=== PATIENT | female | born 1990 | race Caucasian/White ===

== ENCOUNTER 2020-03-22 07:55 | Outpatient (CLI) | payer BC, SELFPAY ==
--- NOTE | ~2020-03-22 | NM_ITS ---
EXAM: NM gastric emptying study DATE: 03/22/2020 13:01 INDICATION: Gastroesophageal reflux disease. TECHNIQUE: A gastric emptying study was performed using the methodology of Kamala BURR, et al. J Nucl Med 2007; 48:568-572. The patient was given a meal consisting of 2 scrambled eggs labeled with 0.944 mCi Tc-99m sulfur colloid, 2 slices of toast, two packages of jam, and approximately 120 mL of water . Simultaneous anterior and posterior 1-min images of the abdomen were obtained with the patient supi ne at multiple time points over a total period of 4 hours. The geometric mean of anterior and posteri or views was determined, and the percentage retention was calculated for each time point. COMPARISON: CT abdomen and pelvis 02/01/2015 FINDINGS: Gastric retention of the radiotracer-labeled meal was 53%, 25%, and 8% at the 1-hour, 2-ho ur, and 4-hour time points, respectively. With this technique, apparent rapid gastric emptying is sug gested by <30% gastric retention at 1 hour. Delayed gastric emptying is defined by gastric retention of >90% at 1 hour, >60% retention at 2 hours, or >10% retention at 4 hours. IMPRESSION: 1. Normal gastric emptying. Reviewed, dictated and finalized at location A. IMPRESSION: 1. Normal gastric emptying.
[2020-03-22 08:52] LABS: Hematocrit 42.9 % (37.0-47.0); Hemoglobin 14.2 g/dL (12.0-15.0); Mean Corpuscular HGB Conc 33.1 g/dl (32-36); Mean Corpuscular Hemoglobin 30.1 pg (26-34); Mean Corpuscular Volume 90.9 fl (80-100); Mean Platelet Volume 10.7 fl (7.4-10.4); Platelet Count Result 380 k/mm3 (150-375); Red Blood Count 4.72 M/mm3 (4.2-5.4); Red Cell Distribution Width 12.5 % (11.5-14.5); White Blood Count 9.5 K/mm3 (4.5-10.0)
[2020-03-22 09:10] LABS: Alanine Aminotransferase 14 U/L (4-35); Albumin Level 4.6 g/dL (3.5-5.1); Alkaline Phosphatase 95 U/L (38-126); Anion Gap 13.5 mmol/L (7-16); Aspartate Amino Transferase 17 U/L (14-36); Bilirubin,Total 0.3 mg/dL (0.2-1.3); Blood Urea Nitrogen 13 mg/dL (7-17); CRP 0.9 mg/dL (<1.0); Carbon Dioxide 25 mmol/L (22-30); Chloride 105 mmol/L (98-107); Estimated Glomerular Filt Rate > 60; Glucose 93 mg/dL (65-105); Potassium 4.5 mmol/L (3.4-5.0); Sodium 139 mmol/L (137-145)
[2020-03-22 09:34] LABS: Thyroid Stimulating Hormone 0.765 uIU/mL (0.465-4.680)
== END 2020-03-22 07:56 | disposition home or self-care (01) ==
PROVIDERS: PCP Nurse Practitioner Family; Visit Provider Internal Medicine Gastroenterology
DX: K21.9 Gastro-esophageal reflux disease without esophagitis (principal)
CPT/HCPCS: 36415; 78264; 80053; 84436; 84443; 85027; 86140; A9541

== ENCOUNTER 2020-05-19 10:22 | Outpatient (CLI) | payer BC, SELFPAY ==
--- NOTE | ~2020-05-19 | US_ITS ---
EXAMINATION: US soft tissue head and neck DATE: 05/19/2020 11:09 INDICATION: Neck lump and pain. TECHNIQUE: Multiple grayscale and Doppler ultrasound images of the neck were obtained. COMPARISON: None FINDINGS: There are normal lymph nodes in the neck bilaterally. IMPRESSION: 1. No abnormal mass or lymphadenopathy. Reviewed, dictated and finalized at location A.
== END 2020-05-19 10:23 | disposition home or self-care (01) ==
PROVIDERS: PCP Nurse Practitioner Family; Visit Provider Nurse Practitioner Family
DX: R22.1 Localized swelling, mass and lump, neck (principal)
CPT/HCPCS: 76536

== ENCOUNTER 2020-07-10 08:28 | Outpatient (CLI) | payer BC, SELFPAY ==
--- NOTE | ~2020-07-10 | MR_ITS ---
EXAMINATION: MR brain/brain stem wo/w con DATE: 07/10/2020 11:12 INDICATION: Paresthesias of skin. Right-sided arm numbness. Bilateral leg tingling. Left facial heada carmen. TECHNIQUE: Magnetic resonance imaging (MRI) of the brain and brainstem was performed without and with 19 mL MultiHance intravenous contrast. Sequences included sagittal and axial T1-weighted FSE, axial diffusion-weighted FS EPI, axial T2*-weighted GRE, axial T2-weighted FLAIR Propeller, and axial T2-we ighted Propeller. Postcontrast sequences included axial, sagittal, and coronal T1-weighted FSE. Appar ent diffusion coefficient (ADC) maps were created. COMPARISON: None. FINDINGS: There is no intracranial hemorrhage, acute infarction, or abnormal intracranial mass lesion . The ventricles are normal in size. The mastoid air cells are normal. The paranasal sinuses are corrie r. The orbits are normal. IMPRESSION: 1. Normal brain. Reviewed, dictated and finalized at location B. 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 Normal brain.
--- NOTE | ~2020-07-10 | MR_ITS ---
EXAMINATION: MR thoracic spine wo/w con DATE: 07/10/2020 11:11 INDICATION: Paresthesias of skin. Bilateral leg tingling. TECHNIQUE: Magnetic resonance imaging (MRI) of the thoracic spine was performed without and with 19 m L MultiHance intravenous contrast. Sequences included sagittal and axial T2-weighted FSE, sagittal T2 -weighted FS FSE, and sagittal and axial T1-weighted FSE. Postcontrast sequences included sagittal an d axial T1-weighted FS FSE. COMPARISON: Thoracic spine MRI 12/21/16 FINDINGS: There is 3 degrees dextrocurvature of thoracic spine. Vertebral body heights are normal. Th e facet joints are unremarkable. At T6-T7, there is a left central extrusion with mild central canal stenosis and ventral indentation of the spinal cord. At T7-T8, there is a left central extrusion with mild central canal stenosis. At T8-T9, there is a left central extrusion with mild central canal darrell nosis and ventral indentation of the spinal cord. No neural foraminal stenosis. IMPRESSION: 1. Mild thoracic spondylosis, stable from 12/21/2016. Reviewed, dictated and finalized at location B. ED LINEN DISTRIBUTOR
--- NOTE | ~2020-07-10 | MR_ITS ---
EXAMINATION: MR cervical spine wo/w con DATE: 07/10/2020 11:12 INDICATION: Paresthesias of skin. Right arm numbness. Bilateral leg tingling. TECHNIQUE: Magnetic resonance imaging (MRI) of the cervical spine was performed without and with 19 m L MultiHance intravenous contrast. Sequences included sagittal T2-weighted FSE, sagittal STIR FSE, sa gittal T1-weighted FSE, axial MERGE, and axial T2-weighted FSE. COMPARISON: None FINDINGS: There is hyperlordosis of cervical spine. Vertebral body heights and intervertebral disc he ights are normal. The spinal cord signal intensity is normal. The following disc levels are specifica lly discussed: C2-C3: The disc does not extend beyond the endplate margin. There is no uncovertebral joint osteoarth ritis. There is no facet joint osteoarthritis. There is no neural foraminal stenosis. There is no melina tral canal stenosis. C3-C4: The disc does not extend beyond the endplate margin. There is no uncovertebral joint osteoarth ritis. There is no facet joint osteoarthritis. There is no neural foraminal stenosis. There is no melina tral canal stenosis. C4-C5: The disc does not extend beyond the endplate margin. There is no uncovertebral joint osteoarth ritis. There is no facet joint osteoarthritis. There is no neural foraminal stenosis. There is no melina tral canal stenosis. C5-C6: There is a central protrusion. There is no uncovertebral joint osteoarthritis. There is mild r ight facet joint osteoarthritis. There is no neural foraminal stenosis. There is no central canal darrell nosis. C6-C7: There is a central protrusion. There is no uncovertebral joint osteoarthritis. There is no fac et joint osteoarthritis. There is no neural foraminal stenosis. There is no central canal stenosis. C7-T1: The disc does not extend beyond the endplate margin. There is no uncovertebral joint osteoarth ritis. There is mild bilateral facet joint osteoarthritis. There is no neural foraminal stenosis. The re is no central canal stenosis. IMPRESSION: 1. Mild cervical spondylosis. Reviewed, dictated and finalized at location B. OPERATOR
[2020-07-10 09:24] LABS: Estimated Glomerular Filt Rate > 60
== END 2020-07-10 08:29 | disposition home or self-care (01) ==
LOC: ANHIMG 08:36
PROVIDERS: PCP Nurse Practitioner Family; Visit Provider Psychiatry & Neurology Neurology
DX: R20.2 Paresthesia of skin (principal); M47.894 Other spondylosis, thoracic region; M47.892 Other spondylosis, cervical region
CPT/HCPCS: 70553; 72156; 72157; A9577

== ENCOUNTER 2020-10-19 17:55 | Emergency (ER) | payer OTHER, SELFPAY ==
--- NOTE | 2020-10-19 17:57 | ED.HA ---
HPI - Headache General Chief Complaint: Headache Stated Complaint: bernardo Time Seen by Provider: 10/19/20 17:57 Source: patient Mode of arrival: ambulatory Limitations: no limitations History of Present Illness HPI Narrative: Patient is a 30-year-old female who presents complaining of a migraine x2 days. Patient reports a history of migraines and has a scheduled follow-up with neurology in 2 days. She reports taking enrl-anw-kucowia medications without relief. She reports mild nausea without vomiting as well as photophobia. Patient denies and all other complaints at this time. MD elicited complaint: migraine Related Data Home Medications Medication Instructions Recorded Confirmed propranolol 20 mg tablet 20 mg PO Q12H 08/06/20 10/19/20 aspirin [Adult Low Dose Aspirin] 81 mg PO DAILY 10/19/20 10/19/20 Allergies Allergy/AdvReac Type Severity Reaction Status Date / Time No Known Allergies Allergy Unverified 10/19/20 17:59 Review of Systems Review of Systems: Narrative: CONSTITUTIONAL: Denies fever, chills, or sweats. EYES: Denies visual changes, redness, or discharge. ENT: Denies rhinorrhea, congestion, sore throat, or otalgia. CARDIOVASCULAR: Denies chest pain, palpitations, or edema. RESPIRATORY: Denies cough or dyspnea. GASTROINTESTINAL: Denies abdominal pain, nausea, vomiting, or diarrhea. GENITOURINARY: Denies dysuria or hematuria. SKIN: Denies rash or itching. MUSCULOSKELETAL: Denies back pain, joint pain, or myalgia. NEUROLOGIC: Reports migraine headache with photophobia PSYCHIATRIC: Denies anxiety or depression. [facility] Past Medical History Medical History Acute tonsillitis GONZALO positive Anemia Anxiety Atypical face pain Back pain Bronchitis Cholecystectomy planned Colon polyps Depression Endometriosis Frequent headaches GERD (gastroesophageal reflux disease) IBS (irritable bowel syndrome) Jaw pain Sinusitis Trigeminal neuralgia syndrome UTI (urinary tract infection) Surgical History Surgical History History of appendectomy Hx of cholecystectomy Hx of tonsillectomy Family History Family History Father Hypertension Mother Hypertension Other Family history of cardiovascular disease Social History Social History Smoking status: Current every day smoker Tobacco type: e-cigarettes/vaping Alcohol intake: never Substance use: never Gender identity (if verbalized by the patient): Female Comments At the time of signature, I have reviewed and agree with nursing past medical, surgical, social, and family history unless otherwise noted. Please see nursing chart for further information. There is no relevant family history pertinent to the presenting complaint. Exam Narrative: Exam Narrative: GENERAL: Well-appearing, well-nourished, and in no acute distress. HEAD: Normocephalic, atraumatic. EYES: No redness or drainage. Conjunctiva are normal. ENT: Mucous membranes pink and moist. CHEST: No respiratory distress. HEART: Regular rate and rhythm. EXTREMITIES: Normal range of motion. SKIN: Warm, dry, no rash. NEURO: No focal deficits. Alert and oriented x3. Gait steady. PSYCH: Normal affect. No signs of depression or anxiety. MDM - Headache MDM Narrative Medical decision making narrative: Patient most likely has already seen neurology, has scheduled appointment next week with neurology and rheumatology. Patient given Toradol in urgent care as well as Zofran for nausea. Reports decreased headache at this time. Patient is aware that if headache increases she should go to the emergency department for further evaluation. Patient is stable for discharge to home with outpatient follow-up as discussed. Differential Diagnosis Differential diagnosis: Likel
[2020-10-19 18:01] VITALS: BP 147/83; PULSE 118; RESP 20; TEMP 36.3; O2SAT 100
[2020-10-19] MEDS: KETOROLAC (*BKC) 60 MG/2 ML VIAL IM (18:15)
[2020-10-19] MEDS: ONDANSETRON HCL ODT 4 MG TABLET PO (18:17)
[2020-10-19 18:38] VITALS: BP 124/84; PULSE 92; RESP 16
== END 2020-10-19 18:38 | disposition home or self-care (01) ==
PROVIDERS: Emergency Provider Nurse Practitioner; PCP Nurse Practitioner Family
DX: R51.9 Headache, unspecified (principal); F17.200 Nicotine dependence, unspecified, uncomplicated; K21.9 Gastro-esophageal reflux disease without esophagitis; N80.9 Endometriosis, unspecified; Z79.82 Long term (current) use of aspirin
CPT/HCPCS: 96372; 99213; A9270; G0463; J1885

== ENCOUNTER 2021-02-28 15:11 | Outpatient (CLI) | payer OTHER, SELFPAY ==
--- NOTE | ~2021-02-28 | CT_ITS ---
EXAMINATION: CT soft tissue neck wo con DATE: 02/28/2021 15:58 INDICATION: Sialoadenitis of the submandibular gland. TECHNIQUE: Computed tomography (CT) of the neck was performed without intravenous contrast. Automated exposure control and iterative reconstruction technique were employed. The dose-length product was 5 65.35 mGy-cm. COMPARISON: None FINDINGS: There are no pathologically enlarged lymph nodes. The major salivary glands are normal. The re is no sialolith. The paranasal sinuses are clear. The mastoid air cells are normal. The spine is u nremarkable. IMPRESSION: 1. Normal major salivary glands. No sialolith. Reviewed, dictated and finalized at location A.
== END 2021-02-28 15:12 | disposition home or self-care (01) ==
PROVIDERS: PCP Nurse Practitioner Family; Visit Provider Otolaryngology
DX: K11.20 Sialoadenitis, unspecified (principal)
CPT/HCPCS: 70490

== ENCOUNTER 2022-02-10 08:44 | Outpatient (CLI) | payer OTHER, SELFPAY ==
[2022-02-10 09:33] LABS: Hematocrit 43.9 % (37.0-47.0); Hemoglobin 14.7 g/dL (12.0-15.0); Mean Corpuscular HGB Conc 33.5 g/dl (32-36); Mean Corpuscular Hemoglobin 29.5 pg (26-34); Mean Corpuscular Volume 88.2 fl (80-100); Mean Platelet Volume 10.4 fl (7.4-10.4); Platelet Count Result 419 k/mm3 (150-375); Red Blood Count 4.98 M/mm3 (4.2-5.4); White Blood Count 10.3 K/mm3 (4.5-10.0)
[2022-02-10 09:58] LABS: Alanine Aminotransferase 16 U/L (6-35); Albumin Level 4.9 g/dL (3.5-5.1); Alkaline Phosphatase 101 U/L (38-126); Anion Gap 9 mmol/L (8-16); Aspartate Amino Transferase 17 U/L (14-36); Bilirubin,Total 0.7 mg/dL (0.2-1.3); Blood Urea Nitrogen 7 mg/dL (7-17); Calcium 9.1 mg/dL (8.4-10.2); Carbon Dioxide 24 mmol/L (22-30); Chloride 104 mmol/L (98-107); Cholesterol 228 mg/dL (0-200); Estimated Glomerular Filt Rate > 60; Glucose 92 mg/dL (65-110); HDL Direct 55 mg/dL; Hemoglobin A1C 5.2 % (<5.7); Potassium 4.1 mmol/L (3.4-5.0); Sodium 137 mmol/L (137-145); Triglycerides 187 mg/dL (<150)
[2022-02-10 10:02] LABS: Iron 99 ug/dL (37-170)
[2022-02-10 10:09] LABS: LDL Cholesterol Direct 132 mg/dL; Transferrin 239 mg/dL (206-381)
[2022-02-10 10:12] LABS: Percent Iron Saturation 31 % (20-50)
[2022-02-10 10:36] LABS: Thyroid Stimulating Hormone Reflex 0.862 uIU/mL (0.465-4.68)
== END 2022-02-10 08:45 | disposition home or self-care (01) ==
LOC: ANHLAB 08:46
PROVIDERS: PCP Nurse Practitioner Family; Visit Provider Nurse Practitioner Family
DX: Z13.0 Encounter for screening for diseases of the blood and blood-forming organs and certain disorders involving the immune mechanism (principal); Z13.1 Encounter for screening for diabetes mellitus; Z13.29 Encounter for screening for other suspected endocrine disorder; Z13.220 Encounter for screening for lipoid disorders
CPT/HCPCS: 36415; 80053; 80061; 82607; 83036; 83540; 83550; 84443; 84466; 85027

== ENCOUNTER 2022-03-02 00:17 | Inpatient (IN) | payer OTHER, SELFPAY ==
[2022-03-02] VITALS (17 sets, daily range): BP systolic 99–157; BP diastolic 45–116; PULSE 60–152; RESP 12–20; TEMP 35.8–36.7; O2SAT 90–100; BMI 34.6
--- NOTE | ~2022-03-02 | US_ITS ---
EXAMINATION: US abdomen limited DATE: 03/03/2022 09:51 INDICATION: Abnormal liver function tests TECHNIQUE: Multiple grayscale and Doppler ultrasound images of the abdomen were obtained. COMPARISON: None available FINDINGS: The head, body, and tail of the pancreas are normal. The liver is normal with normal echoge nicity and echotexture. No surface nodularity. Normal hepatopetal flow in the main portal vein. The g allbladder is surgically absent. The normal common bile duct measures 5 mm. IMPRESSION: 1. No sonographic correlate for the patient's symptoms. Reviewed, dictated and finalized at location B.
--- NOTE | ~2022-03-02 | MR_ITS ---
EXAMINATION: MR thoracic spine wo/w con, MR lumbar spine wo/w con DATE: 03/03/2022 09:39 INDICATION: Pain . L1 disc herniation. TECHNIQUE: 1. Magnetic resonance imaging (MRI) of the thoracic spine was performed without and with 20 mL Multih ance intravenous contrast. Sagittal localizer T1-weighted FSE of the cervicothoracic spine was obtain ed. Sequences included sagittal T2-weighted FSE, sagittal T2-weighted FS FSE, sagittal T1-weighted FS E and axial T1-weighted SE. Postcontrast sequences included axial T2-weighted FSE, sagittal T1-weight ed FS FSE, and axial T1-weighted FS SE. 2. MRI of the lumbar spine was performed without and with 20 mL MultiHance intravenous contrast utili zing the same contrast bolus. Sequences included sagittal T2-weighted FSE, sagittal T2-weighted FS FS E, and sagittal and axial T1-weighted FSE. Postcontrast sequences included axial T2-weighted FSE, sag ittal T1-weighted FSE, and axial and sagittal T1-weighted FS FSE. COMPARISON: CT lumbar spine dated 03/02/2022 and thoracic spine MR dated 07/10/2020 and 12/21/2016 FINDINGS: THORACIC SPINE MRI: Alignment is normal. Vertebral body heights are normal. Schmorl's nodes along the inferior endplates of T7 and T8. Mild disc height loss at T3-T4 and T6-T7 through T8-T9. Annular fissure and small centr al disc extrusion at T6-T7 with with disc material extending up to 6 mm cephalad to the inferior endp late of T6. Associated mild central canal stenosis but with mild flattening of the left ventral surfa ce of the cord. Annular fissure and small left paracentral disc extrusion with disc material extendin g up to 7 mm cephalad to the level of the inferior endplate of T7 which also mildly narrows the centr al canal. Annular fissure and slightly larger disc extrusion at T8-T9 which extends 3 mm cephalad to the level of the inferior endplate of T8 and measures 2-3 mm anteroposteriorly and 5 mm medial to lat eral. This mildly narrows the central canal and mildly flattens the left ventral surface of the cord. The remaining thoracic discs do not extend beyond the endplate margins. There is multilevel mild to moderate bilateral thoracic facet osteoarthritis without associated neural foraminal stenosis. No abn ormally enhancing lesions identified. Paravertebral soft tissues are unremarkable. LUMBAR SPINE MRI: Alignment is normal. Vertebral body heights are normal. Small Schmorl's node along the inferior endpl ate of L1. There is mild disc desiccation with mild disc height loss and minimal fibrovascular degene rative endplate changes at L1-L2. Marrow signals unremarkable. Remaining discs are normal. No abnorma lly enhancing lesions identified the paravertebral soft tissues are unremarkable. The following disc levels are specifically discussed: T12-L1: The disc does not extend beyond the endplate margin. There is mild left facet joint osteoarth ritis. There is no neural foraminal stenosis. There is no central canal stenosis. L1-L2: Disc is mildly bulging with superimposed annular fissure with central disc extrusion which juan sures 1.3 cm left to right, 7 mm AP and extends 7 mm cephalad to the level of the inferior endplate o f L1. This results in mild central canal stenosis. Greater degree than the previous noted extrusions in the thoracic spine. There is mild bilateral facet joint osteoarthritis. There is mild left neural foraminal stenosis. L2-L3: The disc does not extend beyond the endplate margin. There is mild bilateral facet joint osteo arthritis. There is no neural foraminal stenosis. There is no central canal stenosis. L3-L4: The disc does not extend beyond the endplate margin. There is mild bilateral facet joint osteo arthritis. There is no neural foraminal stenosis. There is no central canal stenosis. L4-L5: The disc does not extend beyond the endplate margin. There is mild bilateral facet joint osteo arthritis. There is mild bilat
--- NOTE | ~2022-03-02 | CT_ITS ---
EXAMINATION: CT lumbar spine wo con DATE: 03/02/2022 03:43 INDICATION: low back pain radiating down right leg . TECHNIQUE: Computed tomography (CT) of the lumbar spine was performed without intravenous contrast. A utomated exposure control and iterative reconstruction technique were employed. The dose-length produ ct was 1210.39 mGy-cm. COMPARISON: None. FINDINGS: 5 nonrib-bearing lumbar-type vertebral bodies. Pedicles intact. Slight straightening of the lumbar lordosis. Minimal anterior wedge deformity at the thoracolumbar junction, likely physiologic, otherwise the vertebral body heights are preserved. Moderate L1-T2 disc height loss and diffuse bulg e with superimposed 7 mm x 12 right paracentral extrusion, extending down the posterior aspect of the L2 vertebral body, causing moderate central canal stenosis. Mild L4-5 disc space narrowing and diffu se bulge with a 5 x 8 mm right paracentral extrusion extending along the posterior surface of the L5 vertebral body, narrowing the right lateral recess. Normal facets and posterior elements. No signific ant neural foraminal narrowing. Bilateral sclerosis and vacuum phenomenon in the SI joints. IMPRESSION: 1. Moderate degenerative disc disease at L1-2, with a right paracentral disc extrusion causing modera te central canal stenosis. 2. Mild degenerative disc disease at L4-5, with a right paracentral disc extrusion that causes narrow ing of the lateral recess. 3. Bilateral sacroiliitis. Reviewed, dictated and finalized at location K. IMPRESSION: 1. Moderate degenerative disc disease at L1-2, with a right paracentral disc ex trusion causing moderate central canal stenosis. 2. Mild degenerative disc disease at L4-5, with a right paracentral disc extrus ion that causes narrowing of the lateral recess. 3. Bilateral sacroiliitis.
--- NOTE | ~2022-03-02 | XR_ITS ---
XR chest 2V DATE: 03/02/2022 03:41 INDICATION: Syncopal episode today TECHNIQUE: 2 views, AP and lateral projections COMPARISON: 03/05/2021 PA chest FINDINGS: Normal heart size. No hilar or mediastinal enlargement. No pulmonary infiltrate or consolid ation, pleural effusion or pulmonary vascular congestion or pneumothorax. Status post cholecystectomy. IMPRESSION: No active cardiopulmonary disease Reviewed, dictated and finalized at location A.
--- NOTE | 2022-03-02 02:33 | ECG_ITS ---
Measurements Intervals [place] Rate: 83 P: 33 NM: 166 QRS: 39 QRSD: 98 T: 39 QT: 359 QTc: 424 Interpretive Statements SINUS RHYTHM BASELINE ARTIFACT- I, II, AVR NORMAL ECG Electronically Signed On 03-02-2022 7:41:42 CDT by Amado Don D.O.
--- NOTE | 2022-03-02 02:40 | ED.BACK ---
HPI - Back Pain/Injury General Chief Complaint: Back Pain/Injury <MERARI Shelley Last Filed: 03/02/22 17:09> Stated Complaint: back pain <MERARI Shelley Last Filed: 03/02/22 17:09> Time Seen by Provider: 03/02/22 02:26 <MERARI Shelley Last Filed: 03/02/22 17:09> Source: patient <MERARI Shelley Last Filed: 03/02/22 17:09> Mode of arrival: ambulatory <MERARI Shelley Last Filed: 03/02/22 17:09> Limitations: no limitations <MERARI Shelley Last Filed: 03/02/22 17:09> History of Present Illness HPI Narrative: This is a 32-year-old female that presents to the emergency department for lower back pain worsening over the last week. She has been taking a steroid taper and prescribed pain medication with some relief. She is scheduled for an MRI this Wednesday. Reports the pain tonight acutely worsened. She had a presyncopal type episode due to the pain. Reports she started to feel very lightheaded and had to lower herself to the floor. She does think that she lost consciousness. She did not hit her head or sustain any other injuries. The pain is in her lower back and radiates into her right leg. Reports longstanding history of lower back problems with sciatica. She sees a chiropractor due to this. Denies chest pain, shortness of breath, palpitations, saddle anesthesia, or bowel/bladder incontinence. <MERARI Shelley Last Filed: 03/02/22 17:09> Related Data Home Medications: Home Medications Medication Instructions Recorded Confirmed aspirin 81 mg tablet 81 mg PO DAILY 10/19/20 03/02/22 <MERARI Shelley Last Filed: 03/02/22 17:09> Allergies/Adverse Reactions: Allergies Allergy/AdvReac Type Severity Reaction Status Date / Time No Known Allergies Allergy Verified 03/02/22 02:50 <MERARI Shelley Last Filed: 03/02/22 17:09> Review of Systems Review of Systems: CONSTITUTIONAL: Denies fever CARDIOVASCULAR: Denies chest pain RESPIRATORY: Denies dyspnea. MUSCULOSKELETAL: Reports back pain, joint pain, and myalgia. NEUROLOGIC: Denies numbness, or weakness. <Jayla Griffiths PA-C - Last Filed: 03/02/22 17:09> All systems reviewed & are unremarkable except as noted in HPI and below <Jayla Griffiths PA-C - Last Filed: 03/02/22 17:09> [facility] Past Medical History Medical History: Medical History (Updated 03/02/22 @ 17:09 by Jayla Griffiths PA-C) Acute tonsillitis OGNZALO positive (~2020) Anemia Anxiety Atypical face pain Back pain Bronchitis Cholecystectomy planned Chronic low back pain Colon polyps Depression Diarrhea Endometriosis Frequent headaches GERD (gastroesophageal reflux disease) Hx of thrombocytopenia On ASA IBS (irritable bowel syndrome) Jaw pain Lyme disease of inner ear (~2020) Overweight Sinusitis Tobacco use Trigeminal neuralgia syndrome UTI (urinary tract infection) <Jayla Griffiths PA-C - Last Filed: 03/02/22 17:09> Surgical History Surgical History: Surgical History History of appendectomy Hx of cholecystectomy Hx of tonsillectomy <Jayla Griffiths PA-C - Last Filed: 03/02/22 17:09> Family History Family History: Family History Father Hypertension Family history of cardiovascular disease Mother Hypertension <Jayla Griffiths PA-C - Last Filed: 03/02/22 17:09> Social History Social History: Social History Social History: Lives alone. She has a dog. Denies alcohol or drug use. She does smoke E cigarettes with vaping daily. She is a full code. She nominates her mother to be the individual make medical decisions for her she is unable. Smoking status: Current every day smoker Tobacco type: e-cigarettes/vaping Second hand tobacco smoke exposure: No Alcohol
[2022-03-02] MEDS: KETOROLAC 15 MG/ML VIAL (*BKC) IV PUSH (02:56)
[2022-03-02] MEDS: diazePAM INJ (*CRX) 10 MG/2 ML SYRINGE 5 MG IV PUSH (02:57)
[2022-03-02 03:00] LABS: Basophils Percent Auto 0.3 % (0.2-1.2); Eosinophils Percent Auto 0.3 % (0-4.4); Hematocrit 40.8 % (37.0-47.0); Hemoglobin 13.6 g/dL (12.0-15.0); Immature Granulocyte Absolute 0.04 K/mm3 (0.00-0.031); Immature Granulocyte Percent A 0.3 % (0-0.5); Lymphocytes Absolute Auto 4.08 K/mm3 (0.9-3.2); Lymphocytes Percent Auto 28.6 % (18.3-44.2); Mean Corpuscular HGB Conc 33.3 g/dl (32-36); Mean Corpuscular Hemoglobin 29.6 pg (26-34); Mean Corpuscular Volume 88.7 fl (80-100); Mean Platelet Volume 9.7 fl (7.4-10.4); Monocytes Percent Auto 7.2 % (2.6-8.5); Neutrophils Percent Auto 63.3 % (45.5-73.1); Platelet Count Result 367 k/mm3 (150-375); White Blood Count 14.3 K/mm3 (4.5-10.0)
[2022-03-02 03:11] LABS: Alanine Aminotransferase 183 U/L (6-35); Albumin Level 4.2 g/dL (3.5-5.1); Alkaline Phosphatase 93 U/L (38-126); Anion Gap 4 mmol/L (8-16); Aspartate Amino Transferase 190 U/L (14-36); Bilirubin,Total 0.4 mg/dL (0.2-1.3); Blood Urea Nitrogen 14 mg/dL (7-17); Calcium 8.7 mg/dL (8.4-10.2); Carbon Dioxide 28 mmol/L (22-30); Chloride 105 mmol/L (98-107); Estimated CRCL calculation 111 ml/min; Estimated Glomerular Filt Rate > 60; Glucose 94 mg/dL (65-110); Potassium 3.7 mmol/L (3.4-5.0); Sodium 137 mmol/L (137-145)
[2022-03-02 03:23] LABS: Troponin I < 0.012 ng/mL (0.000-0.034)
[2022-03-02] MEDS: HYDROmorphone HCL INJ (*CRX) 1 MG/ML SYR 0.5 MG IV PUSH ×5 (06:07→22:18)
--- NOTE | 2022-03-02 06:58 | ADMGEN ---
This patient, Jackie Macedo, was admitted to [facility] Surg Room 319-01. Patient/family oriented to hospital policies and general routines including ID bracelet, bed and alarms, visiting hours, pain management, procedures, bathroom and other care routines, personal items, smoking policy, room service/diet, and visiting hours. Information on how to activate the Rapid Response Team has been discussed. Patient/Family are encouraged to report perceived risks to care and to ask questions if they do not understand what they are told or what they should do.
[2022-03-02] MEDS: KETOROLAC 30 MG/ML VIAL (*BKC) 15 MG IV PUSH (08:21)
--- NOTE | 2022-03-02 09:16 | PM.IMHP ---
H&P: HPI History of Present Illness Date/Time: 03/02/22 09:16 Chief Complaint: Low back pain; I couldn't take the pain no more? Narrative: 32-year-old female with migraines, tobacco abuse, irritable bowel syndrome and GONZALO positive here for acute on chronic low back pain. Patient has had chronic lumbar pain for over 10 years. She normally sees our chiropractor once a week for this. She has never had injections. She has never had surgery. She has never seen other providers for this. Did have a back MRI a few years ago and on chart review it appears she had a thoracic MRI which showed mild disc disease with annular fissures in small disc extrusion at T6-7 through T8-9. There is also minimal central canal stenosis at C6-7. Patient states the low back pain is constant and that she has intermittent flares with increased severity. She has never had any numbness, tingling or weakness in her extremities. She normally uses ice, stretching and increases her chiropractic visits. She takes Tylenol and ibuprofen for pain. She does have right-sided sciatic symptoms on occasion as well. About 6 days prior to admission, patient states ?my sciatic was acting up? that she describes as sharp, jolting pain as a shocking sensation in or right buttock posterior thigh and down to the inside of her right foot. That evening she did some stretching but the following morning she had trouble getting out of bed because of the pain. Right foot was tingling but no weakness. She states the pain has worsened over the past 5 days. She did contact her doctor and a steroid taper was called in as well as Tylenol 3. MRI scheduled for later this week. She states there was no benefit with the steroid taper and Tylenol No. 3 but later states that the sciatic symptoms actually improved. She has been able to walk at home. She denies any saddle anesthesia. No bowel or bladder incontinence. No symptoms of urine retention. She has been eating and drinking well. She does have a history of neck pain but denies any symptoms at this time. She does have migraines but no headaches. On the evening prior to admission patient felt nauseous because the pain. She try to make to the bathroom but pain was too severe. She felt diaphoretic and lightheaded. Her vision became blurry. She lowered herself to the floor and believes that she passed out. She denies any chest pain but just felt lightheaded. No vertigo symptoms. No fevers but feels cold and has shaking chills at times. She had called her family prior to this. Patient is unsure how long she was down. She denies any further sciatic symptoms but her right foot continues to tingle. She mentions that her left foot has become numb she began the day prior to admission. She did lay on the floor for 30 minutes when she came to. Family was able to get her back to bed but she was having increasing back spasms which prompted this admission. She had brought by private car. In the emergency room, patient was hemodynamically stable. She was tachycardic with a heart rate of 131. She was treated with Valium and Toradol. EKG was normal. White count was 14K otherwise CBC was normal. AST 190 and ALT 183. Troponin is negative. Urine test was negative. Chest x-ray preliminary reading was clear. CT lumbar spine pulmonary reading showed posterior disc osteophyte complex bulge at L1 with possible focal disc herniation possible impingement. She has no history of hepatitis. No history of IV drug use. No history of any drug use. She did have a needlestick in 2015 but appropriate serologies at the time were negative. Labs were repeated few months later and they remained negative. She denies any risky sexual behavior but later states that she did have unprotected intercourse few months ago. She was admitted for further care. Review of Systems Review of Systems: All systems reviewed & are unremarkable except as noted in HPI and below PMFSH
[2022-03-02 10:28] LABS: Acetaminophen < 10 ug/mL (10-30)
[2022-03-02 10:32] LABS: CRP 0.8 mg/dL (<1.0)
[2022-03-02 11:10] LABS: HIV 1/2 Ab P24 Ag Result Negative (Negative)
[2022-03-02] MEDS: oxyCODONE HCL (*CRX) 5 MG TAB IR PO ×3 (11:20→19:46)
[2022-03-02] MEDS: PANTOPRAZOLE 40 MG TABLET PO ×2 (11:22→18:25)
[2022-03-02] MEDS: DEXAMETHASONE SOD PHOS INJ 4 MG/ML VIAL IV PUSH ×2 (11:22→18:25)
[2022-03-02 11:30] LABS: Glucose Point of Care 123 mg/dl (65-105)
[2022-03-02 11:44] LABS: Hepatitis B Surface Antigen Negative (Negative)
[2022-03-02 11:49] LABS: HAV RESULT Negative (Negative); Hepatitis B Core IgM Result Negative (Negative)
[2022-03-02 12:02] LABS: Hepatitis B Surface Anti Res Positive; Hepatitis C Virus Antibody Negative (Negative)
[2022-03-02] MEDS: traMADol HCL (*CRX) 25 MG TABLET PO (12:28)
[2022-03-02 16:59] LABS: Glucose Point of Care 149 mg/dl (65-105)
[2022-03-02 21:28] LABS: Glucose Point of Care 134 mg/dl (65-105)
[2022-03-03] VITALS (7 sets, daily range): BP systolic 109–123; BP diastolic 53–74; PULSE 51–86; RESP 16–18; TEMP 36.1–36.7; O2SAT 97–99
[2022-03-03] MEDS: DEXAMETHASONE SOD PHOS INJ 4 MG/ML VIAL IV PUSH ×5 (00:15→23:57)
[2022-03-03] MEDS: oxyCODONE HCL (*CRX) 5 MG TAB IR PO ×3 (00:22→17:39)
[2022-03-03] MEDS: HYDROmorphone HCL INJ (*CRX) 1 MG/ML SYR 0.5 MG IV PUSH ×3 (02:17→19:56)
[2022-03-03] MEDS: traMADol HCL (*CRX) 25 MG TABLET PO ×2 (05:56→21:59)
[2022-03-03 07:32] LABS: Basophils Percent Auto 0.1 % (0.2-1.2); Hematocrit 42.5 % (37.0-47.0); Hemoglobin 13.9 g/dL (12.0-15.0); Immature Granulocyte Absolute 0.09 K/mm3 (0.00-0.031); Immature Granulocyte Percent A 0.6 % (0-0.5); Lymphocytes Percent Auto 10.4 % (18.3-44.2); Mean Corpuscular HGB Conc 32.7 g/dl (32-36); Mean Corpuscular Hemoglobin 29.4 pg (26-34); Mean Corpuscular Volume 89.9 fl (80-100); Mean Platelet Volume 10.2 fl (7.4-10.4); Monocytes Absolute Auto 0.4 K/mm3 (0.1-0.6); Monocytes Percent Auto 2.6 % (2.6-8.5); Neutrophils Absolute Auto 13.3 K/mm3 (1.3-6.7); Neutrophils Percent Auto 86.3 % (45.5-73.1); Platelet Count Result 409 k/mm3 (150-375); Red Blood Count 4.73 M/mm3 (4.2-5.4); Red Cell Distribution Width 12.9 % (11.5-14.5); White Blood Count 15.4 K/mm3 (4.5-10.0)
[2022-03-03 07:48] LABS: Alanine Aminotransferase 159 U/L (6-35); Albumin Level 4.5 g/dL (3.5-5.1); Alkaline Phosphatase 96 U/L (38-126); Anion Gap 9 mmol/L (8-16); Aspartate Amino Transferase 28 U/L (14-36); Bilirubin,Total 0.2 mg/dL (0.2-1.3); Blood Urea Nitrogen 10 mg/dL (7-17); Carbon Dioxide 24 mmol/L (22-30); Chloride 106 mmol/L (98-107); Estimated CRCL calculation 146 ml/min; Estimated Glomerular Filt Rate > 60; Glucose 121 mg/dL (65-110); Potassium 4.2 mmol/L (3.4-5.0); Sodium 139 mmol/L (137-145)
[2022-03-03 07:54] LABS: Glucose Point of Care 123 mg/dl (65-105)
[2022-03-03] MEDS: COLESTIPOL HCL 1 GM TABLET PO (10:05)
[2022-03-03] MEDS: PANTOPRAZOLE 40 MG TABLET PO ×2 (10:05→17:40)
[2022-03-03] MEDS: ASPIRIN 81 MG CHEWABLE TABLET PO (10:05)
[2022-03-03 11:44] LABS: Glucose Point of Care 167 mg/dl (65-105)
--- NOTE | 2022-03-03 12:04 | PM.IMPN ---
Progress Note: A&P Assessment and Plan (1) Syncope: Code(s): R55 - Syncope and collapse Status: Acute (2) Acute exacerbation of chronic low back pain: Code(s): M54.50 - Low back pain, unspecified; G89.29 - Other chronic pain Status: Acute (3) Elevated LFTs: Code(s): R79.89 - Other specified abnormal findings of blood chemistry Status: Acute (4) GONZALO positive: Onset Date: ~2019 Code(s): R76.8 - Other specified abnormal immunological findings in serum Status: Acute (5) Tobacco use: Code(s): Z72.0 - Tobacco use Status: Acute Plan # Syncope: likely vasovagal due to severe pain. telemetry reviewed. sinus tachycardia. no other arrhythmia noted. will stop telemetry monitoring. Labs are all unremarkable # acute on chronic low back pain: Lumbar CT with moderate degenerative disc disease at L1-L2 with the right parasternal disc extrusion causing moderate central canal stenosis. Mild degenerative disc disease at L4-5 with right parasternal disc extrusion that cause narrowing of the lateral recess. Bilateral sacroiliitis noted as well. Follow-up lumbar and Thoracics MRI shows mild thoracic spondylosis is unchanged since 2017 with mild lumbar spondylosis most notable for annular fissure and moderate size disc extrusion resulting in mild central cannula stenosis at L1-L2. She is recently treated with steroid pack. Which is continued here as well will add muscle relaxants. Pain control with Tylenol Toradol and Dilaudid. She will need referral to see neurosurgeon as outpatient. Continue PT OT. Add naproxen scheduled. # GONZALO positive history of anti positives repeated again. check esr, crp. # Bilateral sacral ileitis will check HLA B27 # migraine intractable right sided, chornic without aura. check ESR. Has tried Ubrelvy which has helped. Failed Imitrex. Amitriptyline made her drowsy. Not on control. Topamax might not be an option. Since will be helped this can be uses a preventative medication now as well she will discuss this with her PCP # elevated liver enzymes hepatitis panel ordered HIV negative. Right upper quadrant ultrasound unremarkable # DVT prophylaxis SCDs ambulatory # code status full code Subjective Date/time seen: 03/03/22 12:04 Interval history: 32-year-old female with migraines, tobacco abuse, irritable bowel syndrome and GONZALO positive here for acute on chronic low back pain.? Patient has had chronic lumbar pain for over 10 years.? She normally sees our chiropractor once a week for this.? She has never had injections.? She has never had surgery.? She has never seen other providers for this.? Did have a back MRI a few years ago and on chart review it appears she had a thoracic MRI which showed mild disc disease with annular fissures in small disc extrusion at T6-7 through T8-9.? There is also minimal central canal stenosis at C6-7.? Patient states the low back pain is constant and that she has intermittent flares with increased severity.? She has never had any numbness, tingling or weakness in her extremities.? She normally uses ice, stretching and increases her chiropractic visits.? She takes Tylenol and ibuprofen for pain.? She does have right-sided sciatic symptoms on occasion as well.? About 6 days prior to admission, patient states ?my sciatic was acting up? that she describes as sharp, jolting pain as a shocking sensation in or right buttock posterior thigh and down to the inside of her right foot.? That evening she did some stretching but the following morning she had trouble getting out of bed because of the pain.? Right foot was tingling but no weakness. She states the pain has worsened over the past 5 days.? She did contact her doctor and a steroid taper was called in as well as Tylenol 3. MRI scheduled for later this week.? She states there was no benefit with the steroid taper and Tylenol No. 3 but later states that the sciatic symptoms actually improved.? She
[2022-03-03 13:38] LABS: CRP 0.8 mg/dL (<1.0)
[2022-03-03 13:48] LABS: Erythrocyte Sedimentation Rate 5 mm/hr (0-20)
[2022-03-03] MEDS: CYCLOBENZAPRINE HCL 5 MG TABLET PO ×2 (14:30→21:58)
[2022-03-03 16:29] LABS: Glucose Point of Care 114 mg/dl (65-105)
[2022-03-03] MEDS: NAPROXEN 500 MG TABLET PO (17:40)
[2022-03-04 06:00] VITALS: BP 104/63; PULSE 56; RESP 18; TEMP 36.8; O2SAT 96
[2022-03-04] MEDS: oxyCODONE HCL (*CRX) 5 MG TAB IR PO ×3 (06:10→20:01)
[2022-03-04] MEDS: DEXAMETHASONE SOD PHOS INJ 4 MG/ML VIAL IV PUSH (06:10)
[2022-03-04] MEDS: CYCLOBENZAPRINE HCL 5 MG TABLET PO ×3 (06:10→21:51)
[2022-03-04 07:32] LABS: Glucose Point of Care 143 mg/dl (65-105)
[2022-03-04 07:48] LABS: Basophils Percent Auto 0.1 % (0.2-1.2); Hematocrit 41.1 % (37.0-47.0); Hemoglobin 13.5 g/dL (12.0-15.0); Immature Granulocyte Absolute 0.12 K/mm3 (0.00-0.031); Immature Granulocyte Percent A 0.7 % (0-0.5); Lymphocytes Absolute Auto 2.17 K/mm3 (0.9-3.2); Lymphocytes Percent Auto 11.8 % (18.3-44.2); Mean Corpuscular HGB Conc 32.8 g/dl (32-36); Mean Corpuscular Hemoglobin 29.7 pg (26-34); Mean Corpuscular Volume 90.3 fl (80-100); Mean Platelet Volume 10.3 fl (7.4-10.4); Monocytes Absolute Auto 1.2 K/mm3 (0.1-0.6); Monocytes Percent Auto 6.3 % (2.6-8.5); Neutrophils Absolute Auto 14.9 K/mm3 (1.3-6.7); Neutrophils Percent Auto 81.1 % (45.5-73.1); Platelet Count Result 399 k/mm3 (150-375); Red Blood Count 4.55 M/mm3 (4.2-5.4); Red Cell Distribution Width 13.1 % (11.5-14.5); White Blood Count 18.4 K/mm3 (4.5-10.0)
[2022-03-04 08:04] LABS: Alanine Aminotransferase 86 U/L (6-35); Alkaline Phosphatase 79 U/L (38-126); Anion Gap 7 mmol/L (8-16); Aspartate Amino Transferase 15 U/L (14-36); Bilirubin,Total < 0.1 mg/dL (0.2-1.3); Blood Urea Nitrogen 13 mg/dL (7-17); Calcium 8.7 mg/dL (8.4-10.2); Carbon Dioxide 23 mmol/L (22-30); Chloride 106 mmol/L (98-107); Estimated CRCL calculation 146 ml/min; Estimated Glomerular Filt Rate > 60; Glucose 122 mg/dL (65-110); Magnesium 2.2 mg/dL (1.6-2.3); Potassium 4.2 mmol/L (3.4-5.0); Sodium 136 mmol/L (137-145)
[2022-03-04] MEDS: HYDROmorphone HCL INJ (*CRX) 1 MG/ML SYR 0.5 MG IV PUSH ×2 (08:48→21:51)
[2022-03-04] MEDS: PANTOPRAZOLE 40 MG TABLET PO ×2 (08:49→18:23)
[2022-03-04] MEDS: NAPROXEN 500 MG TABLET PO ×2 (08:49→18:24)
[2022-03-04] MEDS: COLESTIPOL HCL 1 GM TABLET PO (08:49)
[2022-03-04] MEDS: ASPIRIN 81 MG CHEWABLE TABLET PO (08:49)
[2022-03-04 11:28] LABS: Glucose Point of Care 155 mg/dl (65-105)
[2022-03-04] MEDS: methylPREDNISolone (MEDROL) DOSEPACK 4 MG TABLETS PO (12:19)
[2022-03-04 14:00] VITALS: BP 122/62; PULSE 72; RESP 16; TEMP 36.2; O2SAT 98
--- NOTE | 2022-03-04 16:19 | PM.IMPN ---
Progress Note: A&P Assessment and Plan (1) Syncope: Code(s): R55 - Syncope and collapse Status: Acute (2) Acute exacerbation of chronic low back pain: Code(s): M54.50 - Low back pain, unspecified; G89.29 - Other chronic pain Status: Acute (3) Elevated LFTs: Code(s): R79.89 - Other specified abnormal findings of blood chemistry Status: Acute (4) GONZALO positive: Onset Date: ~2019 Code(s): R76.8 - Other specified abnormal immunological findings in serum Status: Acute (5) Tobacco use: Code(s): Z72.0 - Tobacco use Status: Acute Plan Syncope likely vasovagal due to the severe pain. She was on telemetry but no significant dysrhythmias noted. Telemetry stopped. Labs are unrevealing. She does have acute on chronic low back pain. Lumbar CT with moderate degenerative disc disease at L1-L2 with the right parasternal disc extrusion causing moderate central canal stenosis. Mild degenerative disc disease at L4-5 with right parasternal disc extrusion that cause narrowing of the lateral recess. Bilateral sacroiliitis noted as well. Follow-up lumbar and Thoracics MRI shows mild thoracic spondylosis that is unchanged since 2017 with mild lumbar spondylosis most notable for annular fissure and moderate size disc extrusion resulting in mild central cannula stenosis at L1-L2. She was recently treated with steroid pack. She was started on Decadron here. Muscle relaxants added. Pain control with Tylenol Toradol and Dilaudid. Scheduled naproxen added. GONZALO positive history although not performed here. ESR and CRP normal. She does have bilateral sacral ileitis and HLA B27 was ordered. She also with migraines right-sided which is chronic. She has tried multiple medications without benefit. Her LFTs have improved. Hepatitis and HIV were negative. Upper quadrant ultrasound was negative. Elevated liver enzymes may be related to a viral illness. Will transition back to Medrol Dosepak. Will consult Neurosurgery. Continue PT OT. Spoke with Neurosurgery by phone later in the day. Hospital course discussed. Recommended changing back to Decadron orally while hospitalized. Recommend following up with neuro surgery in the clinic. Will see how she does with Decadron. Hopefully home tomorrow with follow-up. DVT prophylaxis: SCDs, ambulatory Code status: full code Subjective Date/time seen: 03/04/22 16:19 Interval history: 32yo female with migraines, tobacco abuse, irritable bowel syndrome and GONZALO positive here for acute on chronic low back pain.? Resuming care. Chart reviewed. Patient having increasing pain still. She is able to walk to the bathroom now. She feels the steroids are helping her hip pain. Exam Narrative: AF 97.1 122/62 72 16 98% ra Gen - NARD sitting up beside the bed Chest -clear to auscultation bilaterally. CV - RRR S1-S2 Abd - soft, nontender, nondistended, positive bowel sound Ext - no pedal edema Psych - normal mood and affect. Skin - warm and dry. Objective Data Vital Signs Vital Signs: Vital Signs - 24 hr 03/03/22 22:00 03/04/22 06:00 03/04/22 08:49 Temperature 97.6 F 98.3 F Pulse Rate 75 56 L Respiratory Rate 18 18 Blood Pressure 109/53 L 104/63 Pulse Oximetry 98 96 Oxygen Delivery Room Air 03/04/22 14:00 Temperature 97.1 F L Pulse Rate 72 Respiratory Rate 16 Blood Pressure 122/62 Pulse Oximetry 98 Oxygen Delivery Intake/Output Intake/Output: Intake & Output 03/01/22 03/02/22 03/03/22 03/04/22 23:59 23:59 23:59 23:59 Intake Total 1320 3700 560 Balance 1320 3700 560 Meds/Results Medications: Active Medications Generic Name Dose Route Start Last Admin Trade Name Freq PRN Reason Stop Dose Admin Acetaminophen 650 mg 03/04/22 13:19 Acetaminophen 325 Mg Tablet PO Q6H PRN Mild Pain (1-3) or Fever Aspirin 81 mg 03/03/22 08:00 03/04/22 08:49 Aspirin 81 Mg Chewable
[2022-03-04 16:35] LABS: Glucose Point of Care 143 mg/dl (65-105)
[2022-03-04 19:18] LABS: Hepatitis B Core Ab Total Nonreactive (Nonreactive)
[2022-03-04 22:00] VITALS: BP 106/66; PULSE 68; RESP 16; TEMP 37.1; O2SAT 98
[2022-03-05] MEDS: oxyCODONE HCL (*CRX) 5 MG TAB IR PO ×3 (05:37→17:52)
[2022-03-05] MEDS: CYCLOBENZAPRINE HCL 5 MG TABLET PO ×2 (05:38→13:10)
[2022-03-05 06:00] VITALS: BP 110/64; PULSE 70; RESP 16; TEMP 36.6; O2SAT 100
[2022-03-05 08:19] LABS: Glucose Point of Care 93 mg/dl (65-105)
[2022-03-05] MEDS: NAPROXEN 500 MG TABLET PO ×2 (10:11→17:47)
[2022-03-05] MEDS: ASPIRIN 81 MG CHEWABLE TABLET PO (10:11)
[2022-03-05] MEDS: DEXAMETHASONE 2 MG TABLET PO ×3 (10:11→17:47)
[2022-03-05] MEDS: PANTOPRAZOLE 40 MG TABLET PO ×2 (10:12→17:48)
[2022-03-05 12:01] LABS: Glucose Point of Care 100 mg/dl (65-105)
[2022-03-05 14:00] VITALS: BP 124/47; PULSE 92; RESP 18; TEMP 36.5; O2SAT 99
--- NOTE | 2022-03-05 14:55 | WPDCN ---
Assessment and Plan Assessment and plan (1) Lumbar disc herniation: Code(s): M51.26 - Other intervertebral disc displacement, lumbar region Status: Acute Assessment and Plan: Ms. Macedo is a 32-year-old female with new onset back and lower extremity discomfort who is having an exacerbation which is worse than previous exacerbations making it difficult for her to ambulate effectively. She is improving on oral steroids. The next treatment steps for her would be most efficiently dealt with as an outpatient. This could include physical therapy or injections by hand painter. Attention should be on making her comfortable enough to ambulate effectively make transfers independently so that she can be discharged to follow up with us in the office and perhaps me with a hand painter for injection. If she fails to improve conservatively then surgery may be necessary. At this point the only surgery that makes sense would be a right-sided L1-2 microdiskectomy. I do not believe that she requires a fusion or instrumentation at this point and it would be in her best interest to avoid surgery altogether. We will follow up with her as an outpatient and I will continue to follow a she is an inpatient. HPI Data of Consult Date/Time: 03/05/22 14:55 Requesting Physician: Freddy Jung MD Primary Care Provider: Liz Carrasco, BUSINESS LIAISON OFFICER- Consult Narrative Reason for consult: Back and leg pain Narrative: Jackie Macedo is a 32 year old female with a week and a half history of pain in her back radiating into her right lower extremity. This is mostly proximal but occasionally extends all the way down to the foot nonspecifically. She has had similar episodes in the past but never as severe as the 1 she is having now. She is seeing a chiropractor most recently to try to deal with this difficulty. This has been helpful in maintaining her. She has been hospitalized because of this event and her inability to ambulate because of pain. As mentioned the pain is in her back radiating towards the right side at times all the way down the leg and is not associated with specific muscle group weakness. Nor does she have any specific dermatomal numbness. She is not having any bowel or bladder difficulty. She is currently being treated with oral steroids and is improving. She has been ambulatory today. She has no MRI evaluation of the thoracic and lumbar spine which is available for review. She 1st felt this discomfort at work a week ago Wednesday, that is about 9 days ago. She had an exacerbation of her typical sciatica but this generalized to be pain down the right lower extremity. The episode became worse than previous episodes. Review of Systems Review of Systems: Negative on 12 systems except as noted above. She specifically denies shortness of breath, cough, fever, chills, nausea, vomiting, chest pain. [facility] Past Medical History Medical History Acute tonsillitis GONZALO positive (~2019) Anemia Anxiety Atypical face pain Back pain Bronchitis Cholecystectomy planned Chronic low back pain Colon polyps Depression Diarrhea Endometriosis Frequent headaches GERD (gastroesophageal reflux disease) Hx of thrombocytopenia On ASA IBS (irritable bowel syndrome) Jaw pain Lyme disease of inner ear (~2019) Overweight Sinusitis Tobacco use Trigeminal neuralgia syndrome UTI (urinary tract infection) Surgical History Surgical History History of appendectomy Hx of cholecystectomy Hx of tonsillectomy Family History Family History Father Hypertension Family history of cardiovascular disease Mother Hypertension Social History Social History Social History: Lives alone. She has a dog.
[2022-03-05 16:49] LABS: Glucose Point of Care 127 mg/dl (65-105)
--- NOTE | 2022-03-05 17:06 | PM.DS ---
DS: Admitting Diagnosis Discharge Date 03/05/22 Admitting Diagnosis Back pain DS: Discharge Diagnosis Discharge Diagnosis (1) Syncope: Code(s): R55 - Syncope and collapse Status: Acute (2) Acute exacerbation of chronic low back pain: Code(s): M54.50 - Low back pain, unspecified; G89.29 - Other chronic pain Status: Acute (3) Elevated LFTs: Code(s): R79.89 - Other specified abnormal findings of blood chemistry Status: Acute (4) GONZALO positive: Onset Date: ~2019 Code(s): R76.8 - Other specified abnormal immunological findings in serum Status: Acute (5) Tobacco use: Code(s): Z72.0 - Tobacco use Status: Acute DS: Summary Hospital Course Reason for hospitalization: 32yo female with migraines, tobacco abuse, irritable bowel syndrome and GONZALO positive here for acute on chronic low back pain.? Please see H&P for details. Hospital Course: Syncope likely vasovagal due to the severe pain. She was on telemetry but no significant dysrhythmias noted. Telemetry was stopped. Labs were unrevealing except LFTs elevated. Chest x-ray was clear. She presents with acute on chronic low back pain. Lumbar CT with moderate degenerative disc disease at L1-L2 with the right parasternal disc extrusion causing moderate central canal stenosis. Mild degenerative disc disease at L4-5 with right parasternal disc extrusion that cause narrowing of the lateral recess. Bilateral sacroiliitis noted as well. Follow-up lumbar and Thoracics MRI shows mild thoracic spondylosis that is unchanged since 2017 with mild lumbar spondylosis most notable for annular fissure and moderate size disc extrusion resulting in mild central cannula stenosis at L1-L2. She was recently treated with steroid pack. She was started on Decadron here. Muscle relaxants added. Pain control with Tylenol, Toradol and Dilaudid. Scheduled naproxen added. GONZALO positive history GONZALO was negative here. ESR and CRP normal. She does have bilateral sacroiliitis and HLA B27 was ordered. She also with migraines right-sided which is chronic. She has tried multiple medications without benefit. Her LFTs have improved. Hepatitis and HIV were negative. Upper quadrant ultrasound was negative. Elevated liver enzymes may be related to a viral illness. We consulted Neurosurgery. She worked with PT and OT. She did well with some improvement in her pain. She was able to be discharged home on 03/05/22 Status at Discharge Cognitive/behavioral status at discharge: Stable Time Spent with Patient Time attestation: Total time spent providing and/or coordinating discharge services: 35 minutes Time spent: Greater than 30 minutes Exam Narrative: AF 97.7 124/47 92 18 99% ra Gen - NARD Chest -clear to auscultation bilaterally. CV - RRR S1-S2 Abd - soft, nontender, nondistended, positive bowel sound Ext - no pedal edema Psych - normal mood and affect. Skin - warm and dry. DS: Data Data Completed and Pending Labs on day of discharge: Labs from last 24 hours 03/05/22 03/05/22 03/05/22 16:45 11:55 08:12 POC Capillary Glucose 127 H 100 93 GONZALO Screen Hep B Core Total Ab 03/02/22 03/02/22 10:10 10:10 POC Capillary Glucose GONZALO Screen Negative Hep B Core Total Ab Nonreactive Discharge Plan Discharge Attending physician on discharge: Eusebio Lara Consulting providers: Jayla Griffiths ; Nasim Devi Discharging Clinician: Eusebio Lara Anticipated Discharge Date/Time: 03/05/22 17:11 Patient Disposition: Home, Self-Care Activity: as tolerated Diet: regular Discharge Instructions: Take precautions to avoid falls. Rise slowly from a lying or sitting position. Pause before standing or walking. Contact your doctor or call 911 and come to the Emergency Room if you have numbness or tingling in the feet, weakness in the legs or other worrisome symptoms. Follow-up
[2022-03-05 21:30] LABS: HLA B27 Negative (Negative)
--- NOTE | 2022-03-07 07:33 | PC.NURSE ---
HLA B27 is negative. Dr. Marco aquino.
== END 2022-03-05 18:35 | disposition home or self-care (01) | DRG 552 ==
LOC: ANHED 02:38 → ANH3MEDSUR 05:55
PROVIDERS: Internal Medicine; Physician Assistant; Admitting Provider Internal Medicine; Emergency Provider Emergency Medicine; PCP Nurse Practitioner Family; Visit Provider Internal Medicine
DX: M51.26 Other intervertebral disc displacement, lumbar region (principal); R55 Syncope and collapse; M51.36 Other intervertebral disc degeneration, lumbar region; M47.896 Other spondylosis, lumbar region; M48.061 Spinal stenosis, lumbar region without neurogenic claudication; R76.8 Other specified abnormal immunological findings in serum; G43.909 Migraine, unspecified, not intractable, without status migrainosus; K58.9 Irritable bowel syndrome, unspecified; D64.9 Anemia, unspecified; K21.9 Gastro-esophageal reflux disease without esophagitis; F17.290 Nicotine dependence, other tobacco product, uncomplicated; Z90.49 Acquired absence of other specified parts of digestive tract
CPT/HCPCS: 36415; 71046; 72131; 72157; 72158; 76705; 80053; 80307; 81025; 82948; 83735; 84484; 85025; 85652; 86038; 86140; 86703; 86704; 86705; 86706; 86709; 86803; 86812; 87340; 93005; 96374; 96375; 96376; 97110; 97161; 97165; 99285; A9270; A9577; G0378; G0432; J1100; J1170; J1885; J3360; J8540

== ENCOUNTER 2022-04-28 00:34 | Day surgery (SDC) | payer OTHER, SELFPAY ==
[2022-04-15 14:10] VITALS: BMI 33.5
--- NOTE | 2022-04-15 14:23 | PC.NURSE ---
Verified with patient that magnesium citrate is not to be taken or bought at part of their prep. Patient verbally confirmed this.
[2022-04-28 08:46] VITALS: BP 135/85; PULSE 107; RESP 17; TEMP 36.8; O2SAT 98; BMI 33.3
[2022-04-28] MEDS: LACTATED RINGERS 1,000 ML 150 ML IV CONT (08:56)
--- NOTE | 2022-04-28 09:19 | WPDANESEPPF ---
Anes - Initial Pre Proc Eval Procedure: Operation Date: 04/28/22 10:00 Proposed Procedures p Screening Colonoscopy - Cyrus Pope MD Date/Time: 04/28/22 09:19 Surgeon: Cyrus Pope MD Pre Op Diagnosis: hx of colon polyps Patient Data Age: 32 Gender: F Height: 1.73 m Weight: 99.3 kg Last Vital Signs Temp 98.2 F 04/28/22 08:46 Pulse 107 H 04/28/22 08:46 Resp 17 04/28/22 08:46 BP 135/85 04/28/22 08:46 Pulse Ox 98 04/28/22 08:46 O2 Del Method Room Air 04/28/22 08:46 Allergies Allergy/AdvReac Type Severity Reaction Status Date / Time No Known Allergies Allergy Verified 04/28/22 08:41 Home Medications Medication Instructions Recorded Confirmed Type aspirin 81 mg tablet 81 mg PO DAILY 10/19/20 04/28/22 History colestipol 1 gram tablet 1 g PO DAILY #30 tabs 02/11/22 04/28/22 Rx omeprazole 40 mg capsule,delayed 40 mg PO BID #60 caps 02/16/22 04/28/22 Rx release cyclobenzaprine 10 mg tablet 10 mg PO HS 04/15/22 04/28/22 History Patient hx anesthesia problems: none Family hx anesthesia problems: none Results Review: All pre-operative results and documents have been reviewed as part of the pre-operative evaluation. [facility] Past Medical History Medical History Acute tonsillitis GONZALO positive (~2019) Anemia Anxiety Atypical face pain Back pain Bronchitis Cholecystectomy planned Chronic low back pain Colon polyps Depression Diarrhea Endometriosis Frequent headaches Gastroesophageal reflux disease GERD (gastroesophageal reflux disease) Hx of thrombocytopenia On ASA IBS (irritable bowel syndrome) Jaw pain Lyme disease of inner ear (~2019) Overweight Sinusitis Tobacco use Trigeminal neuralgia syndrome UTI (urinary tract infection) Surgical History Surgical History History of appendectomy Hx of cholecystectomy Hx of tonsillectomy Family History Family History Father Hypertension Family history of cardiovascular disease Mother Hypertension Social History Social History Social History: Lives alone. She has a dog. Denies alcohol or drug use. She does smoke E cigarettes with vaping daily. She is a full code. She nominates her mother to be the individual make medical decisions for her she is unable. Smoking status: Current every day smoker Tobacco type: e-cigarettes/vaping Second hand tobacco smoke exposure: No Substance use: never Substance use type: does not use Living arrangements: alone Gender identity (if verbalized by the patient): Female Sexual Orientation (if Verbalized by the Patient): Straight or Heterosexual Anes - Eval Final PreProcedure Day of Procedure 04/28/22 09:19 Patient weight: obese Heart: regular rate and rhythm Lungs: clear to auscultation Airway: Mallampati scale class II Neurological: alert and oriented Last oral intake: >/= 8 hours ASA classification: II Emergent: no Anesthetic plan: proceed Anesthesia type and monitoring: general GIVS and standard monitoring Results Review: All pre-operative results and documents have been reviewed as part of the pre-operative evaluation. Informed Consent: The patient's anesthetic plan and its attendant risks and benefits were discussed with the patient/family/POA. Questions were solicited and answers provided to the satisfaction of the patient/family/POA.
--- NOTE | 2022-04-28 09:29 | PM.HPGS ---
History of Present Illness History of Present Illness Consent: Risks, benefits, and alternatives have been discussed and questions answered. Patient agrees to proceed with procedure. Chief complaint: hx of colon polyps Narrative: Jackie Macedo is a 32 year old female with TA polyp in 2013 and due to have another colonoscopy Review of Systems Constitutional: Constitutional: Denies headache(s) and Denies weakness Eyes: Eyes: Denies blurry vision ENT: Reports Normal hearing present, Denies headache(s) and Denies neck pain Cardiovascular: Cardiovascular: Denies chest pain and Denies dyspnea Respiratory: Respiratory: Denies dyspnea Gastrointestinal: Gastrointestinal: Reports no additional gastrointestinal complaints Genitourinary: Genitourinary: Denies dysuria Musculoskeletal: Musculoskeletal: Denies neck pain Integumentary/Breasts: Skin/Breast: Denies dry skin Neurologic: Reports Normal hearing present, Denies headache(s) and Denies weakness Psychiatric: Psychiatric: Denies anxiety Endocrine: Endocrine: Denies change in body appearance Hematologic/Lymphatic: Hematologic/Lymphatic: Denies easy bleeding Allergic/Immunologic: Allergic/Immunologic: Denies urticaria PMFSH Past Medical History Medical History (Updated 04/28/22 @ 09:30 by Cyrus Pope MD) Acute tonsillitis GONZALO positive (~2019) Anemia Anxiety Atypical face pain Back pain Bronchitis Cholecystectomy planned Chronic low back pain Colon polyps Depression Diarrhea Endometriosis Frequent headaches Gastroesophageal reflux disease GERD (gastroesophageal reflux disease) Hx of thrombocytopenia On ASA IBS (irritable bowel syndrome) Jaw pain Lyme disease of inner ear (~2019) Overweight Sinusitis Tobacco use Trigeminal neuralgia syndrome UTI (urinary tract infection) Surgical History Surgical History History of appendectomy Hx of cholecystectomy Hx of tonsillectomy Family History Family History Father Hypertension Family history of cardiovascular disease Mother Hypertension Social History Social History Social History: Lives alone. She has a dog. Denies alcohol or drug use. She does smoke E cigarettes with vaping daily. She is a full code. She nominates her mother to be the individual make medical decisions for her she is unable. Smoking status: Current every day smoker Tobacco type: e-cigarettes/vaping Second hand tobacco smoke exposure: No Substance use: never Substance use type: does not use Living arrangements: alone Gender identity (if verbalized by the patient): Female Sexual Orientation (if Verbalized by the Patient): Straight or Heterosexual Meds Home Medications and Allergies Home Medications Medication Instructions Recorded Confirmed Type aspirin 81 mg tablet 81 mg PO DAILY 10/19/20 04/28/22 History colestipol 1 gram tablet 1 g PO DAILY #30 tabs 02/11/22 04/28/22 Rx omeprazole 40 mg capsule,delayed 40 mg PO BID #60 caps 02/16/22 04/28/22 Rx release cyclobenzaprine 10 mg tablet 10 mg PO HS 04/15/22 04/28/22 History Allergies Allergy/AdvReac Type Severity Reaction Status Date / Time No Known Allergies Allergy Verified 04/28/22 08:41 Vital Signs Vital Signs - 24 hr 04/28/22 08:46 Temperature 98.2 F Pulse Rate 107 H Respiratory Rate 17 Blood Pressure 135/85 Pulse Oximetry 98 Oxygen Delivery Room Air Exam Const: General: comfortable and no acute distress HENMT: General nose exam: Normal nares present Eyes: General: appearance normal, both eyes and all related structures Neck: Neck: no JVD Resp: Auscultation: clear to auscultation bilaterally Cardio: Rate: regular rate Rhythm: regular rhythm GI: Inspection: non-distended GI Palp: Yes Soft to palpation Skin: General skin
[2022-04-28 09:52] VITALS: BP 104/57; PULSE 83; RESP 16; O2SAT 98
[2022-04-28 10:02] VITALS: BP 108/63; PULSE 78; RESP 16; O2SAT 98
[2022-04-28 10:12] VITALS: BP 103/79; PULSE 70; RESP 18; O2SAT 97
== END 2022-04-28 10:15 | disposition home or self-care (01) ==
PROVIDERS: PCP Nurse Practitioner Family; Visit Provider Internal Medicine Gastroenterology
PROC: 0DJD8ZZ Inspection of Lower Intestinal Tract, Via Natural or Artificial Opening Endoscopic (ICD-10-PCS; CPT 45378; principal; 2022-04-28 10:00)
DX: Z12.11 Encounter for screening for malignant neoplasm of colon (principal); Z86.010 Personal history of colon polyps; D64.9 Anemia, unspecified; F41.9 Anxiety disorder, unspecified; F32.A Depression, unspecified; N80.9 Endometriosis, unspecified; K21.9 Gastro-esophageal reflux disease without esophagitis; K58.9 Irritable bowel syndrome, unspecified; A69.20 Lyme disease, unspecified; G50.0 Trigeminal neuralgia; Z90.49 Acquired absence of other specified parts of digestive tract; F17.210 Nicotine dependence, cigarettes, uncomplicated; Z79.82 Long term (current) use of aspirin; E66.9 Obesity, unspecified; Z68.33 Body mass index [BMI] 33.0-33.9, adult
CPT/HCPCS: 45378; J2704; J7120

== ENCOUNTER 2022-07-13 09:00 | Outpatient (RCR) | payer OTHER, SELFPAY ==
--- NOTE | 2022-04-17 08:03 | PTOPEVAL ---
PHYSICAL THERAPY INITIAL EVALUATION. Thank you for referring Jackie Macedo to [facility].? The patient is scheduled to be seen for therapy? 2x/week for 4 weeks. Please review, sign, date and return this plan of care TAMEKA. I agree with and certify that the following plan of care is medically necessary. Referring Physician Date Attending Provider: Pollo Solomon MD *PT Outpatient Evaluation Start: 04/15/22 Evaluation Information Diagnosis Low back and SIJ pain Onset 10 years Subjective Information Pt reports a 10 year history Query Text:As Reported By Patient/ of low back pain. In the last Family 2 months this has become significantly worse. She has a bulging disc at L1-L2. Her main complaint is her SIJ pain , she states she is going tomorrow for an injection. She states lying flat on her back with ice helps to decrease her pain, she reports tolerable pain when standing for short periods of time. 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 Pain Assessment Lower Back Reported Pain Level 5 Pain Frequency Chronic,Intermittent Lowest Pain Intensity 3 Greatest Pain Intensity 8 Posture Lumbar Spine Posture Increased Lordosis Pelvis Posture Anteriorly Tilted,(L) Rotated Anterior Additional Posture Comments LLE longer in supine and long sitting Gait Assessment Ambulation Assistive Devices None Gait Pattern No Deviations/Normal Other Gait Observations mild increased lateral hip sway Safety Assessment Factors Affecting Safety No Concerns General Exercise General Exercises Exercise Description - supine posterior pelvic tilt Query Text:Record Sets, Reps, 10x3s Resistance, and Position - supine marching with core engagement 10x - sitting core bracing - muscle energy techniques to minimize pelvic obliquity Manual Therapy Treatment Comments - muscle energy techniques Query Text:Include Technique and - STM to wilbur piriformis Result of Technique PT Clinical Summary Jackie is a 32 y/o female who presents to therapy today with a diagnosis o
--- NOTE | 2022-05-13 12:33 | PTOPPROG ---
Assessment and note entered by Valeria Parks, PT, DPT Evaluation Information Assessment Status Progress Diagnosis low back pain Onset chronic Subjective Information Pt states overall things are about the same. Pt states she just had a follow up with pain management and she is planning to get another injection. She states her pain is still inconsistent and she cannot find a way to modify it. Assessment PT Clinical Summary Jackie presents to therapy today following 4 visits of therapy to treat her low back pain. She continues to demonstrate an increased lumbar lordosis in sitting and standing. She also demonstrates tight hip flexors and a weak core likely adding to this postural abnormality. She has fair strength throughout her BLE, with hip abduction being most limited. She was initially malaligned during the supine to long sitting test but this was minimized through muscle energy techniques. Continuation of skilled physical therapy services are indicated to address the remaining deficits, to manage pain, and to promote unlimited functional mobility. Plan of Care Interventions Manual Therapy,Neuro Re-education,Patient/ Caregiver Educati,Therapeutic Activities, Therapeutic Exercise PT Services Indicated Yes Treatment Frequency and 2x/wk for 4 wks Duration These treatments will address the objective and functional deficits as defined above. The patient will be advanced safely and appropriately in order for the patient to progress towards his/her prior level of function. Additional exercises will be introduced and as well as a comprehensive home exercise program upon discharge, if needed, ?to ensure carryover of functional gains achieved in the clinic. This treatment plan has been reviewed and agreement upon by the patient.
--- NOTE | 2022-05-14 09:40 | PCPTNOTE ---
Patient called to cancel appointment due to conflicting schedule.
--- NOTE | 2022-05-22 16:55 | PCPTNOTE ---
Patient called & cancelled scheduled appointment this date due to scheduling conflicts.
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
--- NOTE | 2022-07-13 09:59 | PTOPPROG ---
Assessment and note entered by Valeria Parks, PT, DPT Evaluation Information Assessment Status Progress Diagnosis low back pain and neck pain Onset chronic Subjective Information Pt states she received her SI injections earlier this week. She states while she does still have very mild pain, that these have helped a lot. She was able to sit and enjoy drinks with friends after working a 12 hour shift yesterday. She reports a 3/10 at rest this date. Pt states she currently has tingling across her R shoulder blade , she states this happens randomly and will generally go away on its own but is unsure what causes this to happen. Pt reports a mild headache every day, she states about one time a week these turn into migraines. Assessment PT Clinical Summary Jackie presents to therapy today for her progress report following 16 visits of skilled therapy. Today she reports improvements in her low back and SIJ pain. She demonstrates improvements with decreased time to transition between movements. She continues to have mild hip weakness with an increased lateral sway during ambulation. Continuation of skilled physical therapy services are indicated to monitor progress of low back pain , and to increased focus on thoracic pain. Skilled physical therapy services will address pain, strength limitations, and improve functional impairment. Plan of Care Interventions Electrical Stimulation,Hot Pack/Cold Pack,Manual Therapy,Neuro Re-education,Patient/Caregiver Educati,Therapeutic Activities,Therapeutic Exercise PT Services Indicated Yes Treatment Frequency and 1x/wk for 6 wks Duration These treatments will address the objective and functional deficits as defined above. The patient will be advanced safely and appropriately in order for the patient to progress towards his/her prior level of function. Additional exercises will be introduced and as well as a comprehensive home exercise program upon discharge, if needed, ?to ensure carryover of functional gains achieved in the clinic. This treatment plan has been reviewed and agreement upon by the patient.
--- NOTE | 2022-07-13 10:23 | PCPTNOTE ---
This treatment is being continued on visit number [id number]. Please see documentation on both accounts to view progress. Completed interventions, outcomes, and problems have been marked as Inactive to facilitate the copying of the Care plan routine for recurring accounts.
== END 2022-07-13 10:09 | disposition home or self-care (01) ==
LOC: ANHGOSHPT 09:00
PROVIDERS: PCP Neurological Surgery; Visit Provider Neurological Surgery
DX: M53.2X8 Spinal instabilities, sacral and sacrococcygeal region (principal); M54.50 Low back pain, unspecified
CPT/HCPCS: 97110; 97112; 97140; 97161; 97530

== ENCOUNTER 2022-09-26 16:37 | Emergency (ER) | payer OTHER, SELFPAY ==
[2022-09-26 16:39] VITALS: BP 114/73; PULSE 111; RESP 20; TEMP 36.2; O2SAT 100
[2022-09-26 17:31] VITALS: BP 112/76; PULSE 106; RESP 18; O2SAT 97
--- NOTE | 2022-09-26 17:43 | ED.BACK ---
HPI - Back Pain/Injury General Chief Complaint: Back Pain/Injury Stated Complaint: BACK PAIN, Time Seen by Provider: 09/26/22 17:18 History of Present Illness HPI Narrative: 32-year-old female with history of chronic back pain presenting to the emergency department for evaluation of acute on chronic back pain. Patient states over the last week she has had increased right lower back pain that radiates down her right leg. Patient states she does have intermittent numbness and tingling of the right leg but states it is not unusual for her. Patient does have history of herniated discs. Patient has been going to physical therapy and does have follow-up scheduled with pain management the . Patient has been taking her meloxicam and Flexeril for pain control but states her pain has continued to worsen. Patient was at work when she had worsening pain affecting the right leg. Related Data Home Medications Medication Instructions Recorded Confirmed aspirin 81 mg tablet 81 mg PO DAILY 10/19/20 09/23/22 cyclobenzaprine 10 mg tablet 10 mg PO HS 04/15/22 09/23/22 atogepant 60 mg tablet (Qulipta) 60 mg PO DAILY 09/23/22 09/23/22 meloxicam 15 mg tablet 15 mg PO DAILY 09/23/22 09/23/22 ubrogepant 100 mg tablet (Ubrelvy) 100 mg PO DAILY PRN MIGRAINES 09/23/22 09/23/22 Allergies Allergy/AdvReac Type Severity Reaction Status Date / Time No Known Allergies Allergy Verified 09/26/22 16:43 Review of Systems Review of Systems: CONSTITUTIONAL: Denies fever, chills, or sweats. EYES: Denies visual changes, redness, or discharge. ENT: Denies rhinorrhea, congestion, sore throat, or otalgia. CARDIOVASCULAR: Denies chest pain, palpitations, or edema. RESPIRATORY: Denies cough or dyspnea. GASTROINTESTINAL: Denies abdominal pain, nausea, vomiting, or diarrhea. GENITOURINARY: Denies dysuria or hematuria. SKIN: Denies rash or itching. MUSCULOSKELETAL: See HPI NEUROLOGIC: Denies any loss of bowel or bladder control. See HPI [facility] Past Medical History Medical History (Updated 09/26/22 @ 17:46 by Gurpreet Lemus MD) Acute tonsillitis GONZALO positive (~2019) Anemia Anxiety Atypical face pain Back pain Bronchitis Cholecystectomy planned Chronic low back pain Colon polyps Depression Diarrhea Endometriosis Frequent headaches Gastroesophageal reflux disease GERD (gastroesophageal reflux disease) Hx of thrombocytopenia On ASA IBS (irritable bowel syndrome) Jaw pain Lyme disease of inner ear (~2020) Overweight Sinusitis Tobacco use Trigeminal neuralgia syndrome UTI (urinary tract infection) Surgical History Surgical History History of appendectomy Hx of cholecystectomy Hx of tonsillectomy Family History Family History Father Hypertension Family history of cardiovascular disease Mother Hypertension Social History Social History Social History: Lives alone. She has a dog. Denies alcohol or drug use. She does smoke E cigarettes with vaping daily. She is a full code. She nominates her mother to be the individual make medical decisions for her she is unable. Smoking status: Current every day smoker Tobacco type: e-cigarettes/vaping Second hand tobacco smoke exposure: No Additional smoking assessment comments: Has vaped for 4 years Alcohol intake: never Substance use: never Substance use type: does not use Living arrangements: alone Gender identity (if verbalized by the patient): Female Sexual Orientation (if Verbalized by the Patient): Straight or Heterosexual Spiritual care concerns: No Exam Narrative: APPEARANCE: Well appearing, no pain, no distress, well-nourished. HEAD: normocephalic, atraumatic. EYES: PERRLA/EOMI, conjunctivae clear. NOSE: Normal no drainage NECK: Supple. No adenopathy, no masses. RESPIRATORY: Airway patent, r
[2022-09-26] MEDS: CYCLOBENZAPRINE HCL 10 MG TABLET PO (17:48)
[2022-09-26] MEDS: KETOROLAC 30 MG/ML VIAL (*BKC) IM (17:49)
[2022-09-26 18:17] VITALS: BP 125/60; PULSE 90; RESP 18; O2SAT 100
== END 2022-09-26 18:18 | disposition home or self-care (01) ==
LOC: ANHED 17:58
PROVIDERS: Emergency Provider Emergency Medicine; PCP Nurse Practitioner Family
DX: M54.41 Lumbago with sciatica, right side (principal); K21.9 Gastro-esophageal reflux disease without esophagitis; K58.9 Irritable bowel syndrome, unspecified; N80.9 Endometriosis, unspecified; F17.290 Nicotine dependence, other tobacco product, uncomplicated; Z86.2 Personal history of diseases of the blood and blood-forming organs and certain disorders involving the immune mechanism; Z86.010 Personal history of colon polyps; Z87.440 Personal history of urinary (tract) infections; Z79.82 Long term (current) use of aspirin
CPT/HCPCS: 96372; 99283; A9270; J1885

== ENCOUNTER 2022-09-28 09:34 | Outpatient (CLI) | payer OTHER, SELFPAY ==
[2022-09-28 10:07] LABS: Basophils Absolute Auto 0.1 K/mm3 (0.0-0.1); Basophils Percent Auto 0.6 % (0.2-1.2); Eosinophils Absolute Auto 0.1 K/mm3 (0-0.3); Hematocrit 44.1 % (37.0-47.0); Hemoglobin 14.8 g/dL (12.0-15.0); Immature Granulocyte Absolute 0.03 K/mm3 (0.00-0.031); Immature Granulocyte Percent A 0.3 % (0-0.5); Lymphocytes Absolute Auto 2.33 K/mm3 (0.9-3.2); Lymphocytes Percent Auto 22.6 % (18.3-44.2); Mean Corpuscular HGB Conc 33.6 g/dl (32-36); Mean Corpuscular Hemoglobin 29.9 pg (26-34); Mean Corpuscular Volume 89.1 fl (80-100); Monocytes Absolute Auto 0.6 K/mm3 (0.1-0.6); Monocytes Percent Auto 5.9 % (2.6-8.5); Neutrophils Absolute Auto 7.2 K/mm3 (1.3-6.7); Neutrophils Percent Auto 69.6 % (45.5-73.1); Platelet Count Result 424 k/mm3 (150-375); Red Blood Count 4.95 M/mm3 (4.2-5.4); Red Cell Distribution Width 13.1 % (11.5-14.5); White Blood Count 10.3 K/mm3 (4.5-10.0)
[2022-09-28 10:24] LABS: Alanine Aminotransferase 19 U/L (6-35); Albumin Level 4.5 g/dL (3.5-5.1); Alkaline Phosphatase 93 U/L (38-126); Anion Gap 5 mmol/L (8-16); Aspartate Amino Transferase 17 U/L (14-36); Bilirubin,Total 0.5 mg/dL (0.2-1.3); Blood Urea Nitrogen 10 mg/dL (7-17); Calcium 8.9 mg/dL (8.4-10.2); Carbon Dioxide 28 mmol/L (22-30); Chloride 103 mmol/L (98-107); Estimated Glomerular Filt Rate > 60; Glucose 93 mg/dL (65-110); Potassium 4.1 mmol/L (3.4-5.0); Sodium 136 mmol/L (137-145)
[2022-09-28 10:52] LABS: Thyroid Stimulating Hormone 0.763 uIU/mL (0.465-4.680)
== END 2022-09-28 09:35 | disposition home or self-care (01) ==
PROVIDERS: PCP Nurse Practitioner Family; Referring Provider Internal Medicine Cardiovascular Disease; Visit Provider Obstetrics & Gynecology
DX: R10.2 Pelvic and perineal pain (principal); R00.0 Tachycardia, unspecified
CPT/HCPCS: 36415; 80053; 84443; 85025; 86850; 86900; 86901

== ENCOUNTER 2022-09-28 09:35 | Outpatient (NON) | payer OTHER, SELFPAY | END 2022-09-28 09:36 | disposition home or self-care (01) | LOC: ANHLAB 09-29 09:48 | PROVIDERS: PCP Nurse Practitioner Family; Visit Provider Internal Medicine Cardiovascular Disease | DX: R00.0 Tachycardia, unspecified (principal) | CPT/HCPCS: 80053; 84443; 85025 ==

== ENCOUNTER 2022-10-02 00:43 | Day surgery (SDC) | payer OTHER, SELFPAY ==
[2022-09-23 09:33] VITALS: BMI 33.4
--- NOTE | 2022-09-23 09:59 | PC.NURSE ---
Report to the Outpatient Waiting Room, entrance under the green pavilion located off [facility], at 1130 on 10/02/22. Planned Procedure Time 1330. Time changes happen often and if your time is changed the preop area will call you the afternoon before. - You and your visitor will be asked to self-screen and do not enter if you have any COVID symptoms. - Only one visitor is requested with a max of two and NO children visitors are allowed at this time. - The patient visitor may be requested to leave or wait in car when not with patient due to distancing restrictions. - A mask is optional within the hospital at this time. Patients may have clear liquids (water, carbonated beverages, clear teas, apple juice) until 3 hours prior to surgery with a maximum of 20 ounces. - No food from midnight until time of surgery. Take the following medications with a SIP of water the morning of surgery: Qulipta and Ubrelvy if needed DO NOT STOP ANY OF YOUR OTHER PRESCRIPTION MEDICATIONS PRIOR TO SURGERY ?EXCEPT THE FOLLOWING Medications to discontinue per physician NONE Date to take last dose N/A Please no make-up, nail urdu, hairspray, perfume, deodorant, or body powder the day of surgery. No jewelry (including any body piercings) or valuables the day of surgery, leave them at home. Please take a shower or bath the night before, or the morning of, surgery with an antibacterial soap. Wear comfortable, loose fitting clothing. - Jewelry must be removed prior to entering the operating room. Rings and piercings that are not removed may be cut off. - The hospital will not accept responsibility for valuables. - Please leave all valuables, including medications, at home the day of surgery. If you are going home after surgery, a licensed diesel truck driver must drive you home. - NO public transportation without another adult if you receive anesthesia. - We recommend that an adult stay with you for 24 hours following discharge. - We also recommend that you do not drive, make important decision, drink alcoholic beverages, or take any drugs that were not prescribed by your health care provider for at least 24 hours after your discharge time. Follow any additional instructions given to you from your surgeon. If you or anyone in your household have experienced Covid symptoms in the past week, please notify your surgeon or the nurse liaison at the phone number below for possible testing. Telephone instructions given to patient and asked if any additional questions and then verbalized understanding. Patient advised to call surgeon office or pre surgery nurse liaison [phone] if any additional questions.
--- NOTE | 2022-09-29 11:39 | PM.IMHP ---
H&P: HPI History of Present Illness Date/Time: 09/29/22 11:39 Chief Complaint: Pelvic pain and right ovarian cyst Narrative: 32-year-old female who is admitted for laparoscopy with right cystectomy. She has a history of endometriosis and there was 3.5cm cyst on imaging. Risks and benefits of this procedure reviewed including minutes was of of , aspiration bleeding transfusion, perforation of bowel, bladder, ureters, or other internal organs with need laparotomy. She received the [employer] handout entitled laparoscopy. She had all questions answered and asked to proceed PMFSH Past Medical History Medical History Acute tonsillitis GONZALO positive (~2019) Anemia Anxiety Atypical face pain Back pain Bronchitis Cholecystectomy planned Chronic low back pain Colon polyps Depression Diarrhea Endometriosis Frequent headaches Gastroesophageal reflux disease GERD (gastroesophageal reflux disease) Hx of thrombocytopenia On ASA IBS (irritable bowel syndrome) Jaw pain Lyme disease of inner ear (~2019) Overweight Sinusitis Tobacco use Trigeminal neuralgia syndrome UTI (urinary tract infection) Surgical History Surgical History History of appendectomy Hx of cholecystectomy Hx of tonsillectomy Family History Family History Father Hypertension Family history of cardiovascular disease Mother Hypertension Social History Social History Social History: Lives alone. She has a dog. Denies alcohol or drug use. She does smoke E cigarettes with vaping daily. She is a full code. She nominates her mother to be the individual make medical decisions for her she is unable. Smoking status: Current every day smoker Tobacco type: e-cigarettes/vaping Second hand tobacco smoke exposure: No Additional smoking assessment comments: Has vaped for 4 years Alcohol intake: never Substance use: never Substance use type: does not use Living arrangements: alone Gender identity (if verbalized by the patient): Female Sexual Orientation (if Verbalized by the Patient): Straight or Heterosexual Spiritual care concerns: No Meds Home Medications and Allergies Home Medications Medication Instructions Recorded Confirmed Type aspirin 81 mg tablet 81 mg PO DAILY 10/19/20 09/23/22 History omeprazole 40 mg capsule,delayed 40 mg PO BID #60 caps 02/16/22 09/23/22 Rx release cyclobenzaprine 10 mg tablet 10 mg PO HS 04/15/22 09/23/22 History atogepant 60 mg tablet (Qulipta) 60 mg PO DAILY 09/23/22 09/23/22 History meloxicam 15 mg tablet 15 mg PO DAILY 09/23/22 09/23/22 History ubrogepant 100 mg tablet (Ubrelvy) 100 mg PO DAILY PRN MIGRAINES 09/23/22 09/23/22 History cyclobenzaprine 10 mg tablet 10 mg PO BID PRN muscle spasm #10 09/26/22 Rx tabs methylprednisolone 4 mg tablets in See Rx Instructions PO .COMPLEX 09/26/22 Rx a dose pack (Medrol (Sb)) #21 ea Allergies Allergy/AdvReac Type Severity Reaction Status Date / Time No Known Allergies Allergy Verified 09/26/22 16:43 Exam Const: General: cooperative, healthy appearing, comfortable and overweight Orientation/consciousness: oriented to person, oriented to place and oriented to time HENMT: Head: normal to inspection Resp: Effort & Inspection: normal respiratory effort Cardio: Rate: regular rate Rhythm: regular rhythm Heart sounds: S1 normal heart sound present and S2 normal heart sound present GI: Inspection: normal to inspection Auscultation: normal bowel sounds : External Female Exam: normal external appearance Speculum Exam - Vagina: normal appearance of the vagina Speculum Exam - Cervix: normal appearance of the cervix Bimanual exam- vagina & uterus: non-tender Bimanual Exam- Adnexa, other: Adnexal mass presen
[2022-10-02] VITALS (10 sets, daily range): BP systolic 101–129; BP diastolic 56–81; PULSE 66–108; RESP 12–20; TEMP 36.4–36.6; O2SAT 100
--- NOTE | 2022-10-02 06:40 | WPDHPUPDATE1 ---
History and Physical Update Update Date/Time: 10/02/22 06:40 History and Physical has been reviewed, including an updated exam of the patient. There are NO changes in the patient's condition. Risks, benefits, and alternatives have been discussed and questions answered. Patient agrees to proceed with procedure.
[2022-10-02] MEDS: ACETAMINOPHEN 500 MG TABLET 1000 MG PO (09:33)
[2022-10-02] MEDS: KETOROLAC 15 MG/ML VIAL (*BKC) IV PUSH (10:04)
[2022-10-02] MEDS: LACTATED RINGERS 1,000 ML 30 ML IV CONT ×2 (10:05→15:01)
--- NOTE | 2022-10-02 13:45 | WPDANESEPPF ---
Anes - Initial Pre Proc Eval Procedure: Operation Date: 10/02/22 13:30 Proposed Procedures p Laparoscopic Right Ovarian Cystectomy - Dennis Walden MD Date/Time: 10/02/22 13:45 Surgeon: Dennis Walden MD Pre Op Diagnosis: right ovarian cyst, pelvic pain Patient Data Age: 32 Gender: F Height: 1.73 m Weight: 94.6 kg Last Vital Signs Temp 36.6 C 10/02/22 09:31 Pulse 108 H 10/02/22 09:31 Resp 20 10/02/22 09:31 BP 129/68 10/02/22 09:31 Pulse Ox 100 10/02/22 09:31 O2 Del Method Room Air 10/02/22 09:31 Allergies Allergy/AdvReac Type Severity Reaction Status Date / Time No Known Allergies Allergy Verified 10/02/22 09:27 Home Medications Medication Instructions Recorded Confirmed Type aspirin 81 mg tablet 81 mg PO DAILY 10/19/20 10/02/22 History omeprazole 40 mg capsule,delayed 40 mg PO BID #60 caps 02/16/22 10/02/22 Rx release cyclobenzaprine 10 mg tablet 10 mg PO HS 04/15/22 10/02/22 History atogepant 60 mg tablet (Qulipta) 60 mg PO DAILY 09/23/22 10/02/22 History meloxicam 15 mg tablet 15 mg PO DAILY 09/23/22 10/02/22 History ubrogepant 100 mg tablet (Ubrelvy) 100 mg PO DAILY PRN MIGRAINES 09/23/22 09/23/22 History methylprednisolone 4 mg tablets in See Rx Instructions PO .COMPLEX 09/26/22 10/02/22 Rx a dose pack (Medrol (Sb)) #21 ea hydrocodone 5 mg-acetaminophen 325 1 tablet PO Q4H PRN pain #20 tabs 10/02/22 Rx mg tablet Patient hx anesthesia problems: none Family hx anesthesia problems: none Results Review: All pre-operative results and documents have been reviewed as part of the pre-operative evaluation. [facility] Past Medical History Medical History Acute tonsillitis GONZALO positive (~2019) Anemia Anxiety Atypical face pain Back pain Bronchitis Cholecystectomy planned Chronic low back pain Colon polyps Depression Diarrhea Endometriosis Frequent headaches Gastroesophageal reflux disease GERD (gastroesophageal reflux disease) Hx of thrombocytopenia On ASA IBS (irritable bowel syndrome) Jaw pain Lyme disease of inner ear (~2020) Overweight Sinusitis Tobacco use Trigeminal neuralgia syndrome UTI (urinary tract infection) Surgical History Surgical History History of appendectomy Hx of cholecystectomy Hx of tonsillectomy Family History Family History Father Hypertension Family history of cardiovascular disease Mother Hypertension Social History Social History Social History: Lives alone. She has a dog. Denies alcohol or drug use. She does smoke E cigarettes with vaping daily. She is a full code. She nominates her mother to be the individual make medical decisions for her she is unable. Smoking status: Current every day smoker Tobacco type: e-cigarettes/vaping Second hand tobacco smoke exposure: No Additional smoking assessment comments: Has vaped for 4 years Alcohol intake: never Substance use: never Substance use type: does not use Living arrangements: alone Gender identity (if verbalized by the patient): Female Sexual Orientation (if Verbalized by the Patient): Straight or Heterosexual Spiritual care concerns: No Anes - Eval Final PreProcedure Day of Procedure 10/02/22 13:45 Patient weight: obese Heart: regular rate and rhythm Lungs: clear to auscultation Airway: Mallampati scale class II Neurological: alert and oriented Last oral intake: >/= 8 hours ASA classification: II Emergent: no Anesthetic plan: proceed Anesthesia type and monitoring: general ETT and standard monitoring Results Review: All pre-operative results and documents have been reviewed as part of the pre-operative evaluation. Informed Consent: The patient's anesthetic plan and its attendant risks and benefits wer
--- NOTE | 2022-10-02 14:55 | P.OP_ITS ---
Procedure Note - Detailed Date of Procedure 10/02/22 Pre-op Diagnosis right ovarian cyst, pelvic pain Post-op Diagnosis Other (Endometriosis as well) Procedure Performed laparoscopic destruction of endometriosis destruction right ovarian cyst Surgeon Dennis Walden MD Anesthesia General Indications 32-year-old female with pelvic pain and ovarian cyst Findings normal-appearing uterus left ovary 2 right tube was there is a simple follicular cyst on right areas of powder burn endometriosis seen right left uterosacral ligaments left worse than right Description of Procedure the patient was prepped draped sterile fashion placed in dorsal lithotomy position. Under excellent general trach anesthesia weighted speculum was placed in posterior fornix vagina. Anterior lip of the cervix grasped with a single- tooth tenaculum. The Phelps's cannula was inserted the cervix attached to the single-tooth. These would be used later for uterine manipulation. The bladder was emptied of clear urine the weighted speculum was removed. The gloves were changed S infraumbilical incision made and the 5mm trocar advanced in the abdomen after 15mmHg were placed with the Veress needle. Downside visualized no injury seen. Patient placed in Trendelenburg and a suprapubic incision made. The 5mm trocar advanced under direct visualization assuring delete tree. There was moderate sized right ovarian cyst and this was opened in linear fashion but drained of some clear follicular fluid. The left ovary appeared within normal limits areas of endometriosis were seen along the left and right uterosacral ligaments and these were serially cauterized with 45 w per 2nd monopolar cautery. Irrigation undertaken to clear. No other abnormalities were seen. The lower site removed. The gas removed from the abdomen. The upper sites removed. The incisions closed with 4 Monocryl and glue. Patient was awakened and went to recovery in satisfactory condition. All sponge, needle, instrument counts were correct. There were no immediate complications Estimated Blood Loss 5 Drains No Packing No Pathology None sent Complications No immediate complications Condition Stable Disposition PACU
[2022-10-02] MEDS: ONDANSETRON INJ 4 MG/2 ML VIAL IV PUSH (15:24)
[2022-10-02] MEDS: fentaNYL CITRATE INJ (*CRX) 100 MCG/2 ML VIAL 25 MCG IV PUSH ×6 (15:29→15:57)
--- NOTE | 2022-10-02 15:34 | SUR.PHASEI ---
1533: Dr. Salmon at bedside. notified of patient c/o chest pain. Dr. Salmon stated to continue with pain medications and to monitor.
[2022-10-02] MEDS: oxyCODONE HCL (*CRX) 5 MG TAB IR PO (16:36)
== END 2022-10-02 17:05 | disposition home or self-care (01) ==
PROVIDERS: PCP Nurse Practitioner Family; Visit Provider Obstetrics & Gynecology
PROC: (CPT 49320; principal; 2022-10-02 13:30)
DX: N83.01 Follicular cyst of right ovary (principal); R10.2 Pelvic and perineal pain; N80.3C3 Endometriosis of bilateral uterosacral ligament(s), unspecified depth; Z79.82 Long term (current) use of aspirin; K21.9 Gastro-esophageal reflux disease without esophagitis; Z79.891 Long term (current) use of opiate analgesic; Z79.52 Long term (current) use of systemic steroids; F17.290 Nicotine dependence, other tobacco product, uncomplicated; E66.9 Obesity, unspecified; Z68.31 Body mass index [BMI] 31.0-31.9, adult
CPT/HCPCS: 58662; A9270; J1100; J1170; J1885; J2250; J2405; J2704; J2710; J3010; J7030; J7120

== ENCOUNTER 2022-10-22 10:00 | Outpatient (RCR) | payer OTHER, SELFPAY ==
--- NOTE | 2022-07-13 10:23 | PCPTNOTE ---
The treatment documented on this account is a continuation of the treatment documented on visit number [id number]. Please see documentation on both accounts to view progress. The Plan of Care has been transitioned and updated within the new V#. I have addressed and agree with the discipline specific Problems, Interventions, and Goals for the current certification period. Completed interventions, outcomes, and problems have been marked as Inactive to facilitate the copying of the Care plan routine for recurring accounts.
--- NOTE | 2022-07-29 16:51 | PCPTNOTE ---
Patient called & cancelled scheduled appointment this date, no reason was given.
--- NOTE | 2022-08-26 09:57 | PTOPPROG ---
Assessment and note entered by Valeria Parsk, PT, DPT Evaluation Information Assessment Status Progress Diagnosis neck and low back pain Onset chronic Subjective Information Pt states she currently has a migraine and has had it for over a week. She states her back pain has been tolerable until she does something to aggravate it. She states she had scheduled a massage and has called her chiropractor to help address her migraine. She states she has been slacking on her exercises due to her busy work schedule. She states she is not sure what else therapy can do for her pain. She states she feels like she has a pinched nerve because she gets pins and needles feeling in her upper back. She feels like her upper back/neck is her biggest issue. Assessment PT Clinical Summary Jackie presents to therapy today for her progress report following 20 visits of therapy to treat her low back pain, and at her last re-evaluation we included her cervical pain. Today she demonstrates and report no limitations of her low back. She demonstrates decreased active and passive cervical ROM in all directions and end ROM is limited by pain. She has palpable increased tissue density of her cervical paraspinal. Continuation of skilled therapy services are indicated to address the remaining deficits noted above, to manage pain, and to improve functional mobility. Plan of Care Interventions Electrical Stimulation,Hot Pack/Cold Pack,Manual Therapy,Neuro Re-education,Patient/Caregiver Educati,Therapeutic Activities,Therapeutic Exercise PT Services Indicated Yes Treatment Frequency and 1x/wk for 8 wks Duration These treatments will address the objective and functional deficits as defined above. The patient will be advanced safely and appropriately in order for the patient to progress towards his/her prior level of function. Additional exercises will be introduced and as well as a comprehensive home exercise program upon discharge, if needed, ?to ensure carryover of functional gains achieved in the clinic. This treatment plan has been reviewed and agreement upon by the patient.
--- NOTE | 2022-10-01 07:53 | PCPTNOTE ---
Patient canceled today due to having surgery.
--- NOTE | 2022-10-22 15:24 | PTOPDC ---
Assessment and note entered by Valeria Parks, PT, DPT Evaluation Information Assessment Status Discharge Diagnosis neck and low back pain Onset chronic Subjective Information Pt states her neck pain has improved mildly. She states her lower back pain is worse at times. She states she uses ice and her TENS machine to get through every day. She states the education she has received from therapy has given her different techniques to make it through her day but her pain has remained unchanged. She reports good compliance with her exercises as well. Reported Pain Level Pain Score 7,0,3: Self Report Assessment PT Clinical Summary Jackie has completed 28 visits of skilled therapy to treat her low back and neck pain. Over the course of therapy she has demonstrated improvements in core strength and body mechanics with functional tasks, without true improvements in her pain. It was recommended that she continue with her HEP on her own and follow up with her referring provider regarding other treatment options. Plan of Care PT Services Indicated No Treatment Frequency and to be discharged, return to doctor Duration
== END 2022-10-22 15:42 | disposition home or self-care (01) ==
LOC: ANHGOSHPT 10:00
PROVIDERS: PCP Nurse Practitioner Family; Visit Provider Neurological Surgery
DX: M54.50 Low back pain, unspecified (principal); M54.16 Radiculopathy, lumbar region; M54.2 Cervicalgia
CPT/HCPCS: 97014; 97110; 97112; 97140; 97530; 99199; G0283

== ENCOUNTER 2022-11-16 10:45 | Outpatient (CLI) | payer OTHER, SELFPAY ==
--- NOTE | ~2022-11-16 | XR_ITS ---
XR lumbar spine min 4V DATE: 11/16/2022 11:09 INDICATION: Right low back pain TECHNIQUE: AP, lateral, flexion and extension lateral standing views COMPARISON: 03/03/2022 MR lumbar spine FINDINGS: There is normal alignment of the lumbar spine with no instability noted on flexion or exten alberto. There is moderate degenerative disc disease at L1-2 with loss of interspace height and degenerative s purring. The remaining lumbar levels interspaces are well preserved. No fracture or bone destruction or spondylolisthesis. The lumbar pedicles are intact. The sacroiliac joints appear normal. IMPRESSION: Moderate degenerative disease at L1-2 Reviewed, dictated and finalized at location B.
== END 2022-11-16 10:46 | disposition home or self-care (01) ==
PROVIDERS: PCP Nurse Practitioner Family; Visit Provider Neurological Surgery
DX: M51.36 Other intervertebral disc degeneration, lumbar region (principal)
CPT/HCPCS: 72110

== ENCOUNTER 2023-04-23 08:08 | Outpatient (CLI) | payer OTHER, SELFPAY | END 2023-04-23 08:09 | disposition home or self-care (01) | PROVIDERS: PCP Nurse Practitioner Family; Visit Provider Obstetrics & Gynecology | DX: Z34.80 Encounter for supervision of other normal pregnancy, unspecified trimester (principal); Z3A.00 Weeks of gestation of pregnancy not specified | CPT/HCPCS: 36415; 84702 ==

== ENCOUNTER 2023-04-26 07:34 | Outpatient (CLI) | payer OTHER, SELFPAY ==
[2023-04-26 09:20] LABS: Beta HCG Quantitative 77.06 mIU/ML
== END 2023-04-26 07:35 | disposition home or self-care (01) ==
LOC: ANHLAB 07:37
PROVIDERS: PCP Nurse Practitioner Family; Visit Provider Obstetrics & Gynecology
DX: Z34.80 Encounter for supervision of other normal pregnancy, unspecified trimester (principal); Z3A.00 Weeks of gestation of pregnancy not specified
CPT/HCPCS: 36415; 84702

== ENCOUNTER 2023-04-28 10:40 | Outpatient (CLI) | payer OTHER, SELFPAY ==
[2023-04-28 12:23] LABS: Beta HCG Quantitative 35.54 mIU/ML
[2023-05-02 06:26] LABS: Progesterone 0.9 ng/mL (***)
== END 2023-04-28 10:41 | disposition home or self-care (01) ==
LOC: ANHLAB 10:42
PROVIDERS: PCP Nurse Practitioner Family; Visit Provider Obstetrics & Gynecology
DX: O20.0 Threatened abortion (principal); Z3A.00 Weeks of gestation of pregnancy not specified
CPT/HCPCS: 36415; 84144; 84702

== ENCOUNTER 2023-05-05 07:14 | Outpatient (CLI) | payer OTHER, SELFPAY ==
[2023-05-05 08:36] LABS: Beta HCG Quantitative < 2.39 mIU/ML
== END 2023-05-05 07:15 | disposition home or self-care (01) ==
LOC: ANHLAB 07:20
PROVIDERS: PCP Nurse Practitioner Family; Visit Provider Obstetrics & Gynecology
DX: O20.0 Threatened abortion (principal); Z3A.00 Weeks of gestation of pregnancy not specified
CPT/HCPCS: 36415; 84702

== ENCOUNTER 2023-05-22 10:21 | Outpatient (CLI) | payer OTHER, SELFPAY ==
[2023-05-22 11:35] LABS: Vitamin D 25 Hydroxy 44.4 ng/mL
== END 2023-05-22 10:22 | disposition home or self-care (01) ==
PROVIDERS: PCP Nurse Practitioner Family
DX: E56.9 Vitamin deficiency, unspecified (principal)
CPT/HCPCS: 36415; 82306; 82728

== ENCOUNTER 2023-07-25 11:20 | Emergency (ER) | payer OTHER, SELFPAY ==
[2023-07-25] VITALS (32 sets, daily range): BP systolic 103–125; BP diastolic 55–79; PULSE 94–122; RESP 12–21; TEMP 36.4; O2SAT 95–100
--- NOTE | ~2023-07-25 | XR_ITS ---
EXAMINATION: XR chest 2V DATE: 07/25/2023 11:53 INDICATION: Shortness of breath TECHNIQUE: AP and lateral views of the chest are obtained. COMPARISON: 03/02/2022 FINDINGS: The lungs are free of acute opacities. No pleural effusion or pneumothorax. The cardiomedia stinal silhouette is normal. There is mild thoracic spondylosis. Surgical clips in the right upper qu adrant are likely from prior cholecystectomy. IMPRESSION: 1. No acute cardiopulmonary abnormality. Reviewed, dictated and finalized at location A. PING POINT INSPECTOR
--- NOTE | 2023-07-25 11:31 | ECG_ITS ---
Measurements Intervals [place] Rate: 104 P: 48 [place]: 131 QRS: 55 QRSD: 86 T: 50 QT: 333 QTc: 438 Interpretive Statements SINUS TACHYCARDIA BASELINE ARTIFACT- I, III, AVR, AVL, V1 BORDERLINE ECG COMPARED TO ECG 03/02/2022 03:09:09 SINUS TACHYCARDIA NOW PRESENT Electronically Signed On 07-25-2023 20:16:02 BONE PLANT SUPERVISOR by Amado Don D.O.
--- NOTE | 2023-07-25 12:05 | ED.CHESTPAIN ---
HPI - Chest Pain General Chief Complaint: Chest Pain Stated Complaint: chest pain Time Seen by Provider: 07/25/23 11:58 History of Present Illness HPI narrative: Patient is a 33-year-old female with history of tachycardia, chronic sinusitis, GERD, migraines here with nasal congestion. Patient states that she has been having nasal congestion for the last 3 weeks. She has previously been on doxycycline and is now on Augmentin, both of these have been prescribed by her primary care doctor. 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 She notes that one of her coworkers placed her on a property assessment monitor and was concerned for some ST segment elevations in prompted her to come to the emergency department for additional evaluation. She noted some dizziness and lightheadedness when the chest pain was present. Currently she feels well, no chest pain. Patient denies any history of coronary artery disease, does have a family history in her grandparents that had multiple strokes and heart attacks, unsure if these occurred at a young age. She denies history of PE or DVT but does note that she has been prescribed a baby aspirin due to concern for risk for blood clot however she is unsure what this abnormal lab test was in the past. She does not take any control. No fever or chills. Related Data Home Medications Medication Instructions Recorded Confirmed aspirin 81 mg tablet 81 mg PO DAILY 10/19/20 06/10/23 cyclobenzaprine 10 mg tablet 10 mg PO HS 04/15/22 06/10/23 atogepant 60 mg tablet (Qulipta) 60 mg PO DAILY 09/23/22 06/10/23 meloxicam 15 mg tablet 15 mg PO DAILY 09/23/22 06/10/23 ubrogepant 100 mg tablet (Ubrelvy) 100 mg PO DAILY PRN MIGRAINES 09/23/22 06/10/23 cholecalciferol (vitamin D3) 125 125 mcg PO DAILY 06/10/23 06/10/23 mcg (5,000 unit) capsule magnesium gluconate 27 mg 27 mg PO BID 06/10/23 06/10/23 magnesium (500 mg) tablet (Mag-G) melatonin 10 mg capsule 10 mg PO QHS 06/10/23 06/10/23 Allergies Allergy/AdvReac Type Severity Reaction Status Date / Time No Known Allergies Allergy Verified 07/25/23 11:32 Review of Systems Review of Systems: All systems reviewed & are unremarkable except as noted in HPI and below PMFSH Past Medical History Medical History Acute tonsillitis GONZALO positive (~2019) Anemia Anxiety Atypical face pain Back pain Bronchitis Cholecystectomy planned Chronic low back pain Colon polyps Depression Diarrhea Endometriosis Frequent headaches Gastroesophageal reflux disease GERD (gastroesophageal reflux disease) Hx of thrombocytopenia On ASA IBS (irritable bowel syndrome) Jaw pain Lyme disease of inner ear (~2019) Overweight Sinusitis Tobacco use Trigeminal neuralgia syndrome UTI (urinary tract infection) Surgical History Surgical History History of appendectomy Hx of cholecystectomy Hx of tonsillectomy Family History Family History (Updated 06/10/23 @ 10:12 by Joanna Infante CMA) Father Hypertension Family history of cardiovascular disease Mother Hypertension Depression Sibling Depression Grandparent Heart disease Cerebrovascular accident Social History Social History (Updated 06/10/23 @ 10:11 by Joanna Infante CMA) Social History: Lives alone. She has a dog. Denies alcohol or drug use. She does smoke E cigarettes with vaping daily. She is a full code. She nominates her mother to be the individual make medical decisions for her she is unable. Smoking status: Current every day smoker Tobacco type: e-cigarettes/vaping Second hand tobacco smoke exposure: No Additional smoking assessment comments: Has vaped for 4 years Alcohol intake: never Substance use: never Substance use type: does not use Lack of Transportation: No [place]
[2023-07-25 12:15] LABS: Basophils Percent Auto 0.4 % (0.2-1.2); Eosinophils Absolute Auto 0.1 K/mm3 (0-0.3); Eosinophils Percent Auto 0.9 % (0-4.4); Hematocrit 42.3 % (37.0-47.0); Hemoglobin 14.1 g/dL (12.0-15.0); Immature Granulocyte Absolute 0.02 K/mm3 (0.00-0.031); Immature Granulocyte Percent A 0.2 % (0-0.5); Lymphocytes Absolute Auto 2.47 K/mm3 (0.9-3.2); Lymphocytes Percent Auto 27.4 % (18.3-44.2); Mean Corpuscular HGB Conc 33.3 g/dl (32-36); Mean Corpuscular Hemoglobin 29.6 pg (26-34); Mean Corpuscular Volume 88.9 fl (80-100); Mean Platelet Volume 9.7 fl (7.4-10.4); Monocytes Absolute Auto 0.7 K/mm3 (0.1-0.6); Monocytes Percent Auto 7.9 % (2.6-8.5); Neutrophils Absolute Auto 5.7 K/mm3 (1.3-6.7); Neutrophils Percent Auto 63.2 % (45.5-73.1); Platelet Count Result 390 k/mm3 (150-375); Red Blood Count 4.76 M/mm3 (4.2-5.4); Red Cell Distribution Width 12.4 % (11.5-14.5)
[2023-07-25 12:25] LABS: Alanine Aminotransferase 25 U/L (6-35); Albumin Level 4.6 g/dL (3.5-5.1); Alkaline Phosphatase 76 U/L (38-126); Anion Gap 11 mmol/L (8-16); Aspartate Amino Transferase 24 U/L (14-36); Bilirubin,Total 0.4 mg/dL (0.2-1.3); Blood Urea Nitrogen 12 mg/dL (7-17); Calcium 9.3 mg/dL (8.4-10.2); Carbon Dioxide 25 mmol/L (22-30); Chloride 102 mmol/L (98-107); Estimated CRCL calculation 91 ml/min; Estimated Glomerular Filt Rate > 60; Glucose 94 mg/dL (65-110); Sodium 138 mmol/L (137-145)
[2023-07-25 12:26] LABS: Partial Thromboplastin Time 34.8 SECONDS (22.3-36.8)
[2023-07-25 12:33] LABS: INR 1.1; Prothrombin Time 14.2 Seconds (11.1-14.7)
[2023-07-25 12:37] LABS: NT Pro B Type Natriuretic Pept < 20 pg/mL (19.9-100); Troponin I < 0.012 ng/mL (0.000-0.034)
[2023-07-25 12:46] LABS: D Dimer < 0.27 ug/mL (<0.48)
[2023-07-25 13:07] LABS: Influenza A QL RT-PCR Negative (Negative); Influenza B QL RT-PCR Negative (Negative); RSV RNA, RT-PCR Negative (Negative); SARS-CoV-2 RNA PCR Negative (Negative)
[2023-07-25 15:25] LABS: Troponin I < 0.012 ng/mL (0.000-0.034)
== END 2023-07-25 15:50 | disposition home or self-care (01) ==
PROVIDERS: General Practice; Emergency Provider Student in an Organized Health Care Education/Training Program; PCP Nurse Practitioner Family
DX: J32.9 Chronic sinusitis, unspecified (principal); R07.89 Other chest pain; N80.9 Endometriosis, unspecified; K58.9 Irritable bowel syndrome, unspecified; K21.9 Gastro-esophageal reflux disease without esophagitis; E66.3 Overweight; Z68.34 Body mass index [BMI] 34.0-34.9, adult; Z86.2 Personal history of diseases of the blood and blood-forming organs and certain disorders involving the immune mechanism; Z86.010 Personal history of colon polyps; Z87.440 Personal history of urinary (tract) infections; Z79.82 Long term (current) use of aspirin; F17.290 Nicotine dependence, other tobacco product, uncomplicated; R00.0 Tachycardia, unspecified
CPT/HCPCS: 36415; 71046; 80053; 81025; 83735; 83880; 84484; 85025; 85380; 85610; 85730; 87637; 93005; 99284

== ENCOUNTER 2023-08-11 09:54 | Outpatient (CLI) | payer OTHER, SELFPAY ==
--- NOTE | ~2023-08-11 | CT_ITS ---
EXAMINATION: CT sinus wo con DATE: 08/11/2023 10:15 INDICATION: Chronic sinusitis TECHNIQUE: Computed tomography (CT) of the paranasal sinuses was performed without intravenous contra st. The dose-length product (DLP) was 278.92 mGy-cm. Iterative reconstruction was used. COMPARISON: None FINDINGS: There is normal development and pneumatization of the paranasal sinuses. There is mild muco david thickening inferiorly in the left maxillary sinus. The frontal, sphenoid, ethmoid, and right maxi llary sinuses are clear. The bilateral ostiomeatal complexes are patent. Visualized soft tissues are unremarkable. IMPRESSION: 1. Mild left maxillary sinusitis. Reviewed, dictated and finalized at location B. ONAL SALES COORDINATOR
--- NOTE | ~2023-08-11 | MR_ITS ---
EXAMINATION: MR TMJS DATE: 08/11/2023 10:48 INDICATION: Jaw pain. TECHNIQUE: Magnetic resonance imaging (MRI) of the temporomandibular joints was performed without int ravenous contrast in the open-mouth and closed mouth positions. COMPARISON: Sinuses CT 08/14/2025 FINDINGS: The right temporomandibular joint demonstrates normal morphology of the mandibular condyle. With mout h closed, the disc is in normal position. There is decreased anterior translation of the mandibular c ondyle in the open mouth position. With the mouth open, the disc is in normal position. The left temporomandibular joint demonstrates normal morphology of the mandibular condyle. With the m outh closed, the disc is abnormally anteriorly displaced. There is decreased anterior translation of the mandibular condyle in the open mouth position. With the mouth open, the disc is in normal positio n. IMPRESSION: 1. Normal right temporomandibular joint. 2. Abnormal anterior displacement of the disc of the left temporomandibular joint in the closed mouth position with recapture in the open mouth position. Reviewed, dictated and finalized at location A. PLOTTER IMPRESSION: 1. Normal right temporomandibular joint. 2. Abnormal anterior displacement of the disc of the left temporomandibular meek nt in the closed mouth position with recapture in the open mouth position.
== END 2023-08-11 09:55 | disposition home or self-care (01) ==
PROVIDERS: PCP Nurse Practitioner Family; Visit Provider Otolaryngology
DX: R68.84 Jaw pain (principal); J32.0 Chronic maxillary sinusitis; M79.12 Myalgia of auxiliary muscles, head and neck; R51.9 Headache, unspecified; M27.9 Disease of jaws, unspecified
CPT/HCPCS: 70336; 70486

== ENCOUNTER 2023-10-06 13:15 | Outpatient (CLI) | payer OTHER, SELFPAY | END 2023-10-06 13:16 | disposition home or self-care (01) | LOC: ANHLAB 13:18 | PROVIDERS: PCP Nurse Practitioner Family; Visit Provider Obstetrics & Gynecology | DX: N96 Recurrent pregnancy loss (principal) | CPT/HCPCS: 36415; 84702 ==

== ENCOUNTER 2023-10-13 07:48 | Outpatient (CLI) | payer OTHER, SELFPAY | END 2023-10-13 07:49 | disposition home or self-care (01) | PROVIDERS: Visit Provider Obstetrics & Gynecology | DX: Z34.80 Encounter for supervision of other normal pregnancy, unspecified trimester (principal); Z3A.00 Weeks of gestation of pregnancy not specified | CPT/HCPCS: 36415; 84702 ==

== ENCOUNTER 2023-11-19 08:21 | Emergency (ER) | payer OTHER, SELFPAY ==
[2023-11-19 08:25] VITALS: BP 139/90; PULSE 102; RESP 20; TEMP 36.6; O2SAT 98
--- NOTE | 2023-11-19 09:27 | ED.BACK ---
HPI - Back Pain/Injury General Chief Complaint: Back Pain/Injury Stated Complaint: back pain Time Seen by Provider: 11/19/23 08:29 History of Present Illness HPI Narrative: This is a 33-year-old female, with history of low back pain and sciatica, presents to the emergency department complaining of right-sided low back pain. She describes pain as cramping and sharp, radiating down the right leg, rated 4 to 5/10. The patient states she was previously seen by pain management and treated with muscle relaxers and back injections. She is 11 weeks and care through pain management was paused for . 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 She denies associated fevers, chills, loss of sensation in the groin, loss of bowel/bladder control or leg weakness. Related Data Home Medications Medication Instructions Recorded Confirmed docosahexaenoic acid 200 mg mg PO DAILY 11/02/23 11/02/23 capsule ( DHA) enoxaparin 40 mg/0.4 mL 40 mg subcut DAILY 11/02/23 11/02/23 subcutaneous syringe (Lovenox) omeprazole 40 mg capsule,delayed 40 mg PO BID 11/02/23 11/02/23 release progesterone micronized 200 mg 200 mg PO QHS 11/02/23 11/02/23 capsule Allergies Allergy/AdvReac Type Severity Reaction Status Date / Time No Known Allergies Allergy Verified 11/19/23 08:22 Review of Systems Review of Systems: CONSTITUTIONAL: Denies fever, chills, or sweats. CARDIOVASCULAR: Denies chest pain, palpitations, or edema. RESPIRATORY: Denies cough or dyspnea. GASTROINTESTINAL: Denies abdominal pain, nausea, vomiting, or diarrhea. GENITOURINARY: 11 weeks Denies dysuria or hematuria. SKIN: Denies rash or itching. MUSCULOSKELETAL: Chronic right-sided low back pain radiating to the right leg Denies, joint pain, or myalgia. NEUROLOGIC: Denies headache, numbness, dizziness, or weakness. PSYCHIATRIC: Denies anxiety or depression. [facility] Past Medical History Medical History Acute tonsillitis GONZALO positive (~2019) Anemia Anxiety Atypical face pain Back pain Bronchitis Cholecystectomy planned Chronic low back pain Colon polyps Depression Diarrhea Endometriosis Frequent headaches Gastroesophageal reflux disease GERD (gastroesophageal reflux disease) Hx of thrombocytopenia On ASA IBS (irritable bowel syndrome) Jaw pain Lumbar stenosis Lyme disease of inner ear (~2020) Overweight Tobacco use Trigeminal neuralgia syndrome UTI (urinary tract infection) Surgical History Surgical History History of appendectomy Hx of cholecystectomy Hx of tonsillectomy Family History Family History Father Hypertension Family history of cardiovascular disease Mother Hypertension Depression Sibling Depression Grandparent Heart disease Cerebrovascular accident Social History Social History Social History: Lives alone. She has a dog. Denies alcohol or drug use. She does smoke E cigarettes with vaping daily. She is a full code. She nominates her mother to be the individual make medical decisions for her she is unable. Smoking status: Former smoker Tobacco type: e-cigarettes/vaping Second hand tobacco smoke exposure: No Additional smoking assessment comments: Has vaped for 4 years Alcohol intake: never Substance use: never Substance use type: does not use Lack of Transportation: No Lack of Food: Never True Current Housing: I Have Housing Concerned About Future Housing: No Difficulty Paying Gas/Electric Bills: No Difficulty Paying for Meds: No Currently Unemployed: No Education: Bachelor's Degree Difficulty w/ Childcare or Family Care: No Living arrangements: other Additional living arrangements comments: boyfriend Occupation/E
[2023-11-19] MEDS: ACETAMINOPHEN 500 MG TABLET 1000 MG PO (09:28)
[2023-11-19] MEDS: LIDOCAINE 5% PATCH 1 PATCH TRANSDERM (09:29)
== END 2023-11-19 10:24 | disposition home or self-care (01) ==
LOC: ANHED 09:53
PROVIDERS: Emergency Provider Preventive Medicine Aerospace Medicine; PCP Nurse Practitioner Family
DX: M54.42 Lumbago with sciatica, left side (principal); M54.41 Lumbago with sciatica, right side; N80.9 Endometriosis, unspecified; D69.6 Thrombocytopenia, unspecified; E66.3 Overweight; Z68.35 Body mass index [BMI] 35.0-35.9, adult; K21.9 Gastro-esophageal reflux disease without esophagitis; K58.9 Irritable bowel syndrome, unspecified; F17.290 Nicotine dependence, other tobacco product, uncomplicated; Z87.440 Personal history of urinary (tract) infections; Z86.010 Personal history of colon polyps; Z86.2 Personal history of diseases of the blood and blood-forming organs and certain disorders involving the immune mechanism; Z90.49 Acquired absence of other specified parts of digestive tract
CPT/HCPCS: 99283; A9270

== ENCOUNTER 2023-12-07 14:36 | Outpatient (CLI) | payer OTHER, SELFPAY ==
--- NOTE | ~2023-12-07 | MR_ITS ---
EXAMINATION: MR lumbar spine wo con DATE: 12/07/2023 16:19 INDICATION: Lumbar spondylosis with low back pain radiating to the groin and leg weakness TECHNIQUE: Magnetic resonance imaging (MRI) of the lumbar spine was performed without intravenous con trast. Sequences included sagittal T2-weighted FSE, sagittal T2-weighted FS FSE, sagittal T1-weighted FSE, and axial T2-weighted FSE. COMPARISON: None FINDINGS: Alignment is normal. Vertebral body heights are normal. Normal marrow signal. Disc desiccation, mode rate disc height loss and annular fissure at L1-L2 with Schmorl's node along the posterior inferior e ndplate of L1. The conus medullaris terminates at L1. There is normal signal in the caudal spinal cor d. Paravertebral soft tissues are unremarkable. The following disc levels are specifically discussed: T12-L1: The disc does not extend beyond the endplate margin. There is mild left facet joint osteoarth ritis. There is no neural foraminal stenosis. There is no central canal stenosis. L1-L2: Disc is mildly bulging with superimposed annular fissure and moderate size central disc extrus ion with disc material extending approximately 7 mm cephalad and caudal to the level of the endplates and measures 4 mm AP and 1.3 cm left to right. Measurements are [facility], images of which are unavailable at this time for comparison. There is mild bila teral facet joint osteoarthritis. There is mild bilateral neural foraminal stenosis. There is mild ce ntral canal stenosis. L2-L3: The disc does not extend beyond the endplate margin. There is mild bilateral facet joint osteo arthritis. There is no neural foraminal stenosis. There is no central canal stenosis. L3-L4: The disc does not extend beyond the endplate margin. There is mild bilateral facet joint osteo arthritis. There is no neural foraminal stenosis. There is no central canal stenosis. L4-L5: The disc does not extend beyond the endplate margin. There is mild bilateral facet joint osteo arthritis. There is mild bilateral neural foraminal stenosis. There is no central canal stenosis. L5-S1: The disc does not extend beyond the endplate margin. There is mild to moderate bilateral facet joint osteoarthritis. There is no neural foraminal stenosis. There is no central canal stenosis. IMPRESSION: 1. Mild lumbar spondylosis most notable for annular fissure and moderate sized disc extrusion resulti ng in mild central canal stenosis at L1-L2. Reviewed, dictated and finalized at location B. IMPRESSION: 1. Mild lumbar spondylosis most notable for annular fissure and moderate sized disc extrusion resulting in mild central canal stenosis at L1-L2.
--- NOTE | ~2023-12-07 | MR_ITS ---
EXAMINATION: MR pelvis wo con DATE: 12/07/2023 16:19 INDICATION: Low back pain with right leg weakness and numbness. Right groin and buttock pain. TECHNIQUE: Magnetic resonance imaging (MRI) of the pelvis was performed without intravenous contrast. Sequences included axial T1-weighted FSE, axial T2-weighted FS FSE, coronal T1-weighted FSE, coronal T2-weighted FS FSE, sagittal T1-weighted FSE and sagittal T2-weighted FS FSE. COMPARISON: None. FINDINGS: Bone alignment is normal. There is normal bone marrow signal throughout with no reactive edema, fract ure or suspected osteonecrosis. Bilateral hip joint spaces appear relatively preserved with no joint effusions. Musculature of the pelvis and visualized proximal thighs appears normal and symmetric. The re is a slightly heterogeneous T2 hyperintense mass versus complex fluid collection at the uterine fu ndus which appears contiguous with the endometrial complex. This measures 8.9 x 7.3 x 6.7 cm . Right ovary is normal. 2.4 cm left ovarian cyst/follicle. Bladder is unremarkable. Trace amount of likely p hysiologic free fluid in the cul-de-sac. No pathologically enlarged pelvic or inguinal lymphadenopath y. IMPRESSION: 1. 2.9 x 7.3 x 6.7 cm slightly heterogeneous T2 hyperintense lesion at the uterine fundus which appea rs contiguous with the endometrial complex. The absence of intravenous contrast is unclear whether th is represents a mass or more complex cystic lesion or other complex fluid collection such as hematoco lpos. Recommend gynecologic consultation and consider pelvic ultrasound and/or hysteroscopy for furth er evaluation. Reviewed, dictated and finalized at location B. IMPRESSION: 1. 2.9 x 7.3 x 6.7 cm slightly heterogeneous T2 hyperintense lesion at the uter ine fundus which appears contiguous with the endometrial complex. The absence o f intravenous contrast is unclear whether this represents a mass or more comple x cystic lesion or other complex fluid collection such as hematocolpos. Recomme nd gynecologic consultation and consider pelvic ultrasound and/or hysteroscopy for further evaluation.
== END 2023-12-07 14:37 | disposition home or self-care (01) ==
PROVIDERS: PCP Nurse Practitioner Family; Visit Provider Chiropractor
DX: M47.896 Other spondylosis, lumbar region (principal)
CPT/HCPCS: 72148; 72195

== ENCOUNTER 2024-02-09 10:15 | Outpatient (RCR) | payer OTHER, SELFPAY ==
--- NOTE | 2023-11-17 09:46 | OPREHPOC ---
Outpatient Therapy Plan of Care This is a Multidisciplinary Plan of Care that may contain components documented by all disciplines (PT, OT, and ST.) PT Problem 1 PT Problem #1 Knowledge Deficit PT Goal 1 Goal Pt to be IND with issued HEP Target Visit 8 PT Problem 2 PT Problem #2 Pain PT Goal 1 Goal Pt to report back pain no greater than 5/10 in the last week. Target Visit 8 PT Goal 2 Goal Pt to report 50% improvement in overall symptoms. Target Visit 8 PT Problem 3 PT Problem #3 Impaired Range of Motion PT Goal 1 Goal Pt to demonstrate lumbar ROM without an increase in pain . Target Visit 8 PT Problem 4 PT Problem #4 Impaired Functional Mobil PT Goal 1 Goal Pt to demonstrate a functional lift and carry with 20lb without an increase in symptoms. Target Visit 8 PT Goal 2 Goal Pt to improve Oswestry score from 37/50 to 25/50. PT Problem 5 PT Problem #5 Impaired Sensation PT Goal 1 Goal Pt to decline radicular symptoms in the last week. Target Visit 8
--- NOTE | 2023-11-17 09:46 | PTOPEVAL1 ---
Assessment and note entered by Valeria Parks, PT, DPT Evaluation Information Assessment Status Evaluation Diagnosis spinal stenosis Onset 2 years Subjective Information Pt reports over a two year history of nearly debilitating back pain. She states her pain gets so intense at times that she feels sick to her stomach and cannot eat. Pt states she has almost gone to the emergency room at 3 different times in the past week. She has had 1 back injection without any relief. She reports pain that radiates on the R side down to her foot, the L side will radiate into the hip region but not any further. 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 Reported Pain Level Pain Score 6: Self Report Assessment PT Clinical Summary Jackie presents to therapy today for her initial evaluation with a diagnosis of low back pain and spinal stenosis. She demonstrates decreased lumbar and passive hip ROM d/t pain reports. She demonstrates decreased hip strength and stability which also could be limited by pain. She has core weakness likely contributing to poor postural stability and movement mechanics. She reports a decreased sitting and standing tolerance for the last 2 years. Skilled therapy services are indicated to address the deficits noted above, to manage pain, to improve mobility, and to return to OF. Plan of Care Interventions Electrical Stimulation,Gait Training,Hot Pack/Cold Pack,Manual Therapy,Mechanical Traction,Neuro Re- education,Patient/Caregiver Educati,Therapeutic Activities,Therapeutic Exercise PT Services Indicated Yes Treatment Frequency and 1-2x/wk for 8 visits Duration These treatments will address the objective and functional deficits as defined above. The patient will be advanced safely and appropriately in order for the patient to progress towards his/her prior level of function. Additional exercises will be introduced and as well as a comprehensive home exercise program upon discharge, if needed, ?to ensure carryover of functional gains achieved in the clinic. This treatment plan has been reviewed and agreement upon by the patient.
--- NOTE | 2023-12-14 10:57 | PTOPPROG ---
Assessment and note entered by Valeria Parks, PT, DPT Evaluation Information Assessment Status Progress Diagnosis spinal stenosis Onset 2 years Subjective Information Pt states her back is doing terrible. She states at times she feels okay, and then out of now where her back will get worse throughout the day. She states by the end of most days she cannot walk d/t the pain. She reports a current pulling and tearing feeling in her back right now and states she is nauseous d/t the pain. Assessment PT Clinical Summary Jackie presents to therapy today for her progress report following 8 visits of skilled therapy to treat her diagnosis of low back pain and spinal stenosis. She continues to demonstrates decreased LE strength, lumbar motion, and functional capacity d/t pain reports. She is making progress towards her goals, progress may be slower d/t s/s associated with her . Skilled therapy services are indicated to address the deficits noted above, to manage pain, to improve mobility, and to return to PLOF. Plan of Care Interventions Electrical Stimulation,Gait Training,Hot Pack/Cold Pack,Manual Therapy,Mechanical Traction,Neuro Re- education,Patient/Caregiver Educati,Therapeutic Activities,Therapeutic Exercise PT Services Indicated Yes Treatment Frequency and 2x/wk for 8 visits Duration These treatments will address the objective and functional deficits as defined above. The patient will be advanced safely and appropriately in order for the patient to progress towards his/her prior level of function. Additional exercises will be introduced and as well as a comprehensive home exercise program upon discharge, if needed, ?to ensure carryover of functional gains achieved in the clinic. This treatment plan has been reviewed and agreement upon by the patient.
--- NOTE | 2024-01-12 16:23 | PTOPPROG ---
Assessment and note entered by Benji Campoverde, PT Evaluation Information Assessment Status Progress Diagnosis spinal stenosis Onset 2 years Subjective Information Reports that she has been on a plateau of pain. She did see some increased pain from last week. When she is doing therapy it helps, but afterwards when she moves the pain comes back. She feels that some of the hip muscle energy exercises have helped her the most. She consistently get pinching in her low back with pelvic tilts. Pain radiates to the knee but is not shooting pain when it does flare up. Assessment PT Clinical Summary Patient continues to show significant pain with single leg isolation activity and flexion based activity. To this point in therapy, we have had some success with manual intervention and muscle energy as she is showing symptoms of both stenotic and discogenic issues. 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 Patient has been given limited options by pain management and neurology at this point in time and therapy appears to be best course of action for pain relief. Plan of Care Interventions Electrical Stimulation,Gait Training,Hot Pack/Cold Pack,Manual Therapy,Mechanical Traction,Neuro Re- education,Patient/Caregiver Educati,Therapeutic Activities,Therapeutic Exercise PT Services Indicated Yes Treatment Frequency and 1x/week for 8 visits Duration These treatments will address the objective and functional deficits as defined above. The patient will be advanced safely and appropriately in order for the patient to progress towards his/her prior level of function. Additional exercises will be introduced and as well as a comprehensive home exercise program upon discharge, if needed, ?to ensure carryover of functional gains achieved in the clinic. This treatment plan has been reviewed and agreement upon by the patient.
--- NOTE | 2024-02-02 12:13 | OPREHPOC ---
Outpatient Therapy Plan of Care This is a Multidisciplinary Plan of Care that may contain components documented by all disciplines (PT, OT, and ST.) PT Problem 1 PT Problem #1 Knowledge Deficit PT Goal 1 Goal Pt to be IND with issued HEP Target Visit 8 Progress Met Comment 12/14/23: met PT Problem 2 PT Problem #2 Pain PT Goal 1 Goal Pt to report back pain no greater than 5/10 in the last week. Target Visit 23 Progress Not Met Comment not met, 02/06 PT Goal 2 Goal Pt to report 50% improvement in overall symptoms. Target Visit 23 Progress Not Met Comment not met, 5% improvement PT Problem 3 PT Problem #3 Impaired Range of Motion PT Goal 1 Goal Pt to demonstrate lumbar ROM without an increase in pain . Target Visit 23 Progress Not Met PT Problem 4 PT Problem #4 Impaired Functional Mobil PT Goal 1 Goal Pt to demonstrate a functional lift and carry with 20lb without an increase in symptoms. Target Visit 23 Progress Not Met Comment not met PT Goal 2 Goal Pt to improve Oswestry score from 37/50 to 25/50. Target Visit 23 Progress Not Met Comment progressing, PT Problem 5 PT Problem #5 Impaired Sensation PT Goal 1 Goal Pt to decline radicular symptoms in the last week. Target Visit 23 Progress Not Met Comment not met PT Goal 2 Goal Patient will report no incontinence over the last month
--- NOTE | 2024-02-02 12:14 | PTOPREEVAL ---
Assessment and note entered by Arelis Covington DPT Evaluation Information Assessment Status Re-evaluation Diagnosis spinal stenosis Onset 2 years Subjective Information Pt reports back pain 4/10 lowest and 8/10 highest. Radiating pain down her R leg and toes in her foot will go numb at times. Pt has a history of endometriosis and also gets abdominal pain. Highest abdominal pain 4/10 and lowest 0/10. Previous pain with pap smear, intercourse, tampon use. Urinary incontinence with a cough or sneeze, 2 times a month and a small amount when it happens . Has needed to change clothes. Voids less than 10 times a day, 4-5 times at night which is new since being . Can hold urge to void at least 30 minutes most of the time. Pt also has IBS and has some abdominal pain at times. Normally BM 3 times a day and up to 8. 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 Patient goal: make sure I'm ok Reported Pain Level Pain Score Moderate Pain: Benson Ko Assessment PT Clinical Summary The patient is presenting to skilled therapy with urinary incontinence in addition to her radiating back pain. She also reports a history of endometriosis and pelvic pain. She presents with decreased pelvic floor strength but no pain or reproduction of back symptoms with pelvic exam this date. She has been educated in pelvic floor strengthening exercises to minimize incontinence. She will otherwise continue therapy for her back per current plan, will address further pelvic floor issues if they worsen as her progresses. Plan of Care Interventions Gait Training,Hot Pack/Cold Pack,Manual Therapy, Neuro Re-education,Patient/Caregiver Education, Therapeutic Activities,Therapeutic Exercise PT Services Indicated Yes Treatment Frequency and continue current plan of 1 time a week for 8 Duration visits These treatments will address the objective and functional deficits as defined above. The patient will be advanced safely and appropriately in order for the patient to progress towards his/her prior level of function. Additional exercises will be introduced and as well as a comprehensive home exercise program upon discharge, if needed, ?to ensure car
== END 2024-02-14 09:33 | disposition still patient (30) ==
LOC: ANHGOSHPT 10:15
PROVIDERS: PCP Nurse Practitioner Family; Visit Provider Nurse Practitioner Family
DX: M48.061 Spinal stenosis, lumbar region without neurogenic claudication (principal); M47.816 Spondylosis without myelopathy or radiculopathy, lumbar region; M51.26 Other intervertebral disc displacement, lumbar region
CPT/HCPCS: 97012; 97110; 97140; 97161; 97530

== ENCOUNTER 2024-04-02 17:47 | Emergency (ER) | payer OTHER, SELFPAY ==
[2024-04-02 17:51] VITALS: BP 153/82; PULSE 126; RESP 20; TEMP 36.6; O2SAT 100
--- NOTE | 2024-04-02 17:52 | ECG_ITS ---
Test Date: 2024-04-02 17:58:08 Measurements Intervals [place] Rate: 129 P: 46 UT: 136 QRS: 22 QRSD: 85 T: -1 QT: 300 QTc: 440 Interpretive Statements SINUS TACHYCARDIA ABNORMAL RHYTHM ECG No previous ECG available for comparison Electronically Signed On 04-03-2024 15:28:55 CDT by Tony Fitzpatrick M.D.
[2024-04-02 18:31] VITALS: BP 153/82; PULSE 102
[2024-04-02] MEDS: ONDANSETRON INJ 4 MG/2 ML VIAL IV PUSH (18:42)
[2024-04-02] MEDS: SODIUM CHLORIDE 0.9% IV 1,000 ML 999 ML IV CONT ×2 (18:42→20:09)
[2024-04-02 18:51] LABS: Basophils Percent Auto 0.3 % (0.2-1.2); Eosinophils Absolute Auto 0.1 K/mm3 (0-0.3); Eosinophils Percent Auto 0.6 % (0-4.4); Hematocrit 37.2 % (37.0-47.0); Hemoglobin 12.4 g/dL (12.0-15.0); Immature Granulocyte Absolute 0.08 K/mm3 (0.00-0.031); Immature Granulocyte Percent A 0.6 % (0-0.5); Lymphocytes Percent Auto 16.2 % (18.3-44.2); Mean Corpuscular HGB Conc 33.3 g/dl (32-36); Mean Corpuscular Hemoglobin 29.9 pg (26-34); Mean Corpuscular Volume 89.6 fl (80-100); Mean Platelet Volume 10.1 fl (7.4-10.4); Monocytes Absolute Auto 0.8 K/mm3 (0.1-0.6); Monocytes Percent Auto 5.4 % (2.6-8.5); Neutrophils Absolute Auto 10.9 K/mm3 (1.3-6.7); Neutrophils Percent Auto 76.9 % (45.5-73.1); Platelet Count Result 306 k/mm3 (150-375); Red Blood Count 4.15 M/mm3 (4.2-5.4); Red Cell Distribution Width 14.1 % (11.5-14.5); White Blood Count 14.2 K/mm3 (4.5-10.0)
[2024-04-02 19:01] LABS: Alanine Aminotransferase 12 U/L (6-35); Alkaline Phosphatase 100 U/L (38-126); Anion Gap 11 mmol/L (4-12); Aspartate Amino Transferase 16 U/L (14-36); Bilirubin,Total 0.2 mg/dL (0.2-1.3); Blood Urea Nitrogen 5 mg/dL (7-17); Calcium 9.7 mg/dL (8.4-10.2); Carbon Dioxide 24 mmol/L (22-30); Chloride 100 mmol/L (98-107); Estimated CRCL calculation 179 ml/min; Estimated Glomerular Filt Rate > 60; Glucose 92 mg/dL (65-110); Lipase 84 U/L (23-300); Potassium 3.7 mmol/L (3.4-5.0); Sodium 135 mmol/L (137-145)
[2024-04-02 19:25] LABS: BEDSIDEPREGUCG Positive
[2024-04-02 19:28] LABS: Add Urine Microscopic? NO; Appearance Urine Clear (Clear); Bilirubin Urine Negative (Negative); Blood Urine Negative (Negative); Color Urine Yellow (Yellow); Glucose Urine UA Negative (Negative); Ketones Urine Negative (Negative); Leukocyte Esterase Ur Negative LEU/UL (Negative); Nitrate Urine Negative (Negative); Protein Urine Negative (Negative); Specific Grav Ur 1.009 (1.001-1.035); Urobilinogen Urine 0.2 mg/dL (<2.0); pH Urine 7.5 (5.0-9.0)
[2024-04-02] MEDS: METOCLOPRAMIDE HCL INJ 10 MG/2 ML VIAL IV PUSH (20:09)
--- NOTE | 2024-04-02 20:27 | ED.GENADULT ---
HPI - General Adult General Chief complaint: Nausea/Vomiting/Diarrhea Stated complaint: N/V, 30 WEEKS Time Seen by Provider: 04/02/24 19:10 History of Present Illness HPI narrative: Patient is a 34-year-old female who presents emergency department with chief complaint of nausea vomiting and diarrhea patient reports he has prior history of IBS reports that today she had really keep anything down knows that her heart rate was up. Patient reports he has also 30 weeks but denies any abdominal pain or vaginal bleeding or vaginal discharge Related Data Home Medications Medication Instructions Recorded Confirmed docosahexaenoic acid 200 mg mg PO DAILY 11/02/23 11/02/23 capsule ( DHA) enoxaparin 40 mg/0.4 mL 40 mg subcut DAILY 11/02/23 11/02/23 subcutaneous syringe (Lovenox) omeprazole 40 mg capsule,delayed 40 mg PO BID 11/02/23 11/02/23 release progesterone micronized 200 mg 200 mg PO QHS 11/02/23 11/02/23 capsule Allergies Allergy/AdvReac Type Severity Reaction Status Date / Time No Known Allergies Allergy Verified 11/19/23 08:22 Review of Systems Review of Systems: A 10 system review of systems was completed on the patient and is negative except for what is stated in the HPI. Nursing and ancillary documentation was reviewed. [facility] Past Medical History Medical History Acute tonsillitis GONZALO positive (~2019) Anemia Anxiety Atypical face pain Back pain Bronchitis Cholecystectomy planned Chronic low back pain Colon polyps Depression Diarrhea Endometriosis Frequent headaches Gastroesophageal reflux disease GERD (gastroesophageal reflux disease) Hx of thrombocytopenia On ASA IBS (irritable bowel syndrome) Jaw pain Lumbar stenosis Lyme disease of inner ear (~2019) Overweight Tobacco use Trigeminal neuralgia syndrome UTI (urinary tract infection) Surgical History Surgical History History of appendectomy Hx of cholecystectomy Hx of tonsillectomy Family History Family History Father Hypertension Family history of cardiovascular disease Mother Hypertension Depression Sibling Depression Grandparent Heart disease Cerebrovascular accident Social History Social History Social History: Lives alone. She has a dog. Denies alcohol or drug use. She does smoke E cigarettes with vaping daily. She is a full code. She nominates her mother to be the individual make medical decisions for her she is unable. Smoking status: Former smoker Tobacco type: e-cigarettes/vaping Second hand tobacco smoke exposure: No Additional smoking assessment comments: Has vaped for 4 years Alcohol intake: never Substance use: never Substance use type: does not use Lack of Transportation: No Lack of Food: Never True Current Housing: I Have Housing Concerned About Future Housing: No Difficulty Paying Gas/Electric Bills: No Difficulty Paying for Meds: No Currently Unemployed: No Education: Bachelor's Degree Difficulty w/ Childcare or Family Care: No Living arrangements: other Additional living arrangements comments: boyfriend Occupation/Education: occupation Gender identity (if verbalized by the patient): Female Sexual Orientation (if Verbalized by the Patient): Straight or Heterosexual Spiritual care concerns: No Exam Narrative: GENERAL: Well-appearing, well-nourished, and in no acute distress. HEAD: Normocephalic, atraumatic. EYES: PERRLA and EOMI. ENT: Nares clear, no rhinorrhea or epistaxis. Mucous membranes moist. NECK: Supple. CHEST: Clear to auscultation. No respiratory distress. HEART: Regular rate and rhythm. No murmur heard. Normal peripheral pulses. ABDOMEN: Soft, nontende
[2024-04-02 21:01] VITALS: BP 130/82; PULSE 107; RESP 20; O2SAT 98
== END 2024-04-02 21:43 | disposition home or self-care (01) ==
PROVIDERS: Emergency Medicine; Emergency Provider Emergency Medicine; PCP Nurse Practitioner Family
DX: O21.2 Late vomiting of pregnancy (principal); O99.613 Diseases of the digestive system complicating pregnancy, third trimester; K58.9 Irritable bowel syndrome, unspecified; K21.9 Gastro-esophageal reflux disease without esophagitis; O99.891 Other specified diseases and conditions complicating pregnancy; N80.9 Endometriosis, unspecified; D69.6 Thrombocytopenia, unspecified; O99.333 Smoking (tobacco) complicating pregnancy, third trimester; F17.290 Nicotine dependence, other tobacco product, uncomplicated; Z86.010 Personal history of colon polyps; Z87.440 Personal history of urinary (tract) infections; Z86.2 Personal history of diseases of the blood and blood-forming organs and certain disorders involving the immune mechanism; Z90.49 Acquired absence of other specified parts of digestive tract; Z79.899 Other long term (current) drug therapy; Z79.01 Long term (current) use of anticoagulants; Z3A.30 30 weeks gestation of pregnancy
CPT/HCPCS: 36415; 80053; 81003; 81025; 83690; 85025; 93005; 96361; 96374; 96375; 99284; J2405; J2765; J7030

== ENCOUNTER 2024-04-05 10:15 | Outpatient (RCR) | payer OTHER, SELFPAY ==
--- NOTE | 2024-03-07 17:37 | PTOPPROG ---
Assessment and note entered by Benji Campoverde, PT Evaluation Information Assessment Status Progress Subjective Information Patient continues to see increased back pain with activity. Pain is increased with standing activity and overall work and standing related activity. Overall she has seen a little improvement with her transition into third trimester which has been surprising to her. Pain continues to reside mostly on right side. She is inconsistently able to relieve her pain with laying down. Assessment PT Clinical Summary We continue to see pain levels fluctuated with exercise and activity level. She has had some relief on days that she is having therapy and has been a reduced pain outlet for her at this point in her to help reduce activity based pain symptoms. Will continue to benefit from skilled therapy to address deficits and reduce pain through stabilization and mobilization. Plan of Care PT Services Indicated Yes Treatment Frequency and 1x/week for 4 visits Duration These treatments will address the objective and functional deficits as defined above. The patient will be advanced safely and appropriately in order for the patient to progress towards his/her prior level of function. Additional exercises will be introduced and as well as a comprehensive home exercise program upon discharge, if needed, ?to ensure carryover of functional gains achieved in the clinic. This treatment plan has been reviewed and agreement upon by the patient.
--- NOTE | 2024-04-05 11:04 | PTOPDC ---
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 She states some mornings her pain in manageable but it just increases throughout the day. She states she has pain every day, most days it gets up to an 8/10 by the end of the day. She states it feels like the R side of her lower back is swollen all the time. Pt states she is still seeing a chiropractor 2x/wk and was seeing a massage therapist every other week. Pt states she went to the ER on Wednesday d/t a rapid heart rate. Reported Pain Level Pain Score 5: Self Report Assessment PT Clinical Summary Pt reports little to no improvements in the last few rounds of therapy. She states she is essentially managing the pain until she can have back surgery. She reports having all the necessary tools to work towards pain management. She will no longer continue will skilled therapy services d /t lack of improvements. She was instructed to continue her HEP upon discharged for strength management and to promote strength for her surgery . Plan of Care PT Services Indicated No
== END 2024-04-05 13:23 | disposition home or self-care (01) ==
LOC: ANHGOSHPT 10:15
PROVIDERS: PCP Nurse Practitioner Family; Visit Provider Nurse Practitioner Family
DX: M48.061 Spinal stenosis, lumbar region without neurogenic claudication (principal); M47.816 Spondylosis without myelopathy or radiculopathy, lumbar region; M51.26 Other intervertebral disc displacement, lumbar region
CPT/HCPCS: 97110; 97140

== ENCOUNTER 2024-06-04 01:05 | Inpatient (IN) | payer OTHER, SELFPAY ==
[2024-06-04] VITALS (218 sets, daily range): BP systolic 93–157; BP diastolic 34–121; PULSE 61–179; RESP 16–20; TEMP 36.3–36.9; O2SAT 93–100; BMI 40.8
[2024-06-04 02:03] LABS: Basophils Percent Auto 0.2 % (0.2-1.2); Eosinophils Absolute Auto 0.1 K/mm3 (0-0.3); Eosinophils Percent Auto 0.8 % (0-4.4); Hematocrit 41.5 % (37.0-47.0); Hemoglobin 14.1 g/dL (12.0-15.0); Immature Granulocyte Absolute 0.04 K/mm3 (0.00-0.031); Immature Granulocyte Percent A 0.3 % (0-0.5); Lymphocytes Absolute Auto 2.47 K/mm3 (0.9-3.2); Lymphocytes Percent Auto 21.1 % (18.3-44.2); Mean Corpuscular Hemoglobin 29.8 pg (26-34); Mean Corpuscular Volume 87.7 fl (80-100); Mean Platelet Volume 10.9 fl (7.4-10.4); Monocytes Absolute Auto 0.9 K/mm3 (0.1-0.6); Monocytes Percent Auto 7.3 % (2.6-8.5); Neutrophils Absolute Auto 8.2 K/mm3 (1.3-6.7); Neutrophils Percent Auto 70.3 % (45.5-73.1); Platelet Count Result 292 k/mm3 (150-375); Red Blood Count 4.73 M/mm3 (4.2-5.4); Red Cell Distribution Width 14.5 % (11.5-14.5); White Blood Count 11.7 K/mm3 (4.5-10.0)
--- NOTE | 2024-06-04 02:07 | LDADM ---
This patient, Jackie Degroot, was admitted to Labor/Delivery/Recovery 105 on 06/04/24 at 01:05. Plans for labor, pain management and were discussed with patient. Patient/family oriented to hospital policies and general routines including ID bracelet, bed and alarms, visiting hours, pain management, procedures, bathroom and other care routines, personal items, smoking policy, room service/diet and guest tray routines, infant security routines, and visiting hours. Patient/Family are encouraged to report perceived risks to care and to ask questions if they do not understand what they are told or what they should do. See [facility]BIX for further documentation.
[2024-06-04 02:14] LABS: INR 1.1; Prothrombin Time 14.4 Seconds (11.1-14.7)
[2024-06-04 02:15] LABS: Partial Thromboplastin Time 30.6 Seconds (22.3-36.8)
[2024-06-04 02:24] LABS: Rapid Plasma Reagin Non-Reactive (NonReactive)
[2024-06-04 02:56] LABS: HIV 1/2 Ab P24 Ag Result Negative (Negative)
[2024-06-04] MEDS: ONDANSETRON INJ 4 MG/2 ML VIAL IV PUSH ×2 (04:37→13:52)
[2024-06-04] MEDS: LACTATED RINGERS 1,000 ML 125 ML IV CONT ×2 (04:50→06:54)
--- NOTE | 2024-06-04 06:33 | WPDANESEPP ---
Anes - Eval Pre Procedure Procedure: Labor epidural Date/Time: 06/04/24 06:33 Surgeon: Maurice Preop Diagnosis: Labor Pain Pre Op Diagnosis: IOL Patient Data Age: 34 Gender: F Height: 1.73 m Weight: 122 kg Last Vital Signs Temp 36.6 C 06/04/24 02:00 Pulse 81 06/04/24 04:41 BP 125/45 L 06/04/24 04:41 Allergies Allergy/AdvReac Type Severity Reaction Status Date / Time No Known Allergies Allergy Verified 11/19/23 08:22 Home Medications Medication Instructions Recorded Confirmed Type docosahexaenoic acid 200 mg mg PO DAILY 11/02/23 11/02/23 History capsule ( DHA) enoxaparin 40 mg/0.4 mL 40 mg subcut DAILY 11/02/23 11/02/23 History subcutaneous syringe (Lovenox) omeprazole 40 mg capsule,delayed 40 mg PO BID 11/02/23 11/02/23 History release ondansetron 4 mg disintegrating 4 mg PO Q8H PRN nausea and 04/02/24 Rx tablet vomiting #10 tabs aowxgavzdo-pujscguspixlo-ubfxpvoy 1 tablet PO Q6H PRN Migraine 05/13/24 05/13/24 History 50 mg-325 mg-40 mg tablet Headache cyclobenzaprine 5 mg tablet 10 mg PO DAILY PRN muscle spasm 05/13/24 History prenat.vits,esha,fdo-ilkn-gnhne 1 tablet 05/13/24 History Laboratory Tests 06/04/24 01:56 WBC 11.7 H K/mm3 (4.5-10.0) RBC 4.73 M/mm3 (4.2-5.4) Hgb 14.1 g/dL (12.0-15.0) Hct 41.5 % (37.0-47.0) MCV 87.7 fl (80-100) MCH 29.8 pg (26-34) MCHC 34.0 g/dl (32-36) RDW 14.5 % (11.5-14.5) Plt Count 292 k/mm3 (150-375) MPV 10.9 H fl (7.4-10.4) Immature Gran % (Auto) 0.3 % (0-0.5) Neut % (Auto) 70.3 % (45.5-73.1) Lymph % (Auto) 21.1 % (18.3-44.2) [place] % (Auto) 7.3 % (2.6-8.5) Eos % (Auto) 0.8 % (0-4.4) Baso % (Auto) 0.2 % (0.2-1.2) Lymph # (Auto) 2.47 K/mm3 (0.9-3.2) [place] # (Auto) 0.9 H K/mm3 (0.1-0.6) Eos # (Auto) 0.1 K/mm3 (0-0.3) Baso # (Auto) 0.0 K/mm3 (0.0-0.1) Abs Immat Gran (auto) 0.04 H K/mm3 (0.00-0.031) Absolute Neuts (auto) 8.2 H K/mm3 (1.3-6.7) Absolute Nucleated RBC 0.000 K/mm3 (0.0-0.012) Nucleated RBC % 0.0 % (0.0-0.2) PT 14.4 Seconds (11.1-14.7) INR 1.1 APTT 30.6 Seconds (22.3-36.8) RPR Non-reactive (NonReactive) HIV 1&2 Ab/P24 Ag 4thGn Negative (Negative) Blood Type O Positive Antibody Screen Negative : gestational age (ANGIE 06/10/24, ) Patient hx anesthesia problems: none Family hx anesthesia problems: none Results Review: All pre-operative results and documents have been reviewed as part of the pre-operative evaluation. [facility] Past Medical History Medical History Acute tonsillitis GONZALO positive (~2019) Anemia Anxiety Atypical face pain Back pain Bronchitis Cholecystectomy planned Chronic low back pain Colon polyps Depression Diarrhea Endometriosis Frequent headaches Gastroesophageal reflux disease GERD (gastroesophageal reflux disease) Hx of thrombocytopenia On ASA IBS (irritable bowel syndrome) Jaw pain Lumbar stenosis Lyme disease of inner ear (~2019) Overweight Tobacco use Trigeminal neuralgia syndrome UTI (urinary tract infection) Surgical History Surgical History History of appendectomy Hx of cholecystectomy Hx of tonsillectomy Family History Family History Father Hypertension Family history of cardiovascular disease Mother Hypertension Depression Sibling Depression Grandparent Heart disease Cerebrovascular accident Social History Social History Social History: Lives alone. She has a dog. Denies alcohol or drug use. She does smoke E cigarettes with vaping daily. She is a full code. She nominates her mother to be the individual make medical decisions for h
[2024-06-04] MEDS: OXYTOCIN 30 UNITS/NS 500 ML 30 UNITS/500 ML BAG IV CONT (12:25)
--- NOTE | 2024-06-04 14:53 | PM.IMHP ---
H&P: HPI History of Present Illness Date/Time: 06/04/24 1330 Chief Complaint: Hector obrien Narrative: 34 y/o at 39 1/7 weeks here after a gush of clear fluid at 0030 today. SROM confirmed on admission. She has been taking Lovenox, then switched to heparin, for history of recurrent loss. She has no history of thromboembolism. Last dose of heparin yesterday morning. GBS neg. US 2 weeks ago showed EFW 8#1oz. Currently comfortable with epidural. Now augmenting labor with oxytocin. Review of Systems Review of Systems: All systems reviewed & are unremarkable except as noted in HPI and below PMFSH Past Medical History Medical History (Updated 06/04/24 @ 14:56 by Casa Santoro MD) Acute tonsillitis GONZALO positive (~2019) Anemia Anxiety Atypical face pain Back pain Bronchitis Cholecystectomy planned Chronic low back pain Colon polyps Depression Diarrhea Endometriosis Frequent headaches Gastroesophageal reflux disease GERD (gastroesophageal reflux disease) Hx of thrombocytopenia On ASA IBS (irritable bowel syndrome) Jaw pain Lumbar stenosis Lyme disease of inner ear (~2019) Overweight Recurrent loss Tobacco use Trigeminal neuralgia syndrome UTI (urinary tract infection) Surgical History Surgical History History of appendectomy Hx of cholecystectomy Hx of tonsillectomy Family History Family History Father Hypertension Family history of cardiovascular disease Mother Hypertension Depression Sibling Depression Grandparent Heart disease Cerebrovascular accident Social History Social History Social History: Lives alone. She has a dog. Denies alcohol or drug use. She does smoke E cigarettes with vaping daily. She is a full code. She nominates her mother to be the individual make medical decisions for her she is unable. Smoking status: Former smoker Tobacco type: cigarettes and e-cigarettes/vaping Second hand tobacco smoke exposure: No Additional smoking assessment comments: Has vaped for 4 years Alcohol intake: never Substance use: never Substance use type: does not use Do You Feel Safe in your Home?: Yes Lack of Transportation: No Lack of Food: Never True Current Housing: I Have Housing Concerned About Future Housing: No Difficulty Paying Gas/Electric Bills: No Difficulty Paying for Meds: No Currently Unemployed: No Education: Bachelor's Degree Difficulty w/ Childcare or Family Care: No Living arrangements: other Additional living arrangements comments: boyfriend Occupation/Education: occupation Gender identity (if verbalized by the patient): Female Sexual Orientation (if Verbalized by the Patient): Straight or Heterosexual Spiritual care concerns: No Meds Home Medications and Allergies Home Medications Medication Instructions Recorded Confirmed Type docosahexaenoic acid 200 mg mg PO DAILY 11/02/23 11/02/23 History capsule ( DHA) enoxaparin 40 mg/0.4 mL 40 mg subcut DAILY 11/02/23 11/02/23 History subcutaneous syringe (Lovenox) omeprazole 40 mg capsule,delayed 40 mg PO BID 11/02/23 11/02/23 History release ondansetron 4 mg disintegrating 4 mg PO Q8H PRN nausea and 04/02/24 Rx tablet vomiting #10 tabs qxocgahbyx-dhbzjnhgnmdnz-dyshosiy 1 tablet PO Q6H PRN Migraine 05/13/24 05/13/24 History 50 mg-325 mg-40 mg tablet Headache cyclobenzaprine 5 mg tablet 10 mg PO DAILY PRN muscle spasm 05/13/24 History prenat.vits,esha,mce-ndqw-nfctt 1 tablet 05/13/24 History Allergies Allergy/AdvReac Type Severity Reaction Status Date / Time No Known Allergies Allergy Verified 11/19/23 08:22 Vital Signs Vital Signs - 24 hr 06/04/24 01:23 06/04/24 01:29 06/04/24 01:44 Temperature Pulse Rate 115 H 127 H 118 H Blood Pr
--- NOTE | 2024-06-04 16:29 | PM.OBPRVD ---
OB - Vaginal Delivery Note Procedure Delivery date: 06/04/24 Induction method: None Delivery augmentation: Pitocin Delivery monitor: External FHT, External Uterine and Internal Uterine Route of delivery: Episiotomy description: None Laceration Description: Perineal - 2nd Degree Delivery repair: vicryl (3-0) Specimen: Yes (Cord blood) Quantitative Blood Loss (ml): 120 Anesthesia type: Epidural Disposition: PACU Complications: None Narrative: 34 y/o at 39 2/7 weeks gestation who presented to the hospital after a gush of fluid. SROM was diagnosed and she was admitted for labor. Oxytocin was administered intravenously for labor augmentation. She received an epidural for pain control. Her labor progressed and her cervix dilated completely. She pushed with good effort and delivered the infant's head to the perineum. A shoulder dystocia was encountered. Fundal pressure and traction on the head were strictly avoided. McRobert's maneuver performed. The posterior (left) shoulder was able to be grasped and rotated counterclockwise. The anterior shoulder delivered and the body followed. The nose and mouth were bulb suctioned. The cord was clamped and cut. The infant was handed off the field. Cord blood was collected. The placenta delivered spontaneously and was grossly normal in appearance. The usual 3 vessel cord was noted. A second degree midline perineal laceration was sustained. This was reapproximated using 3 0 Vicryl in the usual layered fashion. Excellent hemostasis resulted as did excellent reapproximation of the normal anatomy. Needle and instrument counts were correct. The patient was taken to recovery room in stable condition. The infant went to the nursery in stable condition. I was present and scrubbed for the entire delivery. [place] Baby Date of : 06/04/24 Time of : 16:07 Gestational Age by Date: 39 Infant gender: Male Weight (pounds): 8 Weight (ounces): 12 presentation: vertex position: Left Occiput Anterior Placenta delivery description: Spontaneous and Normal Configuration Cord Vessel Description: 3 Vessels and Clamped/Cut score one minute: 9 score five minutes: 9
--- NOTE | 2024-06-04 16:33 | PM.OBDSVD ---
DS: Admitting Diagnosis Discharge Date 06/06/24 Admitting Diagnosis IUP at 39 2/7 weeks SROM DS: Discharge Diagnosis Discharge Diagnosis (1) (normal spontaneous vaginal delivery): Code(s): O80 - Encounter for full-term uncomplicated delivery Status: Acute OB - DS: Summary OB Procedures : None OB Procedures Intrapartum: Spontaneous Vag Delivery OB Procedures: : None Peripartum Data Laceration Description: Perineal - 2nd Degree Episiotomy description: None Time Spent with Patient Time attestation: Total time spent providing and/or coordinating discharge services: DS: Data Data Completed and Pending Labs on day of discharge: Labs from last 24 hours 06/04/24 01:56 WBC 11.7 H RBC 4.73 Hgb 14.1 Hct 41.5 MCV 87.7 MCH 29.8 MCHC 34.0 RDW 14.5 Plt Count 292 MPV 10.9 H Immature Gran % (Auto) 0.3 Neut % (Auto) 70.3 Lymph % (Auto) 21.1 [place] % (Auto) 7.3 Eos % (Auto) 0.8 Baso % (Auto) 0.2 Lymph # (Auto) 2.47 [place] # (Auto) 0.9 H Eos # (Auto) 0.1 Baso # (Auto) 0.0 Abs Immat Gran (auto) 0.04 H Absolute Neuts (auto) 8.2 H Absolute Nucleated RBC 0.000 Nucleated RBC % 0.0 PT 14.4 INR 1.1 APTT 30.6 RPR Non-reactive HIV 1&2 Ab/P24 Ag 4thGn Negative Blood Type O Positive Antibody Screen Negative Discharge Plan Discharge Attending physician on discharge: Dennis Gold Consulting providers: Candida Loaiza; Michele Yan Discharging Clinician: Dennis Gold Patient Disposition: Home, Self-Care Activity: may shower and pelvic rest Diet: regular Wound Care Instructions: follow printed instructions Discharge Instructions: Education: Mom and Baby Guide Given to: Mother Follow-Up: Call your delivering provider's office for an appointment to be seen in: 1 Week Mom and baby should come to the [facility] for the follow-up appointment. Appointment Date/Time: Friday, June 07, 2024 at 10:00 am What to expect at your follow-up visit: Physical Assessment Call [phone] if you are unable to keep your appointment time. BREAST CARE: * Wear a snug supportive bra. * For engorgement discomfort: Bottle Feeding: * May apply ice packs PERINEAL CARE: * Until bleeding stops, use your radames bottle after urinating * Change your pad frequently throughout the day * You may take sitz baths several times a day (fill your bathtub with warm water and soak for 20 minutes.) Do NOT bathe in the water * No tub baths until seen by your physician - You may shower ACTIVITY: * Rest as much as possible. * Do not exercise or lift anything heavier than your baby (such as laundry or other children.) * Avoid stairs or driving as much as possible. * Do not put anything into the vagina. No douching, tampons, or sexual activity until seen by physician. NOTIFY PHYSICIAN IF YOU HAVE ANY QUESTIONS OR IF ANY OF THE FOLLOWING SYMPTOMS OCCUR: * If your episiotomy or incision becomes red, swollen, or more painful than what you have experienced in the hospital. * If your vaginal bleeding becomes foul smelling. * If your vaginal bleeding becomes more heavy than a period or if your bleeding changes from pink to bright red. However, you may pass an occasional walnut-sized clot once or twice for the first week . * If you experience a sharp, shooting pain in you calves. * If you discover a hard, reddened area on your breast or if you experience flu-like symptoms. DIET: * Eat regular, well-balanced meals. * Drink plenty of fluids daily. If , drink to thirst. Per Dr. Pierre, Call or return if temperature above 100.4? F, increased abdominal pain, increased vaginal bleeding or any new problems. Follow-up/Referrals: Dennis Gold MD [Physician] - 6 Weeks Discharge Medications: New prednisolone 5 mg (48 tabs) tablets,dose pack 5 mg PO QAM Qty: 4
[2024-06-04] MEDS: OXYTOCIN 30 UNITS/NS 500 ML 30 UNITS/500 ML BAG 125 UNITS IV CONT (16:42)
[2024-06-04] MEDS: IBUPROFEN 600 MG TABLET PO ×2 (17:02→23:32)
[2024-06-04] MEDS: fentaNYL CITRATE INJ (*CRX) 100 MCG/2 ML VIAL 50 MCG IV PUSH (17:49)
[2024-06-04] MEDS: oxyCODONE/ACETAMINOPHEN (*CRX) 5-325 MG TABLET 2 TABLET PO (18:38)
[2024-06-04] MEDS: HYDROmorphone HCL INJ (*CRX) 1 MG/ML SYR 2 MG IV PUSH ×2 (19:27→23:32)
[2024-06-04 19:32] LABS: Basophils Percent Auto 0.2 % (0.2-1.2); Hematocrit 39.4 % (37.0-47.0); Hemoglobin 13.4 g/dL (12.0-15.0); Immature Granulocyte Percent A 0.5 % (0-0.5); Lymphocytes Percent Auto 9.1 % (18.3-44.2); Mean Corpuscular Hemoglobin 29.8 pg (26-34); Mean Corpuscular Volume 87.8 fl (80-100); Mean Platelet Volume 10.7 fl (7.4-10.4); Monocytes Absolute Auto 1.2 K/mm3 (0.1-0.6); Monocytes Percent Auto 5.5 % (2.6-8.5); Neutrophils Absolute Auto 17.8 K/mm3 (1.3-6.7); Neutrophils Percent Auto 84.7 % (45.5-73.1); Platelet Count Result 235 k/mm3 (150-375); Red Blood Count 4.49 M/mm3 (4.2-5.4); Red Cell Distribution Width 14.6 % (11.5-14.5)
--- NOTE | 2024-06-04 20:15 | PC.NURSE ---
MD responded to page. RN reported the following - Results of CBC - RN visualization of bruising in vaginal area - Pt vital signs - Decrease in pts level of pain from 10/10 to 4/10. -Pt able to void small amount on both bedpan as well as when assisted to toilet Orders received to perform bladder scan and call back if straight catheterization is deemed necessary, as well as 2mg Dilaudid q4hr for breakthrough pain .
--- NOTE | 2024-06-04 21:10 | PC.NURSE ---
Patient transferred to post room # 292 via ( W/C). Support person present. Oriented to unit, room, information board, rooming in, admission packet and security measures. Patient verbalizes understanding.
[2024-06-05] MEDS: HYDROmorphone HCL INJ (*CRX) 1 MG/ML SYR 2 MG IV PUSH ×3 (03:52→18:49)
[2024-06-05] MEDS: ACETAMINOPHEN 325 MG TABLET 650 MG PO ×3 (05:34→18:35)
[2024-06-05] MEDS: IBUPROFEN 600 MG TABLET PO ×3 (05:34→18:35)
[2024-06-05 05:57] LABS: Hematocrit 38.2 % (37.0-47.0); Hemoglobin 12.8 g/dL (12.0-15.0)
[2024-06-05] MEDS: DOCUSATE SODIUM 100 MG CAPSULE PO ×2 (07:17→17:40)
--- NOTE | 2024-06-05 07:19 | PM.OBPNVD ---
OB - PN: Subj Subjective Date/time seen: 06/05/24 07:19 Patient comments: no complaints and pain well controlled baby status: doing well OB - PN: Obj Data Labs 06/05/24 05:49 Labs: Laboratory Results - last 24 hr 06/04/24 06/05/24 19:28 05:49 WBC 21.0 H RBC 4.49 Hgb 13.4 12.8 Hct 39.4 38.2 MCV 87.8 MCH 29.8 MCHC 34.0 RDW 14.6 H Plt Count 235 MPV 10.7 H Immature Gran % (Auto) 0.5 Neut % (Auto) 84.7 H Lymph % (Auto) 9.1 L [place] % (Auto) 5.5 Eos % (Auto) 0.0 Baso % (Auto) 0.2 Lymph # (Auto) 1.90 [place] # (Auto) 1.2 H Eos # (Auto) 0.0 Baso # (Auto) 0.0 Abs Immat Gran (auto) 0.10 H Absolute Neuts (auto) 17.8 H Absolute Nucleated RBC 0.000 Nucleated RBC % 0.0 OB - PN A/P Plan day: 1 Plan: routine care Comments: restart lovenox and treat back with dexamethasone Time Spent With Patient Time: Total time spent is greater than 50% in coordination of care (as documented) at patient's floor/unit and/or counseling patient: Time with patient: 15 - 25 minutes Exam Const: General: cooperative, healthy appearing and comfortable Nutritional Appearance: average body habitus Orientation/consciousness: oriented to person, oriented to place and oriented to time HENMT: Head: normal to inspection Resp: Effort & Inspection: normal respiratory effort Cardio: Rate: regular rate Rhythm: regular rhythm Heart sounds: S1 normal heart sound present and S2 normal heart sound present GI: Inspection: normal to inspection
[2024-06-05 07:30] VITALS: BP 103/62; PULSE 98; RESP 18; TEMP 36.6; O2SAT 99
[2024-06-05] MEDS: dexAMETHasone SOD PHOS INJ 10 MG/ML 1 ML VIAL 18.5 MG IV PUSH ×3 (07:36→22:27)
--- NOTE | 2024-06-05 09:10 | WPDANLDPN2 ---
Anes-Prog Note L&D Date/Time: 06/05/24 09:10 Comfortable throughout: labor and delivery Neuraxial method: epidural Epidural/Spinal procedure site: clean & non-tender Neuro status: Neuro function grossly intact. Cardiovascular status: normal Respiratory status: normal Airway patency: baseline Mental status: baseline Post-Op hydration status: normal Vital Signs: Last Vital Signs Temp 36.9 C 06/04/24 23:44 Pulse 119 H 06/04/24 23:44 Resp 16 06/04/24 23:44 BP 131/81 06/04/24 23:44 Pulse Ox 99 06/04/24 23:44 O2 Del Method Room Air 06/04/24 23:44 Pain score (VAS): 1 Post-procedural complaints: none Patient feedback: Patient satisfied with anesthetic care.
[2024-06-05] MEDS: ENOXAPARIN 40 MG/0.4 ML SYRINGE SUB-Q (10:58)
[2024-06-05 12:41] VITALS: BP 135/68; PULSE 115; RESP 18; TEMP 36.6; O2SAT 98
[2024-06-05] MEDS: WITCH HAZEL 40 PADS 1 PAD TOPICAL (12:42)
[2024-06-05] MEDS: BENZOCAINE 20% AER SPR (*SP) 56 GM CAN 1 SPRAY TOPICAL (12:42)
[2024-06-05 20:09] VITALS: BP 159/94; PULSE 116; RESP 18; TEMP 36.8; O2SAT 97
[2024-06-06] MEDS: ACETAMINOPHEN 325 MG TABLET 650 MG PO ×2 (00:16→08:08)
[2024-06-06] MEDS: IBUPROFEN 600 MG TABLET PO ×2 (00:17→08:11)
[2024-06-06] MEDS: dexAMETHasone SOD PHOS INJ 10 MG/ML 1 ML VIAL 18.5 MG IV PUSH ×2 (04:30→11:34)
--- NOTE | 2024-06-06 06:42 | P.DS_ITS ---
DS: Admitting Diagnosis Discharge Date 06/06/2024 Admitting Diagnosis term DS: Discharge Diagnosis Discharge Diagnosis (1) SROM (spontaneous rupture of membranes): Status: Acute (2) Term : Code(s): Z34.90 - Encounter for supervision of normal , unspecified, unspecified trimester Status: Acute DS: Summary Hospital Course Reason for hospitalization: patient was admitted underwent spontaneous vaginal delivery there was a shoulder dystocia. Hospital Course: The patient's hospital course unremarkable. She remained afebrile. She was up, voiding without difficulty, ambulating, eating regular diet, generally without complaints. Time Spent with Patient Time attestation: Total time spent providing and/or coordinating discharge services: Exam Const: General: cooperative, healthy appearing and comfortable Nutritional Appearance: average body habitus Orientation/consciousness: oriented to perso n, oriented to place and oriented to time Resp: Effort & Inspection: normal respiratory effort Cardio: Rate: regular rate Rhythm: regular rhythm Heart sounds: S1 normal heart sound present and S2 normal heart sound present GI: Inspection: normal to inspection Discharge Plan Discharge Attending physician on discharge: Dennis Gold Discharging Clinician: Dennis Gold Patient Disposition: Home, Self-Care Activity: may shower and pelvic rest Diet: regular Wound Care Instructions: follow printed instructions Discharge Instructions: Call or return if temperature above 100.4? F, increased abdominal pain, increased vaginal bleeding or any new problems. Stand Alone Forms: General Discharge Information Follow-up/Referrals: Dennis Gold MD [Physician] - 6 Weeks Discharge Medications: New hydrocodone-acetaminophen 5-325 mg tablet 1 tablet PO Q4H PRN (Reason: pain) Qty: 20 0RF prednisolone 5 mg (48 tabs) tablets,dose pack 5 mg PO QAM Qty: 48 0RF Continued omeprazole 40 mg capsule,delayed release(DR/EC) 40 mg PO BID enoxaparin [Lovenox] 40 mg/0.4 mL syringe 40 mg subcut DAILY DHA 200 mg capsule PO DAILY ondansetron 4 mg tablet,disintegrating 4 mg PO Q8H PRN (Reason: nausea and vomiting) Qty: 10 0RF cxbebogcer-wukecnncjfccw-vvsf [Fioricet] 50-325-40 mg Tablet 1 tablet PO Q6H PRN (Reason: Migraine Headache) #2 Tablet 1 tablet cyclobenzaprine 5 mg tablet 10 mg PO DAILY PRN (Reason: muscle spasm) Date of admission: 06/04/24 01:05 Primary Care Provider: Liz Carrasco Admitting Provider: Dennis Gold Attending physician on admission: Dennis Gold Condition: Stable
--- NOTE | 2024-06-06 06:47 | PM.OBPNVD ---
OB - PN: Subj Subjective Date/time seen: 06/06/24 06:47 Patient comments: no complaints and pain well controlled baby status: doing well OB - PN: Obj Data Labs 06/05/24 05:49 OB - PN A/P Plan day: 2 Plan: routine care, discharge home and follow up 6 weeks (2) Time Spent With Patient Time: Total time spent is greater than 50% in coordination of care (as documented) at patient's floor/unit and/or counseling patient: Time with patient: 15 - 25 minutes Exam Const: General: cooperative, healthy appearing and comfortable Nutritional Appearance: average body habitus Orientation/consciousness: oriented to person, oriented to place and oriented to time Resp: Effort & Inspection: normal respiratory effort GI: Inspection: normal to inspection
[2024-06-06 07:25] VITALS: BP 133/76; PULSE 117; RESP 18; TEMP 36.4; O2SAT 99
[2024-06-06] MEDS: ENOXAPARIN 40 MG/0.4 ML SYRINGE SUB-Q (08:12)
[2024-06-06] MEDS: DOCUSATE SODIUM 100 MG CAPSULE PO (08:13)
[2024-06-06] MEDS: SIMETHICONE 80 MG TAB.CHEW PO (08:13)
[2024-06-07 10:22] VITALS: BP 134/63; PULSE 93; RESP 18; TEMP 37.1; O2SAT 100
== END 2024-06-06 12:38 | disposition home or self-care (01) | DRG 807 ==
LOC: ANHLDR 16:35 → ANHOB2 21:20
PROVIDERS: Admitting Provider Obstetrics & Gynecology; PCP Nurse Practitioner Family; Visit Provider Obstetrics & Gynecology
DX: O66.0 Obstructed labor due to shoulder dystocia (principal); Z37.0 Single live birth; O26.23 Pregnancy care for patient with recurrent pregnancy loss, third trimester; Z3A.39 39 weeks gestation of pregnancy; Z79.01 Long term (current) use of anticoagulants; Z90.49 Acquired absence of other specified parts of digestive tract; Z87.891 Personal history of nicotine dependence; O70.1 Second degree perineal laceration during delivery; O99.62 Diseases of the digestive system complicating childbirth; K21.9 Gastro-esophageal reflux disease without esophagitis
CPT/HCPCS: 36415; 85014; 85018; 85025; 85610; 85730; 86592; 86703; 86850; 86900; 86901; A9270; G0432; J1100; J1171; J1650; J2405; J2590; J2795; J3010; J7120

== ENCOUNTER 2024-07-12 15:57 | Outpatient (CLI) | payer OTHER, SELFPAY ==
[2024-07-12 16:26] LABS: Basophils Absolute Auto 0.1 K/mm3 (0.0-0.1); Basophils Percent Auto 0.5 % (0.2-1.2); Eosinophils Absolute Auto 0.1 K/mm3 (0-0.3); Eosinophils Percent Auto 1.3 % (0-4.4); Hematocrit 46.1 % (37.0-47.0); Immature Granulocyte Absolute 0.05 K/mm3 (0.00-0.031); Immature Granulocyte Percent A 0.5 % (0-0.5); Lymphocytes Absolute Auto 3.03 K/mm3 (0.9-3.2); Lymphocytes Percent Auto 29.6 % (18.3-44.2); Mean Corpuscular HGB Conc 32.5 g/dl (32-36); Mean Corpuscular Hemoglobin 28.9 pg (26-34); Mean Corpuscular Volume 88.8 fl (80-100); Monocytes Absolute Auto 0.7 K/mm3 (0.1-0.6); Monocytes Percent Auto 6.8 % (2.6-8.5); Neutrophils Absolute Auto 6.3 K/mm3 (1.3-6.7); Neutrophils Percent Auto 61.3 % (45.5-73.1); Platelet Count Result 359 k/mm3 (150-375); Red Blood Count 5.19 M/mm3 (4.2-5.4); Red Cell Distribution Width 13.2 % (11.5-14.5); White Blood Count 10.2 K/mm3 (4.5-10.0)
[2024-07-12 16:40] LABS: INR 1.1; Partial Thromboplastin Time 32.7 Seconds (22.3-36.8); Prothrombin Time 14.1 Seconds (11.1-14.7)
== END 2024-07-12 15:58 | disposition home or self-care (01) ==
LOC: ANHLAB 16:03
PROVIDERS: PCP Nurse Practitioner Family; Referring Provider Neurological Surgery; Visit Provider Obstetrics & Gynecology
DX: N93.9 Abnormal uterine and vaginal bleeding, unspecified (principal); Z01.812 Encounter for preprocedural laboratory examination
CPT/HCPCS: 36415; 85025; 85610; 85730

== ENCOUNTER 2024-10-20 07:41 | Outpatient (CLI) | payer OTHER, SELFPAY ==
--- OUTSIDE RECORDS SUMMARY | 2024-10-20 07:46 | XMS_ITS | Referral Summary ---
Author Organization [facility] Address [address] [place] [address] Care Team Providers Care Drafter Geological Name Role Phone Liz Carrasco E COMMERCE ARCHITECT Primary Care Provider + Liz Carrasco E COMMERCE ARCHITECT Unavailable [phone] Liz Carrasco E COMMERCE ARCHITECT Unavailable [phone] Encounters Date Type Department Care Team Description 07/24/2024 1:21 PM PRODUCT BUILDER - 07/24/2024 11:59 PM [facility] Hospital Encounter [address] [place] [address] Discharge Disposition: Discharge to home or self care from Last 3 Months Allergies No known active allergies Medications omeprazole (PriLOSEC) 20 mg capsule TK ONE C PO QD 01/29/20 20 Active fluticasone propionate (FLONASE) 50 mcg/actuation nasal spray Administer 1 spray into each nostril daily Active amitriptyline (ELAVIL) 25 mg tablet Take 1 tablet (25 mg total) by mouth nightly Active propranoloL (INDERAL) 10 mg tablet Take 1 tablet (10 mg total) by mouth 3 (three) times a day Active amoxicillin-clavul anate (Augmentin) 875-125 mg per tabletIndications: Facial pressure Take 1 tablet by mouth 2 (two) times a day 20 tablet 04/15/20 20 Active Additional Information Patient not taking.Reported on 03/06/2024 cyclobenzaprine (FLEXERIL) 10 mg tablet nightly 09/26/19 23 Active progesterone (PROMETRIUM) 200 mg capsule Take 1 capsule (200 mg total) by mouth nightly 11/02/19 24 Active acetaminophen (TYLENOL) 500 mg tablet Take 2 tablets (1,000 mg total) by mouth every 6 (six) hours as needed for pain Active enoxaparin sodium (LOVENOX SUBQ) Inject under the skin Active [id number]-crzs-oxbeg- om3 25 mg iron-1 mg -400 mg combo pack Take by mouth Active calcium carbonate (TUMS) 500 mg (200 mg elemental calcium) chewable tablet Take 1 tablet/chew tab (500 mg total) by mouth daily Active ondansetron ODT (ZOFRAN-ODT) 4 mg disintegrating tablet DISSOLVE 1 TABLET ON THE TONGUE EVERY 8 HOURS NEEDED FOR NAUSEA OR VOMITING 04/03/20 24 Active Active Problems Problem Noted Date Diagnosed Date Palpitations 11/29/2023 26 weeks gestation of 11/29/2023 Sinus tachycardia 09/28/2022 Intractable migraine without aura and without status migrainosus 09/28/2022 Other headache syndrome 04/15/2020 Tinnitus of left ear 04/15/2020 Facial pressure 04/15/2020 Social History Tobacco Use Types Packs/Day Years Used Date Smoking Tobacco: Former Cigarettes Vaping Smokeless Tobacco: Never Alcohol Use Standard Drinks/Week Comments Not Currently 0 (1 standard drink = 0.6 oz pur e alcohol) Comments Unknown Sex and Gender Information Value Date Recorded Sex Assigned at Not on file Legal Sex Female 11:01 AM PRODUCT BUILDER Gender Identity Not on file Sexual Orientation Not on file Last Filed Vital Signs Vital Sign Reading Time Taken Comments Blood Pressure 118/78 05/10/2024 3:03 PM CDT Pulse 128 05/10/2024 3:03 PM CDT Temperature 36.9 C (98.4 F) 04/15/2020 1:21 PM CDT Respiratory Rate - - Oxygen Saturation 97% 05/10/2024 3:03 PM CDT Inhaled Oxygen Concentration - - Weight 119.7 kg (264 lb) 05/10/2024 3:03 PM CDT Height 172.7 cm (5' 8 ) 05/10/2024 3:03 PM CDT Body Mass Index 40.14 05/10/2024 3:03 PM CDT Plan of Treatment Not on file Procedures Procedure Name Priority Date/Time Associated Diagnosis Comments SURGICAL PATHOLOGY Routine 07/24/2024 11 :20 AM PRODUCT BUILDER from Last 3 Months Results * Surgical pathology (07/24/2024 11:20 AM PRODUCT BUILDER) Disc, intervertebral 024 11:20 AM PRODUCT BUILDER 07/24/2024 2:51 PM PRODUCT BUILDER Narrative 07/25/2024 1:01 PM PRODUCT BUILDER [address] [place], [place] [address] Tele: Laurita Heller MD - Technician [employer] Note to Patients: This report may contain a detailed description of human tissue sent by a health care provider to the laboratory for pathologic evaluation. The content of this report is essential for diagnosis and may provide important critical findings. This information may be unfamiliar to patients to review without a medical professional present. It is advised that the patient review this report in the presence of a health care provider who can answer questions and explain the details. SURGICAL PATHOLOGY REPORT Patient Name: KE THAKUR Address: [address] [place] [address] Gender: F : 1990 (Age: 34) Service: Location: , [facility] #: [id number] Patient Type: [facility] SPECIMEN Taken: 07/24/2024 Received 07/24/2024 Reported: 07/25/2024 Physician(s): Jostin Irizarry M.D. [facility] DIAGNOSIS: Disc lumbar 1-2, discectomy: - Consistent with disc material rera/07/25/2024 13:01 Examining Pathologist: Sandie Whitehead M.D. Report Reviewed and Electronically Signed By Sandie Whitehead M.D. 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 GROSS DESCRIPTION: Received in formalin in a single container with the patient's name, KE SCHWINN labeled disc lumbar one-lumbar two and contains multiple matias tissue fragments measuring 3.2 x 1.9 x 0.2 cm in aggregate. Due to the color and size of the specimen, eosin is used. The specimen is filtered and submitted entirely in cassette A1. [facility] MICROSCOPIC DES[facility]: Microscopic examination supports the above captioned diagnosis. Clerical Data Follows A; 16327 REPORT IMAGES AND/OR SCANNED DOCUMENTS ONLY VIEWABLE IN PDF FORMAT The immunohistochemical test(s) cited in this report, if any, was developed and its performance characteristics determined by [facility]. It has not been cleared or approved by the U.S. Food and Drug Administration. The FDA has determined that such clearance or approval is not necessary. This test is used for clinical purposes. It should not be regarded as investigational or for research. [facility] is certified under the Clinical Laboratory Improvement Amendments of 1988 (CLIA) as qualified to perform high complexity testing. Immunostains were performed on formalin-fixed paraffin embedded tissue using a polymer diaminobenzidine chromogen detection system. Antibodies used may include clone SP1 (rabbit monoclonal, estrogen receptor), clone 1E2 (rabbit monoclonal progesterone receptor), Ki-67 (rabbit monoclonal, 30-9), CD117 (rabbit polyclonal, c-kit), and anti-Her-2/jenniffer (4B5) (rabbit monoclonal primary antibody). In the event that immunohistochemistry or special stains have been performed, attending physician has confirmed appropriateness of controls. Frozen section, operating room consultation, gross examination and dissection, and case sign out may have been performed in part or completely in the following laboratories: [facility], [facility], [address] [place] [address]. Jostin Irizarry MD LAB PATHOLOGY ORDERABLES Final Result from Last 3 Months Insurance [facility] HMO/PPO Address: [address] [address] [place] [address] [facility] Care Teams Drafter Geological Relationship Specialty Start Date End Date Liz Carrasco NP [address] [place], [place] [address] [place] [address] PCP - General Nurse Practitioner 09/28/22 Liz Carrasco NP [address] [place], [place] [address] [place] [address] 07/24/22 Lzi Carrasco NP [address] [place], [place] [address] [place] [address] Nurse Practitioner 06/03/20
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
--- OUTSIDE RECORDS SUMMARY | 2024-10-20 07:46 | XMS_ITS | Clinical Summary ---
Author Organization [facility] Address [address] [place] [address] Care Team Providers Care Cloth Mender Name Role Phone Liz Carrasco TOP STITCHER Primary Care Provider + Liz Carrasco TOP STITCHER Unavailable [phone] Liz Carrasco TOP STITCHER Unavailable [phone] Allergies No known active allergies Medications omeprazole [...] (LOVENOX SUBQ) Inject under the skin Active [id number]- om3 25 mg iron-1 mg -400 mg [...] of left ear 04/15/2020 Facial pressure 04/15/2020 Encounters Date Type Department Care Team Description 07/24/2024 1:21 PM [facility] - 07/24/2024 11:59 PM [facility] Hospital Encounter [address] [address] Discharge Disposition: Discharge to home or self care from Last 3 Months Surgical History Surgery Date Site/Laterality Comments CHOLECYSTECTOMY APPENDECTOMY TONSILLECTOMY Medical History Medical History Date Comments Allergic rhinitis Anxiety GERD (gastroesophageal reflux disease) Sinusitis Dizziness Headache Migraine Family History Medical History Relation Name Comments Hypertension Father Diabetes Maternal Grandmother Hypertension Mother Stroke Paternal Grandfather Stroke Paternal Grandmother Relation Name Status Comments Father Maternal Grandmother Mother Paternal Grandfather Paternal Grandmother Social History Tobacco Use Types Packs/Day Years Used Date Smoking Tobacco: Former Cigarettes Vaping Smokeless Tobacco: Never Alcohol Use Standard Drinks/Week Comments Not Currently 0 (1 standard drink = 0.6 oz pur e alcohol) Comments Unknown Sex and Gender Information Value Date Recorded Sex Assigned at Not on file Legal Sex Female 11:01 AM [facility] Gender Identity Not on file Sexual Orientation Not on file Obstetrics History Para Term AB IAB SAB Ectopic Multiple Livin g Live Births 1 0 0 0 0 0 0 0 Date Outcome GA Total Labor Labor/2nd/3rd Weight Sex Type Anes PTL Su A1 A5 Name Clin Last Filed Vital Signs Vital Sign Reading [...] 05/10/2024 3:03 PM CDT Plan of Treatment Health Maintenance Due Date Last Done Comments Cervical Cancer Screening 1990 Depression Screening 1990 Hepatitis C Screening 1990 Varicella Vaccines (1 of 2 - 13+ 2-dose series) 02/01/2005 Regular Well Visit/Exam 18-64 02/01/2010 DTaP/Tdap/Td Vaccine (8 - Td or Tdap) 03/28/2024 03/28/2014, 12/16/2005, 03/09/1997, Additional history exists Influenza Vaccine (#1) 2024 7, 06/01/2016, 06/26/2014 Hepatitis B Screening Completed 03/15/2002 , 10/07/2001, 08/31/2001 HPV Vaccines Aged Out No longer eligi ble based on patient's age to complete this topic Pneumococcal vaccine <65 Aged Out No longer eligible based on patient's age to complete this topic Procedures Procedure Name Priority Date/Time Associated Diagnosis Comments SURGICAL PATHOLOGY Routine 07/24/2024 11 :20 AM [facility] from Last 3 Months Results * Surgical pathology (07/24/2024 11:20 AM [facility]) Disc, intervertebral 024 11:20 AM [facility] 07/24/2024 2:51 PM [facility] Narrative 07/25/2024 1:01 PM [facility] [address] [address] Tele: Laurita Heller MD - Theater Teacher Note to Patients: This report may contain [...] PATHOLOGY REPORT Patient Name: KE THAKUR Address: [address] [place] [address] Gender: F : 1990 (Age: 34) Service: Location: , [facility] #: [id number] Patient Type: [facility] SPECIMEN Taken: 07/24/2024 Received 07/24/2024 Reported: 07/25/2024 Physician(s): Jostin Irizarry M.D. [facility] DIAGNOSIS: Disc lumbar 1-2, discectomy: - Consistent [...] single container with the patient's name, KE THAKUR labeled disc lumbar one-lumbar two and contains multiple matias tissue fragments measuring 3.2 x 1.9 x 0.2 cm in aggregate. Due to the color and size of the specimen, eosin is used. The specimen is filtered and submitted entirely in cassette A1. [facility] MICROSCOPIC DESCRIPTION: Microscopic examination supports the above captioned diagnosis. Clerical Data Follows A; [id number] REPORT IMAGES AND/OR SCANNED DOCUMENTS ONLY VIEWABLE IN PDF FORMAT The immunohistochemical test(s) cited in this report, if any, was developed and its performance characteristics determined by [facility] Pathology Department. It has not been cleared or approved by the U.S. Food and Drug Administration. The FDA has determined that such clearance or approval is not necessary. This test is used for clinical purposes. It should not be regarded as investigational or for research. [facility] Laboratory is certified under the Clinical Laboratory [...] part or completely in the following laboratories: [facility], [facility] [place] [address]. us Jostin Irizarry MD LAB PATHOLOGY ORDERABLES Final Result from Last 3 Months Insurance [facility] EPO Care Teams Cloth Mender Relationship Specialty Start Date End Date Liz Carrasco NP [address] [facility] [place] [address] PCP - General Nurse Practitioner 09/28/22 Liz Carrasco NP Veronique [facility] [place] [address] 07/24/22 Liz Carrasco NP [address] [facility] [place] [address] Nurse Practitioner 06/03/20
--- OUTSIDE RECORDS SUMMARY | 2024-10-20 07:47 | XMS_ITS | Encounter Summary ---
Author Organization [facility] Address [address] [address] Care Team Providers Care Shovel Engineer Name Role Phone Andree House MD Primary Care Provider Liz Carrasco METAL SLITTER Primary Care Provider + Liz Carrasco METAL SLITTER Primary Care Provider + Roland Billingsley MD Primary Care Provid er Liz Carrasco METAL SLITTER Primary Care Provider + Liz Carrasco METAL SLITTER Unavailable [phone] Liz Carrasco METAL SLITTER Unavailable [phone] Encounter Details Date Type Department Care Team (Late st Contact Info) Description 11/26/2016 Orders Only [facility] ProviderDarnell MD [address] [place] [id number] Social History Tobacco Use Types Packs/Day Years Used Date Smoking Tobacco: Never Assessed Comments Unknown Sex and Gender Information Value Date Recorded Sex Assigned at Not on file Legal Sex Female 11:01 AM 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 us Historical Provider [facility] MEJIA BARRON Final Result documented in this encounter Visit Diagnoses Not on filedocumented in this encounter Care Teams Shovel Engineer Relationship Specialty Start Date End Date Andree House MD [address] [facility] [address] [place] [address] PCP - General 11/27/16 04/10/20 Liz Carrasco NP [address] [place] [address] PCP - General Nurse Practitioner 04/11/20 06/02/20 Liz Carrasco NP [address] [place], [place] [address] [place] [address] PCP - General 06/03/20 07/23/22 Roland Billingsley MD [facility] [address] [place] [address] PCP - General Interventional Cardiology 07/24/2208/31 Liz Carrasco NP [address] [place], [place] [address] [place] [address] PCP - General Nurse Practitioner 09/28/22 Liz Carrasco NP [address] [place] [address] 07/24/22 Liz Carrasco NP [address] [place], [place] [address] [place], [place] [id number] Nurse Practitioner 06/03/20 documented as of this encounter
--- OUTSIDE RECORDS SUMMARY | 2024-10-20 07:47 | XMS_ITS ---
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
--- OUTSIDE RECORDS SUMMARY | 2024-10-20 07:47 | XMS_ITS | Data Portability ---
Author Organization [place] [facility] [employer], Main Office Address [address] [place] [address] Assessment Encounter Date Assessment Date Assessment LastModified by Organization Details LastModified Time 12/09/2022 12/09/2022 The patient gave verbal consent using TeleHealth services and the consent is documented in the medical record prior to using the service. The patient has been informed of what a TeleMedicine visit is. Patient is located at home. Provider is located at office. Names and roles of persons in addition to the patient and provider participating in telemedicine services include none. The patient had a 10 minute TeleMedicine consultation via [email or web address] to discuss the following: Not available 12/09/2022 14:20:35 07/16/2023 07/16/2023 The patient gave verbal consent using TelePhonic services and the consent is documented in the medical record prior to using the service. The patient has been informed of what a TeleMedicine visit is. Patient is located at home. Provider is located at office. Names and roles of persons in addition to the patient and provider participating in telemedicine services include none. The patient had a 11 minute TeleMedicine consultation via phone call to discuss the following: Not available 07/16/2023 16:10:02 Plan of Treatment Reminders Order Date Submit Date Provider Last Modified By Organization Details Last Modified Time Details Appointments None recorded. Lab None recorded. Referral otolaryngol ogist referral 2022 023 [email or web address] 3 Flaco Martinez MD, [address] [facility] , [place] [address], [place], [address], 11:20:49 Procedures None recorded. Surgeries None recorded. Imaging None recorded. Medication Orders doxycycline hyclate 100 mg capsule 2022 023 [id number], [address], [place], [place], [phone], 16:07:42 Medrol (Sb) 4 mg tablets in a dose pack 2022 023 [facility] #[id number], [address], [place], [place], [id number], 15:39:36 doxycycline hyclate 100 mg capsule 2022 [facility]23 [email or web address] #[id number], [address], [place], [place], [phone], 11:14:07 Patient TargetsNo targets recorded. Patient Instructions Encounter Date Encounter Id Patient Instructions Last Modified By Organization Details Last Modified Time 12/09/2022 [id number] Due to the COVID-19 (Novel Coronavirus) pandemic, it is within this context (and with the understanding that this method of patient encounter is in the patient s best interest as well as the health and safety of other patients and the public) that telehealth is being provided for this patient encounter rather than a ghsv-tu-brlk visit. This patient encounter is appropriate at this time. This patient has been advised of the potential risks and limitations of this mode of treatment (including, but not limited to, the absence of in-person examination) and has agreed to be treated in a remote fashion despite these risks. Any and all of the patient s/patient s family s questions on this issue have been answered, and I have made no promises or guarantees to the patient. The patient has also been advised to contact this office for worsening conditions or problems, and seek emergency medical treatment and/or call 911 if the patient deems either necessary. HPI and/or vitals, if listed, were provided by the patient. Not available 12/09/2022 14:19:34 04/27/2023 [id number] FU prn [email or web address] Not available 04/27 12:56:09 07/16/2023 [id number] FU prn Due to th e COVID-19 (Novel Coronavirus) pandemic, it is within this context (and with the understanding that this method of patient encounter is in the patient s best interest as well as the health and safety of other patients and the public) that telehealth is being provided for this patient encounter rather than a djbx-oj-ahxm visit. This patient encounter is appropriate at this time. This patient has been advised of the potential risks and limitations of this mode of treatment (including, but not limited to, the absence of in-person examination) and has agreed to be treated in a remote fashion despite these risks. Any and all of the patient s/patient s family s questions on this issue have been answered, and I have made no promises or guarantees to the patient. The patient has also been advised to contact this office for worsening conditions or problems, and seek emergency medical treatment and/or call 911 if the patient deems either necessary. HPI and/or vitals, if listed, were provided by the patient. 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 [id number], [address], 10/28/2022 06:47:23 03/03/2003/03/2022 MRI, thora cic spine , w/wo contr ast No observ ation record ed. [id number] [place] [address], [address], 10/28/2022 06:47:23 03/03/2003/02/2022 CT, lumba r spine , w/o contr ast No observ ation record ed. [id number], [address], 10/28/2022 06:47:23 03/03/20 22 03/03/2022 US, liver No observ ation record ed. [id number], [place], [address], 10/28/2022 06:47:23 11/05/19 23 11/03/2022 US, echoc ardio gram, trans thora cic, bubbl e study No observ ation record ed. [place] [id number] [facility] [address] [facility] [address], [place], [address], 11/04/2022 19:54:58 11/17/19 23 11/16/2022 XR, lumba r spine No observ ation record ed. [address] [facility], [place], [address], 11/17/2022 20:04:14 07/25/20 23 07/25/2023 XR, chest No observ ation record ed. [address] [facility], [place], [address], 07/25/2023 21:44:09 08/11/20 23 08/11/2023 CT, sinus es, w/o contr ast No observ ation record ed. [address] [facility], [place], [address], 08/11/2023 15:30:43 08/11/20 23 08/11/2023 CT, arthr ogram , tempo john dibul ar joint No observ ation record ed. [address], [place], [address], 08/11/2023 17:51:34 Result Notes None recorded. Problems Name Problem SNOMED Code Status Onset Date Resolution Date Notes Provider Name and Address Organization Details Recorded Time Irritable bowel syndrome 58204680 Active Not Available [facility] 3 06:43:00 Tobacco user 968543276 Active 2017 Not Available [facility] 3 06:43:00 Deviated nasal septum 517031887 Active 2021 Not Available [facility] 3 06:43:00 Acute sinusitis 55603395 Active Not Available [facility] 3 06:43:00 Body mass index 30+ - obesity 609935759 Active 2021 Not Available [facility] 3 06:43:00 Hypertroph y of nasal turbinates 78796204 Active 2021 Not Available [facility] 3 06:43:00 Insomnia 984102797 Active 2016 Not Available [facility] 3 06:43:00 Infection of skin and/or subcutaneo us tissue 70004814 Active Not Available [facility] 3 06:43:00 Gastroesop hageal reflux disease 353090413 Active 2016 Not Available [facility] 3 06:43:00 Gallstone 224959337 Active Not Available [facility] 3 06:43:00 Fluid level behind tympanic membrane Active Not Available [facility] 3 06:43:00 Headache 33950726 Active 2016 Not Available [facility] 3 06:43:00 Dyspnea 682944841 Active 2016 Not Available [facility] 3 06:43:00 Jaw pain 948175214 Active 2021 Not Available [facility] 3 06:43:01 Thoracic back pain 298385598 Active 2016 Not Available [facility] 3 06:43:01 Low back pain 705393897 Active 2016 Not Available [facility] 3 06:43:01 Right upper quadrant pain 886803605 Active Not Available [facility] 3 06:43:01 Pain in pelvis 57723920 Active Not Available [facility] 3 06:43:01 Tachycardi a 4455816 Active 2016 Not Available [facility] 3 06:43:01 Seasonal allergic rhinitis 022541044 Active 2016 Not Available [facility] 3 06:43:01 Fever 101837974 Active Not Available [facility] 3 06:43:01 Ingrowing nail 092238257 Active Not Available [facility] 3 06:43:01 Obesity 201671061 Active Not Available [facility] 3 06:43:01 Unexplaine d weight loss 283791814 Active 2016 Not Available [facility] 3 06:43:01 Environmen jenni allergy 048010599 Active 2016 Not Available [facility] 3 06:43:01 History of polyp of colon 796469512 Active 2016 Not Available [facility] 3 06:43:01 Chronic migraine without aura, non-refrac tory 4166189830998 00 Active 2022 Not Available [facility] 3 06:43:02 Viral conjunctiv itis 84439422 Active Not Available [facility] 3 06:43:02 Acute migraine 9275966137750 08 Active 2022 Not Available [facility] 3 06:43:02 Anxiety 08681238 Active Not Available [facility] 3 06:43:02 Cough 33071608 Active 2016 Not Available [facility] 3 06:43:02 Upper respirator y infection 49717497 Active Not Available [facility] 3 06:43:02 Hyperlipid emia 59180491 Active 2016 Not Available [facility] 3 06:43:02 Fatigue 62787658 Active Not Available [facility] 3 06:43:02 Weight gain 2699483 Active 2016 Not Available [facility] 3 06:43:02 Tobacco dependence syndrome 80996850 Active Not Available [facility] 3 06:43:02 Chronic migraine without aura 5728503792908 05 Active 2022 Liz Carrasco, SUELLEN [address] [facility], [facility] [address], [place], [address] , [facility] [employer] [facility] 3 08:24:08 Obese 432956402 Active 2022 Liz Carrasco NP [address], [place], [address] , [facility] [employer] [facility] [employer] 3 08:24:32 Neck pain 46433385 Active 2022 Liz Carrasco NP [address], [place], [address] , [facility] [employer] 3 08:24:39 Migraine 62960219 Active 2022 Liz Carrasco NP [address], [address], [place], [address] , [facility] [employer] 3 12:55:10 Cervical lymphadeno lorie 814624471 Active 2022 Liz Carrasco NP [address], [address], [place], [address] , [employer] 3 11:35:25 Problem Notes None recorded. Procedures Surgical History Date Name Laterality Status Provider Name and Address Organization Details Recorded Time 04/28/20 colonoscopy completed Not Available [facility] 10/29/19 06:39:55 Tonsillectomy completed Not Available [facility] 10/28/2022 06:39:55 Cholecystectomy completed Not Available [facility] 10/28/2022 06:39:55 Imaging Results Imaging Date Name Status LastModified by Organization Details LastModified Time 03/03/2022 MRI, thoracic spine, w/wo contrast completed [id number] [place] [address], [address], 10/28/2022 06:47:23 03/02/2022 CT, lumbar spine, w/o contrast completed [id number] [place] [address], [address], 10/28/2022 06:47:23 03/03/2022 US, liver completed [id number] [place] [address], [address], 10/28/2022 06:47:23 03/02/2022 XR, chest completed [id number] [place] [address], [address], 10/28/2022 06:47:23 11/03/2022 US, echocardiogram, transthoracic, bubble study completed [place] [id number] [facility] [address] [facility] [address], [place], [address], 11/04/2022 19:54:58 11/16/2022 XR, lumbar spine completed [address] [place] [address], [address], 11/17/2022 20:04:14 07/25/2023 XR, chest completed [address], [address], 07/25/2023 21:44:09 08/11/2023 CT, sinuses, w/o contrast completed [address] [place] [address], [address], 08/11/2023 15:30:43 08/11/2023 CT, arthrogram, temporomandibular joint completed [address] [place] [address], [address], 08/11/2023 17:51:34 Procedure Notes None recorded. Medical Equipment None Reported. Allergies No known drug allergies Medications Name Sig Start Date Stop Date Status Note LastModified by Organization Details LastModified Time cyclobenz aprine 10 mg tablet TAKE 1 TABLET BY MOUTH AT BEDTIME active Not Available Not Available No t Available amoxicill in 500 mg capsule TAKE 1 CAPSULE BY MOUTH THREE TIMES DAILY UNTIL ALL TAKEN 02/12 completed Not Available Not Available Not Available medroxypr ogesteron e 10 mg tablet TAKE 1 TABLET BY MOUTH DAILY FOR 10 DAYS 12/09 completed Not Available Not Available Not Available methocarb margarito 500 mg tablet TAKE 2 TABLETS BY MOUTH EVERY NIGHT AT BEDTIME FOR 2 WEEKS 02/12 completed Not Available Not Available Not Available bupropion HCl SR 150 mg tablet,12 hr sustained -release Take 1 tablet twice a day by oral route. active Not Available Not Available No t Available azelastin e 0.05 % eye drops INSTILL 1 DROP INTO AFFECTED EYE(S) BY OPHTHALM IC ROUTE 2 TIMES PER DAY FOR 10 DAYS. active Not Available Not Available No t Available nystatin 100,000 unit/mL oral suspensio n 12/29 completed Not Available Not Available Not Available prednison e 10 mg tablet TK 3 TS PO BID 12/29 completed Not Available Not Available Not Available venlafaxi ne ER 75 mg capsule,e xtended release 24 hr Take 1 capsule every day by oral route for 30 days. active Not Available Not Available No t Available doxycycli ne hyclate 100 mg capsule TAKE 1 CAPSULE BY MOUTH TWICE DAILY FOR 10 DAYS active Not Available Not Available No t Available cetirizin e 10 mg tablet TK 1 T PO QD 08/31 completed Not Available Not Available Not Available azithromy gerald 250 mg tablet TAKE 2 TABLETS (500 MG) BY ORAL ROUTE ONCE DAILY FOR 1 DAY THEN 1 TABLET (250 MG) BY ORAL ROUTE ONCE DAILY FOR 4 DAYS 12/29 completed Not Available Not Available Not Available ibuprofen 800 mg tablet 11/22 completed Not Available Not Available Not Available tizanidin e 4 mg tablet Take 1 tablet every 8 hours by oral route as needed. active Not Available Not Available No t Available fluconazo le 150 mg tablet Take 1 tablet every day by oral route for 1 day. 11/22 completed Not Available Not Available Not Available clomiphen e citrate 50 mg tablet TK 1 T PO DAYS 5-9 OF CYCLE UTD 09/01 completed Not Available Not Available Not Available valacyclo vir 1 gram tablet TK 1 T PO BID FOR 2 DAYS PRF COLD SORE 01/07 completed Not Available Not Available Not Available hydrocodo ne 5 mg-acetam inophen 325 mg tablet TAKE 1 TABLET BY MOUTH EVERY 4 HOURS NEEDED 04/27 completed Not Available Not Available Not Available Celestone Soluspan 6 mg/mL suspensio n for injection active [facility]# [id number] - Not Available Not Available Not Available meloxicam 15 mg tablet TAKE 1 TABLET BY MOUTH EVERY DAY active Not Available Not Available No t Available phenazopy ridine 200 mg tablet TK 1 T PO TID FOR 2 DAYS . MAY CAUSE TEMPORAR Y DISCOLOR ATION OF URINE AND MAY PERMANEN TLY DISCOLOR CONTACT LENSES 02/25 completed Not Available Not Available Not Available metronida zole 0.75 % (37.5 mg/5 gram) vaginal gel 11/22 completed Not Available Not Available Not Available prednison e 20 mg tablet 2 tabs po daily for 4 days, then 1 tab po daily for 4 days active Not Available Not Available No t Available Tubersol 5 tub. unit/0.1 mL intraderm al injection solution Take 0.1 mL by intrader mal route. 10/25 completed READ NEGATIVE 04/06/14 Not Available Not Available Not Available prednison e 5 mg tablet active Not Available Not Available Not Available terconazo le 0.8 % vaginal cream 01/27 completed Not Available Not Available Not Available acetamino phen 300 mg-codein e 30 mg tablet Take 1 tablet every 6 hours by oral route as needed. 04/27 completed Not Available Not Available Not Available ciproflox acin 500 mg tablet TAKE 1 TABLET BY MOUTH TWICE DAILY FOR 7 DAYS 09/01 completed Not Available Not Available Not Available sulfameth oxazole 800 mg-trimet hoprim 160 mg tablet TAKE 1 TABLET BY MOUTH EVERY 12 HOURS WITH MEALS FOR 7 DAYS active Not Available Not Available No t Available omeprazol e 40 mg capsule,d elayed release Take 1 capsule every day by oral route for 30 days. 12/09 completed Not Available Not Available Not Available amitripty line 50 mg tablet TAKE 1 TABLET BY MOUTH NIGHTLY active Not Available Not Available No t Available butalbita l-acetami nophen-ca ffeine 50 mg-325 mg-40 mg tablet TAKE 1 TO 2 TABLETS BY MOUTH NEEDED FOR MIGRAINE . LIMIT OF 3 TABLETS PER WEEK active Not Available Not Available No t Available Kenalog 40 mg/mL suspensio n for injection Take 1 mL every day by injectio n route for 1 day. 10/24 completed Not Available Not Available Not Available doxycycli ne monohydra te 50 mg capsule Take 1 capsule every day by oral route for 20 days. active Not Available Not Available No t Available amoxicill in 875 mg tablet Take 1 tablet every 12 hours by oral route with meals for 10 days. 10/25 completed Not Available Not Available Not Available amitripty line 25 mg tablet TAKE 1 TABLET BY MOUTH EVERY DAY active Not Available Not Available No t Available lorazepam 0.5 mg tablet TAKE ONE TABLET BY MOUTH 3 TIME A DAY NEEDED 12/29 completed TAKES PRN Not Available Not Available Not Available temazepam 15 mg capsule TAKE 1 OR 2 CAPSULES BY MOUTH AT BEDTIME NEEDED FOR SLEEP 12/29 completed TAKES PRN Not Available Not Available Not Available ciproflox acin 0.3 % eye drops 1 drop right eye every 2-3 hours while awake for 5 days. active Not Available Not Available No t Available rizatript an 10 mg disintegr ating tablet DISSOLVE 1 TABLET ON THE TONGUE TWICE DAILY NEEDED 04/27 completed Not Available Not Available Not Available cephalexi n 500 mg capsule TAKE ONE CAPSULE BY MOUTH TWICE DAILY FOR 7 DAYS 04/27 completed Not Available Not Available Not Available ranitidin e 150 mg tablet TK 1 T PO BID 06/22 completed Not Available Not Available Not Available clotrimaz ole-betam ethasone 1 %-0.05 % topical cream 01/27 completed Not Available Not Available Not Available polymyxin B sulfate 10,000 unit-trim ethoprim 1 mg/mL eye drops INT 1 GTT IN right eye Q 6 H FOR 5 DAYS 03/29 completed Not Available Not Available Not Available mupirocin calcium 2 % topical cream APPLY A SMALL AMOUNT TO THE AFFECTED AREA BY TOPICAL ROUTE 3 TIMES PER DAY FOR 10 DAYS 11/22 completed Not Available Not Available Not Available omeprazol e 20 mg capsule,d elayed release TK ONE C PO QD 03/29 completed Not Available Not Available Not Available Bentyl 10 mg capsule Take 1 capsule 3 times a day by oral route as needed. active Not Available Not Available No t Available monteluka st 10 mg tablet TK 1 T PO HS 12/29 completed Not Available Not Available Not Available ceftriaxo ne 500 mg solution for injection BRING TO OFFICE 02/10 completed Not Available Not Available Not Available ranitidin e 150 mg capsule 1 cap po bid 06/22 completed Not Available Not Available Not Available zolpidem 5 mg tablet Take 1 tablet every day by oral route. active Insomnia - shift work. Max of 7 tabs monthly. Not Available Not Available Not Available lotepredn ol etabonate 0.5 % eye drops,nae pension INSTIL 2 DROPS IN OU QID FOR 14 DAYS 03/29 completed Not Available Not Available Not Available ibuprofen 600 mg tablet TAKE 1 TABLET BY MOUTH EVERY 6 TO 8 HOURS FOR 10 DAYS 02/17 completed Not Available Not Available Not Available methylpre dnisolone 4 mg tablets in a dose pack FOLLOW PACKAGE DIRECTIO NS 07/16 completed Not Available Not Available Not Available propranol ol 20 mg tablet Take 1 tablet twice a day by oral route. active Tachycar marisol/anxi ety Not Available Not Available Not Available fluticaso ne propionat e 50 mcg/actua tion nasal spray,nae pension USE 2 SPRAYS IEN QD 01/27 completed Not Available Not Available Not Available sertralin e 50 mg tablet TAKE 1 TABLET BY MOUTH DAILY active Not Available Not Available No t Available colestipo l 1 gram tablet TAKE 1 TABLET BY MOUTH DAILY 09/01 completed Not Available Not Available Not Available doxycycli ne hyclate 100 mg tablet TAKE 1 TABLET BY MOUTH TWICE DAILY active Not Available Not Available No t Available amoxicill in 875 mg-potass ium clavulana te 125 mg tablet TK 1 T PO BID active Not Available Not Available No t Available amoxicill in 500 mg-potass ium clavulana te 125 mg tablet Take 1 tablet every 12 hours by oral route for 10 days. 05/02 completed Not Available Not Available Not Available tobramyci n 0.3 %-dexamet hasone 0.1 % eye drops,nae pension INSTILL 1 DROP IN OD QID FOR 1 WEEK active Not Available Not Available No t Available oxycodone 5 mg tablet 09/01 completed Not Available Not Available Not Available hydroxyzi ne pamoate 25 mg capsule 05/02 completed Not Available Not Available Not Available cyclobenz aprine 5 mg tablet TK 1 T PO TID 09/01 completed Not Available Not Available Not Available Amox Tr-Potass ium Clavulana te 500 mg-125 mg tablet Take 1 tablet 3 times a day by oral route as directed . 2014 active Not Available Not Available Not Avai lable Vigamox 0.5 % eye drops INSTILL 1 DROP INTO AFFECTED EYE(S) BY OPHTHALM IC ROUTE 3 TIMES PER DAY FOR 7 DAYS active Not Available Not Available No t Available escitalop aida 5 mg tablet Take 1 tablet every day by oral route. active Depressi on and Anxiety. Not Available Not Available Not Available nitrofura ntoin monohydra te/macroc rystals 100 mg capsule TAKE 1 CAPSULE BY MOUTH TWICE DAILY FOR 5 DAYS 04/27 completed Not Available Not Available Not Available carbamaze pine ER 100 mg capsule,e xtended release [id number] r TAKE 1 CAPSULE BY MOUTH EVERY 12 HOURS active Not Available Not Available No t Available melatonin 12/09 completed Not Available Not Available Not Available Loestrin 1.530 (21) 1 PO QD 12/[address] MIREYA PALOMINO Not Available Not Available Not Available aripipraz ole 2 mg tablet TAKE 1 TABLET BY MOUTH EVERY DAY 01/07 completed Not Available Not Available Not Available Symbicort 80 mcg-4.5 mcg/actua tion HFA aerosol inhaler INL 2 PFS PO BID 08/31 completed Not Available Not Available Not Available Pristiq 50 mg tablet,ex tended release Take 1 tablet every day by oral route for 30 days. active Not Available Not Available No t Available ketorolac 30 mg/mL injection solution Inject 2 mL every day by intraven ous route for 1 day. 09/01 completed Not Available Not Available Not Available Blisovi Fe 1.01/26 (28) 1.5 mg-30 mcg (21)/75 mg (7) tablet TK 1 T PO D CONTINUO US 05/02 completed Not Available Not Available Not Available Emgality Pen 120 mg/mL subcutane ous pen injector 01/04 completed Pt got Qulipta covered. Not Available Not Available Not Available Ubrelvy 100 mg tablet 07/16 completed Not Available Not Available Not Available Ubrelvy 50 mg tablet TK 1 T PO AT ONSET OF MIGRAINE . MAY REPEAT ONCE AFTER 2 H IF SYMPTOMS PERSIST 02/12 completed Not Available Not Available Not Available Ajovy 225 mg/1.5 mL subcutane ous auto-inje ctor INJECT 1 PEN UNDER THE SKIN ONCE A MONTH active Not Available Not Available No t Available Wegovy 1.7 mg/0.75 mL subcutane ous pen injector Inject 1.7 mg every week by subcutan eous route. 12/09 completed Not Available Not Available Not Available Wegovy 1 mg/0.5 mL subcutane ous pen injector ADMINIST ER 0.5 ML UNDER THE SKIN EVERY WEEK 12/09 completed Not Available Not Available Not Available Wegovy 0.25 mg/0.5 mL subcutane ous pen injector Inject by subcutan eous route for 28 days. 12/09 completed Not Available Not Available Not Available Wegovy 0.5 mg/0.5 mL subcutane ous pen injector Inject 0.5 mg every week by subcutan eous route. 12/09 completed Not Available Not Available Not Available Qulipta 60 mg tablet TAKE 1 TABLET BY MOUTH EVERY DAY 07/16 completed Not Available Not Available Not Available Vitals Date Recorded Body mass index (BMI) Body height Oxygen saturation Oxygen saturation in Arterial blood by Pulse oximetry Pain severity - 0-10 verbal numeric rating [Score] - Reported Heart rate Body temperature Body weight Systolic blood pressure Diastolic blood pressure Provider Name and Address Organization Details Last Updated DateTime 2 33.6 kg/m2 172.72 cm 97 % 97 % 10 139 /min 97.6 [degF] 895362. 91 g 150 mm[Hg] 76 mm[Hg] Not Available [facility] 3 06:41:36 Date Recorded Body mass index (BMI) Body height Oxygen saturation Oxygen saturation in Arterial blood by Pulse oximetry Heart rate Respiratory rate Body temperature Body weight Systolic blood pressure Diastolic blood pressure Provider Name and Address Organization Details Last Updated DateTime 3 32.7 kg/m2 172.72 cm 98 % 98 % 98 /min 16 /min 97.8 [degF] 66700.3 6 g 122 mm[Hg] 78 mm[Hg] Not Available [facility] 3 06:41:36 Date Recorded Body height Body mass index (BMI) Body weight Provider Name and Address Organization Details Last Updated DateTime 12/09/2022 172.72 cm 30.4 kg/m2 15768.47 g Liz Trent RN [place] [facility] 12/09/2022 12:58:10 Date Recorded Body height Body mass index (BMI) Body weight Body temperature Heart rate Oxygen saturation Oxygen saturation in Arterial blood by Pulse oximetry Pain severity - 0-10 verbal numeric rating [Score] - Reported Systolic blood pressure Diastolic blood pressure Provider Name and Address Organization Details Last Updated DateTime 172.72 cm 31.4 kg/m2 31010.1 8 g 97.1 [degF] 113 /min 97 % 97 % 3 140 mm[Hg] 84 mm[Hg] Liz Trent RN [facility] [employer] 11:16:58 Date Recorded Respiratory rate Provider Name a dc Address Organization Details Last Updated DateTime 04/27/2023 16 /min Liz Carrasco NP [address], [address], [place] [employer] [facility] [employer] 04/27/2023 11:25:21 Date Recorded Body height Body mass index (BMI) Body weight Heart rate Pain severity - 0-10 verbal numeric rating [Score] - Reported Provider Name and Address Organization Details Last Updated DateTime 07/16/2023 172.72 cm 33.5 kg/m2 18770.32 g 112 /min 0 Liz Trent RN [facility] [employer] 07/16/2023 15:41:05 Social History Question Answer Notes LastModified by Organization Details LastModified Time Tobacco Smoking Status Current Every Day Smoker Not Available [facility] 10/28/2022 06:39:39 Do You Have An Advance Directive? No Information not available 04/27/2023 What Is Your Level Of Alcohol Consumption? None [id number] Information not available 10/28/2022 Is Blood Transfusion Acceptable In An Emergency? Yes Information not available 04/27/2023 What Is Your Level Of Caffeine Consumption? Occasional [id number].030 [id number] Information not available 10/28/2022 How Much Tobacco Do You Chew? None MIGRATION.030 [id number] Information not available 10/28/2022 In The 14 Days Before Symptom Onset, Have You Had Close Contact With A Laboratory-conf josé [facility] While That Case Was Ill? No MIGRATION.030 [id number] Information not available 10/28/2022 In The 14 Days Before Symptom Onset, Have You Had Close Contact With A Person Who Is Under Investigation For COVID-19 While That Person Was Ill? No MIGRATION.[id number] Information not available 10/28/2022 Are You Currently Employed? Yes Information not available 04/27/2023 What Type Of Diet Are You Following? REGULAR MIGRATION.0301 [id number] Information not available 10/28/2022 Which Illicit Or Recreational Drugs Have You Used? None MIGRATION.[id number] [id number] Information not available 10/28/2022 Do You Or Have You Ever Used E-cigarettes Or Vape? 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 No Information not available 04/27/2023 Do You Use Insect Repellent Routinely? No Information not available 04/27/2023 Where Do You Live? SingleLevelHouse Information not available 04/27/2023 Do You Have A Medical Power Of Stem Sizer? No Information not available 04/27/2023 How Many Children Do You Have? 0 Information not available 04/27/2023 Do You Have Any Pets? Yes Information not available 04/27/2023 Do You Use Protection During Sex? No Information not available 04/27/2023 What Is Your Relationship Status? Information not available 04/27/2023 Do You Use Your Seat Belt Or Car Seat Routinely? Yes Information not available 04/27/2023 Are You Sexually Active? Yes Information not available 04/27/2023 Do You Have Smoke And Carbon Monoxide Detectors In Your Home? Yes Information not available 04/27/2023 Are There Any Smokers In Your House? No Information not available 04/27/2023 How Much Tobacco Do You Smoke? 0.25 PPD MIGRATION.0301 [id number] Information not available 10/28/2022 Do You Participate In Social Media? Yes Information not available 04/27/2023 Do You Feel Stressed (tense, Restless, Nervous, Or Anxious, Or Unable To Sleep At Night)? [id number] Information not available 04/27/2023 Do You Use Sunscreen Routinely? No Information not available 04/27/2023 Have You Recently Traveled Abroad? No Information not available 04/27/2023 Sex: Unknown Functional Status Question Answer Note LastModified by Organization D etails LastModified Time What is your exercise level? None Information not available 04/27/2023 Mental Status None recorded. Family History Relationship Description Onset Age of this Age Resolved Age Notes LastModified by Organization Details LastModified Time Unspecified Relation Diabetes mellitus [id number].090 [id number] Not available 10/28/2022 06:39:56 Maternal Grandfather Malignant tumor of colon [id number].[id number] Not available 10/28/2022 06:39:56 Father Hypertensive disorder MIGRATION.793 [id number] Not available 10/28/2022 06:39:56 Mother Hypertensive disorder MIGRATION.527 [id number] Not available 10/28/2022 06:39:56 Medical History Condition Response MRSA N SLEEP APNEA N ALLERGIES/HAYFEVER N LUNG DISEASE/DISORDER N INSOMNIA N RADIATION / CHEMOTHERAPY N COPD N HIGH CHOLESTEROL / HYPERLIPIDEMIA N HYPERTHYROIDISM N BLOOD DISEASES N EAR OR HEARING PROBLEMS N HYPOTHYROIDISM N DEPRESSION (INCLUDING POST ) Y HAVE YOU BEEN HOSPITALIZED OR SEEN IN [facility] ER IN THE PAST YEAR ? N STROKE/TIA N ULCERS N OBESITY N ANEURYSM N HISTORY WITH COMPLICATIONS WITH ANESTHES IA ? N USE OF BLOOD THINNERS N NO SIGNIFICANT PAST MEDICAL HISTORY N DIABETES, TYPE N PARATHYROID DISEASE N ENT N SEASONAL ALLERGIES N HEARTBURN / REFLUX Y HEPATITIS / LIVER DISEASE N SLEEP DISORDER N SEIZURES/EPILEPSY N HEADACHES/MIGRAINES Y CHF N PACEMAKER N DIZZINESS N HEART DISEASE/HEART PROBLEMS N AIDS/HIV N FRACTURES N HYPERTENSION N CANCER: SPECIFY N TOURETTE'S N BLOOD TRANSFUSION N ANESTHESIA COMPLICATIONS N ANEMIA/BLOOD DISORDER N CHRONIC EAR INFECTIONS N TUBERCULOSIS N Gynecological History Statement/Question Response Abnormal Pap N Flow Moderate Date of LMP 04/27/2021 STIs/STDs Y Dislike of Light during Menstrual Headac he N Duration of Flow (days) 3 Most Recent Mammogram Current Control Method None Age at Menarche 14 Date of Last Colonoscopy Frequency of Cycle (Q days) 28 Most Recent Bone Density Sexually Active? Y Menses Monthly Y Date of Last Pap Smear Obstetrics History GPAL:G 0 P 0 0 0 0 Immunizations Vaccine Type Date Status Note Provider Nam e and Address Organization Details Recorded Time MMR 7 completed Not Available [facility] 10/28/2022 06:47:05 DTaP, unspecified formulation 7 completed Not Available [facility] 10/28/2022 06:47:05 IPV 7 completed Not Available [facility] 10/28/2022 06:47:06 DTaP, unspecified formulation 4 completed Not Available [facility] 10/28/2022 06:47:06 IPV 4 completed Not Available [facility] 10/28/2022 06:47:06 MMR 3 completed Not Available [facility] 10/28/2022 06:47:06 DTaP, unspecified formulation 3 completed Not Available [facility] 10/28/2022 06:47:06 Hib, unspecified formulation 3 completed Not Available [facility] 10/28/2022 06:47:06 Hib, unspecified formulation 2 completed Not Available [facility] 10/28/2022 06:47:06 DTaP, unspecified formulation 2 completed Not Available [facility] 10/28/2022 06:47:06 IPV 2 completed Not Available [facility] 10/28/2022 06:47:06 Hib, unspecified formulation 2 completed Not Available [facility] 10/28/2022 06:47:06 DTaP, unspecified formulation 2 completed Not Available [facility] 10/28/2022 06:47:06 IPV 2 completed Not Available [facility] 10/28/2022 06:47:06 SARS-COV-2 (COVID-19) vaccine, UNSPECIFIED 1 completed Not Available [facility] 10/28/2022 06:47:06 SARS-COV-2 (COVID-19) vaccine, UNSPECIFIED 1 completed Not Available [facility] 10/28/2022 06:47:07 Influenza, split virus, trivalent, preservative 4 completed Not Available [facility] 10/28/2022 06:47:07 Tdap 6 completed Not Available [facility] 10/28/2022 06:47:07 meningococcal ACWY, unspecified formulation 6 completed Not Available [facility] 10/28/2022 06:47:07 Hep B, unspecified formulation 2 completed Not Available [facility] 10/28/2022 06:47:07 Hep B, unspecified formulation 2 completed Not Available [facility] 10/28/2022 06:47:07 Hep B, unspecified formulation 2 completed Not Available [facility] 10/28/2022 06:47:07 Influenza, split virus, quadrivalent, PF 7 completed Not Available [facility] 10/28/2022 06:47:07 Tdap 4 completed Not Available [facility] 10/28/2022 06:47:07 Past Encounters Encounter ID Performer Location Encounter Start Date Encounter Closed Date Diagnosis/Indication Diagnosis SNOMED-CT Code Diagnosis ICD10 Code Diagnosis Note [id number] [facility] [address] [place] [address] 02/12/2021 00:00:00 02/12/2021 17:37:29 [id number] [facility] [address] [place] [address] 02/17/2021 00:00:00 02/17/2021 15:38:52 [id number] [facility] [address] [place] [address] 01/08/2022 00:00:00 01/08/2022 10:19:54 [id number] [facility] [address] [place] [address] 02/10/2022 00:00:00 02/10/2022 09:15:43 [id number] [facility] [address] [place] [address] 02/26/2022 00:00:00 02/26/2022 10:31:[id number] [address] 09/01/2022 00:00:00 09/01/2022 11:33:53 [id number] Liz Carrasco NP [address] [address] 12/09/2022 12:49:18 12/09/2022 14:22:13 Infection of skin and/or subcutaneous tissue 41516314 L08.9 Tattoo is 1 week old. keflex 500 mg po bidDoxycyc line 100 mg po bid (on 2 days already)Si lvasorb Gel. Works wednesday/wed/. Will call if not able to return to work. [id number] Liz Carrasco NP [address] [address] 04/27/2023 10:59:59 04/27/2023 13:02:41 Cervical lymphadenopathy 980001648 R59.0 ENT referral- pt wants to see Dr. Martinez. 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 Consider seeing Dr. Correia. Currently with No Ramirez [id number] Liz Carrasco NP [address] [address] 07/16/2023 15:07:53 07/16/2023 16:13:49 Acute sinusitis 38528640 J01.90 doxy bid for 10 days. Nasal saline. Health Concerns Section Related Observation LastModified by Organization Detai ls LastModified Time None Recorded Concern Status LastModified by Organization Details LastModified Time None Recorded Advance Directives Directive N: Payers Encounter Date Sequence Insurance Name Policy Number Policy Doss Covered Member ID Doss Member ID Guarantor Name 12/09/2022 1 R [id number] Jackie Macedo [id number] Jackie Macedo 04/27/2023 1 UMR [id number] Jackie Castellanostiz [id number] Jackie Macedo 07/16/2023 1 UMR [id number] Jackie Macedo [id number] Jackie Macedo Notes Date Note Type Note Provider Name and Address Organization Details Recorded Time 12/09/2022 text/html Consents to telehealth visit. States she received a tattoo on chest 1 week ago> After a few days started to be painful, scabbed, and red. Has been using silvasorb gel. On keflex and had some doxy at home. Improved, but not healed. Scheduled to work fri/sat/sun. Would like to try to go, but if still too painful, would like note- states she will call 12/10/22. Liz [facility]rasco [facility] [address] [facility] [address], [place], [address], [employer] 12/09/2022 14:20:58 04/27/2023 text/html Here for swollen lymph nodes to left face under jaw, in front of left ear, just under ear. Last week was bad, but now is better. States currently miscarrying per HCG levels. 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 Has been seeing Dr. No Ramirez. Unsure next plan. Concern that she has yeast infection all over. Craves sugar all the time. Hasn't done without carbs or sugar ever. Migraine- qulipta helped it. Was down to 5 migraines monthly. Has appt with neuro tomorrow to discuss botox. Migraine clinic Dr. Chris Haney. Liz Carrasco NP [address] [employer], [address], [place], [address], [facility] 04/27/2023 12:56:21 07/16/2023 text/html Consents to telephonic visit. Congestion of sinuses for 6 days.Swallowing causing ear to pop, painful.No fever or chills.Mucinex and day/night quil and allergy. No relief.No cough. Liz Carrasco NP [address] [employer], [place], [address], [employer] 07/16/2023 16:10:15 OBGyn Episode No OBEpisode recorded.
--- OUTSIDE RECORDS SUMMARY | 2024-10-20 07:47 | XMS_ITS | Patient Health Summary ---
Author Organization [facility] Address [address] [facility] [place] [address] Care Team Providers Care Patrol Commander Name Role Phone Liz Carrasco Primary Care Provider Note from [facility],non-owned Affiliates and Associated Physician Practices is amultiple site organization consisting of ambulatory clinics and hospital sitesin [place], [place], [place] and [place]. This disclosure is being madepursuant to the Care Everywhere program and may not contain all information available regarding this patient. Last updated 18.[facility] Allergies No known active allergies Medications Be aware that medications may not be up to date on this document. Always verify current medications with the patient. No known medications Social History Tobacco Use Types Packs/Day Years Used Date Smoking Tobacco: Former Smokeless Tobacco: Never Alcohol Use Standard Drinks/Week Comments Not Currently 0 (1 standard drink = 0.6 oz pur e alcohol) Sex and Gender Information Value Date Recorded Sex Assigned at Not on file Gender Identity Not on file Sexual Orientation Not on file Care Teams Patrol Commander Relationship Specialty Start Date End Date Liz Carrasco APRN-CNP [address] [place] [address] PCP - General Nurse Practitioner Family 09/21/17
--- OUTSIDE RECORDS SUMMARY | 2024-10-20 07:47 | XMS_ITS | Clinical Summary ---
Author Organization [facility] [employer] Address [address] [place] [address] Care Team Providers Care Railroad Car Cleaner Name Role Phone Liz Carrasco TAD-SUPPLY ROOM CLERK Primary Care Provider Source Comments [facility] [employer],non-owned Affiliates and Associated Physician Practices is amultiple site organization consisting of ambulatory clinics and hospital sitesin [place], [place], [place] and [place]. This disclosure is being madepursuant to the Care Everywhere program and may not contain all information available regarding this patient. Last updated 18.[facility] [employer] Allergies No known active allergies Medications Be [...] on file Sexual Orientation Not on file Plan of Treatment Health Maintenance Due Date Last Done Comments PAP SMEAR 1992 HIV SCREENING 02/01/2007 HEPATITIS C SCREENING 01/28/2010 DTAP/TDAP/TD VACCINES (1 - Tdap) 02/01/2011 HEPATITIS B VACCINE (1 of 3 - 19+ 3-dose series) 02/01/2011 COVID-19 VACCINE (2023-2 5 season) 2024 INFLUENZA VACCINE (#1) 2024 06/2606/26/2014 DEPRESSION SCREENING 08/30/2024 ZOSTER VACCINE (1 of 2) 02/01/2042 HIB VACCINE Aged Out No longer eligi ble based on patient's age to complete this topic HPV VACCINE Aged Out No longer eligi ble based on patient's age to complete this topic MENINGOCOCCAL (Group B) VACCINE Aged Out No longer eligible b ased on patient's age to complete this topic MENINGOCOCCAL VACCINE Aged Out No deirdre javid eligible based on patient's age to complete this topic PNEUMOCOCCAL VACCINE Aged Out No long er eligible based on patient's age to complete this topic Care Teams Railroad Car Cleaner Relationship Specialty Start Date End Date Liz Carrasco APRN-SUPPLY ROOM CLERK [address] [place] [address] PCP - General Nurse Practitioner Family 09/21/17
--- OUTSIDE RECORDS SUMMARY | 2024-10-20 07:47 | XMS_ITS | Patient Health Record ---
Author Organization [facility] Address [address] [place] [address] Care Team Providers Care Managing Attorney Name Role Phone Liz Bowers Primary Care Provider Sharon Dr. Tony Howard Unavailable [phone] Gretchen Ye Unavailable Unavailable ZDavid, Provider Unavailable Unavailab Kasie Sherwood Unavailable [phone] Allergies No Known Allergies Reason For Referral No Information Medications Medication SIG (Take, Route, Frequency, Duration) Notes Start Date End Date Status CONTROL PILL 1 TABLET BY MOUTH DAILY *Please review for potential replacement for e-prescription and drug interaction check* Not-Taking Meloxicam 15 MG 1 tab(s) orally once a day for 30 day(s) 01/20/2023 Not-Taking Aspirin 81 MG 1 tab(s) chewed once a day for 30 day(s) Not-Taking Melatonin 5 MG 1 cap(s) orally once a day (at bedtime) Not-Taking Emgality 120 MG/ML 1 injection as maintenance dose Subcutaneous once every 4 weeks for 28 days Active Ubrelvy 100 MG 1 tablet Orally twice a day As needed for migraine 07/06/2024 Active DULoxetine HCl 30 MG 1 capsule Orally at bedtime for 30 days 10/12/2024 Active Eijbqpafuq-ERMQ-Grjzc ine 50-325-40 MG Take 1-2 tabs orally a day As needed 09/28/2024 Active Fluticasone Propionate 50 MCG/ACT 2 spray(s) intranasally once a day for 30 day(s) 07/08/2017 Active Omeprazole 20 MG 1 cap(s) orally Qday Not-Taking Fexofenadine HCl 180 MG 1 tab(s) orally once a day for 30 day(s) 07/08/2017 Not-Taking Ambien 5 MG 1 tab(s) orally once a day (at bedtime) Not-Taking Rizatriptan Benzoate 10 MG 1 tab(s) orally bid prn for 30 days 01/20/2023 Not-Taking Sulfamethoxazole-Trim ethoprim 800-160 MG 1 tab(s) orally 2 times a day 07/08/2017 Not-Taking NURTEC ODT 75 MG 1 TAB(S) ORALLY ONCE PRN for 30 DAY(S) *Please review for potential replacement for e-prescription and drug interaction check* Not-Taking Ajovy 225 MG/1.5ML 1 injection Subcutaneous once a month 06/14/2024 Active Medrol 4 MG as directed Not-Ta hal Cyclobenzaprine HCl 10 MG 1 tab(s) orally once a day 01/20/2023 Active Amitriptyline HCl 25 MG 1 tab(s) orally once a day (at bedtime) Not-Taking Tylenol 325 MG 2 tab(s) orally every 4 hours Active 27-1 MG 1 tablet Orally Once a day Not-Taking Omeprazole 40 MG 1 cap(s) orally once a day PRN Active Lovenox 30 MG/0.3ML 0.3 mL Injection every 12 hrs Not-Taking Immunizations Vaccine Route Administration Date Status Comme nts Fluzone Quadrivalent Unknown 06/01/2016 Administered Social History Tobacco Use: Social History Observation Description Date Details (start date - stop date) Current Smoker NA - NA Tobacco Control (Standard) Question Answer Notes Tobacco use: Current smoker Problems Problem Type SNOMED Code ICD Code Onset Dates Problem Status W/U Status Risk Notes Problem Shortness of breath (639346655) Shortness of breath (R06.02) Active confirmed Problem Chronic migraine without aura, non-refractory (disorder) (373929015146931 ) Migraine without aura, not intractable, without status migrainosus (G43.009) Active confirmed Problem Migraine with aura (1631739) Migraine with aura, not intractable, without status migrainosus (G43.109) Active confirmed Problem Chronic migraine without aura, non-intractable (232974912843836 ) Chronic migraine without aura, not intractable, without status migrainosus (G43.709) Active confirmed Problem Insomnia (160175509) Insomnia, unspecified (G47.00) Active confirmed Problem Chronic pain syndrome (130211425) Chronic pain syndrome (G89.4) Active confirmed Problem Allergic rhinitis caused by pollen (disorder) (10497640) Allergic rhinitis due to pollen (J30.1) Active confirmed Problem Chronic rhinitis (99923159) Chronic rhinitis (J31.0) Active confirmed Problem Gastro-esophagea l reflux disease with esophagitis (889238982) Gastro-esophage al reflux disease with esophagitis (K21.0) Active confirmed Problem Gastro-esophagea l reflux disease without esophagitis (524001396) Gastro-esophage al reflux disease without esophagitis (K21.9) Active confirmed Problem Cough (38364572) Cough (R05) Active confirmed Vital Signs Respiratory Rate 18 /min 10/12/2024 Blood pressure diastolic 83 mm Hg 10/12/2024 Oximetry 96 % 10/12/2024 Height 68 in 10/12/2024 Blood pressure systolic 120 mm Hg 10/12/2024 Weight 250.8 lbs 10/12/2024 BMI 38.13 kg/m2 10/12/2024 Encounters Encounter Location Date Provider Diagnosis [address] [address] 02/12/2024 Provider ZZ-Migration Allergic rhinitis due to pollen J30.1 and Gastro-esophageal reflux disease with esophagitis K21.[address] [address] 02/12/2024 Provider ZZ-Migration Chronic migraine without aura, not intractable, without status migrainosus G43.709 [facility] [address] [place] [address] 11/04/2023 Tony Perez Chronic migraine without aura, not intractable, without status migrainosus G43.[address] [place] [address] 02/15/2024 Tony Perez Chronic migraine without aura, not intractable, without status migrainosus G43.709 [facility] [address] [place], [place] [email or web address] [address] [address] 05/11/2024 Tony Perez Chronic migraine without aura, not intractable, without status migrainosus G43.[address] [employer] [address] [address] 07/06/2024 Kasie Dee Chronic migraine without aura, not intractable, without status migrainosus G43.709 and Myalgia, unspecified site M79.[address] [employer] [address] [address] 08/17/2024 Kasie Jones Chronic migraine without aura, not intractable, without status migrainosus G43.709 [address] [address] 10/12/2024 Kasie Dee Chronic migraine without aura, not intractable, without status migrainosus G43.709 ; Myalgia, unspecified site M79.10 and 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 [facility] [place] [address] [place] [address] 10/19/2024 Kasie Dee [facility] [address] [place] [address] 11/04/2023 Tony Perez [address] [address] 11/04/2023 Tony Perez [facility] [place] [address] [place] [address] 11/16/2023 Tony Perez [email or web address] [address] 06/14/2024 Kasie Dee [facility] [place] [address] [place] [address] 06/15/2024 Tony Perez [facility] [place] [address] [place] [address] 07/06/2024 Tony Perez Chronic migraine without aura, not intractable, without status migrainosus G43.709 [facility] [place] [address] [place] [address] 07/06/2024 Tony Perez Chronic migraine without aura, not intractable, without status migrainosus G43.709 [facility] [address] [place] [address] 07/10/2024 Tony Bonillaer [facility] [address] [place] [address] 09/19/2024 Tony Perez [facility] [address] [place] [address] 09/27/2024 Kasie Dee Chronic migraine without aura, not intractable, without status migrainosus G43.709 [facility] [address] [place] [address] 10/04/2024 Kasie Jones [facility] [address] [place] [address] 10/11/2024 Tony Perez Assessments Encounter Date Diagnosis (ICD Code) Assessment Notes Treatment Notes Treatment Clinical Notes Section Notes 11/04/2023 Chronic migraine without aura, not intractable, without status migrainosus (ICD-10 - G43.709) Refill Fioricet. 1-2 pills prn x 1 migraine. #20. 2 refills. Discontinue Ubrelvy. Discontinue Ajovy. 02/12/2024 Allergic rhinitis due to pollen (ICD-10 - J30.1) 02/12/2024 Chronic migraine without aura, not intractable, without status migrainosus (ICD-10 - G43.709) 02/15/2024 Chronic migraine without aura, not intractable, without status migrainosus (ICD-10 - G43.709) 05/11/2024 Chronic migraine without aura, not intractable, without status migrainosus (ICD-10 - G43.709) 07/06/2024 Chronic migraine without aura, not intractable, without status migrainosus (ICD-10 - G43.709) -Abortive treatment plan: Resume Fioricet and Ubrelvy. -Preventive treatment plan: Continue Ajovy. Consider switching to Emgality or Aimovig if migraines become more frequent or do not improve, as this was previously more effective. Insurance plan does not cover Emgality. Continue Botox. Migraines are likely more frequent and intense from recent and caring for an infant.-Educated the patient on migraine lifestyle recommendations. I [...] daily as supplements; keep scheduled follow-up appointments 07/06/2024 Myalgia, unspecified site (ICD-10 - M79.10) Continue chiropractic treatment. 07/06/2024 Chronic migraine without aura, not intractable, without status migrainosus (ICD-10 - G43.709) 07/06/2024 Chronic migraine without aura, not intractable, without status migrainosus (ICD-10 - G43.709) 08/17/2024 Chronic migraine without aura, not intractable, without status migrainosus (ICD-10 - G43.709) 09/27/2024 Chronic migraine without aura, not intractable, without status migrainosus (ICD-10 - G43.709) 10/12/2024 Chronic migraine without aura, not intractable, [...] - G50.1) Start duloxetine 30 mg qhs. 02/12/2024 Gastro-esophagea l reflux disease with esophagitis (ICD-10 - K21.0) Plan Of Treatment No Information Insurance Providers Payer Name Payer Address Payer Phone Subscriber Number Group Number Insured Name Patient Relationship to Insured Coverage Start Date Coverage End Date [facility] [address] [address] [place], [place] [id number] [phone] [id number] Jackie Degroot Self - patient is the insured Medical (General) History Medical History History ICD Code Chronic pain syndrome G89.4 Gastro-esophageal reflux disease without esophagitis K21.9 Allergic rhinoconjunctivitis Allergies, seasonal Anxiety disorder Arthritis Back pain Degenerative Disc Disease Depression Esophageal reflux Irritable bowel syndrome Neck pain Obesity Migraine Cough undefined Chronic rhinitis Gastro-esophageal reflux disease with es ophagitis Insomnia, unspecified Surgical History Surgery Date(Month/Year) Lumbar facet denervation 2022 Tonsillectomy Cholecystectomy Appendectomy back surgery 06/2024 Hospitalization History Reason Date(Month/Year) See above history
--- OUTSIDE RECORDS SUMMARY | 2024-10-20 07:47 | XMS_ITS | Referral Summary ---
Author Organization [facility] Address [address] [facility] [place] [address] Care Team Providers Care Ice Cream Vendor Name Role Phone Liz Carrasco TAD-CITY ENGINEER Primary Care Provider Source Comments [facility],non-owned Affiliates and Associated Physician Practices is amultiple site organization consisting of ambulatory clinics and hospital sitesin [place], [place], [place]. This disclosure is being madepursuant to the Care Everywhere program and may not contain all information available regarding this patient. Last updated 18.[facility] Allergies No known active allergies Medications Be [...] Orientation Not on file Plan of Treatment Not on file Care Teams Ice Cream Vendor Relationship Specialty Start Date End Date Liz Carrasco, PRODUCE WEIGHER-CITY ENGINEER [address] [place] [address] PCP - General Nurse Practitioner Family 09/21/17
--- OUTSIDE RECORDS SUMMARY | 2024-10-20 07:47 | XMS_ITS ---
Author Organization [facility] Address [address] [place] [address] Care Team Providers Care Brickmason Supervisor Name Role Phone Danilo KNIGHTLiz Primary Care Provider Sharon vailable Dr. Tony Perez Unavailable [phone] Gretchen Ye Unavailable Unavailable Kasie Dee Unavailable [phone] REASON FOR VISIT Emgality PA Submitted 10/19/24 Encounters Encounter Location Date Provider Diagnosis [address] [address] 10/19/2024 Kasie Dee Plan Of Treatment No Information Progress Notes * Jackie THAKURDOB: 2 (34 yo F)Acc No.[id number]:10/19/2024 Patient: Lacey Jackie NGO :1990 A ge:34 Y S ex:Female Address:[address] [place] [address] * * Date:
[2024-10-20 08:50] LABS: Basophils Absolute Auto 0.1 K/mm3 (0.0-0.1); Basophils Percent Auto 0.5 % (0.2-1.2); Eosinophils Absolute Auto 0.1 K/mm3 (0-0.3); Eosinophils Percent Auto 1.1 % (0-4.4); Hematocrit 44.1 % (37.0-47.0); Hemoglobin 14.7 g/dL (12.0-15.0); Immature Granulocyte Absolute 0.05 K/mm3 (0.00-0.031); Immature Granulocyte Percent A 0.5 % (0-0.5); Lymphocytes Absolute Auto 2.15 K/mm3 (0.9-3.2); Lymphocytes Percent Auto 21.2 % (18.3-44.2); Mean Corpuscular HGB Conc 33.3 g/dl (32-36); Mean Corpuscular Hemoglobin 29.8 pg (26-34); Mean Corpuscular Volume 89.3 fl (80-100); Mean Platelet Volume 10.4 fl (7.4-10.4); Monocytes Absolute Auto 0.8 K/mm3 (0.1-0.6); Monocytes Percent Auto 7.8 % (2.6-8.5); Neutrophils Percent Auto 68.9 % (45.5-73.1); Platelet Count Result 375 k/mm3 (150-375); Red Blood Count 4.94 M/mm3 (4.2-5.4); Red Cell Distribution Width 12.6 % (11.5-14.5); White Blood Count 10.1 K/mm3 (4.5-10.0)
[2024-10-20 09:01] LABS: Rheumatoid Factor < 12.0 IU/ML (<12)
[2024-10-20 09:02] LABS: Alanine Aminotransferase 36 U/L (6-35); Albumin Level 4.6 g/dL (3.5-5.1); Alkaline Phosphatase 109 U/L (38-126); Anion Gap 10 mmol/L (4-12); Aspartate Amino Transferase 21 U/L (14-36); Bilirubin,Total 0.5 mg/dL (0.2-1.3); Blood Urea Nitrogen 11 mg/dL (7-17); Calcium 9.5 mg/dL (8.4-10.2); Carbon Dioxide 26 mmol/L (22-30); Chloride 101 mmol/L (98-107); Estimated Glomerular Filt Rate > 60; Glucose 84 mg/dL (65-110); Sodium 137 mmol/L (137-145)
[2024-10-20 09:29] LABS: Erythrocyte Sedimentation Rate 5 mm/hr (0-20)
[2024-10-20 09:40] LABS: Free T4 Free Thyroxine 1.11 ng/dL (0.78-2.19)
[2024-10-20 09:52] LABS: Hepatitis B Core IgM Result Negative (Negative); Hepatitis B Surface Antigen Negative (Negative)
[2024-10-20 09:57] LABS: HAV RESULT Negative (Negative)
[2024-10-20 10:03] LABS: Thyroid Stimulating Hormone 0.554 uIU/mL (0.465-4.680)
[2024-10-20 10:04] LABS: Hepatitis C Virus Antibody Negative (Negative)
== END 2024-10-20 07:42 | disposition home or self-care (01) ==
PROVIDERS: PCP Nurse Practitioner Family; Visit Provider Registered Nurse
DX: L29.89 Other pruritus (principal); D48.5 Neoplasm of uncertain behavior of skin
CPT/HCPCS: 36415; 80053; 80074; 82248; 84439; 84443; 85025; 85652; 86038; 86039; 86140; 86430

== ENCOUNTER 2024-10-23 14:30 | Outpatient (RCR) | payer OTHER, SELFPAY ==
--- NOTE | 2024-08-09 13:21 | OPREHPOC ---
Outpatient Therapy Plan of Care This is a Multidisciplinary Plan of Care that may contain components documented by all disciplines (PT, OT, and ST.) PT Problem 1 PT Problem #1 Knowledge Deficit PT Goal 1 Goal / Goal Update 1. Patient will perform independent HEP Target Visit 4 PT Problem 2 PT Problem #2 Pain PT Goal 1 Goal / Goal Update 1. Patient will perform all typical household and work tasks with pain no higher than 3/10 Target Visit 10 PT Problem 3 PT Problem #3 Impaired Strength PT Goal 1 Goal / Goal Update 1. LE MMT 5/5 in all planes to support spine with lifting Target Visit 10 PT Problem 4 PT Problem #4 Impaired Balance PT Goal 1 Goal / Goal Update 1. 5 times sit to stand less than 12 seconds without pain to decrease fall risk Target Visit 10
--- NOTE | 2024-08-09 13:21 | PTOPEVAL1 ---
Assessment and note entered by Arelis Covington DPT Evaluation Information Assessment Status Evaluation ICD-10 Condition Codes (PT) Pain in low back M54.50,Weakness R53.1,Encounter for other orthopedic aftercare Z47.89 Subjective Information Pt is s/p L1-2 microdiscectomy on 07/21/24. Pt reports highest pain 8/10 and lowest 2/10. Pain increases with prolonged sitting and standing. Avoiding bending activities and has had difficulty lifting her . Has been able to do some light cooking and cleaning but requires some assistance to do normal activities like lifting a laundry basket. Pain originally started 2 years ago and was supposed to have surgery before finding out the was . Pt's son is 2 months old. Will return to work on August 31. Patient goal: strengthen back and core better, reduce pain Returns to MD September 06. Pt reports MD still wants to restrict bending, lifting, twisting until follow up. Reported Pain Level Pain Score 5: Self Report Assessment PT Clinical Summary The patient is presenting to skilled therapy s/p L1-2 microdiscectomy. She presents with decreased LE strength and decreased ability to perform functional transfers which are contributing to her pain and difficulty with activities at home like cooking and cleaning. She will benefit from therapy to address her impairments per surgical protocol in order to reduce pain and maximize function. Plan of Care Interventions Electrical Stimulation,Gait Training,Hot Pack/Cold Pack,Manual Therapy,Neuro Re-education,Patient/ Caregiver Education,Therapeutic Activities, Therapeutic Exercise PT Services Indicated Yes Treatment Frequency and 2 times a week for 8-10 visits Duration These treatments will address the objective and functional deficits as defined above. The patient will be advanced safely and appropriately in order for the patient to progress towards his/her prior level of function. Additional exercises will be introduced and as well as a comprehensive home exercise program upon discharge, if needed, ?to ensure carryover of functional gains achieved in the clinic. This treatment plan has been reviewed and agreement upon by the patient.
--- NOTE | 2024-09-25 16:12 | OPREHPOC ---
Outpatient Therapy Plan of Care This is a Multidisciplinary Plan of Care that may contain components documented by all disciplines (PT, OT, and ST.) PT Problem 1 PT Problem #1 Knowledge Deficit PT Goal 1 Goal / Goal Update 1. Patient will perform independent HEP Target Visit 4 Progress Met PT Problem 2 PT Problem #2 Pain PT Goal 1 Goal / Goal Update 1. Patient will perform all typical household and work tasks with pain no higher than 3/10 Target Visit 14 Progress Not Met PT Problem 3 PT Problem #3 Impaired Strength PT Goal 1 Goal / Goal Update 1. LE MMT 5/5 in all planes to support spine with lifting update 09/25/24 1. Hip flexion to 5/5, hip abduction still 4+/5 Target Visit 14 Progress Partially Met PT Problem 4 PT Problem #4 Impaired Balance PT Goal 1 Goal / Goal Update 1. 5 times sit to stand less than 12 seconds without pain to decrease fall risk update 09/25/24 1. improved to 14 Target Visit 10 Progress Partially Met
--- NOTE | 2024-09-25 16:12 | PTOPPROG ---
Assessment and note entered by Arelis Covington DPT Evaluation Information Assessment Status Progress ICD-10 Condition Codes (PT) Pain in low back M54.50,Weakness R53.1,Encounter for other orthopedic aftercare Z47.89 Subjective Information Highest pain in last week 10 and lowest 12/07. Pain continues to increase with prolonged sitting, standing for more than 5 minutes at a time. Also worsens as the day goes on. Has been able to do very minimal cleaning. Does think her ability to lift her son has improved but is still difficult especially in his car seat. Returns to [facility]. Pt is still on precautions. Assessment PT Clinical Summary The patient has made some progress in therapy although she continues to have pain with prolonged sitting, standing, and doing most cooking and cleaning tasks. She does demonstrate improved hip strength, improved 5 time sit to stand score and improved speed on 2 minute walk test. She reports some improvements in being able to hold her son, but it is still a challenge. She will benefit from further therapy to address pain and strength in order to improve overall function. JORDANA- improved to 46% disability Plan of Care Interventions Electrical Stimulation,Gait Training,Hot Pack/Cold Pack,Manual Therapy,Neuro Re-education,Patient/ Caregiver Education,Therapeutic Activities, Therapeutic Exercise PT Services Indicated Yes Treatment Frequency and 1 time a week for 4 visits Duration These treatments will address the objective and functional deficits as defined above. The patient will be advanced safely and appropriately in order for the patient to progress towards his/her prior level of function. Additional exercises will be introduced and as well as a comprehensive home exercise program upon discharge, if needed, ?to ensure carryover of functional gains achieved in the clinic. This treatment plan has been reviewed and agreement upon by the patient.
--- NOTE | 2024-10-23 15:13 | OPREHPOC ---
Outpatient Therapy Plan of Care This is a Multidisciplinary Plan of Care that may contain components documented by all disciplines (PT, OT, and ST.) PT Problem 1 PT Problem #1 Knowledge Deficit PT Goal 1 Goal / Goal Update 1. Patient will perform independent HEP Target Visit 4 Progress Met PT Problem 2 PT Problem #2 Pain PT Goal 1 Goal / Goal Update 1. Patient will perform all typical household and work tasks with pain no higher than 3/10 update 10/23/24 1. 7/10 worst but not as often Target Visit 14 Progress Partially Met PT Problem 3 PT Problem #3 Impaired Strength PT Goal 1 Goal / Goal Update 1. LE MMT 5/5 in all planes to support spine with lifting update 09/25/24, 10/23/24 1. Hip flexion to 5/5, hip abduction still 4+/5 Target Visit 14 Progress Partially Met PT Problem 4 PT Problem #4 Impaired Balance PT Goal 1 Goal / Goal Update 1. 5 times sit to stand less than 12 seconds without pain to decrease fall risk update 09/25/24, 10/23/24 1. improved to 14 Target Visit 10 Progress Partially Met
--- NOTE | 2024-10-23 15:13 | PTOPPROGNS ---
Assessment and note entered by Arelis Covington DPT Evaluation Information Assessment Status Progress ICD-10 Condition Codes (PT) Pain in low back M54.50,Weakness R53.1,Encounter for other orthopedic aftercare Z47.89 Subjective Information Highest pain in last week /10 and lowest 3/10. Can stand 5 minutes before pain increases. Is able to do things at home like laundry, using the pouncer machine, and vacuuming but they increase pain. States her pain intensity is not getting as high as often. Has also been seeing a chiropractor and getting shockwave therapy. Returns to MD in 1 or 2 weeks. Assessment PT Clinical Summary The patient reports some improvements in therapy over the last month and that her pain is not getting as high as often. She is able to perform tasks at home but with increased pain. She demonstrates the same LE strength, 5 times sit to stand score, and very similar 2 minute walk speed compared to her last re-evaluation. As objective measures have made minimal change, plan to hold therapy at this time. She has been educated to continue HEP and to follow up with PT and/or MD as needed. Plan of Care Interventions Electrical Stimulation,Gait Training,Hot Pack/Cold Pack,Manual Therapy,Neuro Re-education,Patient/ Caregiver Education,Therapeutic Activities, Therapeutic Exercise PT Services Indicated No Treatment Frequency and hold therapy, patient to follow up if pain worsens Duration These treatments will address the objective and functional deficits as defined above. The patient will be advanced safely and appropriately in order for the patient to progress towards his/her prior level of function. Additional exercises will be introduced and as well as a comprehensive home exercise program upon discharge, if needed, ?to ensure carryover of functional gains achieved in the clinic. This treatment plan has been reviewed and agreement upon by the patient.
== END 2024-10-24 09:34 | disposition home or self-care (01) ==
LOC: ANHGOSHPT 14:30
PROVIDERS: PCP Nurse Practitioner Family; Visit Provider Neurological Surgery
DX: Z48.89 Encounter for other specified surgical aftercare (principal); M54.50 Low back pain, unspecified; R53.1 Weakness
CPT/HCPCS: 97014; 97035; 97110; 97140; 97161; 97530; G0283

== ENCOUNTER 2024-11-23 15:30 | Outpatient (CLI) | payer OTHER, SELFPAY ==
--- NOTE | ~2024-11-23 | MR_ITS ---
EXAMINATION: MR lumbar spine wo/w con DATE: 11/23/2024 16:16 INDICATION: Lumbar microdiscectomy TECHNIQUE: Magnetic resonance imaging (MRI) of the lumbar spine was performed without and with 20 mL ProHance intravenous contrast. Sequences included sagittal T2-weighted FSE, sagittal T2-weighted FS F SE, and sagittal and axial T1-weighted FSE. Postcontrast sequences included axial T2-weighted FSE, sa gittal T1-weighted FSE, and axial and sagittal T1-weighted FS FSE. COMPARISON: None FINDINGS: Mild focal kyphosis at L1-L2 which appears to result from a combination of slight increase in moderat e disc height loss and chronic mild likely physiologic anterior wedging at T11 and T12. There is incr easing fibrovascular degenerative endplate changes anteriorly at both sides of L1-L2. Unchanged Schmo rl's node along the posterior inferior endplate of L1. T1 hyperintense hemangioma at T12. Marrow sign al is otherwise unremarkable. Remaining discs from T10-T11 through L5-S1 are normal. The conus medull dallas terminates at L1-L2. There is normal signal in the caudal spinal cord. There is loss of fat sign al with mild enhancement in the soft tissues at the L1-L2 interspinous process space likely related t o reported history of interval microdiscectomy. There appears to be associated posterior decompressio n at this level with resection of the bilateral inferior articular processes of L1. No other abnormal ly enhancing lesions identified. The following disc levels are specifically discussed: T12-L1: The disc does not extend beyond the endplate margin. There is mild left facet joint osteoarth ritis. There is no neural foraminal stenosis. There is no central canal stenosis. L1-L2: Disc is bulging with annular fissure and persistent central disc extrusion with disc material extending up to 6 mm cephalad to the level of the inferior endplate of L1. Extrusion measures approxi mately 11 mm left to right and 4 mm in AP thickness. There is an irregular margin to the disc in the left paracentral region which likely represents the entry site for the reported.. Posterior decompres alberto with resection of the bilateral inferior articular processes of L1. There is minimal bilateral n eural foraminal stenosis. There is mild central canal stenosis. L2-L3: The disc does not extend beyond the endplate margin. There is mild bilateral facet joint osteo arthritis. There is no neural foraminal stenosis. There is no central canal stenosis. L3-L4: The disc does not extend beyond the endplate margin. There is mild bilateral facet joint osteo arthritis. There is no neural foraminal stenosis. There is no central canal stenosis. L4-L5: The disc does not extend beyond the endplate margin. There is mild bilateral facet joint osteo arthritis. There is mild bilateral neural foraminal stenosis. There is no central canal stenosis. L5-S1: The disc does not extend beyond the endplate margin. There is mild to moderate bilateral facet joint osteoarthritis. There is no neural foraminal stenosis. There is no central canal stenosis. IMPRESSION: 1. Progressive loss of still moderate anterior predominant disc height loss with degenerative endplat e changes at L1-L2 with change of interval posterior decompression, resection of the lateral inferior processes of L1 and echogenicity discectomy. Reviewed, dictated and finalized at location B. IMPRESSION: 1. Progressive loss of still moderate anterior predominant disc height loss wit h degenerative endplate changes at L1-L2 with change of interval posterior deco mpression, resection of the lateral inferior processes of L1 and echogenicity d iscectomy.
--- OUTSIDE RECORDS SUMMARY | 2024-11-23 16:15 | XMS_ITS | Referral Summary ---
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
--- OUTSIDE RECORDS SUMMARY | 2024-11-23 16:15 | XMS_ITS | Clinical Summary ---
Author Organization [facility] Address [address] [place] [address] Care Team Providers Care Supervisor Wheel Shop Name Role Phone Liz Carrasco ELECTRICAL TECH/PROJECT MANAGER Primary Care Provider + Liz Carrasco ELECTRICAL TECH/PROJECT MANAGER Unavailable [phone] Liz Carrasco ELECTRICAL TECH/PROJECT MANAGER Unavailable [phone] Allergies No known active allergies Medications omeprazole [...] (LOVENOX SUBQ) Inject under the skin Active vsx676-ndoo-njrml- om3 25 mg iron-1 mg -400 mg [...] of left ear 04/15/2020 Facial pressure 04/15/2020 Surgical History Surgery Date Site/Laterality Comments CHOLECYSTECTOMY [...] on file 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
--- OUTSIDE RECORDS SUMMARY | 2024-11-23 16:16 | XMS_ITS ---
Author Organization [facility] Address [address] [place] [address] Care Team Providers Care Swine Extension Field Specialist Name Role Phone Danilo KNIGHTLiz Primary Care Provider Sharon Dr. 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 Assessments Encounter Date Diagnosis (ICD Code) Assessment Notes Treatment Notes Treatment Clinical Notes Section Notes 11/11/2024 Atypical facial pain (ICD-10 - G50.1) Plan Of Treatment Medication Medication Name Sig Start Date Stop Date Notes DULoxetine HCl 60 MG 1 capsule Orally at bedtime for 30 days 10/12/2024 Progress Notes * Jackie THAKURDOB: 2 (34 yo F)Acc No.[id number]:11/11/2024 Patient: Jackie IZAGUIRRE :1990 A ge:34 Y S ex:Female Address:[address] [place] [address] * Refills Refill DULoxetine HCl Capsule Delayed Release Sprinkle, 60 MG, Orally, 30, 1 capsule, at bedtime, 30 days, Refills=5 * true * Date: Generated for Nery christian/Giovana/Seemaitting on: 0 11/23/2024 04:15 PM CDT
--- OUTSIDE RECORDS SUMMARY | 2024-11-23 16:16 | XMS_ITS ---
Author Organization [facility] Address [address] [place] [address] Care Team Providers Care Project Control Analyst Name Role Phone Liz Bowers Primary Care Provider Sharon vailable Dr. Tony Perez Unavailable [phone] Gretchen Ye Unavailable Unavailable REASON FOR VISIT Follow up for new medication Encounters Encounter Location Date Provider Diagnosis [facility] [address] [place] [address] 10/30/2024 Tony Perez Plan Of Treatment No Information Progress Notes * Jackie THAKURDOB: 2 (34 yo F)Acc No.[id number]:10/30/2024 Patient: Lacey JORGENSENShon Jackie :1990 A ge:34 Y S ex:Female Address:[address] [place] [address] * true * Date: Generated for Printi ng/Faxing/eTransmitting on: 0 11/23/2024 04:15 PM CDT
--- OUTSIDE RECORDS SUMMARY | 2024-11-23 16:16 | XMS_ITS | Clinical Summary ---
Author Organization [facility] Address [address] [facility] [place] [address] Care Team Providers Care Hydrology Teacher Name Role Phone Liz Carrasco TAD-PUMPER HELPER Primary Care Provider Source Comments [facility],non-owned Affiliates and Associated Physician Practices is amultiple site organization consisting of ambulatory clinics and hospital sitesin [place], [place], [place] and [place]. This disclosure is being madepursuant to the Care Everywhere program and may not contain all information available regarding this patient. Last updated 18.[facility] Allergies No known active allergies Medications Be [...] Health Maintenance Due Date Last Done Comments HIV SCREENING 02/01/2007 HEPATITIS C SCREENING 01/28/2010 DTAP/TDAP/TD VACCINES (1 - Tdap) 02/01/2011 HEPATITIS B VACCINE (1 of 3 - 19+ 3-dose series) 02/01/2011 COVID-19 VACCINE (1 - 2023-2 5 season) 2024 INFLUENZA VACCINE (#1) 2024 7, 06/26/2014 DEPRESSION SCREENING 08/30/2024 ZOSTER VACCINE (1 of 2) 02/01/2042 HIB VACCINE Aged Out No longer eligi ble based on patient's age to complete this topic HPV VACCINE Aged Out No longer eligi ble based on patient's age to complete this topic MENINGOCOCCAL (Group B) VACCINE SHARED DECISION-MAKING Aged Out No longer eligible based on patient's age to complete this topic MENINGOCOCCAL GROUPS A/C/Y/W VACCINE Aged Out No longer eligible b ased on patient's age to complete this topic PNEUMOCOCCAL VACCINE Aged Out No long er eligible based on patient's age to complete this topic Care Teams Hydrology Teacher Relationship Specialty Start Date End Date Liz Carrasco, RECYCLABLE MATERIALS COLLECTOR-PUMPER HELPER [address] [place] [address] PCP - General Nurse Practitioner Family 09/21/17
--- OUTSIDE RECORDS SUMMARY | 2024-11-23 16:16 | XMS_ITS | Encounter Summary ---
Author Organization [facility] Address [address] [address] Care Team Providers Care Manager Heart Name Role Phone Andree House MD Primary Care Provider Liz Carrasco NP Primary Care Provider + Liz Carrasco ORGANIC GARDENING TEACHER Primary Care Provider + Roland Billingsley MD Primary Care Provid er Liz Carrasco NP Primary Care Provider + Liz Carrasco ORGANIC GARDENING TEACHER Unavailable [phone] Liz Carrasco NP Unavailable [phone] Encounter Details Date Type Department Care Team (Late st Contact Info) Description 11/26/2016 Orders Only [facility] ProviderDarnell MD [address] [place] [address] Social History Tobacco Use Types Packs/Day Years Used Date Smoking Tobacco: Never Assessed Comments Unknown Sex and Gender Information Value Date Recorded Sex Assigned at Not on file 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 Gender Identity Not on file Sexual Orientation [...] on filedocumented in this encounter Care Teams Manager Heart Relationship Specialty Start Date End Date Andree House MD [address] [facility] [address] [place] [address] PCP - General 11/27/16 04/10/20 Liz Carrasco NP [address] [address] PCP - General Nurse Practitioner 04/11/20 06/02/20 Liz Carrasco NP [address] [place] [address] [address] PCP - General 06/03/20 07/23/22 Roland Billingsley MD [address] [place] [address] PCP - General Interventional Cardiology 07/24/2208/31 Liz Carrasco NP [address] [address] PCP - General Nurse Practitioner 09/28/22 Liz Carrasco NP [address] [address] 07/24/22 Liz Carrasco NP [address] [address] Nurse Practitioner 06/03/20 documented as of this encounter
--- OUTSIDE RECORDS SUMMARY | 2024-11-23 16:16 | XMS_ITS ---
Author Organization [facility] Address [address] [place] [address] Care Team Providers Care Switch Operators Supervisor Name Role Phone Danilo KNIGHTLiz Primary Care Provider Sharon jaydenilaDr. 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 Assessments Encounter Date Diagnosis (ICD Code) Assessment Notes Treatment Notes Treatment Clinical Notes Section Notes 10/31/2024 Atypical facial pain (ICD-10 - G50.1) Plan Of Treatment Medication Medication Name Sig Start Date Stop Date Notes DULoxetine HCl 60 MG 1 capsule Orally at bedtime for 30 days 10/12/2024 Progress Notes * Jackie THAKURDOB: 2 (34 yo F)Acc No.[id number]:10/31/2024 Patient: Jackie IZAGUIRRE :1990 A ge:34 Y S ex:Female Address:[address] [place] [address] * Refills Refill DULoxetine HCl Capsule Delayed Release Sprinkle, 60 MG, Orally, 30, 1 capsule, at bedtime, 30 days, Refills=5 * true * Date: Generated for Nery christian/Giovana/Seemaitting on: 0 11/23/2024 04:16 PM CDT
--- OUTSIDE RECORDS SUMMARY | 2024-11-23 16:16 | XMS_ITS | Patient Health Record ---
Author Organization [facility] Address [address] [place] [address] Care Team Providers Care Copra Sampler Name Role Phone Liz Bowers Primary Care Provider Sharon Dr. Tony Howard Unavailable [phone] Gretchen Ye Unavailable Unavailable ZDavid, Provider Unavailable Unavailab Kasie Sherwood Unavailable [phone] Allergies No Known Allergies Reason For Referral [...] day As needed for migraine 07/06/2024 Active Eujsbjphdn-NJAW-Wwnst ine 50-325-40 MG Take 1-2 tabs orally [...] Medrol 4 MG as directed Not-Ta hal DULoxetine HCl 60 MG 1 capsule Orally at bedtime for 30 days 10/12/2024 Active Cyclobenzaprine HCl 10 MG 1 tab(s) [...] Status Risk Notes Problem Shortness of breath (578785164) Shortness of breath (R06.02) Active confirmed Problem Chronic migraine without aura, non-refractory (disorder) (980953303629725 ) Migraine without aura, not intractable, without status migrainosus (G43.009) Active confirmed Problem Migraine with aura (5272038) Migraine with aura, not intractable, without status migrainosus (G43.109) Active confirmed Problem Chronic migraine without aura, non-intractable (836318939286778 ) Chronic migraine without aura, not intractable, without status migrainosus (G43.709) Active confirmed Problem Insomnia (979697877) Insomnia, unspecified (G47.00) Active confirmed Problem Chronic pain syndrome (467678816) Chronic pain syndrome (G89.4) Active confirmed Problem Allergic rhinitis caused by pollen (disorder) (11391139) Allergic rhinitis due to pollen (J30.1) Active confirmed Problem Chronic rhinitis (41988248) Chronic rhinitis (J31.0) Active confirmed Problem Gastro-esophagea l reflux disease with esophagitis (121092425) Gastro-esophage al reflux disease with esophagitis (K21.0) Active confirmed Problem Gastro-esophagea l reflux disease without esophagitis (709063381) Gastro-esophage al reflux disease without esophagitis (K21.9) Active confirmed Problem Cough (58806746) Cough (R05) Active confirmed Vital Signs Respiratory Rate 18 /min 10/12/2024 Oximetry 96 % 10/12/2024 Blood pressure diastolic 83 mm Hg 10/12/2024 Height 68 in 10/12/2024 Blood pressure systolic 120 mm Hg 10/12/2024 Weight 250.8 lbs 10/12/2024 BMI 38.13 kg/m2 10/12/2024 Encounters Encounter Location Date Provider Diagnosis [facility] [address] [place] [address] 02/12/2024 Provider [facility]Migration Allergic rhinitis due to pollen J30.1 and Gastro-esophageal reflux disease with esophagitis K21.0 [facility] [place] [address] 02/12/2024 Provider [facility] Chronic migraine without aura, not intractable, without status migrainosus G43.709 [facility] [place] [address] 02/15/2024 Tony Perez Chronic migraine without aura, not intractable, without status migrainosus G43.709 [facility] [address] [place] [address] 05/11/2024 Tony Perez Chronic migraine without aura, not intractable, without status migrainosus G43.709 [facility] [address] [place] [address] 07/06/2024 Kasie Dee Chronic migraine without aura, not intractable, without status migrainosus G43.709 and Myalgia, unspecified site M79.10 [facility] [address] [place] [address] 08/17/2024 Kasie Dee Chronic migraine without aura, not intractable, without status migrainosus G43.709 [address] [place] [address] 10/12/2024 Kasie Dee Chronic migraine without aura, not intractable, without status migrainosus G43.709 ; Myalgia, unspecified site M79.10 and 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 [place] [address] [address] [place] [address] 06/14/2024 Kasie Dee [facility] [place] [address] [place] [address] 06/15/2024 Tony Perez [facility] [place] [address] [place] [address] 07/06/2024 Tony Perez Chronic migraine without aura, not intractable, without status migrainosus G43.709 [facility] [place] [address] [place] [address] 07/06/2024 Tony Perez Chronic migraine without aura, not intractable, without status migrainosus G43.709 [facility] [place] [address] [place] [address] 07/10/2024 Tony Perez [facility] [place] [address] [place] [address] 09/19/2024 Tony Perez [facility] [place] [address] [place] [address] 09/27/2024 Kasie Dee Chronic migraine without aura, not intractable, without status migrainosus G43.709 [facility] [place] [address] [place] [address] 10/04/2024 Kasie Dee [facility] [address] [place] [address] 10/11/2024 Tony Perez 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 I [...] M79.10) These symptoms have improved with Botox. 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 02/12/2024 Gastro-esophagea l reflux disease with esophagitis (ICD-10 - K21.0) Plan Of Treatment No Information Insurance Providers Payer Name Payer Address Payer Phone Subscriber Number Group Number Insured Name Patient Relationship to Insured Coverage Start Date Coverage End Date [facility] [address] [address] [place], [place] [id number] [phone] [id number] Jackie Degroot Self - patient is the [...]
--- OUTSIDE RECORDS SUMMARY | 2024-11-23 16:17 | XMS_ITS | Data Portability ---
Author Organization [place] [facility], Main Office Address [address] [place] [address] Assessment Encounter Date Assessment Date Assessment LastModified [...] had a 10 minute TeleMedicine consultation via [employer] to discuss the following: Not available 12/09/2022 [...] 2022 023 [email or web address] [id number] Flaco Martinez MD, [address] [facility] , [address] [address], [place], [address], 11:20:49 Procedures None recorded. Surgeries None recorded. Imaging None recorded. Medication Orders doxycycline hyclate 100 mg capsule 2022 023 [facility][id number], [address], [place], [place], [id number], 16:07:42 Medrol (Sb) 4 mg tablets in a dose pack 2022 023 [facility] #[id number], [address], [place], [place], [id number], 15:39:36 doxycycline hyclate 100 mg capsule 2022 023 [email or web address] #[id number], [address], [place], [place], [phone], 11:14:07 Patient TargetsNo targets recorded. Patient Instructions Encounter Date Encounter Id Patient Instructions Last Modified By Organization Details Last Modified Time 12/09/2022 [id number] Due to the COVID-19 (Novel Coronavirus) pandemic, it is within this context (and with the understanding that this method of patient encounter is in the patient s best interest as well as the health and safety of other patients and the public) that telehealth is being provided for this patient encounter rather than a goau-yt-nzrv visit. This patient encounter is appropriate at [...] the patient. Not available 12/09/2022 14:19:34 04/27/2023 [id number] FU prn [email or web address] Not available 04/27 12:56:09 07/16/2023 [id number] FU prn Due to th e COVID-19 (Novel Coronavirus) pandemic, it is within this context (and with the understanding that this method of patient encounter is in the patient s best interest as well as the health and safety of other patients and the public) that telehealth is being provided for this patient encounter rather than a yhcl-ai-pcyj visit. 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 [id number], [address], 10/28/2022 06:47:23 03/03/2003/03/2022 MRI, thora cic spine , w/wo contr ast No observ ation record ed. [id number] [place] [address], [address], 10/28/2022 06:47:23 03/03/2003/02/2022 CT, lumba r spine , w/o contr ast No observ ation record ed. [id number], [address], 10/28/2022 06:47:23 03/03/20 22 03/03/2022 US, liver No observ ation record ed. [id number], [place], [address], 10/28/2022 06:47:23 11/05/19 23 11/03/2022 US, echoc ardio gram, trans thora cic, bubbl e study No observ ation record ed. [place] [id number] [facility] [address] [facility] [address], [place], [address], 11/04/2022 19:54:58 11/17/19 23 11/16/2022 XR, lumba r spine No observ ation record ed. [address] [facility], [place], [address], 11/17/2022 20:04:14 07/25/20 23 07/25/2023 XR, chest No observ ation record ed. [address] [facility], [place], [address], 07/25/2023 21:44:09 08/11/20 23 08/11/2023 CT, sinus es, w/o contr ast No observ ation record ed. [address] [facility], [place], [address], 08/11/2023 15:30:43 08/11/20 23 08/11/2023 CT, arthr ogram , tempo john dibul ar joint No observ ation record ed. [address], [place], [address], 08/11/2023 17:51:34 Result Notes None recorded. Problems Name Problem SNOMED Code Status Onset Date Resolution Date Notes Provider Name and Address Organization Details Recorded Time Irritable bowel syndrome 36350610 Active Not Available [facility] 3 06:43:00 Tobacco user 946004999 Active 2017 Not Available [facility] 3 06:43:00 Deviated nasal septum 713903172 Active 2021 Not Available [facility] 3 06:43:00 Acute sinusitis 47720932 Active Not Available [facility] 3 06:43:00 Body mass index 30+ - obesity 943618581 Active 2021 Not Available [facility] 3 06:43:00 Hypertroph y of nasal turbinates 61225545 Active 2021 Not Available [facility] 3 06:43:00 Insomnia 265521223 Active 2016 Not Available [facility] 3 06:43:00 Infection of skin and/or subcutaneo us tissue 15553520 Active Not Available [facility] 3 06:43:00 Gastroesop hageal reflux disease 064212646 Active 2016 Not Available [facility] 3 06:43:00 Gallstone 946972619 Active Not Available [facility] 3 06:43:00 Fluid level behind tympanic membrane Active Not Available [facility] 3 06:43:00 Headache 27168909 Active 2016 Not Available [facility] 3 06:43:00 Dyspnea 664861763 Active 2016 Not Available [facility] 3 06:43:00 Jaw pain 544417101 Active 2021 Not Available [facility] 3 06:43:01 Thoracic back pain 706751215 Active 2016 Not Available [facility] 3 06:43:01 Low back pain 435084485 Active 2016 Not Available [facility] 3 06:43:01 Right upper quadrant pain 737732800 Active Not Available [facility] 3 06:43:01 Pain in pelvis 99542315 Active Not Available [facility] 3 06:43:01 Tachycardi a 0941736 Active 2016 Not Available [facility] 3 06:43:01 Seasonal allergic rhinitis 474492400 Active 2016 Not Available [facility] 3 06:43:01 Fever 371541077 Active Not Available [facility] 3 06:43:01 Ingrowing nail 641254060 Active Not Available [facility] 3 06:43:01 Obesity 741279089 Active Not Available [facility] 3 06:43:01 Unexplaine d weight loss 058232765 Active 2016 Not Available [facility] 3 06:43:01 Environmen jenni allergy 374729543 Active 2016 Not Available [facility] 3 06:43:01 History of polyp of colon 883940931 Active 2016 Not Available [facility] 3 06:43:01 Chronic migraine without aura, non-refrac tory 9498570270794 00 Active 2022 Not Available [facility] 3 06:43:02 Viral conjunctiv itis 18248423 Active Not Available [facility] 3 06:43:02 Acute migraine 0325042808705 08 Active 2022 Not Available [facility] 3 06:43:02 Anxiety 94303411 Active Not Available [facility] 3 06:43:02 Cough 37755329 Active 2016 Not Available [facility] 3 06:43:02 Upper respirator y infection 01868829 Active Not Available [facility] 3 06:43:02 Hyperlipid emia 21119787 Active 2016 Not Available [facility] 3 06:43:02 Fatigue 60224429 Active Not Available [facility] 3 06:43:02 Weight gain 0962940 Active 2016 Not Available [facility] 3 06:43:02 Tobacco dependence syndrome 08414855 Active Not Available [facility] 3 06:43:02 Chronic migraine without aura 0107545008226 05 Active 2022 Liz Carrasco, SUELLEN [address] [facility], [facility] [address], [place], [address] , [facility] [employer] [facility] 3 08:24:08 Obese 551912866 Active 2022 Liz Carrasco NP [address], [place], [address] , [facility] [employer] [facility] [employer] 3 08:24:32 Neck pain 73394161 Active 2022 Liz Carrasco NP [address], [place], [address] , [facility] [employer] 3 08:24:39 Migraine 70995737 Active 2022 Liz Carrasco NP [address], [place], [address] , [facility] [employer] 3 12:55:10 Cervical lymphadeno lorie 359983566 Active 2022 Liz Carrasco NP [address], [place], [address] , [facility] [employer] 3 11:35:25 Problem Notes None recorded. Procedures Surgical History Date Name Laterality Status Provider Name and Address Organization Details Recorded Time 04/28/20 colonoscopy completed Not Available [facility] 10/29/19 06:39:55 Tonsillectomy completed Not Available [facility] 10/28/2022 06:39:55 Cholecystectomy completed Not Available [facility] 10/28/2022 06:39:55 Imaging Results Imaging Date Name Status LastModified by Organization Details LastModified Time 03/03/2022 MRI, thoracic spine, w/wo contrast completed [id number] [place] [address], [address], 10/28/2022 06:47:23 03/02/2022 CT, lumbar spine, w/o contrast completed [id number] [place] [address], [address], 10/28/2022 06:47:23 03/03/2022 US, liver completed [id number] [place] [address], [address], 10/28/2022 06:47:23 03/02/2022 XR, chest completed [id number] [place] [address], [address], 10/28/2022 06:47:23 11/03/2022 US, echocardiogram, transthoracic, bubble study [place] [id number] [facility] [address] [facility] [address], [place], [address], 11/04/2022 19:54:58 11/16/2022 XR, lumbar spine completed [address] [place] [address], [address], 11/17/2022 20:04:14 07/25/2023 XR, chest completed [address], [address], 07/25/2023 21:44:09 08/11/2023 CT, sinuses, w/o contrast completed [address] [place] [address], [address], 08/11/2023 15:30:43 08/11/2023 CT, arthrogram, temporomandibular joint completed [address] [place] [address], [address], 08/11/2023 17:51:34 Procedure Notes None recorded. Medical [...] 6 mg/mL suspensio n for injection active [facility]# [id number] - Not Available Not Available Not Available [...] pine ER 100 mg capsule,e xtended release [id number] TAKE 1 CAPSULE BY MOUTH EVERY [...] 97 % 10 139 /min 97.6 [degF] 477167. 91 g 150 mm[Hg] 76 mm[Hg] Not Available [facility] 3 06:41:36 Date Recorded Body mass index (BMI) Body height Oxygen saturation Oxygen saturation in Arterial blood by Pulse oximetry Heart rate Respiratory rate Body temperature Body weight Systolic blood pressure Diastolic blood pressure Provider Name and Address Organization Details Last Updated DateTime 3 32.7 kg/m2 172.72 cm 98 % 98 % 98 /min 16 /min 97.8 [degF] 82505.3 6 g 122 mm[Hg] 78 mm[Hg] Not Available [facility] 3 06:41:36 Date Recorded Body height Body mass index (BMI) Body weight Provider Name and Address Organization Details Last Updated DateTime 12/09/2022 172.72 cm 30.4 kg/m2 80643.47 g Liz Trent RN [place] [facility] [facility] 12/09/2022 12:58:10 Date Recorded Body height Body mass index (BMI) Body weight Body temperature Heart rate Oxygen saturation Oxygen saturation in Arterial blood by Pulse oximetry Pain severity - 0-10 verbal numeric rating [Score] - Reported Systolic blood pressure Diastolic blood pressure Provider Name and Address Organization Details Last Updated DateTime 172.72 cm 31.4 kg/m2 19015.1 8 g 97.1 [degF] 113 /min 97 % 97 % 3 140 mm[Hg] 84 mm[Hg] Liz Trent RN [facility] [employer] 11:16:58 Date Recorded Respiratory rate Provider Name a vt Address Organization Details Last Updated DateTime 04/27/2023 16 /min Liz Carrasco NP [address], [address], [place] [employer] [facility] [employer] 04/27/2023 11:25:21 Date Recorded Body height Body mass index (BMI) Body weight Heart rate Pain severity - 0-10 verbal numeric rating [Score] - Reported Provider Name and Address Organization Details Last Updated DateTime 07/16/2023 172.72 cm 33.5 kg/m2 51685.32 g 112 /min 0 Liz Trent RN [facility] [employer] 07/16/2023 15:41:05 Social History Question Answer Notes LastModified by Organization Details LastModified Time Tobacco Smoking Status Current Every Day Smoker Not Available [facility] 10/28/2022 06:39:39 Do You Have An Advance Directive? No Information not available 04/27/2023 What Is Your Level Of Alcohol Consumption? None MIGRATION.030 [id number] Information not available 10/28/2022 Is Blood Transfusion Acceptable In An Emergency? Yes Information not available 04/27/2023 What Is Your Level Of Caffeine Consumption? Occasional MIGRATION.030 [id number] Information not available 10/28/2022 How Much Tobacco Do You Chew? None MIGRATION.030 [id number] Information not available 10/28/2022 In The 14 Days Before Symptom Onset, Have You Had Close Contact With A Laboratory-conf josé [facility]-19 While That Case Was Ill? No MIGRATION.030 [id number] Information not available 10/28/2022 In The 14 Days Before Symptom Onset, Have You Had Close Contact With A Person Who Is Under Investigation For COVID-19 While That Person Was Ill? No MIGRATION.0301 [id number] Information not available 10/28/2022 Are You Currently Employed? Yes Information not available 04/27/2023 What Type Of Diet Are You Following? REGULAR MIGRATION.0301 [id number] Information not available 10/28/2022 Which Illicit Or Recreational Drugs Have You Used? None MIGRATION.0301 [id number] Information not available 10/28/2022 Do You Or Have You Ever Used E-cigarettes Or Vape? 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 No Information not available 04/27/2023 Do You Use Insect Repellent Routinely? No Information not available 04/27/2023 Where Do You Live? SingleLevelHouse Information not available 04/27/2023 Do You Have A Medical Power Of Pencil Sorter? No Information not available 04/27/2023 How Many [...] Tobacco Do You Smoke? 0.25 PPD MIGRATION.0301 [id number] Information not available 10/28/2022 Do You Participate In Social Media? Yes Information not available 04/27/2023 Do You Feel Stressed (tense, Restless, Nervous, Or Anxious, Or Unable To Sleep At Night)? [id number] Information not available 04/27/2023 Do You Use [...] Details LastModified Time Unspecified Relation Diabetes mellitus MIGRATION.559 [id number] Not available 10/28/2022 06:39:56 Maternal Grandfather Malignant tumor of colon MIGRATION.439 [id number] Not available 10/28/2022 06:39:56 Father Hypertensive disorder MIGRATION.373 [id number] Not available 10/28/2022 06:39:56 Mother Hypertensive disorder MIGRATION.026 [id number] Not available 10/28/2022 06:39:56 Medical History Condition Response SLEEP APNEA N MRSA N ALLERGIES/HAYFEVER N LUNG DISEASE/DISORDER N INSOMNIA N RADIATION / CHEMOTHERAPY N COPD N HIGH CHOLESTEROL / HYPERLIPIDEMIA N HYPERTHYROIDISM N BLOOD DISEASES N EAR OR HEARING PROBLEMS N HYPOTHYROIDISM N DEPRESSION (INCLUDING POST ) Y HAVE YOU BEEN HOSPITALIZED OR SEEN IN [facility] ER IN THE PAST YEAR ? N STROKE/TIA N ULCERS N OBESITY N HISTORY WITH COMPLICATIONS WITH ANESTHES IA ? N ANEURYSM N NO SIGNIFICANT PAST MEDICAL HISTORY N USE OF BLOOD THINNERS N DIABETES, TYPE N PARATHYROID DISEASE N ENT N SEASONAL ALLERGIES N HEARTBURN / REFLUX Y HEPATITIS / LIVER DISEASE N SLEEP DISORDER N HEADACHES/MIGRAINES Y SEIZURES/EPILEPSY N CHF N PACEMAKER N DIZZINESS N HEART [...] Recorded Time MMR 7 completed Not Available [facility] 10/28/2022 06:47:05 DTaP, unspecified formulation 7 completed Not Available [facility] 10/28/2022 06:47:05 IPV 7 completed Not Available [facility] 10/28/2022 06:47:06 DTaP, unspecified formulation 4 completed Not Available [facility] 10/28/2022 06:47:06 IPV 4 completed Not Available [facility] 10/28/2022 06:47:06 MMR 3 completed Not Available [facility] 10/28/2022 06:47:06 DTaP, unspecified formulation 3 completed Not Available [facility] 10/28/2022 06:47:06 Hib, unspecified formulation 3 completed Not Available [facility] 10/28/2022 06:47:06 Hib, unspecified formulation 2 completed Not Available [facility] 10/28/2022 06:47:06 DTaP, unspecified formulation 2 completed Not Available [facility] 10/28/2022 06:47:06 IPV 2 completed Not Available [facility] 10/28/2022 06:47:06 Hib, unspecified formulation 2 completed Not Available [facility] 10/28/2022 06:47:06 DTaP, unspecified formulation 2 completed Not Available [facility] 10/28/2022 06:47:06 IPV 2 completed Not Available [facility] 10/28/2022 06:47:06 SARS-COV-2 (COVID-19) vaccine, UNSPECIFIED 1 completed Not Available [facility] 10/28/2022 06:47:06 SARS-COV-2 (COVID-19) vaccine, UNSPECIFIED 1 completed Not Available [facility] 10/28/2022 06:47:07 Influenza, split virus, trivalent, preservative 4 completed Not Available [facility] 10/28/2022 06:47:07 Tdap 6 completed Not Available [facility] 10/28/2022 06:47:07 meningococcal ACWY, unspecified formulation 6 completed Not Available [facility] 10/28/2022 06:47:07 Hep B, unspecified formulation 2 completed Not Available [facility] 10/28/2022 06:47:07 Hep B, unspecified formulation 2 completed Not Available [facility] 10/28/2022 06:47:07 Hep B, unspecified formulation 2 completed Not Available [facility] 10/28/2022 06:47:07 Influenza, split virus, quadrivalent, PF 7 completed Not Available [facility] 10/28/2022 06:47:07 Tdap 4 completed Not Available [facility] 10/28/2022 06:47:07 Past Encounters Encounter ID Performer Location Encounter Start Date Encounter Closed Date Diagnosis/Indication Diagnosis SNOMED-CT Code Diagnosis ICD10 Code Diagnosis Note [id number] [facility] [address] [place] [address] 02/12/2021 00:00:00 02/12/2021 17:37:29 [id number] [facility] [place] [address] [place] [address] 02/17/2021 00:00:00 02/17/2021 15:38:52 [id number] [facility] [place] [address] [place] [address] 01/08/2022 00:00:00 01/08/2022 10:19:54 [id number] [facility] [address] [place] [address] 02/10/2022 00:00:00 02/10/2022 09:15:43 [id number] [facility] [address] [place] [address] 02/26/2022 00:00:00 02/26/2022 10:31:[id number] [address] 09/01/2022 00:00:00 09/01/2022 11:33:53 [id number] Liz Carrasco NP [address] [address] 12/09/2022 12:49:18 12/09/2022 14:22:13 Infection of skin and/or subcutaneous tissue 94574862 L08.9 Tattoo is 1 week old. keflex 500 mg po bidDoxycyc line 100 mg po bid (on 2 days already)Si lvasorb Gel. Works wednesday/wed/. Will call if not able to return to work. [id number] Liz Carrasco NP [address] [address] 04/27/2023 10:59:59 04/27/2023 13:02:41 Cervical lymphadenopathy 153388046 R59.0 ENT referral- pt wants to see Dr. Martinez. Past pregn myranda history of miscarriage 003076248 Z87.59 discuss with case supervisor as this is 3rd time. Consider seeing Dr. Correia. Currently with No Ramirez [id number] Liz Carrasco NP [address] [address] 07/16/2023 15:07:53 07/16/2023 16:13:49 Acute sinusitis 44305796 J01.90 doxy bid for 10 days. Nasal saline. Health Concerns Section Related Observation LastModified by Organization Detai ls LastModified Time None Recorded Concern Status LastModified by Organization Details LastModified Time None Recorded Advance Directives Directive N: Payers Encounter Date Sequence Insurance Name Policy Number Policy Doss Covered Member ID Doss Member ID Guarantor Name 12/09/2022 1 R [id number] Jackie Macedo [id number] Jackie Castellanostiz 04/27/2023 1 UMR [id number] Jackie Castellanostiz [id number] Jackie Macedo 07/16/2023 1 UMR [id number] Jackie Macedo [id number] Jackie Macedo Notes Date Note Type Note [...] will call 12/10/22. Liz Carrasco NP [address], [place], [address], [facility] 12/09/2022 14:20:58 04/27/2023 text/html Here for swollen [...] Dr. Chris Haney. Liz Carrasco NP [address] [employer], [place], [address], [facility] 04/27/2023 12:56:21 07/16/2023 text/html Consents to telephonic visit. Congestion of sinuses for 6 days.Swallowing causing ear to pop, painful.No fever or chills.Mucinex and day/night quil and allergy. No relief.No cough. Liz Carrasco NP [address], [place], [address], [facility] 07/16/2023 16:10:15 OBGyn Episode No OBEpisode recorded.
== END 2024-11-23 15:31 | disposition home or self-care (01) ==
LOC: ANHIMG 15:32
PROVIDERS: PCP Nurse Practitioner Family; Visit Provider Neurological Surgery
DX: Z48.89 Encounter for other specified surgical aftercare (principal)
CPT/HCPCS: 72158; A9579

== ENCOUNTER 2024-12-07 06:54 | Outpatient (CLI) | payer OTHER, SELFPAY ==
--- NOTE | ~2024-12-07 | XR_ITS ---
EXAMINATION: XR chest 2V 12/07/2024 07:08 INDICATION: Sarcoidosis PROCEDURE: 2 view chest COMPARISON: 07/25/2023 FINDINGS: The lungs are clear. The cardiomediastinal silhouette is within normal limits. There are no pleural effusions. There is no pneumothorax suspected. IMPRESSION: 1: NO ACUTE CARDIOPULMONARY DISEASE. Reviewed, dictated and finalized at location A.
--- OUTSIDE RECORDS SUMMARY | 2024-12-07 06:59 | XMS_ITS | Clinical Summary ---
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 Gender Identity Not on file Sexual Orientation [...] 12/16/2005, 03/09/1997, Additional history exists Influenza Vaccine (Season Ended) 2025 07/06/2017, 06/01/2016, 06/26/2014 Hepatitis B Screening Completed 03/15/2002 , 10/07/2001, 08/31/2001 HPV Vaccines Aged Out No longer eligi ble based on patient's age to complete this topic Pneumococcal vaccine <65 Aged Out No longer eligible based on patient's age to complete this topic Insurance [facility] Care Teams Rn Primary Care Relationship Specialty Start Date End Date Liz Carrasco NP PCP - General Nurse Practitioner 09/28/22 Liz Carrasco NP 07/24/22 Liz Carrasco NP Nurse Practitioner 06/03/20
--- OUTSIDE RECORDS SUMMARY | 2024-12-07 06:59 | XMS_ITS | Patient Health Record ---
Author Organization [facility] Address [address] [place] [address] Care Team Providers Care Telecommunications Clerk Name Role Phone Liz Bowers Primary Care Provider Sharon Dr. Tony Howard Unavailable [phone] Gretchen Ye Unavailable Unavailable ZDavid, Provider Unavailable Unavailab Kasie Sherwood Unavailable [phone] Allergies No Known Allergies Reason For Referral [...] day As needed for migraine 07/06/2024 Active Wooafpfnrv-YHWX-Qpekf ine 50-325-40 MG Take 1-2 tabs orally [...] Status Risk Notes Problem Shortness of breath (160285396) Shortness of breath (R06.02) Active confirmed Problem Chronic migraine without aura, non-refractory (disorder) (689340613765903 ) Migraine without aura, not intractable, without status migrainosus (G43.009) Active confirmed Problem Migraine with aura (1317871) Migraine with aura, not intractable, without status migrainosus (G43.109) Active confirmed Problem Chronic migraine without aura, non-intractable (089280994262748 ) Chronic migraine without aura, not intractable, without status migrainosus (G43.709) Active confirmed Problem Insomnia (542450942) Insomnia, unspecified (G47.00) Active confirmed Problem Chronic pain syndrome (301602083) Chronic pain syndrome (G89.4) Active confirmed Problem Allergic rhinitis caused by pollen (disorder) (24895243) Allergic rhinitis due to pollen (J30.1) Active confirmed Problem Chronic rhinitis (94371983) Chronic rhinitis (J31.0) Active confirmed Problem Gastro-esophagea l reflux disease with esophagitis (798829937) Gastro-esophage al reflux disease with esophagitis (K21.0) Active confirmed Problem Gastro-esophagea l reflux disease without esophagitis (380937025) Gastro-esophage al reflux disease without esophagitis (K21.9) Active confirmed Problem Cough (21314641) Cough (R05) Active confirmed Vital Signs Respiratory Rate 18 /min 10/12/2024 Oximetry 96 % 10/12/2024 Blood pressure diastolic 83 mm Hg 10/12/2024 Height 68 in 10/12/2024 Blood pressure systolic 120 mm Hg 10/12/2024 Weight 250.8 lbs 10/12/2024 BMI 38.13 kg/m2 10/12/2024 Encounters Encounter Location Date Provider Diagnosis [facility] [place] [place] [address] 02/12/2024 Provider ZZ-Migration Allergic rhinitis due to pollen J30.1 and Gastro-esophageal reflux disease with esophagitis K21.0 [facility] [place] [address] 02/12/2024 Provider [facility]-Migration Chronic migraine without aura, not intractable, without status migrainosus G43.709 [facility] [place] [address] 02/15/2024 Tony Perez Chronic migraine without aura, not intractable, without status migrainosus G43.709 [facility] [address] [place] [address] 05/11/2024 Tony Perez Chronic migraine without aura, not intractable, without status migrainosus G43.709 [facility] [address] [place] [address] 07/06/2024 Kasie Dee Chronic migraine without aura, not intractable, without status migrainosus G43.709 and Myalgia, unspecified site M79.10 [facility] [address] [place] [address] 08/17/2024 Kasie Dee Chronic migraine without aura, not intractable, without status migrainosus G43.709 [address] [place] [address] 10/12/2024 Kasie Dee Chronic migraine without aura, not intractable, without status migrainosus G43.709 ; Myalgia, unspecified site M79.10 and 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 [place] [address] [place] [address] 06/14/2024 Kasie Dee [facility] [place] [address] [place] [address] 06/15/2024 Tony Perez [facility] [place] [address] [place] [address] 07/06/2024 Tony Perez Chronic migraine without aura, not intractable, without status migrainosus G43.709 [facility] [place] [address] [place] [address] 07/06/2024 Tony Perez Chronic migraine without aura, not intractable, without status migrainosus G43.709 [facility] [place] [address] [place] [address] 07/10/2024 Tony Perez [facility] [place] [address] [place] [address] 09/19/2024 Tony Perez [facility] [place] [address] [place] [address] 09/27/2024 Kasie Dee Chronic migraine without aura, not intractable, without status migrainosus G43.709 [facility] [place] [address] [place] [address] 10/04/2024 Kasie Dee [facility] [address] [place] [address] 10/11/2024 Tony Perez [facility] [address] [place] [address] 10/19/2024 Kasie Dee [address] [address] 10/30/2024 Tony Perez [address] [address] 10/31/2024 Kasie Dee 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 [address] 11/11/2024 Kasie Dee 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
--- OUTSIDE RECORDS SUMMARY | 2024-12-07 06:59 | XMS_ITS ---
Author Organization [facility] Address [address] [place] [address] Care Team Providers Care Receivable Manager Name Role Phone Danilo KNIGHTLiz Primary Care Provider Sharon Dr. 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 Assessments Encounter Date Diagnosis (ICD Code) Assessment Notes Treatment Notes Treatment Clinical Notes Section Notes 11/11/2024 Atypical facial pain (ICD-10 - G50.1) Plan Of Treatment Medication Medication Name Sig Start Date Stop Date Notes DULoxetine HCl 60 MG 1 capsule Orally at bedtime for 30 days 10/12/2024 Progress Notes * Jackie THAKURDOB: 2 (34 yo F)Acc No.[id number]:11/11/2024 Patient: Jackie IZAGUIRRE :1990 A ge:34 Y S ex:Female Address:[address] [place] [phone] * Refills Refill DULoxetine HCl Capsule Delayed Release Sprinkle, 60 MG, Orally, 30, 1 capsule, at bedtime, 30 days, Refills=5 * true * Date: Generated for Nery christian/Giovana/Seemaitting on: 0 12/07/2024 06:58 AM CDT
--- OUTSIDE RECORDS SUMMARY | 2024-12-07 06:59 | XMS_ITS | Clinical Summary ---
Author Organization [facility] [employer] Address [address] [place] [address] Care Team Providers Care Sheet Combining Operator Name Role Phone Liz Carrasco TAD-PROMOS EXECUTIVE PRODUCER Primary Care Provider Source Comments [facility] [employer],non-owned Affiliates and Associated Physician Practices is amultiple site organization consisting of ambulatory clinics and hospital sitesin [place], [place], [place] and [place]. This disclosure is being madepursuant to the Care Everywhere program and may not contain all information available regarding this patient. Last updated 18.[facility] [employer] Allergies No known active allergies Medications Be [...] - 19+ 3-dose series) 02/01/2011 COVID-19 VACCINE ( - 2023-2 5 season) 2024 DEPRESSION SCREENING 08/30/2024 INFLUENZA VACCINE (Season Ended) 2025 07/06/2017, 06/26/2014 ZOSTER VACCINE (1 of 2) 02/01/2042 HIB [...] age to complete this topic Care Teams Sheet Combining Operator Relationship Specialty Start Date End Date Liz Carrasco, EXHIBIT SPECIALIST-PROMOS EXECUTIVE PRODUCER [address] [place] [address] PCP - General Nurse Practitioner Family 09/21/17
--- OUTSIDE RECORDS SUMMARY | 2024-12-07 06:59 | XMS_ITS ---
Author Organization [facility] Address [address] [place] [address] Care Team Providers Care Door Slinger Name Role Phone Liz Bowers Primary Care Provider Sharon vailable Dr. Tony Perez Unavailable [phone] Gretchen Ye Unavailable Unavailable REASON FOR VISIT Follow up for new medication Encounters Encounter Location Date Provider Diagnosis [facility] [address] [place] [address] 10/30/2024 Tony Perez Plan Of Treatment No Information Progress Notes * Jackie THAKURDOB: 2 (34 yo F)Acc No.[id number]:10/30/2024 Patient: Lacey JORGENSENShon Jackie :1990 A ge:34 Y S ex:Female Address:[address] [place] [phone] * true * Date: Generated for Printi ng/Faxing/eTransmitting on: 0 12/07/2024 06:58 AM CDT
--- OUTSIDE RECORDS SUMMARY | 2024-12-07 06:59 | XMS_ITS ---
Author Organization [facility] Address [address] [place] [address] Care Team Providers Care Electronic Systems Technician Name Role Phone Danilo KNIGHTLiz Primary Care Provider Sharon jaydenilaDr. 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 Assessments Encounter Date Diagnosis (ICD Code) Assessment Notes Treatment Notes Treatment Clinical Notes Section Notes 10/31/2024 Atypical facial pain (ICD-10 - G50.1) Plan Of Treatment Medication Medication Name Sig Start Date Stop Date Notes DULoxetine HCl 60 MG 1 capsule Orally at bedtime for 30 days 10/12/2024 Progress Notes * Jackie THAKURDOB: 2 (34 yo F)Acc No.[id number]:10/31/2024 Patient: Jackie IZAGUIRRE :1990 A ge:34 Y S ex:Female Address:[address] [place] [phone] * Refills Refill DULoxetine HCl Capsule Delayed Release Sprinkle, 60 MG, Orally, 30, 1 capsule, at bedtime, 30 days, Refills=5 * true * Date: Generated for Nery christian/Giovana/Seemaitting on: 0 12/07/2024 06:59 AM CDT
--- OUTSIDE RECORDS SUMMARY | 2024-12-07 06:59 | XMS_ITS | Data Portability ---
Author Organization [place] [facility], Main Office Address [address] [place] [address] Assessment Encounter Date Assessment Date Assessment LastModified [...] had a 10 minute TeleMedicine consultation via [employer] [place] to discuss the following: Not available 12/09/2022 [...] recorded. Referral otolaryngol ogist referral 2022 023 [email or web address] 3 Flaco Martinez MD, [address] [facility] , [place] [address], [place], [address], 11:20:49 Procedures None recorded. Surgeries None recorded. Imaging None recorded. Medication Orders doxycycline hyclate 100 mg capsule 2022 023 [facility][id number], [address], [place], [place], [id number], 16:07:42 Medrol (Sb) 4 mg tablets in a dose pack 2022 023 [facility] #[id number], [address], [place], [place], [id number], 15:39:36 doxycycline hyclate 100 mg capsule 2022 023 [facility] #[id number], [address], [place], [place], [phone], 11:14:07 Patient TargetsNo targets recorded. Patient Instructions Encounter Date Encounter Id Patient Instructions Last Modified By Organization Details Last Modified Time 12/09/2022 [id number] Due to the COVID-19 (Novel Coronavirus) pandemic, it is within this context (and with the understanding that this method of patient encounter is in the patient s best interest as well as the health and safety of other patients and the public) that telehealth is being provided for this patient encounter rather than a ywri-ro-fpms visit. This patient encounter is appropriate at [...] the patient. Not available 12/09/2022 14:19:34 04/27/2023 [id number] FU prn [email or web address] Not available 04/27 12:56:09 07/16/2023 [id number] FU prn Due to th e COVID-19 (Novel Coronavirus) pandemic, it is within this context (and with the understanding that this method of patient encounter is in the patient s best interest as well as the health and safety of other patients and the public) that telehealth is being provided for this patient encounter rather than a wync-ji-jmcw visit. This patient encounter is appropriate at [...] Not available 07/16/2023 16:09:52 Reason for Referral Transcriptionist Referral fo r Cervical lymphadenopathy Referring Physician: Liz Carrasco, Family Medicine, Encounter Date: 04/27/2023 Results Created Date Observation Date Name Description Value Unit Range Abnormal Flag Note LastModifiedBy Organization Detail LastModifiedTime 03/02/2003/02/2022 XR, chest No observ ation record ed. [id number], [address], 10/28/2022 06:47:23 03/03/2003/03/2022 MRI, thora cic spine , w/wo contr ast No observ ation record ed. [id number] [place] [address], [address], 10/28/2022 06:47:23 03/03/2003/02/2022 CT, lumba r spine , w/o contr ast No observ ation record ed. [id number], [address], 10/28/2022 06:47:23 03/03/20 22 03/03/2022 US, liver No observ ation record ed. [id number], [place], [address], 10/28/2022 06:47:23 11/05/19 23 11/03/2022 US, echoc ardio gram, trans thora cic, bubbl e study No observ ation record ed. [place] [id number] [facility] [address] [facility] [address], [place], [address], 11/04/2022 19:54:58 11/17/19 23 11/16/2022 XR, lumba r spine No observ ation record ed. [address] [facility], [place], [address], 11/17/2022 20:04:14 07/25/20 23 07/25/2023 XR, chest No observ ation record ed. [address] [facility], [place], [address], 07/25/2023 21:44:09 08/11/20 23 08/11/2023 CT, sinus es, w/o contr ast No observ ation record ed. [address] [facility], [place], [address], 08/11/2023 15:30:43 08/11/20 23 08/11/2023 CT, arthr ogram , tempo john dibul ar joint No observ ation record ed. [address], [place], [address], 08/11/2023 17:51:34 Result Notes None recorded. Problems Name Problem SNOMED Code Status Onset Date Resolution Date Notes Provider Name and Address Organization Details Recorded Time Irritable bowel syndrome 09489022 Active Not Available [facility] 3 06:43:00 Tobacco user 503204996 Active 2017 Not Available [facility] 3 06:43:00 Deviated nasal septum 481441612 Active 2021 Not Available [facility] 3 06:43:00 Acute sinusitis 82264643 Active Not Available [facility] 3 06:43:00 Body mass index 30+ - obesity 715296014 Active 2021 Not Available [facility] 3 06:43:00 Hypertroph y of nasal turbinates 66892385 Active 2021 Not Available [facility] 3 06:43:00 Insomnia 462800049 Active 2016 Not Available [facility] 3 06:43:00 Infection of skin and/or subcutaneo us tissue 58496638 Active Not Available [facility] 3 06:43:00 Gastroesop hageal reflux disease 092233044 Active 2016 Not Available [facility] 3 06:43:00 Gallstone 583526733 Active Not Available [facility] 3 06:43:00 Fluid level behind tympanic membrane Active Not Available [facility] 3 06:43:00 Headache 86102881 Active 2016 Not Available [facility] 3 06:43:00 Dyspnea 675363122 Active 2016 Not Available [facility] 3 06:43:00 Jaw pain 967676118 Active 2021 Not Available [facility] 3 06:43:01 Thoracic back pain 094107722 Active 2016 Not Available [facility] 3 06:43:01 Low back pain 838189533 Active 2016 Not Available [facility] 3 06:43:01 Right upper quadrant pain 659350865 Active Not Available [facility] 3 06:43:01 Pain in pelvis 89565144 Active Not Available [facility] 3 06:43:01 Tachycardi a 0798525 Active 2016 Not Available [facility] 3 06:43:01 Seasonal allergic rhinitis 602195060 Active 2016 Not Available [facility] 3 06:43:01 Fever 170773854 Active Not Available [facility] 3 06:43:01 Ingrowing nail 066718551 Active Not Available [facility] 3 06:43:01 Obesity 798525294 Active Not Available [facility] 3 06:43:01 Unexplaine d weight loss 466932171 Active 2016 Not Available [facility] 3 06:43:01 Environmen jenni allergy 592273344 Active 2016 Not Available [facility] 3 06:43:01 History of polyp of colon 271345252 Active 2016 Not Available [facility] 3 06:43:01 Chronic migraine without aura, non-refrac tory 6963237278372 00 Active 2022 Not Available [facility] 3 06:43:02 Viral conjunctiv itis 69033126 Active Not Available [facility] 3 06:43:02 Acute migraine 9691161748504 08 Active 2022 Not Available [facility] 3 06:43:02 Anxiety 87731462 Active Not Available [facility] 3 06:43:02 Cough 24733164 Active 2016 Not Available [facility] 3 06:43:02 Upper respirator y infection 71262538 Active Not Available [facility] 3 06:43:02 Hyperlipid emia 61788652 Active 2016 Not Available [facility] 3 06:43:02 Fatigue 30767666 Active Not Available [facility] 3 06:43:02 Weight gain 5649528 Active 2016 Not Available [facility] 3 06:43:02 Tobacco dependence syndrome 61010229 Active Not Available [facility] 3 06:43:02 Chronic migraine without aura 2869956030656 05 Active 2022 Liz Carrasco, SUELLEN [address] [facility], [facility] [address], [place], [address] , [facility] [employer] [facility] 3 08:24:08 Obese 015450801 Active 2022 Liz Carrasco NP [address], [place], [address] , [facility] [employer] [facility] [employer] 3 08:24:32 Neck pain 04442787 Active 2022 Liz Carrasco NP [address], [place], [address] , [facility] - [facility] [employer] 3 08:24:39 Migraine 84413522 Active 2022 Liz Carrasco NP [address], [place], [address] , [facility] [employer] [facility] 3 12:55:10 Cervical lymphadeno lorie 068739399 Active 2022 Liz Carrasco NP [address], [place], [address] , [employer] [facility] 3 11:35:25 Problem Notes None recorded. Procedures Surgical History Date Name Laterality Status Provider Name and Address Organization Details Recorded Time 04/28/20 colonoscopy completed Not Available [facility] 10/29/19 06:39:55 Tonsillectomy completed Not Available [facility] 10/28/2022 06:39:55 Cholecystectomy completed Not Available [facility] 10/28/2022 06:39:55 Imaging Results Imaging Date Name Status LastModified by Organization Details LastModified Time 03/03/2022 MRI, thoracic spine, w/wo contrast completed [id number] [place] [address], [address], 10/28/2022 06:47:23 03/02/2022 CT, lumbar spine, w/o contrast completed [id number] [place] [address], [address], 10/28/2022 06:47:23 03/03/2022 US, liver completed [id number] [place] [address], [address], 10/28/2022 06:47:23 03/02/2022 XR, chest completed [id number] [place] [address], [address], 10/28/2022 06:47:23 11/03/2022 US, echocardiogram, transthoracic, bubble study completed [place] [address] [facility] [address] [facility] [address], [place], [address], 11/04/2022 19:54:58 11/16/2022 XR, lumbar spine completed [address] [place] [address], [address], 11/17/2022 20:04:14 07/25/2023 XR, chest completed [address], [address], 07/25/2023 21:44:09 08/11/2023 CT, sinuses, w/o contrast completed [address] [place] [address], [address], 08/11/2023 15:30:43 08/11/2023 CT, arthrogram, temporomandibular joint completed [address] [place] [address], [address], 08/11/2023 17:51:34 Procedure Notes None recorded. Medical [...] 6 mg/mL suspensio n for injection active [facility]# [id number] - Not Available Not Available Not Available [...] pine ER 100 mg capsule,e xtended release [id number] r TAKE 1 CAPSULE BY MOUTH EVERY [...] 97 % 10 139 /min 97.6 [degF] 319435. 91 g 150 mm[Hg] 76 mm[Hg] Not Available [facility] 3 06:41:36 Date Recorded Body mass index (BMI) Body height Oxygen saturation Oxygen saturation in Arterial blood by Pulse oximetry Heart rate Respiratory rate Body temperature Body weight Systolic blood pressure Diastolic blood pressure Provider Name and Address Organization Details Last Updated DateTime 3 32.7 kg/m2 172.72 cm 98 % 98 % 98 /min 16 /min 97.8 [degF] 52875.3 6 g 122 mm[Hg] 78 mm[Hg] Not Available [facility] 3 06:41:36 Date Recorded Body height Body mass index (BMI) Body weight Provider Name and Address Organization Details Last Updated DateTime 12/09/2022 172.72 cm 30.4 kg/m2 14435.47 g Liz Trent RN [place] [facility] [employer] [facility] 12/09/2022 12:58:10 Date Recorded Body height Body mass index (BMI) Body weight Body temperature Heart rate Oxygen saturation Oxygen saturation in Arterial blood by Pulse oximetry Pain severity - 0-10 verbal numeric rating [Score] - Reported Systolic blood pressure Diastolic blood pressure Provider Name and Address Organization Details Last Updated DateTime 172.72 cm 31.4 kg/m2 82534.1 8 g 97.1 [degF] 113 /min 97 % 97 % 3 140 mm[Hg] 84 mm[Hg] Liz Trent RN [facility] [employer] 11:16:58 Date Recorded Respiratory rate Provider Name a ut Address Organization Details Last Updated DateTime 04/27/2023 16 /min Liz Carrasco NP [address], [address], [place] [employer] [facility] [employer] 04/27/2023 11:25:21 Date Recorded Body height Body mass index (BMI) Body weight Heart rate Pain severity - 0-10 verbal numeric rating [Score] - Reported Provider Name and Address Organization Details Last Updated DateTime 07/16/2023 172.72 cm 33.5 kg/m2 47905.32 g 112 /min 0 Liz Trent RN [facility] [employer] 07/16/2023 15:41:05 Social History Question Answer Notes LastModified by Organization Details LastModified Time Tobacco Smoking Status Current Every Day Smoker Not Available [facility] 10/28/2022 06:39:39 Do You Have An Advance Directive? No Information not available 04/27/2023 What Is Your Level Of Alcohol Consumption? None MIGRATION.030 [id number] Information not available 10/28/2022 Is Blood Transfusion Acceptable In An Emergency? Yes Information not available 04/27/2023 What Is Your Level Of Caffeine Consumption? Occasional MIGRATION.030 [id number] Information not available 10/28/2022 How Much Tobacco Do You Chew? None MIGRATION.030 [id number] Information not available 10/28/2022 In The 14 Days Before Symptom Onset, Have You Had Close Contact With A Laboratory-conf josé [facility]-19 While That Case Was Ill? No MIGRATION.030 [id number] Information not available 10/28/2022 In The 14 Days Before Symptom Onset, Have You Had Close Contact With A Person Who Is Under Investigation For COVID-19 While That Person Was Ill? No MIGRATION.0301 [id number] Information not available 10/28/2022 Are You Currently Employed? Yes Information not available 04/27/2023 What Type Of Diet Are You Following? REGULAR MIGRATION.0301 [id number] Information not available 10/28/2022 Which Illicit Or Recreational Drugs Have You Used? None MIGRATION.0301 [id number] Information not available 10/28/2022 Do You Or Have You Ever Used E-cigarettes Or Vape? 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 No Information not available 04/27/2023 Do You Use Insect Repellent Routinely? No Information not available 04/27/2023 Where Do You Live? SingleLevelHouse Information not available 04/27/2023 Do You Have A Medical Power Of Fws Faculty Assistant? No Information not available 04/27/2023 How Many [...] Tobacco Do You Smoke? 0.25 PPD MIGRATION.0301 [id number] Information not available 10/28/2022 Do You Participate In Social Media? Yes Information not available 04/27/2023 Do You Feel Stressed (tense, Restless, Nervous, Or Anxious, Or Unable To Sleep At Night)? [id number] Information not available 04/27/2023 Do You Use [...] Details LastModified Time Unspecified Relation Diabetes mellitus MIGRATION.073 [id number] Not available 10/28/2022 06:39:56 Maternal Grandfather Malignant tumor of colon MIGRATION.076 [id number] Not available 10/28/2022 06:39:56 Father Hypertensive disorder MIGRATION.331 [id number] Not available 10/28/2022 06:39:56 Mother Hypertensive disorder MIGRATION.424 [id number] Not available 10/28/2022 06:39:56 Medical History Condition Response MRSA N SLEEP APNEA N ALLERGIES/HAYFEVER N LUNG DISEASE/DISORDER N INSOMNIA N COPD N RADIATION / CHEMOTHERAPY N HIGH CHOLESTEROL / HYPERLIPIDEMIA N HYPERTHYROIDISM N BLOOD DISEASES N EAR OR HEARING PROBLEMS N HYPOTHYROIDISM N DEPRESSION (INCLUDING POST ) Y HAVE YOU BEEN HOSPITALIZED OR SEEN IN [facility] ER IN THE PAST YEAR ? [...] Recorded Time MMR 7 completed Not Available [facility] 10/28/2022 06:47:05 DTaP, unspecified formulation 7 completed Not Available [facility] 10/28/2022 06:47:05 IPV 7 completed Not Available [facility] 10/28/2022 06:47:06 DTaP, unspecified formulation 4 completed Not Available [facility] 10/28/2022 06:47:06 IPV 4 completed Not Available [facility] 10/28/2022 06:47:06 MMR 3 completed Not Available [facility] 10/28/2022 06:47:06 DTaP, unspecified formulation 3 completed Not Available [facility] 10/28/2022 06:47:06 Hib, unspecified formulation 3 completed Not Available [facility] 10/28/2022 06:47:06 Hib, unspecified formulation 2 completed Not Available [facility] 10/28/2022 06:47:06 DTaP, unspecified formulation 2 completed Not Available [facility] 10/28/2022 06:47:06 IPV 2 completed Not Available [facility] 10/28/2022 06:47:06 Hib, unspecified formulation 2 completed Not Available [facility] 10/28/2022 06:47:06 DTaP, unspecified formulation 2 completed Not Available [facility] 10/28/2022 06:47:06 IPV 2 completed Not Available [facility] 10/28/2022 06:47:06 SARS-COV-2 (COVID-19) vaccine, UNSPECIFIED 1 completed Not Available [facility] 10/28/2022 06:47:06 SARS-COV-2 (COVID-19) vaccine, UNSPECIFIED 1 completed Not Available [facility] 10/28/2022 06:47:07 Influenza, split virus, trivalent, preservative 4 completed Not Available [facility] 10/28/2022 06:47:07 Tdap 6 completed Not Available [facility] 10/28/2022 06:47:07 meningococcal ACWY, unspecified formulation 6 completed Not Available [facility] 10/28/2022 06:47:07 Hep B, unspecified formulation 2 completed Not Available [facility] 10/28/2022 06:47:07 Hep B, unspecified formulation 2 completed Not Available [facility] 10/28/2022 06:47:07 Hep B, unspecified formulation 2 completed Not Available [facility] 10/28/2022 06:47:07 Influenza, split virus, quadrivalent, PF 7 completed Not Available [facility] 10/28/2022 06:47:07 Tdap 4 completed Not Available [facility] 10/28/2022 06:47:07 Past Encounters Encounter ID Performer Location Encounter Start Date Encounter Closed Date Diagnosis/Indication Diagnosis SNOMED-CT Code Diagnosis ICD10 Code Diagnosis Note [id number] [facility] [address] [place] [address] 02/12/2021 00:00:00 02/12/2021 17:37:29 [id number] [facility] [place] [address] [place] [address] 02/17/2021 00:00:00 02/17/2021 15:38:52 [id number] [facility] [place] [address] [place] [address] 01/08/2022 00:00:00 01/08/2022 10:19:54 [id number] [facility] [address] [place] [address] 02/10/2022 00:00:00 02/10/2022 09:15:43 [id number] [facility] [address] [place] [address] 02/26/2022 00:00:00 02/26/2022 10:31:[id number] [address] 09/01/2022 00:00:00 09/01/2022 11:33:53 [id number] Liz Carrasco NP [address] [address] 12/09/2022 12:49:18 12/09/2022 14:22:13 Infection of skin and/or subcutaneous tissue 11683527 L08.9 Tattoo is 1 week old. keflex 500 mg po bidDoxycyc line 100 mg po bid (on 2 days already)Si lvasorb Gel. Works wednesday/wed/. Will call if not able to return to work. [id number] Liz Carrasco NP [address] [address] 04/27/2023 10:59:59 04/27/2023 13:02:41 Cervical lymphadenopathy 950669413 R59.0 ENT referral- pt wants to see Dr. Martinez. Past pregn myranda history of miscarriage 079866233 Z87.59 discuss with wound/ostomy nurse as this is 3rd time. Consider seeing Dr. Correia. Currently with No Ramirez [id number] Liz Carrasco NP [address] [address] 07/16/2023 15:07:53 07/16/2023 16:13:49 Acute sinusitis 78603643 J01.90 doxy bid for 10 days. Nasal saline. Health Concerns Section Related Observation LastModified by Organization Detai ls LastModified Time None Recorded Concern Status LastModified by Organization Details LastModified Time None Recorded Advance Directives Directive N: Payers Encounter Date Sequence Insurance Name Policy Number Policy Doss Covered Member ID Doss Member ID Guarantor Name 12/09/2022 1 R [id number] Jackie Macedo [id number] Jackie Castellanostiz 04/27/2023 1 UMR [id number] Jackie Castellanostiz [id number] Jackie Macedo 07/16/2023 1 UMR [id number] Jackie Macedo [id number] Jackie Macedo Notes Date Note Type Note [...] will call 12/10/22. Liz Carrasco NP [address] [employer], [place], [address], [employer] 12/09/2022 14:20:58 04/27/2023 text/html Here for swollen [...] Dr. Chris Haney. Liz Carrasco NP [address], [place], [address], [employer] 04/27/2023 12:56:21 07/16/2023 text/html Consents to telephonic visit. Congestion of sinuses for 6 days.Swallowing causing ear to pop, painful.No fever or chills.Mucinex and day/night quil and allergy. No relief.No cough. Liz Carrasco NP [address], [place], [address], [employer] 07/16/2023 16:10:15 OBGyn Episode No OBEpisode recorded.
--- OUTSIDE RECORDS SUMMARY | 2024-12-07 06:59 | XMS_ITS | Referral Summary ---
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
--- OUTSIDE RECORDS SUMMARY | 2024-12-07 06:59 | XMS_ITS | Encounter Summary ---
Author Organization [facility] Address [address] [address] Care Team Providers Care Elevator Constructor Helper Name Role Phone Andree House MD Primary Care Provider Liz Carrasco NP Primary Care Provider + Liz Carrasco MANAGER MEDIA RELATIONS Primary Care Provider + Roland Billingsley MD Primary Care Provid er Liz Carrasco NP Primary Care Provider + Liz Carrasco MANAGER MEDIA RELATIONS Unavailable [phone] Liz Carrasco NP Unavailable [phone] Encounter Details Date Type Department Care Team (Late st Contact Info) Description 11/26/2016 Orders Only [facility] ProviderDarnell MD [address] [place] [address] Social History Tobacco Use Types Packs/Day Years Used Date Smoking Tobacco: Never Assessed Comments Unknown Sex and Gender Information Value Date Recorded Sex Assigned at Not on file 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 Gender Identity Not on file Sexual Orientation [...] on filedocumented in this encounter Care Teams Elevator Constructor Helper Relationship Specialty Start Date End Date Andree House MD [address] [facility] [address] [place] [address] PCP - General 11/27/16 04/10/20 Liz Carrasco NP [address] [address] PCP - General Nurse Practitioner 04/11/20 06/02/20 Liz Carrasco NP [address] [place] [address] [address] PCP - General 06/03/20 07/23/22 Roland Billingsley MD [address] [place] [address] PCP - General Interventional Cardiology 07/24/2208/31 Liz Carrasco NP [address] [address] PCP - General Nurse Practitioner 09/28/22 Liz Carrasco NP [address] [address] 07/24/22 Liz Carrasco NP [address] [address] Nurse Practitioner 06/03/20 documented as of this encounter
== END 2024-12-07 06:55 | disposition home or self-care (01) ==
PROVIDERS: PCP Nurse Practitioner Family; Visit Provider Registered Nurse
DX: D86.3 Sarcoidosis of skin (principal); L30.9 Dermatitis, unspecified
CPT/HCPCS: 71046

== ENCOUNTER 2025-01-17 07:04 | Outpatient (CLI) | payer OTHER, SELFPAY ==
[2025-01-17 07:55] LABS: Hematocrit 44.2 % (37.0-47.0); Hemoglobin 13.9 g/dL (12.0-15.0); Mean Corpuscular HGB Conc 31.4 g/dl (32-36); Mean Corpuscular Hemoglobin 28.7 pg (26-34); Mean Corpuscular Volume 91.3 fl (80-100); Mean Platelet Volume 10.1 fl (7.4-10.4); Platelet Count Result 346 k/mm3 (150-375); Red Blood Count 4.84 M/mm3 (4.2-5.4); Red Cell Distribution Width 13.9 % (11.5-14.5)
[2025-01-17 08:08] LABS: Alanine Aminotransferase 27 U/L (6-35); Albumin Level 4.5 g/dL (3.5-5.1); Alkaline Phosphatase 98 U/L (38-126); Anion Gap 8 mmol/L (4-12); Aspartate Amino Transferase 24 U/L (14-36); Bilirubin,Total 0.5 mg/dL (0.2-1.3); Blood Urea Nitrogen 12 mg/dL (7-17); Calcium 8.9 mg/dL (8.4-10.2); Carbon Dioxide 25 mmol/L (22-30); Chloride 105 mmol/L (98-107); Cholesterol 249 mg/dL (0-200); Estimated Glomerular Filt Rate > 60; Glucose 93 mg/dL (65-110); HDL Direct 77 mg/dL; Sodium 138 mmol/L (137-145); Triglycerides 202 mg/dL (<150)
[2025-01-17 08:19] LABS: LDL Cholesterol Direct 138 mg/dL
[2025-01-17 08:39] LABS: Thyroid Stimulating Hormone 0.807 uIU/mL (0.465-4.680)
[2025-01-17 08:50] LABS: Vitamin D 25 Hydroxy 27.3 ng/mL
[2025-01-17 12:44] LABS: Hemoglobin A1C 5.2 % (<5.7)
[2025-01-18 01:22] LABS: Progesterone 1.7 ng/mL
[2025-01-18 05:27] LABS: DHEA-Sulfate 65 mcg/dL (19-237)
[2025-01-18 07:13] LABS: FSH 2.8 mIU/mL
[2025-01-24 10:34] LABS: Testosterone Total 13 ng/dL (2-45)
== END 2025-01-17 07:05 | disposition home or self-care (01) ==
PROVIDERS: PCP Nurse Practitioner Family
DX: Z13.9 Encounter for screening, unspecified (principal); E28.2 Polycystic ovarian syndrome; N95.1 Menopausal and female climacteric states; R53.83 Other fatigue
CPT/HCPCS: 36415; 80053; 80061; 82306; 82607; 82627; 82670; 83001; 83036; 84144; 84403; 84443; 85027

== ENCOUNTER 2025-02-23 07:28 | Observation (INO) | payer OTHER, SELFPAY ==
[2025-02-23] VITALS (10 sets, daily range): BP systolic 113–150; BP diastolic 52–91; PULSE 108–148; RESP 16–30; TEMP 36.4–36.8; O2SAT 97–99; BMI 39.1
--- NOTE | ~2025-02-23 | CT_ITS ---
CT abdomen pelvis w con Ordering provider: Ploo Flowers MD History: 35 years Female with . N/V/D . Comparison: February 01, 2015 Technique: CT abdomen and pelvis with IV and without oral contrast. Automated exposure control and it erative reconstruction technique were employed. The dose-length product was 1483.57 mGy-cm. 100 mL Om nipaque 350 was given IV. Findings: VISUALIZED LOWER CHEST: Dependent atelectatic changes. UPPER ABDOMINAL ORGANS: Liver: Fat infiltration. Hepatomegaly Gallbladder: Status post cholecystectomy. Spleen: Normal. Stomach/duodenum: Normal. Pancreas: Normal. Adrenals: Normal. Kidneys: Normal. PELVIC ORGANS: The bladder is slightly underfilled. BOWEL AND MESENTERY: Colon: No evidence of diverticulitis. Fluid is seen in the colon which may indicate enteritis versus diarrhea. Appendix is not well demonstrated Small Bowel: Fluid is seen in the bowel suggestive of diarrhea versus enteritis. No obstruction. Peritoneum/mesentery: No free air or free fluid. No mesenteric lymphadenopathy. RETROPERITONEUM: Normal aorta. No retroperitoneal lymphadenopathy. MUSCULOSKELETAL: Superficial soft tissues: The superficial soft tissues are normal. Bones: Normal spine. Bilateral sacroiliitis. IMPRESSION: 1. No evidence of appendicitis, diverticulitis or intestinal obstruction. 2. Fluid in the small and large bowel which may indicate diarrhea versus enteritis. Clinical correla tion advised. 3. Hepatomegaly. Fat infiltration. Reviewed, dictated and finalized at location A. IMPRESSION: 1. No evidence of appendicitis, diverticulitis or intestinal obstruction. 2. Fluid in the small and large bowel which may indicate diarrhea versus enter itis. Clinical correlation advised. 3. Hepatomegaly. Fat infiltration.
--- NOTE | 2025-02-23 07:34 | ECG_ITS ---
Test Date: 2025-02-23 07:38:00 Measurements Intervals [place] Rate: 135 P: 13 WV: 140 QRS: 44 QRSD: 87 T: 29 QT: 303 QTc: 454 Interpretive Statements SINUS TACHYCARDIA CONSIDER INFERIOR INFARCT, AGE INDETERMINATE BASELINE ARTIFACT- I, II, III, AVR, AVL, AVF ABNORMAL ECG Compared to ECG 04/02/2024 17:58:08 No significant changes Electronically Signed On 02-23-2025 07:52:00 CDT by Amado Don D.O.
[2025-02-23 07:48] LABS: BEDSIDEPREGUCG Negative (Negative)
[2025-02-23 08:01] LABS: Basophils Absolute Auto 0.1 K/mm3 (0.0-0.1); Basophils Percent Auto 0.6 % (0.2-1.2); Eosinophils Percent Auto 0.1 % (0-4.4); Hematocrit 48.1 % (37.0-47.0); Hemoglobin 15.9 g/dL (12.0-15.0); Immature Granulocyte Absolute 0.13 K/mm3 (0.00-0.031); Lymphocytes Absolute Auto 1.22 K/mm3 (0.9-3.2); Lymphocytes Percent Auto 9.1 % (18.3-44.2); Mean Corpuscular HGB Conc 33.1 g/dl (32-36); Mean Corpuscular Hemoglobin 28.8 pg (26-34); Mean Corpuscular Volume 87.1 fl (80-100); Mean Platelet Volume 9.6 fl (7.4-10.4); Monocytes Absolute Auto 0.7 K/mm3 (0.1-0.6); Monocytes Percent Auto 4.9 % (2.6-8.5); Neutrophils Absolute Auto 11.3 K/mm3 (1.3-6.7); Neutrophils Percent Auto 84.3 % (45.5-73.1); Platelet Count Result 433 k/mm3 (150-375); Red Blood Count 5.52 M/mm3 (4.2-5.4); Red Cell Distribution Width 13.3 % (11.5-14.5); White Blood Count 13.4 K/mm3 (4.5-10.0)
[2025-02-23 08:04] LABS: Add Urine Microscopic? YES; Appearance Urine Cloudy (Clear); Bacteria Urine None Seen /hpf; Bilirubin Urine Negative (Negative); Blood Urine 1+ (Negative); Color Urine Yellow (Yellow); Glucose Urine UA Negative (Negative); Ketones Urine Trace mg/dL (Negative); Leukocyte Esterase Ur Negative LEU/UL (Negative); Nitrate Urine Negative (Negative); Protein Urine 1+ mg/dL (Negative); Specific Grav Ur 1.028 (1.001-1.035); Squamous Epithelial Cell Urine Occasional /hpf (Few); WBC Urine 0-5 /hpf (0-3)
[2025-02-23] MEDS: ONDANSETRON INJ 4 MG/2 ML VIAL IV PUSH ×2 (08:12→10:51)
[2025-02-23] MEDS: HALOPERIDOL LACTATE 5 MG/ML VIAL IM (08:13)
[2025-02-23] MEDS: SODIUM CHLORIDE 0.9% IV 3,000 ML 999 ML IV CONT (08:13)
--- NOTE | 2025-02-23 08:17 | ED_ITS ---
HPI - General Adult General Chief complaint: Nausea/Vomiting/Diarrhea Stated complaint: N/V/D Time Seen by Provider: 02/23/25 07:36 History of Present Illness HPI narrative: This is a 35-year-old female history intractable migraines, IBS, on semaglutide presenting for nausea vomiting diarrhea. Symptoms started yesterday around 3:00 p.m.. She has having persistent nausea vomiting. Whenever she vomits she also has diarrhea. She denies fevers chills chest pain difficulty breathing. She has some crampy abdominal pain associated with vomiting and diarrhea. Last dose of semaglutide was 3 days ago. No headaches at this time Related Data Home Medications ?Medication ?Instructions ?Recorded ?Confirmed ?Last Taken ?Type omeprazole 40 mg capsule,delayed 40 mg PO BID 11/02/23 12/01/24 05/12/24 21:00 History release rlvkgiyqsw-raqmjonppuxxj-yjxrnfyr 1 tablet PO Q6H PRN Migraine 05/13/24 12/01/24 05/06/24 18:00 History 50 mg-325 mg-40 mg tablet Headache cyclobenzaprine 5 mg tablet 10 mg PO DAILY PRN muscle spasm 05/13/24 12/01/24 Unknown History duloxetine 60 mg capsule,delayed 60 mg PO DAILY 12/01/24 12/01/24 Unknown History release galcanezumab-gnlm 120 mg/mL 120 mg subcut MONTHLY 12/01/24 12/01/24 Unknown History subcutaneous syringe (Emgality) ubrogepant 100 mg tablet (Ubrelvy) 100 mg PO ONCE 12/01/24 12/01/24 Unknown History Allergies Allergy/AdvReac Type Severity Reaction Status Date / Time No Known Allergies Allergy Verified 02/23/25 07:34 [facility] Past Medical History Medical History (Updated 02/23/25 @ 13:33 by Polo Flowers MD) Recurrent loss Lumbar stenosis Gastroesophageal reflux disease Chronic low back pain Hx of thrombocytopenia On ASA Diarrhea Overweight Tobacco use Lyme disease of inner ear (~2019) Anemia Depression Back pain UTI (urinary tract infection) IBS (irritable bowel syndrome) Colon polyps Bronchitis Acute tonsillitis Trigeminal neuralgia syndrome Jaw pain Atypical face pain GONZALO positive (~2019) Endometriosis Cholecystectomy planned GERD (gastroesophageal reflux disease) Anxiety Frequent headaches Surgical History Surgical History Hx of cholecystectomy Hx of tonsillectomy History of appendectomy Family History Family History Father Hypertension Family history of cardiovascular disease Mother Hypertension Depression Sibling Depression Grandparent Heart disease Cerebrovascular accident Social History Social History Social History: Lives alone. She has a dog. Denies alcohol or drug use. She does smoke E cigarettes with vaping daily. She is a full code. She nominates her mother to be the individual make medical decisions for her she is unable. Smoking status: Former smoker Tobacco type: cigarettes and e-cigarettes/vaping Second hand tobacco smoke exposure: No Additional smoking assessment comments: Has vaped for 4 years Alcohol intake: never Substance use: never Substance use type: does not use Do You Feel Safe in your Home?: Yes Lack of Transportation: No Lack of Food: Never True Current Housing: I Have Housing Concerned About Future Housing: No Difficulty Paying Gas/Electric Bills: No Difficulty Paying for Meds: No Currently Unemployed: No Education: Bachelor's Degree Difficulty w/ Childcare or Family Care: No Living arrangements: other Additional living arrangements comments: boyfriend Occupation/Education: occupation Gender identity (if verbalized by the patient): Female Sexual Orientation (if Verbalized by the Patient): Straight or Heterosexual Spiritual care concerns: No Exam 2 Narrative: APPEARANCE: Patient appears uncomfortable Head: atraumatic. EYES: EOMI, NOSE: Atraumatic NECK: Trachea midline RESPIRATORY: No increased rate of breathing CTAB CARDIOVASCULAR: Tachycardic, no peripheral edema ABDOMINAL: Soft nontender no guarding rebound MUSCULOSKELETAl: No obvious deformities NEURO: Alert. Moving 4/4 extremities SKIN:: Warm, dry. Normal color PSYCHIATRIC: Normal affect Course Vital Signs Vital signs: Vital Signs Temperature 97.5 F L 02/23/25 07:30 Pulse Rate 148 H 02/23/25 07:30 Respiratory Rate 30 H 02/23/25 07:30 Blood Pressure 123/56 L 02/23/25 07:30 Pulse Oximetry 97 02/23/25 07:30 Oxygen Delivery Room Air 02/23/25 07:30 Temperature 97.5 F L 02/23/25 07:30 Pulse Rate 118 H 02/23/25 12:08 Respiratory Rate 23 H 02/23/25 12:08 Blood Pressure 140/77 02/23/25 12:08 Pulse Oximetry 99 02/23/25 12:08 Oxygen Delivery Room Air 02/23/25 07:30 Medical Decision Making [facility] Narrative Medical decision making narrative: -Course: 35-year-old female presenting for nausea vomiting and diarrhea. Abdominal exam is benign. Patient is tachycardic on arrival and has to go to the bathroom to vomit during the interview. Patient given 3 L of fluid Zofran, Haldol, and Pepcid. Workup significant for mild anion gap acidosis. Urine without infections. Drug screen negative. Viral swabs negative. CT abdomen pelvis showed enteritis. On re-evaluation patient is still tachycardic despite 3 L of fluid. She is still actively vomited. Given another L of fluid and another dose of Zofran. On re-evaluation she is still vomiting. Given Reglan. Patient is still unable to tolerate water. She is still tachycardic. She will be admitted for intractable nausea vomiting. -DDX includes but is not limited to: Gastroenteritis, medication side effect, viral syndrome Vital Signs Vital Signs: Vital Signs Temperature 97.5 F L 02/23/25 07:30 Pulse Rate 148 H 02/23/25 07:30 Respiratory Rate 30 H 02/23/25 07:30 Blood Pressure 123/56 L 02/23/25 07:30 Pulse Oximetry 97 02/23/25 07:30 Oxygen Delivery Room Air 02/23/25 07:30 Temperature 97.5 F L 02/23/25 07:30 Pulse Rate 118 H 02/23/25 12:08 Respiratory Rate 23 H 02/23/25 12:08 Blood Pressure 140/77 02/23/25 12:08 Pulse Oximetry 99 02/23/25 12:08 Oxygen Delivery Room Air 02/23/25 07:30 Lab Data 02/23/25 07:44 02/23/25 07:44 Labs: Lab Results 02/23/25 02/23/25 02/23/25 Range/Units 07:43 07:44 07:45 WBC 13.4 H (4.5-10.0) K/mm3 RBC 5.52 H (4.2-5.4) M/mm3 Hgb 15.9 H (12.0-15.0) g/dL Hct 48.1 H (37.0-47.0) % MCV 87.1 (80-100) fl MCH 28.8 (26-34) pg MCHC 33.1 (32-36) g/dl RDW 13.3 (11.5-14.5) % Plt Count 433 H (150-375) k/mm3 MPV 9.6 (7.4-10.4) fl Immature Gran % (Auto) 1.0 H (0-0.5) % Neut % (Auto) 84.3 H (45.5-73.1) % Lymph % (Auto) 9.1 L (18.3-44.2) % [place] % (Auto) 4.9 (2.6-8.5) % Eos % (Auto) 0.1 (0-4.4) % Baso % (Auto) 0.6 (0.2-1.2) % Lymph # (Auto) 1.22 (0.9-3.2) K/mm3 [place] # (Auto) 0.7 H (0.1-0.6) K/mm3 Eos # (Auto) 0.0 (0-0.3) K/mm3 Baso # (Auto) 0.1 (0.0-0.1) K/mm3 Abs Immat Gran (auto) 0.13 H (0.00-0.031) K/mm3 Absolute Neuts (auto) 11.3 H (1.3-6.7) K/mm3 Absolute Nucleated RBC 0.000 (0.0-0.012) K/mm3 Nucleated RBC % 0.0 (0.0-0.2) % Sodium 140 (137-145) mmol/L Potassium 3.9 (3.4-5.0) mmol/L Chloride 103 (98-107) mmol/L Carbon Dioxide 20 L (22-30) mmol/L Anion Gap 17 H (4-12) mmol/L BUN 13 (7-17) mg/dL Creatinine 0.74 (0.7-1.0) mg/dL Estim Creat Clear Calc 125 ml/min Estimated GFR > 60 (59 - ) Glucose 132 H (65-110) mg/dL Calcium 8.8 (8.4-10.2) mg/dL Total Bilirubin 0.6 (0.2-1.3) mg/dL AST 27 (14-36) U/L ALT 28 (6-35) U/L Alkaline Phosphatase 114 (38-126) U/L Total Protein 8.6 H (6.3-8.2) g/dL Albumin 4.7 (3.5-5.1) g/dL Lipase 67 (23-300) U/L Urine Color Yellow (Yellow) Urine Appearance Cloudy H (Clear) Urine pH 6.0 (5.0-9.0) Ur Specific [place] 1.028 (1.001-1.035) Urine Protein 1+ H (Negative) mg/dL Urine Glucose (UA) Negative (Negative) mg/dL Urine Ketones Trace H (Negative) mg/dL Ur Blood (Man) 1+ H (Negative) Urine Nitrate Negative (Negative) Urine Bilirubin Negative (Negative) Urine Urobilinogen 1.0 (<2.0) mg/dL Leukocyte Esterase Rfl Negative (Negative) LIONEL/UL Urine RBC 6-10 H (0-2) /hpf Urine WBC 0-5 (0-3) /hpf Ur Squamous Epith Cells Occasional (Few) /hpf Urine Bacteria None seen /hpf Urine Casts 3-5 POC Urine HCG, Qual Negative (Negative) Urine Opiates Screen Negative (Negative) Urine Methadone Screen Negative (Negative) Ur Barbiturates Screen Negative (Negative) Ur Phencyclidine Scrn Negative (Negative) Ur Amphetamine Screen Negative (Negative) U Benzodiazepines Scrn Negative (Negative) Urine Cocaine Screen Negative (Negative) U Cannabinoids Screen Negative (Negative) Influenza A (RT-PCR) (Negative) Influenza B (RT-PCR) (Negative) RSV (RT-PCR) (Negative) SARS-CoV-2 RNA (RT-PCR) (Negative) 02/23/25 Range/Units 08:52 WBC (4.5-10.0) K/mm3 RBC (4.2-5.4) M/mm3 Hgb (12.0-15.0) g/dL Hct (37.0-47.0) % MCV (80-100) fl MCH (26-34) pg MCHC (32-36) g/dl RDW (11.5-14.5) % Plt Count (150-375) k/mm3 MPV (7.4-10.4) fl Immature Gran % (Auto) (0-0.5) % Neut % (Auto) (45.5-73.1) % Lymph % (Auto) (18.3-44.2) % [place] % (Auto) (2.6-8.5) % Eos % (Auto) (0-4.4) % Baso % (Auto) (0.2-1.2) % Lymph # (Auto) (0.9-3.2) K/mm3 [place] # (Auto) (0.1-0.6) K/mm3 Eos # (Auto) (0-0.3) K/mm3 Baso # (Auto) (0.0-0.1) K/mm3 Abs Immat Gran (auto) (0.00-0.031) K/mm3 Absolute Neuts (auto) (1.3-6.7) K/mm3 Absolute Nucleated RBC (0.0-0.012) K/mm3 Nucleated RBC % (0.0-0.2) % Sodium (137-145) mmol/L Potassium (3.4-5.0) mmol/L Chloride (98-107) mmol/L Carbon Dioxide (22-30) mmol/L Anion Gap (4-12) mmol/L BUN (7-17) mg/dL Creatinine (0.7-1.0) mg/dL Estim Creat Clear Calc ml/min Estimated GFR (59 - ) Glucose (65-110) mg/dL Calcium (8.4-10.2) mg/dL Total Bilirubin (0.2-1.3) mg/dL AST (14-36) U/L ALT (6-35) U/L Alkaline Phosphatase (38-126) U/L Total Protein (6.3-8.2) g/dL Albumin (3.5-5.1) g/dL Lipase (23-300) U/L Urine Color (Yellow) Urine Appearance (Clear) Urine pH (5.0-9.0) Ur Specific [place] (1.001-1.035) Urine Protein (Negative) mg/dL Urine Glucose (UA) (Negative) mg/dL Urine Ketones (Negative) mg/dL Ur Blood (Man) (Negative) Urine Nitrate (Negative) Urine Bilirubin (Negative) Urine Urobilinogen (<2.0) mg/dL Leukocyte Esterase Rfl (Negative) LIONEL/UL Urine RBC (0-2) /hpf Urine WBC (0-3) /hpf Ur Squamous Epith Cells (Few) /hpf Urine Bacteria /hpf Urine Casts POC Urine HCG, Qual (Negative) Urine Opiates Screen (Negative) Urine Methadone Screen (Negative) Ur Barbiturates Screen (Negative) Ur Phencyclidine Scrn (Negative) Ur Amphetamine Screen (Negative) U Benzodiazepines Scrn (Negative) Urine Cocaine Screen (Negative) U Cannabinoids Screen (Negative) Influenza A (RT-PCR) Negative (Negative) Influenza B (RT-PCR) Negative (Negative) RSV (RT-PCR) Negative (Negative) SARS-CoV-2 RNA (RT-PCR) Negative (Negative) Discharge Plan Discharge Clinical Impression: Intractable nausea and vomiting Patient Disposition: Still a Patient Condition: Stable Patient Language: Welsh Prescriptions: No Action omeprazole 40 mg capsule,delayed release(DR/EC) 40 mg PO BID Emgality Syringe 120 mg/mL syringe 120 mg subcut MONTHLY Ubrelvy 100 mg tablet 100 mg PO ONCE Rx Instructions: as a single dose; may repeat once in >=2 hours after first dose if needed duloxetine 60 mg capsule,delayed release(DR/EC) 60 mg PO DAILY amoxicillin-pot clavulanate 500-125 mg tablet 1 tablet PO Q12H Qty: 20 0RF cnfrixebpj-bklczijahrleh-nxej 50-325-40 mg Tablet 1 tablet PO Q6H PRN (Reason: Migraine Headache) cyclobenzaprine 5 mg tablet 10 mg PO DAILY PRN (Reason: muscle spasm) hydrocodone-acetaminophen 5-325 mg tablet 1 tablet PO Q4H PRN (Reason: pain) Qty: 20 0RF rosuvastatin 5 mg tablet 5 mg PO QHS Qty: 90 1RF Follow-up/Referrals: Liz Carrasco APRN [Primary Care Provider] -
[2025-02-23 09:07] LABS: Alanine Aminotransferase 28 U/L (6-35); Albumin Level 4.7 g/dL (3.5-5.1); Alkaline Phosphatase 114 U/L (38-126); Anion Gap 17 mmol/L (4-12); Aspartate Amino Transferase 27 U/L (14-36); Bilirubin,Total 0.6 mg/dL (0.2-1.3); Blood Urea Nitrogen 13 mg/dL (7-17); Calcium 8.8 mg/dL (8.4-10.2); Carbon Dioxide 20 mmol/L (22-30); Chloride 103 mmol/L (98-107); Estimated CRCL calculation 125 ml/min; Estimated Glomerular Filt Rate > 60; Glucose 132 mg/dL (65-110); Lipase 67 U/L (23-300); Potassium 3.9 mmol/L (3.4-5.0); Sodium 140 mmol/L (137-145); Total Protein 8.6 g/dL (6.3-8.2)
[2025-02-23 09:17] LABS: Amphetamine Screen Urine Negative (Negative); Barbiturate Screen Urine Negative (Negative); Benzodiazepines Screen Urine Negative (Negative); Cannabinoid Screen Urine Negative (Negative); Cocaine Screen Urine Negative (Negative); Methadone Screen Urine Negative (Negative); Opiate Screen Urine Negative (Negative); Phencyclidine Screen Urine Negative (Negative)
[2025-02-23 09:40] LABS: Influenza A QL RT-PCR Negative (Negative); Influenza B QL RT-PCR Negative (Negative); RSV RNA, RT-PCR. Negative (Negative); SARS-CoV-2 RNA PCR Negative (Negative)
[2025-02-23] MEDS: LACTATED RINGERS 1,000 ML 999 ML IV CONT (11:22)
--- NOTE | 2025-02-23 12:46 | PC.NURSE ---
Patient not tolerating PO challenge and reports increased diarrhea. Dr Flowers made aware
[2025-02-23] MEDS: METOCLOPRAMIDE HCL INJ 10 MG/2 ML VIAL IV PUSH (12:49)
--- NOTE | 2025-02-23 16:36 | P.HP_ITS ---
H&P: HPI History of Present Illness Date/Time: 02/23/25 16:36 Chief Complaint: Diarrhea Narrative: This is a 35-year-old female history intractable migraines, IBS, on semaglutide presenting for nausea vomiting diarrhea. Symptoms started yesterday around 3:00 p.m.. She has having persistent nausea vomiting. Whenever she vomits she also has diarrhea. She denies fevers chills chest pain difficulty breathing. She has some crampy abdominal pain associated with vomiting and diarrhea. Last dose of semaglutide was 3 days ago. No headaches at this time Review of Systems Review of Systems: the history and physical examination All systems reviewed & are unremarkable except as noted in HPI and below PMFSH Past Medical History Medical History (Updated 02/23/25 @ 13:33 by Polo Flowers MD) Recurrent loss Lumbar stenosis Gastroesophageal reflux disease Chronic low back pain Hx of thrombocytopenia On ASA Diarrhea Overweight Tobacco use Lyme disease of inner ear (~2019) Anemia Depression Back pain UTI (urinary tract infection) IBS (irritable bowel syndrome) Colon polyps Bronchitis Acute tonsillitis Trigeminal neuralgia syndrome Jaw pain Atypical face pain GONZALO positive (~2019) Endometriosis Cholecystectomy planned GERD (gastroesophageal reflux disease) Anxiety Frequent headaches Surgical History Surgical History Hx of cholecystectomy Hx of tonsillectomy History of appendectomy Family History Family History Father Hypertension Family history of cardiovascular disease Mother Hypertension Depression Sibling Depression Grandparent Heart disease Cerebrovascular accident Social History Social History Social History: Lives alone. She has a dog. Denies alcohol or drug use. She does smoke E cigarettes with vaping daily. She is a full code. She nominates her mother to be the individual make medical decisions for her she is unable. Smoking status: Former smoker Second hand tobacco smoke exposure: No Additional smoking assessment comments: Has vaped for 4 years Alcohol intake: never Substance use: never Substance use type: does not use Do You Feel Safe in your Home?: Yes Lack of Transportation: No Lack of Food: Never True Current Housing: I Have Housing Concerned About Future Housing: No Difficulty Paying Gas/Electric Bills: No Difficulty Paying for Meds: No Currently Unemployed: No Education: Bachelor's Degree Difficulty w/ Childcare or Family Care: No Living arrangements: other Additional living arrangements comments: boyfriend Occupation/Education: occupation Gender identity (if verbalized by the patient): Female Sexual Orientation (if Verbalized by the Patient): Straight or Heterosexual Spiritual care concerns: No Meds Home Medications and Allergies Home Medications ?Medication ?Instructions ?Recorded ?Confirmed ?Type omeprazole 40 mg capsule,delayed 40 mg PO BID 11/02/23 02/23/25 History release itqfptyjpx-lqmactrqrxvmm-hblewari 1 tablet PO Q6H PRN Migraine 05/13/24 02/23/25 History 50 mg-325 mg-40 mg tablet Headache cyclobenzaprine 5 mg tablet 10 mg PO DAILY PRN muscle spasm 05/13/24 02/23/25 History hydrocodone 5 mg-acetaminophen 325 1 tablet PO Q4H PRN pain #20 tabs 06/06/24 02/23/25 Rx mg tablet duloxetine 60 mg capsule,delayed 60 mg PO DAILY 12/01/24 02/23/25 History release galcanezumab-gnlm 120 mg/mL 120 mg subcut MONTHLY 12/01/24 02/23/25 History subcutaneous syringe (Emgality) ubrogepant 100 mg tablet (Ubrelvy) 100 mg PO ONCE 12/01/24 02/23/25 History semaglutide (weight loss) 1 mg/0.5 0.5 mg subcut WEEKLY 02/23/25 02/23/25 History mL subcutaneous pen injector Allergies Allergy/AdvReac Type Severity Reaction Status Date / Time No Known Allergies Allergy Verified 02/23/25 07:34 Vital Signs Vital Signs - 24 hr 02/23/25 07:30 02/23/25 07:30 02/23/25 08:51 Temperature 36.4 C L Pulse Rate 148 H 148 H 116 H Respiratory Rate 30 H 24 H Blood Pressure 123/56 L 139/69 Pulse Oximetry 97 99 Oxygen Delivery Room Air 02/23/25 10:45 02/23/25 10:53 02/23/25 10:53 Temperature Pulse Rate 119 H 113 H 126 H Respiratory Rate 25 H Blood Pressure 113/65 125/52 L 119/62 Pulse Oximetry 99 Oxygen Delivery 02/23/25 10:55 02/23/25 12:08 02/23/25 16:24 Temperature Pulse Rate 135 H 118 H 108 H Respiratory Rate 23 H 18 Blood Pressure 117/71 140/77 142/88 H Pulse Oximetry 99 98 Oxygen Delivery Exam Narrative: APPEARANCE: Patient appears uncomfortable Head: atraumatic. EYES: EOMI, NOSE: Atraumatic NECK: Trachea midline RESPIRATORY: No increased rate of breathing CTAB CARDIOVASCULAR: Tachycardic, no peripheral edema ABDOMINAL: Soft nontender no guarding rebound MUSCULOSKELETAl: No obvious deformities NEURO: Alert. Moving 4/4 extremities SKIN:: Warm, dry. Normal color PSYCHIATRIC: Normal affect H&P: Results Labs Labs: Short CBC 02/23/25 Range/Units 07:44 WBC 13.4 H (4.5-10.0) K/mm3 Hgb 15.9 H (12.0-15.0) g/dL Hct 48.1 H (37.0-47.0) % Plt Count 433 H (150-375) k/mm3 BMP 02/23/25 07:44 Sodium 140 Potassium 3.9 Chloride 103 Carbon Dioxide 20 L BUN 13 Creatinine 0.74 Glucose 132 H Calcium 8.8 Liver Function 02/23/25 Range/Units 07:44 Total Bilirubin 0.6 (0.2-1.3) mg/dL AST 27 (14-36) U/L ALT 28 (6-35) U/L Alkaline Phosphatase 114 (38-126) U/L Albumin 4.7 (3.5-5.1) g/dL Urine 02/23/25 Range/Units 07:44 Urine Color Yellow (Yellow) Urine Appearance Cloudy H (Clear) Urine pH 6.0 (5.0-9.0) Ur Specific [place] 1.028 (1.001-1.035) Urine Protein 1+ H (Negative) mg/dL Urine Glucose (UA) Negative (Negative) mg/dL Assessment and Plan Assessment and plan (1) Diarrhea: Code(s): R19.7 - Diarrhea, unspecified Status: Acute Assessment and Plan: IV fluids Metronidazole for possible infection Monitor elctrolytes Plan Admit for observation Full code DVT prophylaxis Lovenox
--- NOTE | 2025-02-23 16:39 | ADMGEN ---
This patient, Jackie Degroot, was admitted to [address] [place] [address] Room 300-01. Patient/family oriented to hospital policies and general routines including ID bracelet, bed and alarms, visiting hours, pain management, procedures, bathroom and other care routines, personal items, smoking policy, room service/diet, and visiting hours. Information on how to activate the Rapid Response Team has been discussed. Patient/Family are encouraged to report perceived risks to care and to ask questions if they do not understand what they are told or what they should do.
[2025-02-23] MEDS: metroNIDAZOLE 500 MG/ISO 100ML 500 MG/100 ML BAG 100 MG IVPB (16:54)
[2025-02-23] MEDS: SODIUM CHLORIDE 0.9% IV 1,000 ML 100 ML IV CONT (16:54)
[2025-02-23 19:41] LABS: Toxigenic C. Diff NEGATIVE (NEGATIVE)
[2025-02-23] MEDS: LOPERAMIDE HCL 2 MG CAPSULE PO (22:14)
[2025-02-24] MEDS: SODIUM CHLORIDE 0.9% IV 1,000 ML 100 ML IV CONT (03:46)
[2025-02-24 06:00] VITALS: BP 113/54; PULSE 100; RESP 20; TEMP 36.4; O2SAT 99
[2025-02-24 06:34] LABS: Basophils Percent Auto 0.3 % (0.2-1.2); Eosinophils Absolute Auto 0.1 K/mm3 (0-0.3); Eosinophils Percent Auto 1.5 % (0-4.4); Hematocrit 38.2 % (37.0-47.0); Hemoglobin 12.2 g/dL (12.0-15.0); Immature Granulocyte Absolute 0.03 K/mm3 (0.00-0.031); Immature Granulocyte Percent A 0.5 % (0-0.5); Lymphocytes Absolute Auto 2.48 K/mm3 (0.9-3.2); Lymphocytes Percent Auto 41.9 % (18.3-44.2); Mean Corpuscular HGB Conc 31.9 g/dl (32-36); Mean Corpuscular Hemoglobin 28.7 pg (26-34); Mean Corpuscular Volume 89.9 fl (80-100); Mean Platelet Volume 9.6 fl (7.4-10.4); Monocytes Absolute Auto 0.7 K/mm3 (0.1-0.6); Monocytes Percent Auto 11.1 % (2.6-8.5); Neutrophils Absolute Auto 2.6 K/mm3 (1.3-6.7); Neutrophils Percent Auto 44.7 % (45.5-73.1); Platelet Count Result 294 k/mm3 (150-375); Red Blood Count 4.25 M/mm3 (4.2-5.4); Red Cell Distribution Width 13.6 % (11.5-14.5); White Blood Count 5.9 K/mm3 (4.5-10.0)
[2025-02-24 07:03] LABS: Alanine Aminotransferase 19 U/L (6-35); Albumin Level 3.4 g/dL (3.5-5.1); Alkaline Phosphatase 81 U/L (38-126); Anion Gap 7 mmol/L (4-12); Aspartate Amino Transferase 23 U/L (14-36); Bilirubin,Total 0.3 mg/dL (0.2-1.3); Blood Urea Nitrogen 3 mg/dL (7-17); Calcium 8.1 mg/dL (8.4-10.2); Carbon Dioxide 23 mmol/L (22-30); Chloride 109 mmol/L (98-107); Estimated CRCL calculation 155 ml/min; Estimated Glomerular Filt Rate > 60; Glucose 95 mg/dL (65-110); Potassium 3.5 mmol/L (3.4-5.0); Sodium 139 mmol/L (137-145); Total Protein 6.1 g/dL (6.3-8.2)
[2025-02-24] MEDS: ENOXAPARIN 40 MG/0.4 ML SYRINGE SUB-Q (08:37)
[2025-02-24] MEDS: ACETAMINOPHEN 500 MG TABLET 1000 MG PO (08:37)
--- NOTE | 2025-02-24 09:08 | P.DS_ITS ---
DS: Admitting Diagnosis Discharge Date 02/24/2025 Admitting Diagnosis Diarrhea DS: Discharge Diagnosis Discharge Diagnosis (1) Diarrhea: Code(s): R19.7 - Diarrhea, unspecified Status: Acute Assessment and Plan: IV fluids Metronidazole for possible infection Monitor elctrolytes Plan Admit for observation Full code DVT prophylaxis Lovenox DS: Summary Hospital Course Reason for hospitalization: Diarrhea Hospital Course: 35 years old female with the admitted complained of having generalized weakness and diarrhea. Patient was given Flagyl. She was given IV fluids. Electrolytes were replaced. Today patient is feeling better. Patient discharged home in stable condition. Patient did not have any complication during the stay in the hospital. Follow-up with primary care schedule. Status at Discharge Cognitive/behavioral status at discharge: Stable Time Spent with Patient Time attestation: 30 minutes Total time spent providing and/or coordinating discharge services: Exam Narrative: APPEARANCE: Patient appears uncomfortable Head: atraumatic. EYES: EOMI, NOSE: Atraumatic NECK: Trachea midline RESPIRATORY: No increased rate of breathing CTAB CARDIOVASCULAR: Tachycardic, no peripheral edema ABDOMINAL: Soft nontender no guarding rebound MUSCULOSKELETAl: No obvious deformities NEURO: Alert. Moving 4/4 extremities SKIN:: Warm, dry. Normal color PSYCHIATRIC: Normal affect DS: Data Data Completed and Pending Labs on day of discharge: Labs from last 24 hours 02/24/25 02/23/25 02/23/25 05:46 18:27 08:52 WBC 5.9 RBC 4.25 Hgb 12.2 D Hct 38.2 MCV 89.9 MCH 28.7 MCHC 31.9 L RDW 13.6 Plt Count 294 MPV 9.6 Immature Gran % (Auto) 0.5 Neut % (Auto) 44.7 L Lymph % (Auto) 41.9 [place] % (Auto) 11.1 H Eos % (Auto) 1.5 Baso % (Auto) 0.3 Lymph # (Auto) 2.48 [place] # (Auto) 0.7 H Eos # (Auto) 0.1 Baso # (Auto) 0.0 Abs Immat Gran (auto) 0.03 Absolute Neuts (auto) 2.6 Absolute Nucleated RBC 0.000 Nucleated RBC % 0.0 Sodium 139 Potassium 3.5 Chloride 109 H Carbon Dioxide 23 Anion Gap 7 BUN 3 L D Creatinine 0.59 L Estim Creat Clear Calc 155 Estimated GFR > 60 Glucose 95 Calcium 8.1 L Total Bilirubin 0.3 AST 23 ALT 19 Alkaline Phosphatase 81 Total Protein 6.1 L Albumin 3.4 L Urine Opiates Screen Urine Methadone Screen Ur Barbiturates Screen Ur Phencyclidine Scrn Ur Amphetamine Screen U Benzodiazepines Scrn Urine Cocaine Screen U Cannabinoids Screen C. difficile (PCR) Negative Influenza A (RT-PCR) Negative Influenza B (RT-PCR) Negative RSV (RT-PCR) Negative SARS-CoV-2 RNA (RT-PCR) Negative 02/23/25 07:43 WBC RBC Hgb Hct MCV MCH MCHC RDW Plt Count MPV Immature Gran % (Auto) Neut % (Auto) Lymph % (Auto) [place] % (Auto) Eos % (Auto) Baso % (Auto) Lymph # (Auto) [place] # (Auto) Eos # (Auto) Baso # (Auto) Abs Immat Gran (auto) Absolute Neuts (auto) Absolute Nucleated RBC Nucleated RBC % Sodium Potassium Chloride Carbon Dioxide Anion Gap BUN Creatinine Estim Creat Clear Calc Estimated GFR Glucose Calcium Total Bilirubin AST ALT Alkaline Phosphatase Total Protein Albumin Urine Opiates Screen Negative Urine Methadone Screen Negative Ur Barbiturates Screen Negative Ur Phencyclidine Scrn Negative Ur Amphetamine Screen Negative U Benzodiazepines Scrn Negative Urine Cocaine Screen Negative U Cannabinoids Screen Negative C. difficile (PCR) Influenza A (RT-PCR) Influenza B (RT-PCR) RSV (RT-PCR) SARS-CoV-2 RNA (RT-PCR) Discharge Plan Discharge Attending physician on discharge: Robbi Haq Discharging Clinician: Robbi Haq Patient Disposition: Home Activity: as tolerated Diet: as tolerated Patient Instructions: Antibiotic Form Patient Language: Estonian Stand Alone Forms: General Discharge Information Follow-up/Referrals: Liz Carrasco APRN [Primary Care Provider] - Discharge Medications: New metronidazole 500 mg tablet 500 mg PO Q12H 7 Days Qty: 14 0RF Continued omeprazole 40 mg capsule,delayed release(DR/EC) 40 mg PO BID Emgality Syringe 120 mg/mL syringe 120 mg subcut MONTHLY Ubrelvy 100 mg tablet 100 mg PO ONCE Rx Instructions: as a single dose; may repeat once in >=2 hours after first dose if needed duloxetine 60 mg capsule,delayed release(DR/EC) 60 mg PO DAILY kjmovxurvu-mkktvnlfqvzxv-lypj 50-325-40 mg Tablet 1 tablet PO Q6H PRN (Reason: Migraine Headache) cyclobenzaprine 5 mg tablet 10 mg PO DAILY PRN (Reason: muscle spasm) hydrocodone-acetaminophen 5-325 mg tablet 1 tablet PO Q4H PRN (Reason: pain) Qty: 20 0RF semaglutide (weight loss) 1 mg/0.5 mL pen injector 0.5 mg subcut WEEKLY Date of admission: 02/23/25 13:37 Primary Care Provider: Liz Carrasco Admitting Provider: Robbi Haq Attending physician on admission: Robbi Haq Condition: Stable
== END 2025-02-24 10:50 | disposition home or self-care (01) ==
LOC: ANHED 13:33 → ANH3MEDSUR 15:23
PROVIDERS: Admitting Provider Internal Medicine; Emergency Provider Emergency Medicine; PCP Nurse Practitioner Family; Visit Provider Internal Medicine
DX: R19.7 Diarrhea, unspecified (principal); R53.1 Weakness; G43.919 Migraine, unspecified, intractable, without status migrainosus; K58.9 Irritable bowel syndrome, unspecified; K21.9 Gastro-esophageal reflux disease without esophagitis; M48.061 Spinal stenosis, lumbar region without neurogenic claudication; F17.210 Nicotine dependence, cigarettes, uncomplicated; F17.290 Nicotine dependence, other tobacco product, uncomplicated; F32.A Depression, unspecified; Z20.822 Contact with and (suspected) exposure to COVID-19; Z79.85 Long-term (current) use of injectable non-insulin antidiabetic drugs; Z79.899 Other long term (current) drug therapy; Z90.49 Acquired absence of other specified parts of digestive tract
CPT/HCPCS: 36415; 74177; 80053; 80307; 81001; 81025; 83690; 85025; 87045; 87427; 87449; 87493; 87637; 93005; 96361; 96372; 96374; 96375; 96376; 99285; A9270; J1630; J1650; J1836; J2405; J2765; J7030; J7120; Q9967

== ENCOUNTER 2025-04-20 07:20 | Outpatient (CLI) | payer OTHER, SELFPAY ==
--- OUTSIDE RECORDS SUMMARY | 2024-09-21 12:30 | XMS_ITS ---
Author Organization [facility] ([address]) Address [address] [place] [address] Care Team Providers Care Help Desk Administrator Name Role Phone Liz Bowers Primary Care Provider Dr. Tony Spain Unavailable [phone] Gretchen Ye Unavailable Unavailable Kasie Dee Unavailable [phone] Allergies No Known Allergies REASON FOR VISIT Headache follow-up Medications Medication SIG (Take, Route, Frequency, Duration) Notes Start Date End Date Status Lovenox 30 MG/0.3ML 0.3 mL Injection every 12 hrs Not-Taking Omeprazole 20 MG 1 cap(s) orally Qday Not-Taking Fexofenadine HCl 180 MG 1 tab(s) orally once a day; Duration: 30 day(s) 07/08/2017 Not-Taking Ambien 5 MG 1 tab(s) orally once a day (at bedtime) Not-Taking Sulfamethoxazole-Trim ethoprim 800-160 MG 1 tab(s) orally 2 times a day 07/08/2017 Not-Taking CONTROL PILL 1 TABLET BY MOUTH DAILY *Please review for potential replacement for e-prescription and drug interaction check* Not-Taking Ubrelvy 100 MG 1 tablet Orally twice a day; Duration: 30 days As needed for migraine 07/06/2024 Active Hrblzbudbw-KPJT-Lwshg ine 50-325-40 MG 1-2 caps orally a day; Duration: 30 days As needed 07/06/2024 Active Ajovy 225 MG/1.5ML 1 injection Subcutaneous once a month 06/14/2024 Active Cyclobenzaprine HCl 10 MG 1 tab(s) orally once a day 01/20/2023 Active Omeprazole 40 MG 1 cap(s) orally once a day PRN Active Fluticasone Propionate 50 MCG/ACT 2 spray(s) intranasally once a day; Duration: 30 day(s) 07/08/2017 Active Rizatriptan Benzoate 10 MG 1 tab(s) orally bid prn; Duration: 30 days 01/20/2023 Not-Taking NURTEC ODT 75 MG 1 TAB(S) ORALLY ONCE PRN; Duration: 30 DAY(S) *Please review for potential replacement for e-prescription and drug interaction check* Not-Taking Tylenol 325 MG 2 tab(s) orally every 4 hours Active Meloxicam 15 MG 1 tab(s) orally once a day; Duration: 30 day(s) 01/20/2023 Not-Taking Aspirin 81 MG 1 tab(s) chewed once a day; Duration: 30 day(s) Not-Taking Melatonin 5 MG 1 cap(s) orally once a day (at bedtime) Not-Taking Medrol 4 MG as directed Not-Ta [place] Amitriptyline HCl 25 MG 1 tab(s) orally once a day (at bedtime) Not-Taking 27-1 MG 1 tablet Orally Once a day Not-Taking Social History Tobacco Use: Social History Observation Description Date Details (start date - stop date) Current Smoker NA - NA Tobacco Control (Standard) Question Answer Notes Tobacco use: Current smoker Encounters Encounter Location Date Provider Diagnosis [facility] [address] [address] 09/21/2024 Kasie Dee Chronic migraine without aura, not intractable, without status migrainosus G43.709 and Myalgia, unspecified site M79.10 Assessments Encounter Date Diagnosis (ICD Code) Assessment Notes Treatment Notes Treatment Clinical Notes Section Notes 09/21/2024 Chronic migraine without aura, not intractable, without status migrainosus (ICD-10 - G43.709) 09/21/2024 Myalgia, unspecified site (ICD-10 - M79.10) Plan Of Treatment Next Appt Details Follow Up: , Reason: Evaluat ion and Management Progress Notes * Jackie THAKURDOB: 2 (35 yo F)Acc No.[id number]:09/21/2024 Progress Notes Patient: Jackie IZAGUIRRE Provider: Jose Angel Dee APRN :1990 A ge:34 Y S ex:Female Date:09/21/2024 Address:[address] [place], [place] [id number] Pcp:Liz Carrasco, [facility] Subjective: * Chief Complaints: * 1 . Headache follow-up. * HPI: * Introduction: HPI: A laurel Thakur, who presented for follow-up for chronic migraine, myalgia. * Initial History: INITIAL VISIT HISTORY: The patient first developed migraine at age 27. Her headaches are described as summarized below in the questionnaire. Migraines are usually bilateral, can be associated with scalp sensitivity, neck pain, left ear tinnitus, nausea, dizziness, light/sound sensitivity, can last for hours to days. She does not describe visual aura or paresthesias. Triggers include caffeine, stress, sometimes menstrual cycle. She has eliminated caffeine, tried to improve her diet, and drinks more water, but feels like it hasn't helped. She has been on several anti-migraine treatments. The most effective treatment has been Qulipta for prevention. For the first 3 months on it, she was only having 1 or 2 migraines/month, which was a significant reduction in migraine frequency by month 3, then had a problem getting the script filled and was off of it for a month and did much worse, now back on it, and it is helping, but not as much as initially, although she has only been back on it for a couple weeks. Currently, she is in a chronic migraine pattern, with about 20 headache days/month and 8 migraine days/month, previously before Qulipta had at least 12 migraine days/month, previously on Qulipta was down to 1 or 2 migraines/month. LAST VISIT HISTORY: L ast visit was on 05/11/2024 for Botox injection. She resumed Ajovy and says that it has not been as effective as it was in the past. She stopped Ajovy due to and gave one month ago. She took her first post- Ajovy shot 3 weeks ago. She reports that her migraines have been more frequent and intense since the of her child. She is having 3-4 migraines per week and a dull headache every day. She has had more stress and less sleep since giving , which was expected. She was given a loading dose of Emgality prior to her and said that it worked well. Unfortunately, Emgality is not covered by her insurance and a prescription was started for Ajovy instead. Fioricet and Ubrelvy have been reliable rescue medications. * Previous Impression & Plan: Notes P revious Diagnoses: 1 . Chronic migraine without aura, not intractable, without status migrainosus - G43.709 (Primary) 2 . Myalgia, unspecified site - M79.10 P revious Recommendations: 1 . Abortive: Resume Fioricet and Ubrelvy. Preventive: Continue Ajovy. Consider switching to Emgality or Aimovig if migraines become more frequent or do not improve, as this was previously more effective. Insurance plan does not cover Emgality. Continue Botox. Migraines are likely more frequent and intense from recent and caring for an . 2 . Continue chiropractic treatment. * Interval History: Notes P harmacologic Treatment: C urrent abortive treatment: F ioricet, Ubrelvy 100 mg (resumed after ) P revious abortive treatment: R izatriptan (ineffective), Sumatriptan (ineffective) C urrent preventive treatment: B otox, Ajovy (resumed May 2024 after of child) P revious preventive treatment:Qulipta, Propranolol, Metoprolol, Verapamil, Amitriptyline, Venlafaxine (all of these medication trials were > 2 months and were ineffective or inadequately effective) M edication overuse: Not present O ther modalities: Chiropractic, Physical Therapy H eadache Frequency: I nitial/baseline headache/migraine days/month: L ast visit headache/migraine days/month: 28/08-16 C urrent headache/migraine days/month: / H eadache Scales: H IT-6: Current score: . Prior score: 76 I nterval History: L ast visit was on 08/17/2024 for Botox injection. * Hi, W e need documentation for Ubrelvy PA renewal. Thanks- . * ROS: C ONSTITUTIONAL: night sweats N o. w eight gain N o. l oss of appetite Y es. f ever N o. w eakness N o. w eight loss N o. f atigue?Yes. E NT: cold Y es. c ough N o. e pistaxis N o. h earing loss N o. c hange in voice Y es. s ore throat N o. r inging in ears?Yes. s inus pain Y es. R ESPIRATORY: shortness of breath N o. c hest pain N o. c hest congestion N o. c ough N o. O PHTHALMOLOGY: itching N o. s ensitivity to light Y es. s welling of the eyelids Y es. r edness Y es. d iminished vision N o. e ye irritation Y es. d rainage from eyes N o. b lurring of vision N o. s easonal eye sx?No. l oss of vision N o. E NDOCRINOLOGY: fatigue Y es. p olydipsia N o. p olyuria N o. w eight loss N o. s leep disturbance Y es. c old intolerance Y es. h eat intolerance Y es. d iabetes N o. C ARDIOLOGY: dizziness N o. c hest pain N o. p alpitations?Yes. l eg edema N o. s hortness of breath N o. G ASTROENTEROLOGY: nausea N o. i ndigestion Y es. h emorrhoids?No. v omiting N o. d ysphagia N o. a bdominal pain Y es. d iarrhea?Yes. c onstipation N o. b lood in stool N o. U ROLOGY: difficulty urinating N o. b lood in urine N o. f requent urination N o. u rinary incontinence N o. v oiding dysfunction N o.?recurrent UTI N o. D ERMATOLOGY: rash N o. m ole N o. l umps N o. d ry or sensitive skin Y es. h meena (urticaria) N o. a cne N o. s kin cancer N o. N EUROLOGY: syncope N o. h eadache Y es. t ingling numbness?Yes. s eizures N o. i nsomnia Y es. m robb loss N o. d izziness?No. g ait abnormality N o. M USCULOSKELETAL: gout N o. j oint stiffness Y es. l eg cramps?No. j oint pain Y es. j oint swelling N o. s ciatica Y es. o steoporosis N o. f racture N o. c arpal tunnel N o. P SYCHOLOGY: depression Y es. s uicidal ideation N o. e ating disorder N o. m ental or physical abuse N o. a nxiety Y es. * Medical History: C hronic pain syndrome, Gastro-esophageal reflux disease without esophagitis, Allergic rhinoconjunctivitis, Allergies, seasonal, Anxiety disorder, Arthritis, Back pain, Degenerative Disc Disease, Depression, Esophageal reflux, Irritable bowel syndrome, Neck pain, Obesity, Migraine, Cough, Chronic rhinitis, Gastro-esophageal reflux disease with esophagitis, Insomnia, unspecified. * Surgical History: L umbar facet denervation 2022, Tonsillectomy , Cholecystectomy , Appendectomy . * Hospitalization/Major Diagno stic Procedure: S ee above history . * Family History: F ather: alive, Yes. M other: alive, Yes. P aternal Grand Father: . P aternal Grand Mother: Yes. M aternal Grand Father: . M aternal Grand Mother: alive, Yes.?Siblings: Yes. C hildren: No. 1 sister(s) - healthy. . mother-hypertension, anxiety and depression father- hypertension. * Social History: M arital Status What is your marital status? m arried A lcohol Screening Do you ever drink alcoholic beverages? Y es C affeine: Yes. S moking Have you ever smoked tobacco: f ormer smoker Additional Findings: Tobacco User L ight cigarette smoker ((1-9 cigs/day) How old were you when you started smoking? 1 5 How many cigarettes a day did you smoke? 6 to 10 Are you a : c urrent smoker R ecreational drug use Have you ever used recreational drugs? N o D etails on consumption of certain products? Do you regularly consume products with aspartame; Equal or NutraSweet? N o Do you regularly consume products with artificial coloring??No Have you ever noticed worsening of your rash with these food items? N o E xercise What kind(s) of exercise do you perform regularly? w alking How often do you perform this exercise? d aily A re any of the following personal care products containing fragrance, dye or preservatives used regularly? Shampoo: Y es Conditioner: Y es Soap: Y es Laundry Detergent: Y es Fabric Softener: Y es Deodorant: Y es Perfume, cologne, after shave: Y es Air freshners or other scented products: Y es Hair coloring dyes or rinses: N o O ccupation Are you currenly employed? Y es Employment status? 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 N o How much work have you missed due to breathing difficulty within the past year? 1 week Please describe the effect of your illness on your job p oor concentration,poor performance,decreased enjoyment Do you have any pending or planned legal action against your current or former employer which pertains to your medical illness? N o Do you anticipate that your evaluation will be used in any legal action against your current employer or former employer? N o Have you had any job with high exposure to fumes, chemicals, dust or other noxious substances? N o Are you currently a student? Y es E nvironmental History Living environment: w ith relatives Where is the home located? [place] How long have you lived there? 5 years or more How many people live in the home? 2 H ome description Basement: Y es Any water damage in basement? Y es Smokers in the home? N o Smokers outside the home? Y es Air Conditioning? Y es Central Air? Y es Forced air heating? N o Fireplace? N o Wood burning stove? N o Do you vacuum the home? Y es Air purification systems? N o Pillow and mattress dust-proof encasings? N o Do you use a humidifier? Y es Whole house or room? r oom humidifier Does it have a humidistat? N o Is it used year-round, seasonal, or as needed? a s needed Is the humidifier cleaned regularly? Y es Do you own any pets? N o Fabric softeners used? Y es Plants in the home? Y es Where are they kept? k itchen,outside Is there carpeting in your bedroom? Y es Do you have [id number] carpeting? Y es Do you sleep with quilts or blankets or a duvet? Y es What material? n atural fiber (e.g. cotton) T obacco Control (Standard) Tobacco use: C urrent smoker * Medications: T aking Fluticasone Propionate 50 MCG/ACT Suspension 2 spray(s) intranasally once a day , Taking Omeprazole 40 MG Capsule Delayed Release 1 cap(s) orally once a day PRN , Taking Tylenol 325 MG Tablet 2 tab(s) orally every 4 hours , Taking Cyclobenzaprine HCl 10 MG Tablet 1 tab(s) orally once a day , Taking Ajovy 225 MG/1.5ML Solution Auto-injector 1 injection Subcutaneous once a month , Taking Pidfcqkknp-RYSJ-Slilrsdl 50-325-40 MG Capsule 1-2 caps orally a day As needed, Taking Ubrelvy 100 MG Tablet 1 tablet Orally twice a day As needed for migraine, Not-Taking/PRN CONTROL PILL 1 TABLET BY MOUTH DAILY , Notes to Pharmacist: *Please review for potential replacement for e-prescription and drug interaction check*, Not-Taking/PRN Sulfamethoxazole-Trimethoprim 800-160 MG Tablet 1 tab(s) orally 2 times a day , Not-Taking/PRN Ambien 5 MG Tablet 1 tab(s) orally once a day (at bedtime) , Not-Taking/PRN Fexofenadine HCl 180 MG Tablet 1 tab(s) orally once a day , Not-Taking/PRN Omeprazole 20 MG Capsule Delayed Release 1 cap(s) orally Qday , Not-Taking/PRN Lovenox 30 MG/0.3ML Solution Prefilled Syringe 0.3 mL Injection every 12 hrs , Not-Taking/PRN 27-1 MG Tablet 1 tablet Orally Once a day , Not-Taking/PRN Amitriptyline HCl 25 MG Tablet 1 tab(s) orally once a day (at bedtime) , Not-Taking/PRN Medrol 4 MG Tablet Therapy Pack as directed , Not-Taking/PRN Melatonin 5 MG Capsule 1 cap(s) orally once a day (at bedtime) , Not-Taking/PRN Aspirin 81 MG Tablet Chewable 1 tab(s) chewed once a day , Not-Taking/PRN Meloxicam 15 MG Tablet 1 tab(s) orally once a day , Not-Taking/PRN NURTEC ODT 75 MG TABLET, DISINTEGRATING 1 TAB(S) ORALLY ONCE PRN , Notes to Pharmacist: *Please review for potential replacement for e-prescription and drug interaction check*, Not- Taking/PRN Rizatriptan Benzoate 10 MG Tablet Disintegrating 1 tab(s) orally bid prn * Allergies: N .K.D.A. Objective: * Vitals: * Examination: G eneral examination: General appearance: P leasant, well-developed, well-nourished. HEENT: P upils equal, round and reactive to light.. Neurologic exam: A lert and oriented x 4. Fluent speech. Intact recall, fund of knowledge. Appropriate affect. Facial movements normal and symmetric.? Motor 5/5 strength in all extremities. Gait normal.. Back: N o cervical or periscapular trigger points. Normal cervical and lumbar ROM. Influenza Vaccine not administered R brandi: P atient Reason T ype of Patient Reason: R efused Assessment: * Assessment: 1. C hronic migraine without aura, not intractable, without status migrainosus - G43.709 (Primary) 2 . M yalgia, unspecified site - M79.10 Plan: * Treatment: * Procedure Codes: 9 6160 PT-FOCUSED HLTH RISK ASSMT, G8427 DOC MEDS VERIFIED W/PT OR RE, G2211 Complex e/m visit add on * Follow Up: R brandi: Evaluation and Management * Billing Information: * Visit Code: 52451 Office Visit, Est Pt., Level 4. Modifiers: Office Visit, Est Pt., Level 3. Modifiers: Office Visit, Est Pt., Level 5. Modifiers: 25 * Procedure Codes: 05017 PT-FOCUSED HLTH RISK ASSMT. G8427 DOC MEDS VERIFIED W/PT OR RE. G2211 Complex e/m visit add on. * Electronic signature of Roxy coronafab Dee , BARBARA-Madhav on 04/20/2025 at 07:23 AM CDT Sign off status: Pending * Provider: Jose Angel Dee APRN Date: 0 09/21/2024 Generated for Ishmaeli anahi/Famaryg/eTransmitting on: 0 04/20/2025 07:23 AM CDT History and Physical Notes * HPI (History of Present Illness) Category Sub-Category Detail Notes Category Not es *Introduction HPI: Jackie Bluelyndsey, who presented for follow-up for chronic migraine, myalgia *Initial History INITIAL VISIT HISTORY: The patient first developed migraine at age 27. Her headaches are described as summarized below in the questionnaire. Migraines are usually bilateral, can be associated with scalp sensitivity, neck pain, left ear tinnitus, nausea, dizziness, light/sound sensitivity, can last for hours to days. She does not describe visual aura or paresthesias. Triggers include caffeine, stress, sometimes menstrual cycle. She has eliminated caffeine, tried to improve her diet, and drinks more water, but feels like it hasn't helped. She has been on several anti-migraine treatments. The most effective treatment has been Qulipta for prevention. For the first 3 months on it, she was only having 1 or 2 migraines/month, which was a significant reduction in migraine frequency by month 3, then had a problem getting the script filled and was off of it for a month and did much worse, now back on it, and it is helping, but not as much as initially, although she has only been back on it for a couple weeks. Currently, she is in a chronic migraine pattern, with about 20 headache days/month and 8 migraine days/month, previously before Qulipta had at least 12 migraine days/month, previously on Qulipta was down to 1 or 2 migraines/month. LAST VISIT HISTORY: Last visit was on 05/11/2024 for Botox injection. She resumed Ajovy and says that it has not been as effective as it was in the past. She stopped Ajovy due to and gave one month ago. She took her first post- Ajovy shot 3 weeks ago. She reports that her migraines have been more frequent and intense since the of her child. She is having 3-4 migraines per week and a dull headache every day. She has had more stress and less sleep since giving , which was expected. She was given a loading dose of Emgality prior to her and said that it worked well. Unfortunately, Emgality is not covered by her insurance and a prescription was started for Ajovy instead. Fioricet and Ubrelvy have been reliable rescue medications *Previous Impression & Plan Notes Previous Diagnoses:1. Chroni c migraine without aura, not intractable, without status migrainosus - G43.709 (Primary)2. Myalgia, unspecified site - M79.10Previous Recommendations:1. Abortive: Resume Fioricet and Ubrelvy. Preventive: Continue Ajovy. Consider switching to Emgality or Aimovig if migraines become more frequent or do not improve, as this was previously more effective. Insurance plan does not cover Emgality. Continue Botox. Migraines are likely more frequent and intense from recent and caring for an infant.2. Continue chiropractic treatment *Interval History Notes Pharmacologic Treatment:Current abortive treatment: Fioricet, Ubrelvy 100 mg (resumed after )Previous abortive treatment: Rizatriptan (ineffective), Sumatriptan (ineffective)Current preventive treatment: Botox, Ajovy (resumed May 2024 after of child)Previous preventive treatment:Qulipta, Propranolol, Metoprolol, Verapamil, Amitriptyline, Venlafaxine (all of these medication trials were > 2 months and were ineffective or inadequately effective)Medication overuse: Not presentOther modalities: Chiropractic, Physical TherapyHeadache Frequency:Initial/baseline headache/migraine days/month: Last visit headache/migraine days/month: 28/08-16Current headache/migraine days/month: /Headache Scales:HIT-6: Current score: . Prior score: 76Interval History:Last visit was on 08/17/2024 for Botox injection.Hi,We need documentation for Ubrelvy PA renewal. Thanks- Examination Category Sub-Category Detail Notes Category Not es General examination HEENT: Pupils equal , round and reactive to light. General appearance: Pleasant, well-devel oped, well-nourished Neurologic exam: Alert and oriented x 4. Fluent speech. Intact recall, fund of knowledge. Appropriate affect. Facial movements normal and symmetric. Motor 5/5 strength in all extremities. Gait normal. Back: No cervical or peris capular trigger points. Normal cervical and lumbar ROM Influenza Vaccine not administered Reason:: Allyson ent Reason Type of Patient Reason:: Refused
--- OUTSIDE RECORDS SUMMARY | 2025-04-19 15:00 | XMS_ITS | Encounter Summary ---
Author Organization [employer] Address [address] [place] [address] Care Team Providers Care Compliance Clerk Name Role Phone Unavailable Primary Care Provider Unavailabl e Reason for Referral * Eval and Treat (Routine) - Open Specialty Diagnoses / Procedures Referred By Contac t Referred To Contact Neurology Diagnoses Chronic migraine without aura without status migrainosus, not intractable Procedures [place] OFFICE/OUTPATIENT ESTABLISHED MOD MDM 30 MIN [place] OFFICE/OUTPATIENT NEW MODERATE MDM 45 MINUTES Andry Lincoln)[place] [address] [address] Phone: tel: [place]: [place] [address] [address] Phone: tel: fax: Referral ID Status Reason Start Date Expiration Date Visits Re quested Visits Authorized [id number] Open 04/19/2025 04/19/2026 1 1 * Eval and Treat (Routine) - Open Specialty Diagnoses / Procedures Referred By Contac t Referred To Contact Diagnoses [place]of[place]ial [place] [address] [address] Phone: tel: fax: Referral ID Status Reason Start Date Expiration Date Visits Re quested Visits Authorized [id number] Open 04/19/2025 04/19/2026 6 6 Reason for Visit * Reason Comments Consult headache Encounter Details Date Type Department Care Team (Late st Contact Info) Description 04/19/2025 3:00 PM CDT Office Visit [facility] Neurology [facility] [address] [place] [address] Andry Lincoln (Director Trading), COMPLIANCE ADVISOR [address] [facility] [address] [place] [address] Chronic migraine without aura without status migrainosus, not intractable (Primary Dx); Myofascial neck pain Social History Tobacco Use Types Packs/Day Years Used Date Smoking Tobacco: Former Cigarettes Smokeless Tobacco: Never Alcohol Use Standard Drinks/Week Comments Never 0 (1 standard drink = 0.6 oz pur e alcohol) Comments Unknown Sex and Gender Information Value Date Recorded Sex Assigned at Not on file Legal Sex Female 9:02 AM CDT Gender Identity Not on file Sexual Orientation Not on file documented as of this encounter Last Filed Vital Signs Vital Sign Reading Time Taken Comments Blood Pressure 137/96 04/19/2025 2:57 PM CDT Pulse 119 04/19/2025 2:57 PM CDT Temperature - - Respiratory Rate - - Oxygen Saturation 97% 04/19/2025 2:52 PM CDT Inhaled Oxygen Concentration - - Weight 114.8 kg (253 lb) 04/19/2025 2:52 PM CDT Height 172.7 cm (5' 8) 04/19/2025 2:52 PM CDT Body Mass Index 38.47 04/19/2025 2:52 PM CDT documented in this encounter Progress Notes * Andry Lincoln (Director Trading), COMPLIANCE ADVISOR - 04/19/2025 3:05 PM CDT Consult Date: 04/19/2025 Referring Physician: No ref. provider found Reason for Consult: I have been asked to see the patient in neurological consultation to render advice and opinion regarding headaches. History of Present Illness: Jackie Degroot is a 35 y.o. female with a past medical history of GERD, back pain , and migraineswho presents for management of migraines. She is a former patient of Dr. Perez from [facility]. She was previously taking Botox and Emgality for preventative treatment and had good control on thiscombination. Prior to Botox/Emagality, she experienced 30 headache days per month and 16-20 migraine days per month. While on Botox and Emgality, she was only having 2-4 headache days per month with 2-3 migraine days per month. She thought she was doing really well and stopped Botox, her last injection was about 10 months ago. She is now experiencing 15-20 headache days per month and 8-10 migraine days per month. She is currently taking Ubrevly for abortive and this is ineffective. Headache History: -Headache Onset: -Headache Description: Prodrome: neck tension. Aura: none. Headache phase: headache starts as mild to moderate tension in shoulders/posterior head, tension in jaws, and ears, then progresses to moderate-severe head pain that feels band like tension around head with throbbing generalized head pain with associated sensitivity to light, sound, nausea, with occasional vomiting with more severe migraine. Postdrome: fatigue. -Headache Triggers: menses -Headache Frequency: The patient is currently experiencing 15-20 Headache days/month and 8-10 Migraine days/month. 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 -Hormones: menses, worse during -Medication Overuse: Not present -Caffeine Overuse: Not present -Fluid intake: Adequate Current/Prior Treatment: -Current abortive therapy: Ubrevly (sometimes effective) -Previous failed abortive therapy: Sumatriptan, Rizatriptan, Fioricet (ineffective), Nurtec ( -Current preventive therapy: Emaglity (partially effective, worked well with botox -Previous failed preventive therapy: Duloxetine (ineffective), amitriptyline (ineffective), topiramate (ineffective). Ajovy (partially effective) -Other treatment modalities: Past Medical History: Past Medical History: Diagnosis Date Back pain GERD without esophagitis Headache Past Surgical History: Procedure Laterality Date HX APPENDECTOMY HX BACK SURGERY 06/2024 Dr. Irizarry HX GALLBLADDER SURGERY Medications: Current Outpatient Medications Medication Instructions acetaminophen (TYLENOL) 1,000 mg qdmbcyomae-geqxeqbegudgx-mlmnjwjk (FIORICET) 50-325-40 mg tablet TAKE 1 TO 2 TABLET BY MOUTH ONCE DAILY NEEDED FOR PAIN cyclobenzaprine (FLEXERIL) 10 mg tablet DAILY AT BEDTIME DULoxetine (CYMBALTA) 60 mg Capsule, Delayed Release(E.C.) take one capsule by mouth at bedtime Emgality Pen 120 mg/mL Pen Injector fluticasone propionate (FLONASE) 50 mcg/spray [place], Suspension nasal inhaler 1 [place], DAILY omeprazole (PriLOSEC) 40 mg Capsule, Delayed Release(E.C.) 1 Capsule, DAILY Ubrelvy 100 mg tablet TAKE 1 TABLET BY MOUTH TWICE DAILY NEEDED FOR MIGRAINE Allergies: No Known Allergies Social History: Social History Tobacco Use Smoking status: Former Types: Cigarettes Smokeless tobacco: Never Vaping Use Vaping status: Former Substance Use Topics Alcohol use: Never Drug use: Never Family History: No family history on file. Review of Systems: Review of Systems Constitutional: Positive for fatigue. HENT: Photophobia, osmophobia Eyes: Positive for photophobia. Respiratory: Negative. Cardiovascular: Negative. Gastrointestinal: Positive for nausea. Endocrine: Negative. Genitourinary: Negative. Musculoskeletal: Negative. Allergic/Immunologic: Negative. Neurological: Positive for headaches. Hematological: Negative. Psychiatric/Behavioral: Negative. Exam: BP (!) 137/96 (BP Location: Left arm, Patient Position (BP): Sitting, BP Cuff Size: Adult) Pulse (!) 119 Ht 5' 8 (1.727 m) Wt 114.8 kg (253 lb) SpO2 97% BMI 38.47 kg/m?? General: Alert, well-appearing, no apparent distress. Head: Atraumatic, no obvious abnormality. No tenderness over greater occipital or supraorbital nerves bilaterally. Eyes: Midline, non-icteric, no conjunctival injection. No ptosis. No papilledema by fundoscopy. Ears: Pinnae normal. Tympanic membranes appear normal. Nose: No discharges, mucous membrane normal. Mouth: No bleeding per gums. Lungs: Normal respiratory effort. Cardiac: RRR, no murmurs or bruits. Spine: Neck supple. Normal C-spine ROM. Positive for left cervical paraspinal/ trapezius/ and rightparascapular myofascial trigger points. No scoliosis. Extremities: No peripheral edema or cyanosis. Skin: No rash, no petechiae noted on exposed skin. Psychiatric: Normal affect. Neurological exam Mental Status: Awake, Alert. Oriented x 4. Follows commands, has normal fund of knowledge, attention, memory/recall, fluency, comprehension and insight. Cranial Nerves: PERRL. Visual sharma are full without hemineglect. Extraocular movements are full. No nystagmus. Facial sensation intact V1-V3. Facial movement intact, symmetric. Hearing intact to conversation. Palate elevates symmetrically. Shoulder shrug symmetric. Tongue midline. Motor: No pronator drift. Strength is symmetric and normal 5/5 proximally and distally. Sensation: Intact to light touch, pin, and vibration in all extremities. Reflexes: DTRs 2+ and symmetric throughout. Bilateral flexor plantar response. Coordination/Cerebellar: No tremors, ataxia or dysmetria. Gait: Normal casual gait. Negative Romberg. Intact tandem. Data Review: Labs: no results found Imaging: No results found. Impression: ICD-10-CM ICD-9-CM 1. Myofascial neck pain M54.2 723.1 AMB REFERRAL TO PHYSICAL THERAPY 2. Chronic migraine without aura without status migrainosus, not intractable G43.709 346.70 Comments: Patient with chronic migraine presents for migraine management. Former patient of Dr. Perez's from [facility]. Prior to Botox/Emagality, she experienced 30 headache days per month and 16-20 migraine days per month. While on Botox and Emgality, she was only having 2-4 headache days per month with 2-3 migraine days per month. She thought she was doing really well and stopped Botox, herlast injection was about 10 months ago. She is now experiencing 15-20 headache days per month and 8-10 migraine days per month. She is currently taking Ubrevly for abortive and this is ineffective. This patient meets diagnostic criteria for chronic migraine (history of migraine, > 15 headache days/month with > 8 migraine days/month, headache duration > 4 hours on affected days, patternpresent for > 3 months) and has failed standard migraine preventive medication with 2+ standard preventive medications and therefore is a good candidate for Botox. Plan: => Abortive treatment plan: Gave sample of Symbravo, please inform if effective. => Preventive treatment plan: Continue Emagality. Refer to Dr. Perez for Botox => PT for myofascial pain. => Educated the patient on migraine lifestyle recommendations. I recommended the following measures: avoid known triggers of migraine, drink 100 fluid ounces of non-caffeinated fluid daily, limit caffeine consumption to 2 servings/day, sleep 7-8 hours/night and address any sleep concerns with usand report symptoms of snoring or fatigue; healthy management of stress; avoid treating headaches more than 2 days/week with abortive medication unless approved in the treatment plan; can take Riboflavin 400 mg daily and Magnesium glycinate 500 mg daily as supplements; keep scheduled follow-up appointments. => Will call to schedule visit when botox approved Thank you for allowing me to participate in the care of this patient. Andry Lincoln NP Neurology documented in this encounter Plan of Treatment Upcoming Encounters Date Type Department Care Team (Late st Contact Info) Description 05/07/2025 2:30 PM CDT Office Visit [facility] Oncology and Hematology - [address] [place] [address] Radha Enrique MD [address] [place] [address] Scheduled Referrals Name Type Priority Associated Diagnoses Orde r Schedule AMB REFERRAL TO PHYSICAL THERAPY Outpatient Referral Routine Myofascial neck pain Ordered: 04/19/2025 AMB REFERRAL TO NEUROLOGY Outpatient Referral Routine Chronic migraine without aura without status migrainosus, not intractable Ordered: 04/19/2025 documented as of this encounter Visit Diagnoses Diagnosis Chronic migraine without aura without status migrainosus, not intractable- Primary Chronic migraine without aura, without mention of intractable migraine without mention of status migrainosus Myofascial neck pain documented in this encounter
--- OUTSIDE RECORDS SUMMARY | 2025-04-20 07:23 | XMS_ITS | Encounter Summary ---
Author Organization [facility] Address [address] [address] Care Team Providers Care Covered Buckle Assembler Name Role Phone Andree House MD Primary Care Provider Liz Carrasco NP Primary Care Provider + Liz Carrasco DRYING AND WINDING SUPERVISOR Primary Care Provider + Roland Billingsley MD Primary Care Provid er Liz Carrasco NP Primary Care Provider + Liz Carrasco DRYING AND WINDING SUPERVISOR Unavailable [phone] Liz Carrasco NP Unavailable [phone] Encounter Details Date Type Department Care Team (Late st Contact Info) Description 11/26/2016 Orders Only [facility] ProviderDarnell MD [address] [place] [address] Social History Tobacco Use Types Packs/Day Years Used Date Smoking Tobacco: Never Assessed Comments Unknown Sex and Gender Information Value Date Recorded Sex Assigned at Not on file 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 Gender Identity Not on file Sexual Orientation [...] on filedocumented in this encounter Care Teams Covered Buckle Assembler Relationship Specialty Start Date End Date Andree House MD [address] [facility] [address] [place] [address] PCP - General 11/27/16 04/10/20 Liz Carrasco NP [address] [address] PCP - General Nurse Practitioner 04/11/20 06/02/20 Liz Carrasco NP [address] [place] [address] [address] PCP - General 06/03/20 07/23/22 Roland Billingsley MD [address] [place] [address] PCP - General Interventional Cardiology 07/24/2208/31 Liz Carrasco NP [address] [address] PCP - General Nurse Practitioner 09/28/22 Liz Carrasco NP [address] [address] 07/24/22 Lzi Carrasco NP [address] [address] Nurse Practitioner 06/03/20 documented as of this encounter
--- OUTSIDE RECORDS SUMMARY | 2025-04-20 07:23 | XMS_ITS | Clinical Summary ---
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 Gender Identity Not on file Sexual Orientation [...] 3:03 PM CDT Height 172.7 cm (5' 8) 05/10/2024 3:03 PM CDT Body Mass Index 40.14 05/10/2024 3:03 PM CDT Plan of Treatment Health Maintenance Due Date Last Done Comments Cervical Cancer Screening 1992 Depression Screening 1992 Hepatitis C Screening 1992 Varicella Vaccines (1 of 2 - 13+ 2-dose series) 02/01/2005 Regular Well Visit/Exam 18-64 02/01/2010 HPV Vaccines (1 - 3-dose SCDM series) 02/01/2019 DTaP/Tdap/Td Vaccine (8 - Td or Tdap) 03/28/2024 03/28/2014, 12/16/2005, 03/09/1997, Additional history exists Influenza Vaccine (#1) 2025 7, 06/01/2016, 06/26/2014 Hepatitis B Screening Completed 03/15/2002 , 10/07/2001, 08/31/2001 Pneumococcal vaccine <65 Aged Out No longer eligible based on patient's age to complete this topic Insurance [facility] Care Teams Human Services Manager Relationship Specialty Start Date End Date Liz Carrasco NP PCP - General Nurse Practitioner 09/28/22 Liz Carrasco NP 07/24/22 Liz Carrasco NP Nurse Practitioner 06/03/20
--- OUTSIDE RECORDS SUMMARY | 2025-04-20 07:23 | XMS_ITS | Clinical Summary ---
Author Organization [facility] Address [address] [place] [address] Phone Care Team Providers Care Tar Pot Worker Name Role Phone Unavailable Primary Care Provider Unavailabl e Allergies No known active allergies Medications acetaminophen (TYLENOL) 500 mg tablet Take 1,000 mg by mouth. Active DULoxetine (CYMBALTA) 60 mg Capsule, Delayed Release(E.C.) take one capsule by mouth at bedtime 5 Active Emgality Pen 120 mg/mL Pen Injector 5 Active Ubrelvy 100 mg tablet TAKE 1 TABLET BY MOUTH TWICE DAILY NEEDED FOR MIGRAINE 5 Active butalbital-acet aminophen-caffe ine (FIORICET) 50-325-40 mg tablet TAKE 1 TO 2 TABLET BY MOUTH ONCE DAILY NEEDED FOR PAIN 5 Active cyclobenzaprine (FLEXERIL) 10 mg tablet daily at bedtime. 3 Active fluticasone propionate (FLONASE) 50 mcg/spray [place], Suspension nasal inhaler Administer 1 [place] in each nostril daily. Active omeprazole (PriLOSEC) 40 mg Capsule, Delayed Release(E.C.) Take 1 Capsule by mouth daily. 5 Active Active Problems No known active problems Encounters Date Type Department Care Team Description 04/19/2025 3:00 PM CDT Office Visit [facility] Neurology [facility] [address] [place] [address] Andry Lincoln (Baseball Hand Sewer), HAND KISS SETTER Chronic migraine without aura without status migrainosus, not intractable (Primary Dx); Myofascial neck pain 04/17/2025 External Device Data ST[facility] ABSTRACTION Provider, Abstract 04/17/2025 External Device Data STL ABSTRACTION Provider, Abstract 04/03/2025 External Device Data STL ABSTRACTION Provider, Abstract 03/14/2025 External Device Data STL ABSTRACTION Provider, Abstract 03/13/2025 External Device Data STL ABSTRACTION Provider, Abstract 02/13/2025 External Device Data STL ABSTRACTION Provider, Abstract 01/30/2025 External Device Data STL ABSTRACTION Provider, Abstract 01/30/2025 External Device Data STL ABSTRACTION Provider, Abstract 01/30/2025 External Device Data STL ABSTRACTION Provider, Abstract from Last 3 Months Family History Relation Name Status Comments Father Alive Mother Alive Social History Tobacco Use Types Packs/Day Years Used Date Smoking Tobacco: Former Cigarettes Smokeless Tobacco: Never Tobacco Cessation:Counseling Given: Not Answered Alcohol Use Standard Drinks/Week Comments Never 0 [...] Pulse 119 04/19/2025 2:57 PM CDT Temperature 36.4 C (97.5 F) 12/19/2024 10:41 AM CDT Respiratory Rate 16 12/19/2024 10:41 AM CDT Oxygen Saturation 97% 04/19/2025 2:52 PM CDT Inhaled Oxygen Concentration - - Weight 114.8 kg (253 lb) 04/19/2025 2:52 PM CDT Height 172.7 cm (5' 8) 04/19/2025 2:52 PM CDT Body Mass Index 38.47 04/19/2025 2:52 PM CDT Plan of Treatment Upcoming Encounters Date Type Department Care Team (Late st Contact Info) Description 05/07/2025 2:30 PM CDT Office Visit [facility] Oncology and Hematology - [address] [place] [address] Radha Enrique MD [address] [place] [address] Health Maintenance Due Date Last Done Comments HPV/Cotest (21-29) 02/01/2013 HPV VACCINES (1 - 3-dose SCD M series) 02/01/2019 CERVICAL CANCER SCREENING 02/01/2022 HPV/Cotest (30-65) 02/01/2022 PAP SMEAR 02/01/2022 DTAP/TDAP/TD VACCINES (3 - T d or Tdap) 03/28/2024 03/28/2014, 12/16/2005, 03/09/1997, Additional history exists Preventative Visit- Commercial 08/30/2024 INFLUENZA VACCINE (#1) 2025 07/06/2017, 2013 HEPATITIS B VACCINES Completed 03/15/2002, 10/07/2001, 08/31/2001 Insurance CHOICE [id number] CHOICE [id number]
--- OUTSIDE RECORDS SUMMARY | 2025-04-20 07:24 | XMS_ITS | Clinical Summary ---
Author Organization [facility] [employer] Address [address] [place] [address] Care Team Providers Care Home Stereo Equipment Installer Name Role Phone Liz Carrasco TAD-VESSEL SLAGMAN Primary Care Provider Source Comments [facility],non-owned Affiliates and Associated Physician Practices is amultiple site organization consisting of ambulatory clinics and hospital sitesin [place], [place], [place] and [place]. This disclosure is being madepursuant to the Care Everywhere program and may not contain all information available regarding this patient. Last updated 18.[facility] Allergies No known active allergies Medications * Be aware that medications may not be up to date on this document. Alwaysverify current medications with the patient. No known medications Social History Tobacco Use Types Packs/Day Years Used Date Smoking Tobacco: Former Smokeless Tobacco: Never Alcohol Use Standard Drinks/Week Comments Not Currently 0 (1 standard drink = 0.6 oz pur e alcohol) Comments Unknown Sex and Gender Information Value Date Recorded Sex Assigned at Not on file Legal Sex Female 12:21 PM RECOVERY ROOM RN Gender Identity Not on file Sexual Orientation Not on file Plan of Treatment Health Maintenance Due Date Last Done Comments HIV SCREENING 02/01/2007 HEPATITIS C SCREENING 01/28/2010 DTAP/TDAP/TD VACCINES (1 - Tdap) 02/01/2011 HEPATITIS B VACCINE (1 of 3 - 19+ 3-dose series) 02/01/2011 HPV VACCINE (1 - 3-dose SCDM series) 02/01/2019 COVID-19 VACCINE (2023-2 5 season) 2024 DEPRESSION SCREENING 08/30/2024 INFLUENZA VACCINE (#1) 2025 7, 06/26/2014 ZOSTER VACCINE (1 of 2) 02/01/2042 [...] patient's age to complete this topic Insurance [employer] Care Teams Home Stereo Equipment Installer Relationship Specialty Start Date End Date Liz Carrasco, COBBLER APPRENTICE-VESSEL SLAGMAN [address] [place] [address] PCP - General Nurse Practitioner Family 09/21/17
--- OUTSIDE RECORDS SUMMARY | 2025-04-20 07:24 | XMS_ITS | Clinical Summary ---
Author Organization [facility] Address [address] [place] [address] Care Team Providers Care Supervisor Soakers Name Role Phone Unavailable Primary Care Provider Unavailabl e Social History Tobacco Use Types Packs/Day Years Used Date Smoking Tobacco: Never Assessed Comments Unknown Sex and Gender Information Value Date Recorded Sex Assigned at Not on file Legal Sex Female 8:28 AM CDT Gender Identity Not on file Sexual Orientation Not on file Plan of Treatment Upcoming Encounters Date Type Department Care Team (Late st Contact Info) Description 06/08/2025 8:20 AM CDT Office Visit [facility] Multispecialty Care - [address], [address] [place] [address] Jd Fontanez MD [address] [place] [address] Health Maintenance Due Date Last Done Comments Cervical Cancer Screening Pa p Smear (Age 30 to 64) Every 3 Years 1990 Annual Physical 02/01/1995 Hepatitis C 02/01/2010 DTaP, Tdap and Td Vaccines ( 1 - Tdap) 02/01/2011 Hepatitis B Vaccines (1 of 3 - 19+ 3-dose series) 02/01/2011 HPV Vaccines (1 - 3-dose SCD M series) 02/01/2019 Cervical Cancer Screening Pa p with HPV Testing (Age 30 to 64) Every 5 Years 02/01/2022 Cervical Cancer Screening with HPV 02/01/2022 COVID-19 Vaccine (2023-2 5 season) 2024 Meningococcal B Vaccine Aged Out No l onger eligible based on patient's age to complete this topic Meningococcal Vaccine Aged Out No deirdre javid eligible based on patient's age to complete this topic Pneumococcal Vaccine: Pediat rics (0 to 5 Years) and At-Risk Patients (6 to 49 Years) Aged Out No longer eligible b ased on patient's age to complete this topic RSV Immunizations Under 20 Months Aged Out No longer eligible based on patient's age to complete this topic Insurance
--- OUTSIDE RECORDS SUMMARY | 2025-04-20 07:24 | XMS_ITS | Patient Health Record ---
Author Organization [facility] [employer] [place] ([address]) Address [address] [place] [address] Care Team Providers Care Orthopaedic Physician Assistant Name Role Phone Liz Bowers Primary Care Provider Dr. Tony Spain Unavailable [phone] Gretchen Ye Unavailable Unavailable Kasie Dee Unavailable [phone] Allergies No Known Allergies Reason For Referral [...] as maintenance dose Subcutaneous once every 4 weeks; Duration: 28 days Active Ubrelvy 100 MG 1 tablet Orally twice a day As needed for migraine 07/06/2024 Active Kbfnhlqjrg-DNPV-Wcuja ine 50-325-40 MG Take 1-2 tabs orally a day As needed 09/28/2024 Active Fluticasone Propionate 50 MCG/ACT 2 spray(s) intranasally once a day; Duration: 30 day(s) 07/08/2017 Active Omeprazole 20 MG 1 cap(s) orally Qday Not-Taking Fexofenadine HCl 180 MG 1 tab(s) orally once a day; Duration: 30 day(s) 07/08/2017 Not-Taking Ambien 5 MG 1 tab(s) orally once a day (at bedtime) Not-Taking Rizatriptan Benzoate 10 MG 1 tab(s) orally bid prn; Duration: 30 days 01/20/2023 Not-Taking Sulfamethoxazole-Trim ethoprim 800-160 [...] HCl 60 MG 1 capsule Orally at bedtime; Duration: 30 days 10/12/2024 Active Cyclobenzaprine HCl 10 [...] Status Risk Notes Problem Shortness of breath (286210607) Shortness of breath (R06.02) Active confirmed Problem Chronic migraine without aura, non-refractory (disorder) (319638664926730 ) Migraine without aura, not intractable, without status migrainosus (G43.009) Active confirmed Problem Migraine with aura (1060223) Migraine with aura, not intractable, without status migrainosus (G43.109) Active confirmed Problem Chronic migraine without aura, non-intractable (350538502927145 ) Chronic migraine without aura, not intractable, without status migrainosus (G43.709) Active confirmed Problem Insomnia (777589899) Insomnia, unspecified (G47.00) Active confirmed Problem Chronic pain syndrome (930661607) Chronic pain syndrome (G89.4) Active confirmed Problem Allergic rhinitis caused by pollen (disorder) (69602321) Allergic rhinitis due to pollen (J30.1) Active confirmed Problem Chronic rhinitis (40360309) Chronic rhinitis (J31.0) Active confirmed Problem Gastro-esophagea l reflux disease with esophagitis (543482621) Gastro-esophage al reflux disease with esophagitis (K21.0) Active confirmed Problem Gastro-esophagea l reflux disease without esophagitis (708035945) Gastro-esophage al reflux disease without esophagitis (K21.9) Active confirmed Problem Cough (16825072) Cough (R05) Active confirmed Vital Signs Respiratory Rate 18 /min 10/12/2024 Blood pressure diastolic 83 mm Hg 10/12/2024 Oximetry 96 % 10/12/2024 Height 68 in 10/12/2024 Blood pressure systolic 120 mm Hg 10/12/2024 Weight 250.8 lbs 10/12/2024 BMI 38.13 kg/m2 10/12/2024 Encounters Encounter Location Date Provider Diagnosis [facility] [address] [place], [place] [address] [address] [address] 08/17/2024 Kasie Dee Chronic migraine without aura, not intractable, without status migrainosus G43.[address] [employer] [address] [address] 05/11/2024 Tony Perez Chronic migraine without aura, not intractable, without status migrainosus G43.[address] [employer] [address] [address] 10/12/2024 Kasie Dee Chronic migraine without aura, not intractable, without status migrainosus G43.709 ; Myalgia, unspecified site M79.10 and 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 [place] [address] [employer] [address] [address] 07/06/2024 Kasie Dee Chronic migraine without aura, not intractable, without status migrainosus G43.709 and Myalgia, unspecified site M79.10 [facility] [address] [place] [address] 11/11/2024 Kasie Dee 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 [facility] [address] [place], [place] [address] [address] [place] [address] 10/31/2024 Kasie Dee 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 [facility] [address] [place], [place] [address] [address] [place] [address] 10/30/2024 Tony Perez [facility] [place] [address] [place] [address] 03/27/2025 Kasie Dee [facility] [place] [address] [place] [address] 01/18/2025 Kasie Dee [facility] [place] [address] [place] [address] 12/19/2024 Kasie Dee [facility] [place] [address] [place] [address] 10/19/2024 Kasie Dee [facility] [place] [address] [place] [address] 10/11/2024 Tony Perez [facility] [place] [address] [place] [address] 10/04/2024 Kasie Dee [facility] [place] [address] [place] [address] 09/27/2024 Kasie Dee Chronic migraine without aura, not intractable, without status migrainosus G43.709 [facility] [place] [address] [place] [address] 09/19/2024 Tony Perez [facility] [place] [address] [place] [address] 07/10/2024 Tony Perez [facility] [place] [address] [place] [address] 07/06/2024 Tony Perez Chronic migraine without aura, not intractable, without status migrainosus G43.709 [facility] [address] [place] [address] 07/06/2024 Tony Perez Chronic migraine without aura, not intractable, without status migrainosus G43.709 [facility] [address] [place] [address] 06/15/2024 Tony Perez [facility] [address] [facility] [address] [place] [address] 06/14/2024 Kasie Dee Assessments Encounter Date Diagnosis (ICD Code) Assessment Notes Treatment Notes Treatment Clinical Notes Section Notes 05/11/2024 Chronic migraine without aura, not intractable, [...] duloxetine 30 mg qhs. Plan Of Treatment No Information Insurance Providers Payer Name Payer Address Payer Phone Subscriber Number Group Number Insured Name Patient Relationship to Insured Coverage Start Date Coverage End Date [facility] [address] [address] [place], [place] [id number] Jackie Degroot Self - patient is the [...]
[2025-04-20 08:36] LABS: Cholesterol 211 mg/dL (0-200); HDL Direct 55 mg/dL; Triglycerides 189 mg/dL (<150)
== END 2025-04-20 07:21 | disposition home or self-care (01) ==
LOC: ANHLAB 07:21
PROVIDERS: PCP Nurse Practitioner Family; Visit Provider Nurse Practitioner Family
DX: E78.5 Hyperlipidemia, unspecified (principal)
CPT/HCPCS: 36415; 80061

== ENCOUNTER 2025-05-08 07:43 | Outpatient (CLI) | payer OTHER, SELFPAY ==
--- OUTSIDE RECORDS SUMMARY | 2024-08-03 12:30 | XMS_ITS ---
Author Organization [facility] [place] ([address]) Address [address] [facility] [address] [place] [address] Care Team Providers Care Fleet Assistant Name Role Phone Liz Bowers Primary Care Provider Sharon Dr. Tony Howard Unavailable [phone] Gretchen Ye Unavailable Unavailable Kasie Dee [phone] REASON FOR VISIT Botox Only Encounters Encounter Location Date Provider Diagnosis [facility] [address] [facility] [address] [place] [address] 08/03/2024 Kasie Dee Chronic migraine without aura, not intractable, without status migrainosus G43.709 Assessments Encounter Date Diagnosis (ICD Code) Assessment Notes Treatment Notes Treatment Clinical Notes Section Notes 08/03/2024 Chronic migraine without aura, not intractable, without status migrainosus (ICD-10 - G43.709) Plan Of Treatment Next Appt Details Follow Up: 3 Months, Reason: Toxin injection Progress Notes * Jackie THAKURDOB: 2 (35 yo F)Acc No.[id number]:08/03/2024 Progress Notes Patient: Jackie IZAGUIRRE Provider: Jose Angel Dee APRN :1990 A ge:34 Y S ex:Female Date:08/03/2024 Address:[address] [place], [place] [id number] Pcp:SUE CastP- Subjective: * Chief Complaints: * 1 . Botox Only. * HPI: * Headache: Last injection on 05/11/24: Procerus 5 Units, Last Ironer (Left) 5 Units, Last Ironer (Right) 5 Units, Frontalis (Left) 12.5 Units, Frontalis (Right) 12.5 Units, Temporalis (Left) 25 Units, Temporalis (Right) 25 Units, Occipitalis (Left) 20 Units, Occipitalis (Right) 20 Units, Cervical Paraspinal (Left) 10 Units, Cervical Paraspinal (Right) 10 Units, Trapezius (Left) 15 Units, Trapezius (Right) 15 Units, Masseter (Left) 10 Units, [place] (Right) 10 Units -Current abortive treatment: Fioricet, Ubrelvy 100 mg (resumed after ) -Previous abortive treatment: Rizatriptan (ineffective), Sumatriptan (ineffective) -Current preventive treatment: Botox, Ajovy ( resumed May 2024 after of child) -Previous preventive treatment: Q ulipta, P ropranolol, Metroprolol, Verapramil, Amitryptyline, Venlafaxine (all of these medication trials were > 2 months and were ineffective or inadequately effective) Baseline Headache/Migraine Frequency (prior to Botox) ( days/month): 3 Last Injection Visit Headache/Migraine frequency: Current Headache/Migraine Frequency ( days/month):. * Medical History: Objective: * Vitals: Assessment: * Assessment: 1. C hronic migraine without aura, not intractable, without status migrainosus - G43.709 (Primary) Plan: * Treatment: * Procedure Codes: 6 4615 CHEMODENERV MUSC MIGRAINE, J0585 BOTULINUM TOXIN TYPE A PER UNIT, J0585 BOTULINUM TOXIN TYPE A PER UNIT, Modifiers: JW * Follow Up: 3 Months (Reason: Toxin injection) * Billing Information: * Visit Code: * Procedure Codes: 33986 CHEMODENERV MUSC MIGRAINE. J0585 BOTULINUM TOXIN TYPE A PER UNIT. J0585 BOTULINUM TOXIN TYPE A PER UNIT. Modifiers: JW * Electronic signature of RUT Moss on 05/08/2025 at 08:09 AM CDT Sign off status: Pending * Provider: Jose Angel Dee APRN Date: 1 10/04/2023 Generated for Ishmaeli ng/Famaryg/eTransmitting on: 0 05/08/2025 08:09 AM CDT History and Physical Notes * HPI (History of Present Illness) Category Sub-Category Detail Notes Category Not es *Headache Last injection on 05/11/24: Procerus 5 Units, Last Ironer (Left) 5 Units, Last Ironer (Right) 5 Units, Frontalis (Left) 12.5 Units, Frontalis (Right) 12.5 Units, Temporalis (Left) 25 Units, Temporalis (Right) 25 Units, Occipitalis (Left) 20 Units, Occipitalis (Right) 20 Units, Cervical Paraspinal (Left) 10 Units, Cervical Paraspinal (Right) 10 Units, Trapezius (Left) 15 Units, Trapezius (Right) 15 Units, Masseter (Left) 10 Units, [place] (Right) 10 Units -Current abortive treatment: Fioricet, Ubrelvy 100 mg (resumed after ) -Previous abortive treatment: Rizatriptan (ineffective), Sumatriptan (ineffective) -Current preventive treatment: Botox, Ajovy (resumed May 2024 after of child) -Previous preventive treatment: Qulipta, Propranolol, Metroprolol, Verapramil, Amitryptyline, Venlafaxine (all of these medication trials were > 2 months and were ineffective or inadequately effective) Baseline Headache/Migraine Frequency (prior to Botox) (days/month): 28/08 Last Injection Visit Headache/Migraine frequency: 05/04 Current Headache/Migraine Frequency (days/month):
--- OUTSIDE RECORDS SUMMARY | 2024-09-21 12:30 | XMS_ITS ---
Author Organization [employer] [place] ([address]) Address [address] [place] [address] Care Team Providers Care Ship Joiner Name Role Phone Liz Bowers Primary Care Provider Dr. Tony Spain Unavailable [phone] Gretchen Ye Unavailable Unavailable Kasie Dee Unavailable [phone] Allergies No Known Allergies REASON FOR VISIT [...] days As needed for migraine 07/06/2024 Active Mifxccbgxr-EOZO-Meeoe ine 50-325-40 MG 1-2 caps orally a [...] Not-Taking Medrol 4 MG as directed Not-[place] Amitriptyline HCl 25 MG 1 tab(s) orally once a day (at bedtime) Not-Taking 27-1 MG 1 tablet Orally Once a day Not-Taking Social History Tobacco Use: Social History Observation Description Date Details (start date - stop date) Current Smoker NA - NA Tobacco Control (Standard) Question Answer Notes Tobacco use: Current smoker Encounters Encounter Location Date Provider Diagnosis [facility] [address] [address] 09/21/2024 Kasie Dee Chronic migraine without aura, [...] * Jackie THAKURDOB: 2 (35 yo F)Acc No.[id number]:09/21/2024 Progress Notes Patient: Jackie IZAGUIRRE Provider: Jose Angel Dee APRN :1990 A ge:34 Y S ex:Female Date:09/21/2024 Address:[address] [place], [place] [id number] Pcp:Liz Carrasco, [facility] Subjective: * Chief Complaints: * [...] intense from recent and caring for an infant. 2 . Continue chiropractic treatment. * Interval [...] your bedroom? Y es Do you have rres-qa-ybnu carpeting? Y es Do you sleep with [...] injection Subcutaneous once a month , Taking Djpfsfizyq-QMPJ-Rdwcmqen 50-325-40 MG Capsule 1-2 caps orally a [...] Management * Billing Information: * Visit Code: 96087 Office Visit, Est Pt., Level 4. Modifiers: Office Visit, Est Pt., Level 3. Modifiers: Office Visit, Est Pt., Level 5. Modifiers: 25 * Procedure Codes: 33062 PT-FOCUSED HLTH RISK ASSMT. G8427 DOC MEDS VERIFIED W/PT OR RE. G2211 Complex e/m visit add on. * Electronic signature of Roxy coronafab Dee , BARBARA-Madhav on 05/08/2025 at 08:08 AM CDT Sign off status: Pending * Provider: Jose Angel Dee APRN Date: 0 09/21/2024 Generated for Ishmaeli ng/Famaryg/eTransmitting on: 0 05/08/2025 08:08 AM CDT History and Physical Notes * [...] intense from recent and caring for an .2. Continue chiropractic treatment *Interval History Notes Pharmacologic [...]
--- OUTSIDE RECORDS SUMMARY | 2025-05-07 14:30 | XMS_ITS | Encounter Summary ---
Author Organization [facility] Address [address] [place] [address] Care Team Providers Care Health Education Teacher Name Role Phone Unavailable Primary Care Provider Unavailabl e Reason for Referral * Laboratory Services (Routine) - Open Specialty Diagnoses / Procedures Referred By Contac t Referred To Contact Diagnoses Leukocytosis, unspecified type Elevated platelet count Procedures MPL EXON 10 MUTATION DETECTION Radha Enrique MD [address] [place] [address] Phone: tel: fax: Referral ID Status Reason Start Date Expiration Date Visits Re quested Visits Authorized [id number] Open 05/07/2025 06/07/2026 1 1 * Laboratory Services (Routine) - Open Specialty Diagnoses / Procedures Referred By Contac t Referred To Contact Diagnoses Leukocytosis, unspecified type Elevated platelet count Procedures JAK2 MUTATION Radha Enrique MD [address] [place] [address] Phone: tel: fax: Referral ID Status Reason Start Date Expiration Date Visits Re quested Visits Authorized [id number] Open 05/07/2025 06/07/2026 1 1 * Laboratory Services (Routine) - Open Specialty Diagnoses / Procedures Referred By Contac t Referred To Contact Diagnoses Leukocytosis, unspecified type Procedures BCR/ABL BY FISH Radha Enrique MD [address] [place] [address] Phone: tel: fax: Referral ID Status Reason Start Date Expiration Date Visits Re quested Visits Authorized [id number] Open 05/07/2025 06/07/2026 1 1 Reason for Visit * Reason Comments Establish Care Encounter Details Date Type Department Care Team (Late st Contact Info) Description 05/07/2025 2:30 PM CDT Office Visit [facility] Oncology and Hematology - [address] [place] [address] Radha Enrique MD [address] [place] [address] Leukocytosis, unspecified type (Primary Dx); Elevated platelet count Social History Tobacco Use Types Packs/Day Years Used Date Smoking Tobacco: Former Cigarettes 0.5 15 0 05/07/2006 - 05/07/2021 Smokeless Tobacco: Never Alcohol Use Standard Drinks/Week [...] Sign Reading Time Taken Comments Blood Pressure 155/87 05/07/2025 2:16 PM CDT Pulse 101 05/07/2025 2:13 PM CDT Temperature 36.5 C (97.7 F) 05/07/2025 2:13 PM CDT Respiratory Rate 15 05/07/2025 2:13 PM CDT Oxygen Saturation 96% 05/07/2025 2:13 PM CDT Inhaled Oxygen Concentration - - Weight 116.5 kg (256 lb 12.8 oz) 05/07/2025 2:13 PM CDT Height 172.7 cm (5' 8) 05/07/2025 2:13 PM CDT Body Mass Index 39.05 05/07/2025 2:13 PM CDT documented in this encounter Progress Notes * Radha Enrique MD - 05/07/2025 2:57 PM CDT Hematology-oncology consult Note Requesting Physician Primary Care Physician No primary care provider on file. Problem list Patient Active Problem List Diagnosis Code Leukocytosis D72.829 Elevated platelet count R79.89 Previous TREATMENT ? Measurable Disease ? Reason for Visit Jackie Degroot is a 35 y.o. female who was referred for consultation for leukocytosis and thrombocytosis History of present illness The patient is a pleasant 35-year-old female presented to hematology clinic on 05/07/2025 for furthermanagement of chronic leukocytosis and thrombocytosis. Her labs are below- 02/10/2022-WBC 10.3, hemoglobin 14.7, hematocrit 43.9, platelets 419 K. 03/04/2022-WBC 18.4, hemoglobin 13.5, hematocrit 41.1, platelets 399 K 09/28/2022-WBC 10.3, hemoglobin 14.8, hematocrit 44.4, platelets 424 K 04/02/2024-WBC 14.2, hemoglobin 12.4, hematocrit 37.2, platelets 306 K. 06/04/2024-WBC 21, hemoglobin 13.4, hematocrit 39.4, platelets 235 K 02/23/2025-WBC 13.4, hemoglobin 15.9, hematocrit 48.1, platelets 433 K Patient reports that she has chronic diarrhea with 8-10 bowel watery movements a day since 2011 after her gallbladder surgery. she has seen instrument repairer helper and underwent a colonoscopy on 04/28/2022which showed normal examination with no colitis or polyps. She was asked to take Imodium as needed for diarrhea. More recently she has been hospitalized 02/23/2025-02/24/2025 for nausea vomiting and diarrhea. A CT scan of abdomen and pelvis was performed during the admission on 02/23/2025 which showed hepatomegalywith fatty infiltration. There was fluid in the small and large bowel concerning for colitis. Therewas no appendicitis, diverticulitis, intestine intestinal obstruction. Patient also suffers from chronic migraines and is on Emgality, Ubrelvy, rizatriptan meloxicam combination, Botox injections and still get 5 migraines headaches a month. Patient is a non-smoker and no alcohol use. Past Medical History Past Medical History: Diagnosis Date Back pain Endometriosis GERD without esophagitis Headache Hyperlipidemia Surgical History Past Surgical History: Procedure Laterality Date HX APPENDECTOMY HX BACK SURGERY 06/2024 Dr. Irizarry HX CERVICAL FUSION HX GALLBLADDER SURGERY HX TONSILLECTOMY Medications Current Outpatient Medications Medication Sig Dispense Refill meloxicam (MOBIC) 15 mg tablet Take 15 mg by mouth daily. calcium as CARBONATE (TUMS) 500 mg (200 mg elemental) Tablet, Chewable Take by mouth. omega-3 fatty acids-fish oil 300-1,000 mg Capsule Take by mouth daily. MAGNESIUM OXIDE ORAL Take by mouth. omeprazole (PriLOSEC) 20 mg Capsule, Delayed Release(E.C.) 1 cap(s) orally Qday galcanezumab-gnlm 120 mg/mL Pen Injector Inject 1 mL by subcutaneous injection every 30 days. 1 mL 5 rizatriptan-meloxicam (Symbravo) 10-20 mg Tablet Take 10-20 mg by mouth 1 time daily as needed for Pain. Take 1 tablet by mouth at the onset of migraine. Do not exceed more than one tablet per 24 hours. Do not take other NSAIDS with medication. 9 Tablet 5 acetaminophen (TYLENOL) 500 mg tablet Take 1,000 mg by mouth. DULoxetine (CYMBALTA) 60 mg Capsule, Delayed Release(E.C.) take one capsule by mouth at bedtime Emgality Pen 120 mg/mL Pen Injector Ubrelvy 100 mg tablet TAKE 1 TABLET BY MOUTH TWICE DAILY NEEDED FOR MIGRAINE woriqilvho-nlzehphpqhbdu-kcvenhpi (FIORICET) 50-325-40 mg tablet TAKE 1 TO 2 TABLET BY MOUTH ONCE DAILY NEEDED FOR PAIN cyclobenzaprine (FLEXERIL) 10 mg tablet daily at bedtime. fluticasone propionate (FLONASE) 50 mcg/spray [place], Suspension nasal inhaler Administer 1 [place] ineach nostril daily. No current facility-administered medications for this visit. Allergies No Known Allergies Immunizations: There is no immunization history on file for this patient. Family History Family History Problem Relation Name Age of Onset No Known Problems Father No Known Problems Mother No Known Problems Sister No Known Problems Child Breast Cancer Maternal Grandmother Social History Social History Tobacco Use Smoking status: Former Current packs/day: 0.00 Average packs/day: 0.5 packs/day for 15.0 years (7.5 ttl pk-yrs) Types: Cigarettes Start date: 05/07/2006 Quit date: 05/07/2021 Years since quittin.0 Smokeless tobacco: Never Substance Use Topics Alcohol use: Never Review of Systems Constitutional: Patient did not mention fever; no night sweats; no anorexia; no weight loss; she reports fatigue fatique NEENT: Patient reports chronic migraines and is on prophylaxis stich as well as maintenance medications; no change in vision; no change in hearing; no sore throat; no dysphagia Respiratory: Patient did not mention shortness of breath; no pleuritic chest pain; no cough; no hemoptysis Cardiac: Patient did not mention cardiac-like chest pain; no palpitations; no orthopnea; no PND; noDOE Breasts: Patient did not mention tenderness; no masses GI: Patient did not mention abdominal pain; no nausea; no vomiting; no diarrhea; no hematochezia; no melena : Patient did not mention dysuria; no frequency; no hesitancy; no hematuria Musculosketetal: Patient did not mention bone pain; no arthralgia; no joint swelling; no myalgia; Skin: Patient did not mention pruritis; no rash; no petechiae; no ecchymoses Endocrine: Patient did not mention polydipsia; no polyuria; no unusual weight gain Neuro: Patient did not mention headache; no change in vision; no sensory changes; no muscle weakness; no confusion; no seizures Psych: Patient did not mention anxiety; no depression; Physical Exam Vitals: As per nursing note Constitutional: Well developed, well nourished, no acute distress, non-toxic appearance Teeth and gum. No signs of infection or swelling. Eyes: PERRL, conjunctiva normal HEENT: Atraumatic, external ears normal, nose normal, oropharynx moist, no pharyngeal exudates. no sinus tenderness Neck- normal range of motion, no tenderness, supple Respiratory: No respiratory distress, normal breath sounds, no rales, no wheezing Cardiovascular: Normal rate, normal rhythm, no murmurs, no gallops, no rubs GI: Soft, nondistended, normal bowel sounds, nontender, no splenomegaly, no hepatomegaly, no mass, no rebound, no guarding : No costovertebral angle tenderness Musculoskeletal: No edema, no tenderness, no deformities. Back- no tenderness Integument: Well hydrated, no rash, Digits and nails inspection normal Lymphatic: No lymphadenopathy noted Neurologic: Alert & oriented x 3, CN 2-12 normal, normal motor function, normal sensory function, no focal deficits noted Psychiatric: Speech and behavior appropriate ? labs 02/10/2022-WBC 10.3, hemoglobin 14.7, hematocrit 43.9, platelets 419 K. 03/04/2022-WBC 18.4, hemoglobin 13.5, hematocrit 41.1, platelets 399 K 09/28/2022-WBC 10.3, hemoglobin 14.8, hematocrit 44.4, platelets 424 K 04/02/2024-WBC 14.2, hemoglobin 12.4, hematocrit 37.2, platelets 306 K. 06/04/2024-WBC 21, hemoglobin 13.4, hematocrit 39.4, platelets 235 K 02/23/2025-WBC 13.4, hemoglobin 15.9, hematocrit 48.1, platelets 433 K Assessment / Plan: This is a 35-year-old female with- Leukocytosis and thrombocytosis- patient with persistent leukocytosis and thrombocytosis present since 2021. Leukocytosis is mostly neutrophil predominant. I believe this is likely reactive secondary to inflammation (ongoing diarrhea). However I am ordering MPN profile panel, BCR-ABL FISH, flow cytometry to rule out myelo and lymph or proliferative diseases. She will talk to Dr. Thomas via phone visit in 4 weeks to discuss the test results.. TOBACCO COUNSELING She is not a tobacco/nicotine user. Radha Enrique MD ,05/07/2025 2:57 PM ? Total time spent 60 minutes, two third of the total time spent counseling patient [id number]. CC:? documented in this encounter Plan of Treatment Upcoming Encounters Date Type Department Care Team (Late st Contact Info) Description 06/04/2025 4:30 PM CDT Telephone Check Up [facility] Oncology and Hematology - J[place] [address] [place] [address] Otis Thomas MD [address] [facility] [address] [place] [address] 07/18/2025 11:30 AM PARTY BUS DRIVER Procedure visit [facility] Neurology [facility] [address] [facility] [address] [place] [address] [place] [address] [facility] [address] [place] [address] Scheduled Orders Name Type Priority Associated Diagnoses Orde r Schedule CBC WITH DIFFERENTIAL Lab Stat Leukocytosis, unspecified type Expected: 05/07/2025, Expires: 05/07/2026 COMPREHENSIVE METABOLIC PANEL Lab Stat Leukocytosis, unspecified type Expected: 05/07/2025, Expires: 05/07/2026 C-REACTIVE PROTEIN Lab Routine Leukocytosis, unspecified type Expected: 05/07/2025, Expires: 05/07/2026 SEDIMENTATION RATE Lab Routine Leukocytosis, unspecified type Expected: 05/07/2025, Expires: 05/07/2026 FLOW CYTOMETRY PANEL Lab Routine Leukocytosis, unspecified type Expected: 05/07/2025, Expires: 05/07/2026 BCR/ABL BY FISH Lab Routine Leukocytosis, unspecified type Expected: 05/07/2025, Expires: 05/07/2026 JAK2 MUTATION Lab Routine Leukocytosis, unspecified type Elevated platelet count Expected: 05/07/2025, Expires: 05/07/2026 MPL EXON 10 MUTATION DETECTION Lab Routine Leukocytosis, unspecified type Elevated platelet count Expected: 05/07/2025, Expires: 05/07/2026 MISCELLANEOUS LAB TEST Lab Routine Leukocytosis, unspecified type Elevated platelet count Expected: 05/07/2025, Expires: 05/07/2026 CSF3R MUTATION ANALYSIS Lab Routine Leukocytosis, unspecified type Expected: 05/07/2025, Expires: 05/07/2026 documented as of this encounter Visit Diagnoses Diagnosis Leukocytosis, unspecified type- Primary Elevated platelet count Essential thrombocythemia documented in this encounter
--- NOTE | 2025-05-07 22:36 | CY_PTH ---
PATIENT: Jackie Degroot LOC: [facility] #:[id number] AGE/SX: 35/F ROOM: RE05/08/[address]: Radha Enrique MD : 1990 BED: DIS: 05/08/2025 SPEC #: [id number] RECD: 05/08/25 09:48 STATUS: MELISSA REQ #: [id number] AURELIA: 05/07/25 22:[address]: Radha Enrique DEPT: [facility] Cytology RECD BY: Kristen Wang ENTERED: 05/08/25 09:50 SP TYPE: Cytology OTHR DR: Liz Carrasco APRN Tissues: A - Flow Procedures: Flow Cytometry
--- OUTSIDE RECORDS SUMMARY | 2025-05-08 08:09 | XMS_ITS | Clinical Summary ---
Author Organization [facility] Address [address] [facility] [place] [address] Phone Care Team Providers Care Academic Specialist Name Role Phone Unavailable Primary Care Provider [...] 3 Active fluticasone propionate (FLONASE) 50 mcg/spray [place], Suspension nasal inhaler Administer 1 [place] in each nostril daily. Active rizatriptan-wilbert oxicam (Symbravo) 10-20 mg Tablet Take 10-20 mg by mouth 1 time daily as needed for Pain. Take 1 tablet by mouth at the onset of migraine. Do not exceed more than one tablet per 24 hours. Do not take other NSAIDS with medication. 9 Tablet 5 5 Active galcanezumab-gn lm 120 mg/mL Pen Injector Inject 1 mL by subcutaneous injection every 30 days. 1 mL 5 5 10/22/19 26 Active meloxicam (MOBIC) 15 mg tablet Take 15 mg by mouth daily. 05/24/202 3 Active omeprazole (PriLOSEC) 20 mg Capsule, Delayed Release(E.C.) 1 cap(s) orally Qday Active calcium as CARBONATE (TUMS) 500 mg (200 mg elemental) Tablet, Chewable Take by mouth. Activ e omega-3 fatty acids-fish oil 300-1,000 mg Capsule Take by mouth daily. Active MAGNESIUM OXIDE ORAL Take by mouth. Activ e Hospital, Clinic, or Other Facility Administered Medication Ordered Dose Route Frequency Start Date End Date Status onabotulinumtoxinA (BOTOX) injection 200 UnitsIndications:Chr onic migraine without aura without status migrainosus, not intractable 200 Units IM INTRA-PROCEDURE ONCE 04/25/2025 04/25/2025 Ended Active Problems Problem Noted Date Diagnosed Date Leukocytosis 05/07/2025 Elevated platelet count 05/07/2025 Encounters Date Type Department Care Team Description 05/07/2025 2:30 PM CDT Office Visit [facility] - [address] [facility] [address] [place] [address] Radha Enrique MD Leukocytosis, unspecified type (Primary Dx); Elevated platelet count 04/25/2025 9:15 AM CDT Procedure visit [address] [address] Tony Perez MD Chronic migraine without aura without status migrainosus, not intractable (Primary Dx) 04/23/[address] [address] Yann Nayak 04/20/2025 Orders Only [address] [address] Andry Lincoln (Suellen), SUELLEN 04/20/[address] [address] Andry Lincoln (Suellen), NET MOBILE DEVELOPER update 04/20/[address] [place] [address] TravisYann estevez 04/19/2025 3:00 PM CDT Office Visit [facility] [address] [facility] [address] [place] [address] Andry Lincoln (Showroom Sales Consultant), NET MOBILE DEVELOPER Chronic migraine without aura without status migrainosus, [...] Abstract from Last 3 Months Family History Medical History Relation Name Comments No Known Problems Child No Known Problems Father Breast Cancer Maternal Grandmother No Known Problems Mother No Known Problems Sister Relation Name Status Comments Child Alive Father Alive Maternal Grandmother Alive Mother Alive Sister Alive Social History Tobacco Use Types Packs/Day [...] Mass Index 39.05 05/07/2025 2:13 PM CDT Plan of Treatment Upcoming Encounters Date Type Department Care Team (Late st Contact Info) Description 06/04/2025 4:30 PM CDT Telephone Check Up [facility] - J[address] [facility] [address] [place] [address] Otis Thomas MD [address] [facility] [address] [place] [address] 07/18/2025 11:30 AM DISABILITY LIAISON OFFICER Procedure visit [facility] [address] [facility] [address] [place] [address] [place] [address] [facility] [address] [place] [address] Health Maintenance Due Date Last Done Comments HPV/Cotest (21-29) 02/01/2013 HPV VACCINES (1 - 3-dose SCD M series) 02/01/2019 CERVICAL CANCER SCREENING 02/01/2022 HPV/Cotest (30-65) 02/01/2022 PAP SMEAR 02/01/2022 DTAP/TDAP/TD VACCINES (3 - T d or Tdap) 03/28/2024 03/28/2014, 12/16/2005, 03/09/1997, Additional history exists INFLUENZA VACCINE (#1) 2025 07/06/2017, 2013 HEPATITIS B VACCINES Completed 03/15/2002, 10/07/2001, 08/31/2001 Insurance [facility] CHOICE [id number]
--- OUTSIDE RECORDS SUMMARY | 2025-05-08 08:09 | XMS_ITS | Clinical Summary ---
Author Organization [facility] Address [address] [place] [address] Care Team Providers Care Manager Drug Safety Name Role Phone Unavailable Primary Care Provider [...] Description 06/08/2025 8:20 AM CDT Office Visit [facility] - [address], [address] [place] [address] Jd Fontanez MD [address] [place] [address] Health Maintenance Due Date Last Done Comments [...] Cancer Screening with HPV 02/01/2022 COVID-19 Vaccine ( - 2023-2 5 season) 2025 Meningococcal B Vaccine Aged Out No l [...]
--- OUTSIDE RECORDS SUMMARY | 2025-05-08 08:09 | XMS_ITS | Patient Health Record ---
Author Organization [facility] ([address]) Address [address] [place] [address] Care Team Providers Care It Service Delivery Manager Name Role Phone Liz Bowers Primary Care Provider Dr. Tony Spain Unavailable [phone] Gretchen Ye Unavailable Unavailable Kasie Dee Unavailable [phone] Allergies No Known Allergies Reason For Referral [...] day As needed for migraine 07/06/2024 Active Byegshndre-WOGL-Mmrhy ine 50-325-40 MG Take 1-2 tabs orally [...] Status Risk Notes Problem Shortness of breath (444167531) Shortness of breath (R06.02) Active confirmed Problem Chronic migraine without aura, non-refractory (disorder) (242258722929910 ) Migraine without aura, not intractable, without status migrainosus (G43.009) Active confirmed Problem Migraine with aura (9493527) Migraine with aura, not intractable, without status migrainosus (G43.109) Active confirmed Problem Chronic migraine without aura, non-intractable (690063841983305 ) Chronic migraine without aura, not intractable, without status migrainosus (G43.709) Active confirmed Problem Insomnia (377804592) Insomnia, unspecified (G47.00) Active confirmed Problem Chronic pain syndrome (437176018) Chronic pain syndrome (G89.4) Active confirmed Problem Allergic rhinitis caused by pollen (disorder) (66823122) Allergic rhinitis due to pollen (J30.1) Active confirmed Problem Chronic rhinitis (67759394) Chronic rhinitis (J31.0) Active confirmed Problem Gastro-esophagea l reflux disease with esophagitis (373603488) Gastro-esophage al reflux disease with esophagitis (K21.0) Active confirmed Problem Gastro-esophagea l reflux disease without esophagitis (774763888) Gastro-esophage al reflux disease without esophagitis (K21.9) Active confirmed Problem Cough (45373394) Cough (R05) Active confirmed Vital Signs Respiratory Rate 18 /min 10/12/2024 Oximetry 96 % 10/12/2024 Blood pressure diastolic 83 mm Hg 10/12/2024 Height 68 in 10/12/2024 Blood pressure systolic 120 mm Hg 10/12/2024 Weight 250.8 lbs 10/12/2024 BMI 38.13 kg/m2 10/12/2024 Encounters Encounter Location Date Provider Diagnosis [address] [facility] [address] [address] 05/11/2024 Tony Perez Chronic migraine without aura, not intractable, without status migrainosus G43.[address] [address] 07/06/2024 Kasie Dee Chronic migraine without aura, not intractable, without status migrainosus G43.709 and Myalgia, unspecified site M79.[address] [address] 08/17/2024 Kasie Dee Chronic migraine without aura, not intractable, without status migrainosus G43.[address] [address] 10/12/2024 Kasie Dee Chronic migraine without aura, not intractable, without status migrainosus G43.709 ; Myalgia, unspecified site M79.10 and 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 [facility] [address] [facility] [address] [place] [address] 06/14/2024 Kasie Dee [facility] [place] [address] [place] [place] [address] 06/15/2024 Tony Perez [facility] [place] [address] [place] [place] [address] 07/06/2024 Tony Perez Chronic migraine without aura, not intractable, without status migrainosus G43.709 [facility] [place] [address] [place] [address] 07/06/2024 Tony Perez Chronic migraine without aura, not intractable, without status migrainosus G43.709 [facility] - [place] [address] [place] [address] 07/10/2024 Tony Chris [facility] [place] [address] [place] [address] 09/19/2024 Tony Perez [facility] [place] [address] [place] [place] [address] 09/27/2024 Kasie Dee Chronic migraine without aura, not intractable, without status migrainosus G43.709 [facility] [place] [address] [place] [place] [address] 10/04/2024 Kasie Dee [facility] [place] [address] [place] [address] 10/11/2024 Tony Perez [facility] [place] [address] [place] [address] 10/19/2024 Kasie Dee [facility] [place] [address] [place] [address] 12/19/2024 Kasie Dee [facility] [place] [address] [place] [address] 01/18/2025 Kasie Dee [facility] [place] [address] [place] [address] 03/27/2025 Kasie Dee [facility] [address] [place] [address] 10/30/2024 Tony Perez [facility] [address] [place] [address] 10/31/2024 Kasie Dee 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 [address] 11/11/2024 Kasie Dee 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 09/27/2024 Chronic migraine without aura, not intractable, [...] site (ICD-10 - M79.10) Continue chiropractic treatment. 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 Plan Of Treatment No Information Insurance Providers Payer Name Payer Address Payer Phone Subscriber Number Group Number Insured Name Patient Relationship to Insured Coverage Start Date Coverage End Date [facility] [address] [address] [place], [place] [id number] Jackie Degroot Self - patient is the [...]
--- OUTSIDE RECORDS SUMMARY | 2025-05-08 08:09 | XMS_ITS | Clinical Summary ---
Author Organization [facility] Address [address] [place] [address] Care Team Providers Care Crm Manager Name Role Phone Liz Carrasco TAD-ENTRY LEVEL ASSISTANT MANAGER Primary Care Provider Source Comments [facility],non-owned Affiliates and Associated Physician Practices is amultiple site organization consisting of ambulatory clinics and hospital sitesin [place], [place], [place] and [place]. This disclosure is being madepursuant to the Care Everywhere program and may not contain all information available regarding this patient. 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 OPERATOR Gender Identity Not on file Sexual Orientation Not on file Plan of Treatment Health Maintenance Due Date Last Done Comments HIV SCREENING 02/01/2007 HEPATITIS C SCREENING 01/28/2010 DTAP/TDAP/TD VACCINES (1 - Tdap) 02/01/2011 HEPATITIS B VACCINE (1 of 3 - 19+ 3-dose series) 02/01/2011 HPV VACCINE (1 - 3-dose SCDM series) 02/01/2019 DEPRESSION SCREENING 08/30/2024 COVID-19 VACCINE (1 - 2024-2 5 season) 2025 INFLUENZA VACCINE (#1) 2025 7, 06/26/2014 ZOSTER [...] patient's age to complete this topic Insurance [employer] Care Teams Crm Manager Relationship Specialty Start Date End Date Liz Carrasco APRN-ENTRY LEVEL ASSISTANT MANAGER [address] [place] [address] PCP - General Nurse Practitioner Family 09/21/17
--- OUTSIDE RECORDS SUMMARY | 2025-05-08 08:09 | XMS_ITS | Clinical Summary ---
[facility] Organization [facility] Address [address] [place] [address] Care Team Providers Care Investment Advisor Name Role Phone Liz Carrasco SUPERVISOR COKE HANDLING Primary Care Provider + Liz Carrasco SUPERVISOR COKE HANDLING Unavailable [phone] Liz Carrasco SUPERVISOR COKE HANDLING Unavailable [phone] Allergies No known active allergies Medications omeprazole [...] (LOVENOX SUBQ) Inject under the skin Active lug651-lbdl-dbmfi- om3 25 mg iron-1 mg -400 mg [...] on file Legal Sex Female 11:01 AM ASPNET DEVELOPER Gender Identity Not on file Sexual Orientation [...] patient's age to complete this topic Insurance [facility] Care Teams Investment Advisor Relationship Specialty Start Date End Date Liz Carrasco NP PCP - General Nurse Practitioner 09/28/22 Lzi Carrasco NP 07/24/22 Liz Carrasco NP Nurse Practitioner 06/03/20
--- OUTSIDE RECORDS SUMMARY | 2025-05-08 08:09 | XMS_ITS | Encounter Summary ---
Author Organization [facility] Address [address] [address] Care Team Providers Care Welding Production Supervisor Name Role Phone Andree House MD Primary Care Provider Liz Carrasco NP Primary Care Provider + Liz Carrasco LIMO DRIVER Primary Care Provider + Roland Billingsley MD Primary Care Provid er Liz Carrasco NP Primary Care Provider + Liz Carrasco LIMO DRIVER Unavailable [phone] Liz Carrasco NP Unavailable [phone] Encounter Details Date Type Department Care Team (Late st Contact Info) Description 11/26/2016 Orders Only [facility] ProviderDarnell MD [address] [place] [address] Social History Tobacco Use Types Packs/Day Years Used Date Smoking Tobacco: Never Assessed Comments Unknown Sex and Gender Information Value Date Recorded Sex Assigned at Not on file Legal Sex Female 11:01 AM MANAGER LOAN Gender Identity Not on file Sexual Orientation [...] on filedocumented in this encounter Care Teams Welding Production Supervisor Relationship Specialty Start Date End Date Andree House MD [address] [facility] [address] [place] [address] PCP - General 11/27/16 04/10/20 Liz Carrasco NP [address] [address] PCP - General Nurse Practitioner 04/11/20 06/02/20 Liz Carrasco NP [address] [place] [address] [address] [address] PCP - General 06/03/20 07/23/22 Roland Billingsley MD [address] [place] [address] PCP - General Interventional Cardiology 07/24/2208/31 Liz Carrasco NP [address] [address] PCP - General Nurse Practitioner 09/28/22 Liz Carrasco NP [address] [address] 07/24/22 Liz Carrasco NP [address] [address] Nurse Practitioner 06/03/20 documented as of this encounter
[2025-05-08 08:29] LABS: Hematocrit 45.2 % (37.0-47.0); Hemoglobin 14.6 g/dL (12.0-15.0); Immature Granulocyte Percent A 0.5 % (0-0.5); Lymphocytes Absolute Auto 3.26 K/mm3 (0.9-3.2); Mean Corpuscular HGB Conc 32.3 g/dl (32-36); Mean Corpuscular Hemoglobin 28.6 pg (26-34); Mean Corpuscular Volume 88.5 fl (80-100); Nucleated Red Blood Cells Absolute Auto 0.000 K/mm3 (0.0-0.012); Nucleated Red Blood Cells Perc 0.0 % (0.0-0.2); Platelet Count Result 385 k/mm3 (150-375); Red Blood Count 5.11 M/mm3 (4.2-5.4); White Blood Count 14.7 K/mm3 (4.5-10.0)
[2025-05-08 08:53] LABS: Alanine Aminotransferase 23 U/L (6-35); Albumin Level 4.4 g/dL (3.5-5.1); Alkaline Phosphatase 119 U/L (38-126); Anion Gap 13 mmol/L (4-12); Aspartate Amino Transferase 23 U/L (14-36); Bilirubin,Total 0.4 mg/dL (0.2-1.3); Blood Urea Nitrogen 8 mg/dL (7-17); CRP 1.0 mg/dL (<1.0); Calcium 9.2 mg/dL (8.4-10.2); Carbon Dioxide 24 mmol/L (22-30); Chloride 100 mmol/L (98-107); Estimated Glomerular Filt Rate > 60; Glucose 118 mg/dL (65-110); Potassium 3.3 mmol/L (3.4-5.0); Sodium 137 mmol/L (137-145); Total Protein 7.8 g/dL (6.3-8.2)
[2025-05-16 11:08] LABS: CALR + MPL + E12-E15 YES YES
== END 2025-05-08 07:44 | disposition home or self-care (01) ==
LOC: ANHLAB 07:46
PROVIDERS: PCP Nurse Practitioner Family; Visit Provider Internal Medicine
DX: D72.829 Elevated white blood cell count, unspecified (principal)
CPT/HCPCS: 36415; 80053; 81219; 81270; 85025; 85652; 86140; 88184

== ENCOUNTER 2025-06-05 09:20 | Outpatient (CLI) | payer OTHER, SELFPAY ==
--- OUTSIDE RECORDS SUMMARY | 2024-08-03 12:30 | XMS_ITS ---
Author Organization [facility] [place] ([address]) Address [address] [facility] [address] [place] [address] Care Team Providers Care Fnps Name Role Phone Liz Bowers Primary Care Provider Sharon Dr. Tony Howard Unavailable [phone] Gretchen Ye Unavailable Unavailable Kasie Dee [phone] REASON FOR VISIT Botox Only Encounters Encounter Location Date Provider Diagnosis [facility] [address] [facility] [address] [place] [address] 08/03/2024 Kasie Dee Chronic migraine without aura, not intractable, without status migrainosus G43.709 Assessments Encounter Date Diagnosis (ICD Code) Assessment Notes Treatment Notes Treatment Clinical Notes Section Notes 08/03/2024 Chronic migraine without aura, not intractable, without status migrainosus (ICD-10 - G43.709) Plan Of Treatment Next Appt Details Follow Up: 3 Months, Reason: Toxin injection Progress Notes * Jackie THAKURDOB: 2 (35 yo F)Acc No.[id number]:08/03/2024 Progress Notes Patient: Jackie IZAGUIRRE Provider: Jose Angel Dee APRN :1990 A ge:34 Y S ex:Female Date:08/03/2024 Address:[address] [place], [place] [id number] Pcp:SUE CastP- Subjective: * Chief Complaints: * 1 . Botox Only. * HPI: * Headache: Last injection on 05/11/24: Procerus 5 Units, Reed Polisher (Left) 5 Units, Reed Polisher (Right) 5 Units, Frontalis (Left) 12.5 Units, [...] Information: * Visit Code: * Procedure Codes: 04532 CHEMODENERV MUSC MIGRAINE. J0585 BOTULINUM TOXIN TYPE A PER UNIT. J0585 BOTULINUM TOXIN TYPE A PER UNIT. Modifiers: JW * Electronic signature of RUT Moss on 06/05/2025 at 09:49 AM CDT Sign off status: Pending * Provider: Jose Angel Dee APRN Date: 10/04/2023 Generated for Nery christian/Giovana/eTransmmatteo on: 09:49 AM CDT History and Physical Notes * HPI (History of Present Illness) Category Sub-Category Detail Notes Category Not es *Headache Last injection on 05/11/24: Procerus 5 Units, Reed Polisher (Left) 5 Units, Reed Polisher (Right) 5 Units, Frontalis (Left) 12.5 Units, [...]
--- OUTSIDE RECORDS SUMMARY | 2024-09-21 12:30 | XMS_ITS ---
Author Organization [employer] ([address]) Address [address] [place] [address] Care Team Providers Care Tractor Operator Name Role Phone Liz Bowers Primary Care Provider Dr. Tony Spain Unavailable [phone] Gretchen Ye Unavailable Unavailable Kasie Dee Unavailable [phone] Allergies No Known Allergies REASON FOR VISIT [...] days As needed for migraine 07/06/2024 Active Hxewwiugnt-YAUM-Qlcti ine 50-325-40 MG 1-2 caps orally a [...] Not-Taking Medrol 4 MG as directed Not-[place] Amitriptyline HCl 25 MG 1 tab(s) orally once a day (at bedtime) Not-Taking 27-1 MG 1 tablet Orally Once a day Not-Taking Social History Tobacco Use: Social History Observation Description Date Details (start date - stop date) Current Smoker NA - NA Tobacco Control (Standard) Question Answer Notes Tobacco use: Current smoker Encounters Encounter Location Date Provider Diagnosis [facility] [address] [address] 09/21/2024 Kasie Dee Chronic migraine without aura, [...] * Jackie THAKURDOB: 2 (35 yo F)Acc No.[id number]:09/21/2024 Progress Notes Patient: Jackie IZAGUIRRE Provider: Jose Angel Dee APRN :1990 A ge:34 Y S ex:Female Date:09/21/2024 Address:[address] [place], [place] [address] Pcp:Liz Carrasco, [facility] Subjective: * Chief Complaints: * 1 . [...] your bedroom? Y es Do you have tbke-ne-ivrs carpeting? Y es Do you sleep with [...] injection Subcutaneous once a month , Taking Acqpaohyyx-KGDX-Syvdpgsb 50-325-40 MG Capsule 1-2 caps orally a [...] Management * Billing Information: * Visit Code: 95242 Office Visit, Est Pt., Level 4. Modifiers: Office Visit, Est Pt., Level 3. Modifiers: Office Visit, Est Pt., Level 5. Modifiers: 25 * Procedure Codes: 98883 PT-FOCUSED HLTH RISK ASSMT. G8427 DOC MEDS VERIFIED W/PT OR RE. G2211 Complex e/m visit add on. * Electronic signature of Roxy coronafab Dee , BARBARA-Madhav on 06/05/2025 at 09:49 AM CDT Sign off status: Pending * Provider: Jose Angel Dee APRN Date: 0 09/21/2024 Generated for Ishmaeli anahi/Giovana/eTransmitting on: 1 09:49 AM CDT History and Physical Notes [...]
--- OUTSIDE RECORDS SUMMARY | 2025-06-04 16:30 | XMS_ITS | Encounter Summary ---
Author Organization [facility] Address [address] [place] [address] Care Team Providers Care Rough Carpenter Name Role Phone Unavailable Primary Care Provider Unavailabl e Encounter Details Date Type Department Care Team (Late st Contact Info) Description 06/04/2025 4:30 PM CDT Telephone Check Up [facility] Oncology and Hematology - [address] [facility] [address] [place] [address] Otis Thomas MD [address] [facility] [address] [place] [address] Leukocytosis, unspecified type (Primary Dx) Social History Tobacco Use Types Packs/Day Years [...] on file documented as of this encounter Progress Notes * Otis Thomas MD - 06/04/2025 5:04 PM CDT HEMATOLOGY / ONCOLOGY PROGRESS NOTE Patient Identification: Name: Jackie Degroot Age: 35 y.o. Sex: female : 1990 DIAGNOSIS Leukocytosis and thrombocytosis CURRENT TREATMENT Expectant TREATMENT HISTORY SUBJECTIVE This is a phone visit with patient. She has been dealing with chronic hip and back pain. She has been seeing the pain service. Denies any other new complaint. Review of system Constitutional: Patient did not mention fevers, sweats, fatigue, malaise, weight loss HEENT: Patient did not mention sinus congestion, hearing or vision problems Respiratory: Patient did not mention cough, dyspnea, wheeze Cardiovascular: Patient did not mention chest pain, exertional chest pressure/discomfort, nausea, syncope, shortness of breath GI: Patient did not mention constipation, diarrhea, dsyphagia, reflux symptoms, vomiting, melena : Patient did not mention dysuria, frequency, incontinence, urgency Integumentary system: no lymphadenopathy, sweats, flushing Musculoskeletal: Patient not mention: myalgia, chronic hip and back arthralgia Neurological: Patient did not mention blurry or disturbed vision, numbness/weakness, dizziness Skin: No lumps, bumps or rashes. Objective: Vital signs in last 24 hours: As per nursing note Exam: This is a phone visit [facility] Labs from May 08 showed WBC 14.7 hemoglobin 14.6 platelet 385,000 neutrophils 70.1% [id number]% ESR 11 C-reactive protein 1.0 JAK2 mutation not detected BCR-ABL translocation not detected @IMAGEIMP@ Assessment: Plan: Patient Active Problem List Diagnosis Date Noted Leukocytosis 05/07/2025 Elevated platelet count 05/07/2025 Reactive thrombocytosis and leukocytosis. JAK2 mutation negative. BCR-ABL translocation not detected. C-reactive protein and sedimentation rate came back normal. She is been dealing with chronic backpain and hip pain. She has been seen by the pain management. She will continue to follow-up with them. We will repeat labs again in 6 months. No need for bone marrow biopsy testing at this time. Chronic back pain and hip pain. She will follow-up with the pain clinic. ? TOBACCO COUNSELING She is not a tobacco/nicotine user. 06/04/2025 Otis Thomas MD Patient's identity confirmed yes Patient gave verbal consent to have these services billed to their insurance and expressed understanding that co-insurance and deductible may apply: yes Patient was located At home This encounter was completed via two-way synchronous audio only communication. Video technology available to provider, but patient not capable of, or doesn't consent to, use of video. Time spent in discussion with patient: 15 minutes. documented in this encounter Plan of Treatment Upcoming Encounters Date Type Department Care Team (Late st Contact Info) Description 07/18/2025 11:30 AM INDEPENDENT JEWELER Procedure visit [facility] Neurology [facility] [address] [facility] [address] [place] [address] [place] [address] [facility] [address] [place] [address] 12/07/2025 10:00 AM CDT Office Visit [facility] Oncology and Hematology - [place] [address] [facility] [address] [place] [address] Otis Thomas MD [address] [facility] [address] [place] [address] Scheduled Orders Name Type Priority Associated Diagnoses Orde r Schedule CBC WITH DIFFERENTIAL Lab Stat Leukocytosis, unspecified type Expected: 12/03/2025, Expires: 06/04/2026 documented as of this encounter Visit Diagnoses Diagnosis Leukocytosis, unspecified type- Primary documented in this encounter
--- NOTE | ~2025-06-05 | XR_ITS ---
EXAMINATION: XR fl inj hip RT for MR/CT DATE: 06/05/2025 10:38 INDICATION: Right hip pain TECHNIQUE: A time-out was performed to verify the patient's name, date of , and procedure to be performed. The procedure including the risks, benefits, and alternatives was discussed with the patient. Risks discussed included bleeding and infection. The patient understood the risks and agreed to proceed. The skin overlying the right joint was prepped and draped in usual sterile fashion. Anesthetic was administered with 1% lidocaine subcutaneously. A 22 G needle was advanced under fluoroscopic guidance into the joint. Injection of 1 mL of Omnipaque 240 confirmed intra-articular position of the needle. Subsequently, injectate consisting of 12 mL of 2:1:1 mixture of sterile saline:Omnipaque 240:1% lidocaine mixed 200:1 with 529 mg/mL Multihance gadolinium contrast was injected with intra-articular administration confirmed with intermittent fluoroscopy. The needle was removed and the entry site was cleaned and dressed. There were no immediate complications. Fluoroscopy exposure time was 0.1 minutes. The total number of images was 8. Total DAP was 0.753 Gycm^2. FINDINGS: Real-time fluoroscopy demonstrates the needle and injected contrast in the right hip joint. IMPRESSION: 1. Successful right hip joint injection of a dilute gadolinium contrast mixture for subsequent MRI arthrogram which will be dictated separately. See separate MRI arthrogram report for further detail.. Reviewed, dictated and finalized at location A.
--- NOTE | ~2025-06-05 | MR_ITS ---
EXAMINATION: MR hip RT w con DATE: 06/05/2025 11:54 INDICATION: Right hip pain TECHNIQUE: Magnetic resonance (MR) arthrogram of the right hip was performed following intra-articular gadolinium contrast injection and without intravenous contrast. Details of the hip joint injection have been dictated separately. Sequences included large srvno-es-dnyg of the pelvis with coronal PD-weighted FS FSE, axial T1 and T2-weighted FS FSE and small field of view of the right hip with axial and coronal T1-weighted FS SE and T2-weighted FS FSE and sagittal T2- weighted FS FSE. Additional T1-weighted FGRE images in a radial pattern oriented orthogonal to the acetabular rim were obtained for evaluation of the labrum. COMPARISON: None. FINDINGS: Bones/labrum/cartilage: Alignment is normal. No fracture, avascular necrosis or pathologic marrow replacing process. Labrum is normal. Articular cartilage is normal. Fluid: Physiologic amount of fluid in the left hip joint. No other abnormal fluid collections. Soft tissues: Normal and symmetric muscle bulk and signal in the pelvis and visualized proximal thighs. The bilateral iliopsoas, gluteal and proximal hamstring tendons are normal. There are a few subcentimeter T2 hyperintense cyst/follicles at both ovaries. Limited evaluation of visceral organs of the pelvis is otherwise unremarkable. No pathologically enlarged pelvic/inguinal lymphadenopathy. IMPRESSION: 1. Normal right hip. No etiology identified for reported right hip pain. Reviewed, dictated and finalized at location A.
--- OUTSIDE RECORDS SUMMARY | 2025-06-05 09:49 | XMS_ITS | Encounter Summary ---
Author Organization [facility] Address [address] [address] Care Team Providers Care Inbound Sales Advisor Name Role Phone Andree House MD Primary Care Provider Liz Carrasco NP Primary Care Provider + Liz Carrasco INSPECTOR WEIGHTS AND MEASURES Primary Care Provider + Roland Billingsley MD Primary Care Provid er Liz Carrasco NP Primary Care Provider + Liz Carrasco INSPECTOR WEIGHTS AND MEASURES Unavailable [phone] Liz Carrasco NP Unavailable [phone] Encounter Details Date Type Department Care Team (Late st Contact Info) Description 11/26/2016 Orders Only [facility] ProviderDarnell MD [address] [place] [address] Social History Tobacco Use Types Packs/Day Years Used Date Smoking Tobacco: Never Assessed Comments Unknown Sex and Gender Information Value Date Recorded Sex Assigned at Not on file Legal Sex Female 11:01 AM WEB ANALYTICS SPECIALIST Gender Identity Not on file Sexual Orientation [...] on filedocumented in this encounter Care Teams Inbound Sales Advisor Relationship Specialty Start Date End Date Andree House MD [address] [facility] [address] [place] [address] PCP - General 11/27/16 04/10/20 Liz Carrasco NP [address] [address] PCP - General Nurse Practitioner 04/11/20 06/02/20 Liz Carrasco NP [address] [place] [address] [address] [address] PCP - General 06/03/20 07/23/22 Roland Billingsley MD [address] [place] [address] PCP - General Interventional Cardiology 07/24/2208/31 Liz Carrasco NP [address] [address] PCP - General Nurse Practitioner 09/28/22 Liz Carrasco NP [address] [address] 07/24/22 Liz Carrasco NP [address] [address] Nurse Practitioner 06/03/20 documented as of this encounter
--- OUTSIDE RECORDS SUMMARY | 2025-06-05 09:49 | XMS_ITS | Clinical Summary ---
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 Care Teams Termite Control Technician Relationship Specialty Start Date End Date Liz Carrasco NP PCP - General Nurse Practitioner 09/28/22 Liz Carrasco NP 07/24/22 Liz Carrasco NP Nurse Practitioner 06/03/20
--- OUTSIDE RECORDS SUMMARY | 2025-06-05 09:49 | XMS_ITS | Encounter Summary ---
Author Organization [facility] Address [address] [place] [address] Care Team Providers Care Cap Lining Machine Operator Name Role Phone Unavailable Primary Care Provider Unavailabl e Reason for Visit * Reason Onset Date Comments Follow Up Call 06/05/2025 Pt needs to brin atif disc to her appointment Encounter Details Date Type Department Care Team (Late st Contact Info) Description 06/05/2025 Telephone [facility] - [address], [address] [place] [address] Jd Fontanez MD [address] [place] [address] Follow Up Call (Pt needs to bring disc to her appointment ) Social History Tobacco Use Types Packs/Day Years Used Date Smoking Tobacco: Never Assessed Comments Unknown Sex and Gender Information Value Date Recorded Sex Assigned at Not on file Legal Sex Female 8:28 AM CDT Gender Identity Not on file Sexual Orientation Not on file documented as of this encounter Progress Notes * Anna Middleton MA - 06/05/2025 9:25 AM CDT LVM to inform patient she needs to bring in the imaging disc. documented in this encounter Plan of Treatment Upcoming Encounters Date Type Department Care Team (Late st Contact Info) Description 06/08/2025 8:20 AM CDT Office Visit [facility] - [address], [address] [place] [address] Jd Fontanez MD [address] [place] [address] documented as of this encounter Visit Diagnoses Not on filedocumented in this encounter
--- OUTSIDE RECORDS SUMMARY | 2025-06-05 09:50 | XMS_ITS | Clinical Summary ---
Author Organization [email or web address] Address [address] [facility] [place] [address] Care Team Providers Care Quitline Counselor Name Role Phone Liz Carrasco TAD-NETWORK SECURITY ADMINISTRATOR Primary Care Provider Source Comments [email or web address],non-owned Affiliates and Associated Physician Practices is amultiple site organization consisting of ambulatory clinics and hospital sitesin [place], [place], [place] and [place]. This disclosure is being madepursuant to the Care Everywhere program and may not contain all information available regarding this patient. Last updated 18.[email or web address] Allergies No known active allergies Medications * [...] on file Legal Sex Female 12:21 PM RIPSAW GRADER Gender Identity Not on file Sexual Orientation [...] patient's age to complete this topic Insurance [employer] Care Teams Quitline Counselor Relationship Specialty Start Date End Date Liz Carrasco APRN-NETWORK SECURITY ADMINISTRATOR [address] [place] [address] PCP - General Nurse Practitioner Family 09/21/17
--- OUTSIDE RECORDS SUMMARY | 2025-06-05 09:50 | XMS_ITS | Clinical Summary ---
Author Organization [facility] Address [facility] [place] [address] Care Team Providers Care Complex Commercial Litigation Paralegal Name Role Phone Unavailable Primary Care Provider Unavailabl e Encounters Date Type Department Care Team Description 06/05/[address], [address] [place] [address] [phone] Jd Fontanez MD Follow Up Call (Pt needs to bring disc to her appointment ) from Last 3 Months Social History Tobacco Use Types Packs/Day Years [...] Description 06/08/2025 8:20 AM CDT Office Visit [address], [address] [place] [address] [phone] Jd Fontanez MD [address] [place] [id number] Health Maintenance Due Date Last Done Comments [...] HPV 02/01/2022 COVID-19 Vaccine (2023-2 5 season) 2025 Influenza Adult (#1) 2025 Meningococcal B Vaccine Aged Out No [...]
--- OUTSIDE RECORDS SUMMARY | 2025-06-05 09:50 | XMS_ITS | Clinical Summary ---
Author Organization [facility] Address [address] [facility] [place] [address] Phone Care Team Providers Care Inorganic Chemistry Professor Name Role Phone Unavailable Primary Care Provider [...] 3 Active fluticasone propionate (FLONASE) 50 mcg/spray [place], Suspension nasal inhaler Administer 1 [place] in each nostril daily. Active rizatriptan-wilbert oxicam [...] OXIDE ORAL Take by mouth. Activ e Active Problems Problem Noted Date Diagnosed Date Leukocytosis 05/07/2025 Elevated platelet count 05/07/2025 Encounters Date Type Department Care Team Description 06/04/2025 4:30 PM CDT Telephone Check Up [facility] [address] [place] [phone] Otis Thomas MD Leukocytosis, unspecified type (Primary Dx) 05/18/[address] [address] Yann Nayak 05/08/2025 Abstract [facility] [address] [place] [address] Otis Thomas MD 05/07/2025 2:30 PM CDT Office Visit [facility] [address] [place] [address] Radha Enrique MD Leukocytosis, unspecified type (Primary Dx); Elevated platelet count 04/25/2025 9:15 AM CDT Procedure visit [address] [address] Tony Perez MD Chronic migraine without aura without status migrainosus, not intractable (Primary Dx) 04/23/[address] [address] Yann Nayak 04/20/2025 Orders Only [address] [phone] Andry Lincoln (Diamond Driller), CERAMIC CAPACITOR PROCESSOR 04/20/2025 Telephone [facility] [address] [facility] [address] [place] [address] Andry Lincoln (Diamond Driller), CERAMIC CAPACITOR PROCESSOR update 04/20/2025 Abstract [facility] [address] [facility] [address] [place] [address] Yann Nayak 04/19/2025 3:00 PM CDT Office Visit [facility] [address] [facility] [address] [place] [address] Andry Lincoln (Diamond Driller), CERAMIC CAPACITOR PROCESSOR Chronic migraine without aura without status migrainosus, [...] st Contact Info) Description 07/18/2025 11:30 AM CARPENTER [employer]IP Procedure visit [facility] [address] [facility] [address] [place] [address] [place] [address] [facility] [address] [place] [address] 12/07/2025 10:00 AM CDT Office Visit [facility] - J[facility] [address] [facility] [address] [place] [address] Otis Thomas MD [address] [facility] [address] [place] [address] Health Maintenance Due Date Last [...]
--- OUTSIDE RECORDS SUMMARY | 2025-06-05 09:50 | XMS_ITS | Patient Health Record ---
Author Organization [facility] [place] ([address]) Address [address] [place] [address] Care Team Providers Care Autistic Teacher Name Role Phone Liz Bowers Primary Care Provider Dr. Tony Spain Unavailable [phone] Gretchen Ye Unavailable Unavailable Kasie Dee Unavailable [phone] Allergies No Known Allergies Reason For Referral [...] day As needed for migraine 07/06/2024 Active [id number]-HMDL-Luuts ine 50-325-40 MG Take 1-2 tabs orally [...] Status Risk Notes Problem Shortness of breath (454911776) Shortness of breath (R06.02) Active confirmed Problem Chronic migraine without aura, non-refractory (disorder) (481709080005210 ) Migraine without aura, not intractable, without status migrainosus (G43.009) Active confirmed Problem Migraine with aura (8513416) Migraine with aura, not intractable, without status migrainosus (G43.109) Active confirmed Problem Chronic migraine without aura, non-intractable (323330529383349 ) Chronic migraine without aura, not intractable, without status migrainosus (G43.709) Active confirmed Problem Insomnia (084990280) Insomnia, unspecified (G47.00) Active confirmed Problem Chronic pain syndrome (670641653) Chronic pain syndrome (G89.4) Active confirmed Problem Allergic rhinitis caused by pollen (disorder) (67322592) Allergic rhinitis due to pollen (J30.1) Active confirmed Problem Chronic rhinitis (84436086) Chronic rhinitis (J31.0) Active confirmed Problem Gastro-esophagea l reflux disease with esophagitis (356120581) Gastro-esophage al reflux disease with esophagitis (K21.0) Active confirmed Problem Gastro-esophagea l reflux disease without esophagitis (009815036) Gastro-esophage al reflux disease without esophagitis (K21.9) Active confirmed Problem Cough (92130501) Cough (R05) Active confirmed Vital Signs Respiratory Rate 18 /min 10/12/2024 Blood pressure diastolic 83 mm Hg 10/12/2024 Oximetry 96 % 10/12/2024 Height 68 in 10/12/2024 Blood pressure systolic 120 mm Hg 10/12/2024 Weight 250.8 lbs 10/12/2024 BMI 38.13 kg/m2 10/12/2024 Encounters Encounter Location Date Provider Diagnosis [facility] [address] [place] [address] 08/17/2024 Kasie Dee Chronic migraine without aura, not intractable, without status migrainosus G43.709 [address] [address] 10/12/2024 Kasie Dee Chronic migraine without aura, not intractable, without status migrainosus G43.709 ; Myalgia, unspecified site M79.10 and 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 [address] 07/06/2024 Kasie Dee Chronic migraine without aura, not intractable, without status migrainosus G43.709 and Myalgia, unspecified site M79.10 [address] [place] [address] 11/11/2024 Kasie Dee 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 [facility] [address] [place] [address] 10/31/2024 Kasie Dee 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 [email or web address] [address] [place] [address] 10/30/2024 Tony Perez [facility] [place] [address] [place] [address] 03/27/2025 Kasie Dee [facility] [place] [address] [place] [address] 01/18/2025 Kasie Dee [facility] [place] [address] [place] [address] 12/19/2024 Kasie Dee [facility] [place] [address] [place] [address] 10/19/2024 Kasie Dee [facility] [place] [address] [place] [address] 10/11/2024 Tony Perez [facility] [place] [address] [place] [address] 10/04/2024 Kasie Dee [facility] [place] [address] [place] [address] 09/27/2024 Kasie Dee Chronic migraine without aura, not intractable, without status migrainosus G43.709 [facility] [place] [address] [place] [address] 09/19/2024 Tony Perez [facility] [place] [address] [place] [address] 07/10/2024 Tony Perez [facility] [place] [address] [place] [address] 07/06/2024 Tony Perez Chronic migraine without aura, not intractable, without status migrainosus G43.709 [facility] [place] [address] [place] [address] 07/06/2024 Tony Perez Chronic migraine without aura, not intractable, without status migrainosus G43.709 [facility] [address] [place] [address] 06/15/2024 Tony Perez [facility] [address] [facility] [address] [place] [address] 06/14/2024 Kasie Dee Assessments Encounter Date Diagnosis [...] Insured Coverage Start Date Coverage End Date [facility] [address] [address] [place], [place] [id number] Jackie Degroot Self - patient is the [...]
== END 2025-06-05 09:21 | disposition home or self-care (01) ==
PROVIDERS: PCP Nurse Practitioner Family
DX: M25.551 Pain in right hip (principal)
CPT/HCPCS: 20610; 73722; 77002; A9577; Q9966